=== PATIENT | female | born 1940 | race Caucasian/White ===

== ENCOUNTER → 2017-01-09 | Outpatient (CLI) | payer OTHER ==
[2017-01-09 18:20] LABS: Blood Urea Nitrogen 19 mg/dL (7-17); Non-African American GFR(MDRD) >60 (>60 ml/min/1.73 sqM)
--- NOTE | 2017-01-09 20:45 | CT ---
EXAMINATION TYPE: CT abdomen pelvis w con DATE OF EXAM: 01/09/2017 COMPARISON: NONE HISTORY: Pelvic pain with diarrhea CT DLP: 2700.6 mGycm Automated exposure control for dose reduction was used. TECHNIQUE: Helical acquisition of images was performed from the lung bases through the pelvis. CONTRAST: Performed with Oral Contrast and with IV Contrast, patient injected with 100 mL of Omnipaque 300. FINDINGS: Lung bases are clear. There is no pleural effusion. The liver spleen pancreas appear normal. There are clips from cholecystectomy. Bile ducts are not dil ated. There is no adrenal mass. Kidneys show satisfactory contrast opacification. There is no hydrone phrosis. There is no retroperitoneal adenopathy. Exam is limited by the obesity. There are multiple s igmoid diverticula. There is no sign of diverticulitis. There is no ascites. Appendix appears normal. I see no intestinal wall thickening. There are no dilated loops. There is multilevel moderate spondy losis in the lumbar spine. There is L3-4 bony spinal stenosis. Heart is probably enlarged. IMPRESSION: CARDIOMEGALY. SIGMOID DIVERTICULOSIS WITHOUT SIGN OF DIVERTICULITIS. NORMAL APPENDIX. MODERATE L3-4 BONY SPINAL STENOSIS.
== END ==
LOC: RADCTMAIN 17:50
PROVIDERS: ATTEND Family Medicine
DX: K57.30 Diverticulosis of large intestine without perforation or abscess without bleeding (principal); K57.32 Diverticulitis of large intestine without perforation or abscess without bleeding
CPT/HCPCS: 82565; 84520; 74177; 36415; Q9967

== ENCOUNTER 2019-09-08 07:09 | Day surgery (SDC) | payer MEDICARE, OTHER ==
[2019-09-04 14:16] VITALS: BMI 45.7
[~2019-09-08 07:09] MED LIST: ALPRAZolam 0.25 MG TAB PO PRN; ALPRAZolam 0.5 MG TAB PO PRN; ASPIRIN 325 MG TAB PO ONE; ATORVASTATIN 80 MG TAB PO ONE; NITROGLYCERIN SL TABS 0.4 MG TAB SUBLINGUAL PRN; SODIUM CHLORIDE 0.9% 1,000 ML in EMPTY BAG 1 BAG IV ONE; fentaNYL (PF) 50 MCG/ML 2 ML AMP ONE
[2019-09-08] MEDS ORDERED: LIDOCAINE 1% INJ 10MG/ML (20 ML MDV) ONE (07:13)
[2019-09-08 07:26] VITALS: TEMP 97.8
[2019-09-08 07:32] LABS: Glucose,Whole Blood 190 mg/dL (75-99)
[2019-09-08] MEDS: BENZOCAINE SPRAY 1 CAN TOPICAL ONE ×2 (07:38→07:41)
[2019-09-08] MEDS ORDERED: fentaNYL (PF) 50 MCG/ML 2 ML AMP IVP ONE (07:41)
[2019-09-08] MEDS: MIDAZOLAM 2 MG/2 ML VIAL IVP ONE ×2 (07:41→07:43)
[2019-09-08 07:42] LABS: Basophils % (A) 0 %; Eosinophils # (A) 0.1 k/uL (0-0.7); Eosinophils % (A) 2 %; HCT 36.3 % (34.0-46.0); HGB 12.2 gm/dL (11.4-16.0); Lymphocytes # (A) 1.7 k/uL (1.0-4.8); Lymphocytes % (A) 22 %; MCH 31.2 pg (25.0-35.0); MCHC 33.5 g/dL (31.0-37.0); MCV 93.1 fL (80.0-100.0); Mean Platelet Volume 8.8; Monocytes # (A) 0.3 k/uL (0-1.0); Monocytes % (A) 5 %; Neutrophils # (A) 5.2 k/uL (1.3-7.7); Neutrophils % (A) 70 %; Platelet Count 174 k/uL (150-450); RDW 12.8 % (11.5-15.5); WBC 7.4 k/uL (3.8-10.6)
[2019-09-08 07:52] LABS: Calcium 11.2 mg/dL (8.4-10.2); Potassium 3.6 mmol/L (3.5-5.1)
[2019-09-08] MEDS ORDERED: VERAPAMIL 2.5 MG/ML 2 ML AMP ONE (08:01)
[2019-09-08] MEDS ORDERED: LIDOCAINE 1% INJ 10MG/ML (20 ML MDV) SQ ONE (08:19)
[2019-09-08] MEDS ORDERED: VERAPAMIL SYRINGE (5 MG/10 ML) INTRAARTER ONE (08:20)
[2019-09-08] MEDS ORDERED: HEPARIN SODIUM 1,000 UN/ML (10ML VL) ONE (08:24)
[2019-09-08] MEDS ORDERED: HEPARIN SODIUM 1,000 UN/ML (10ML VL) IV ONE (08:25)
[2019-09-08] MEDS ORDERED: IOPAMIDOL-370 125ML BTL INJ ONE (08:35)
[2019-09-08] MEDS ORDERED: RX INFO: IV CONTRAST WAS GIVEN 1 EACH MISC MISCELLANE PRN (08:42)
[2019-09-08] MEDS ORDERED: TRIAMCINOLONE ACETONIDE EA NOSTRIL PRN (08:43)
[2019-09-08] MEDS ORDERED: SODIUM CHLORIDE 0.9% 1,000 ML IV SCH (08:45)
[2019-09-08] MEDS ORDERED: ALBUTEROL NEBULIZED 2.5 MG/3 ML INHALATION SCH (08:45)
--- NOTE | 2019-09-08 08:55 | ECHOT ---
TRANSESOPHAGEAL ECHOCARDIOGRAM INDICATION: Evaluation of mitral valve. PROCEDURE: After explaining the procedure to the patient, its risks and the complications, blood pressure, heart rate, O2 saturation was monitored. The throat was sprayed with Cetacaine. She received 2 mg intravenous Versed and 25 mcg intravenous fentanyl. The probe was introduced esophagus without difficulty. Images were obtained. Following that, the probe was removed with no immediate complication. FINDINGS: Left atrial size is dilated. Left atrial appendage is normal. Left ventricular size and systolic function normal. The aortic valve revealed mild fibrocalcific change of the aortic cusp with preserved opening. Mitral valve appears to be normal. Tricuspid valve is normal. Descending thoracic aorta appears to be normal. The interatrial septum is aneurysmal and there is evidence of patent foramen ovale with [id number] shunting with contrast bubble study. No pericardial effusion was noted. Descending thoracic aorta appears to be normal. Doppler, pulse wave and color Doppler obtained and revealed a moderate mitral and tricuspid regurgitation with evidence patent foramen ovale with [id number] shunting by color Doppler study. CONCLUSION: 1. Dilated left atrium with normal appearance left atrial appendage. 2. Normal left ventricular size and systolic function. 3. Mild atherosclerotic changes of the aortic valve with preserved opening. 4. Moderate mitral and tricuspid regurgitation. 5. Patent foramen ovale with [id number]-jk-[id number] shunting with aneurysmal interatrial septum. 6. Normal appearance of the descending thoracic aorta. 7. No pericardial effusion. MMODL / IJN: [id number] /
[2019-09-08] MEDS ORDERED: CLOPIDOGREL 75 MG TAB PO SCH (09:00)
[2019-09-08] MEDS ORDERED: NON FORMULARY DRUG (Mometasone/Formoterol [Dulera 200 Mcg/5 Mcg Inhaler] 2 PUFF) INHALATION SCH (09:00)
[2019-09-08] MEDS ORDERED: HYDROCHLOROTHIAZIDE PO SCH (09:00)
[2019-09-08] MEDS ORDERED: ESCITALOPRAM 20 MG TAB PO SCH (09:00)
[2019-09-08] MEDS ORDERED: LEVOTHYROXINE 88 MCG TAB PO SCH (09:00)
[2019-09-08] MEDS ORDERED: ISOSORBIDE MONONITRATE ER 30 MG TAB.ER.24H PO SCH (09:00)
[2019-09-08] MEDS ORDERED: MECLIZINE 25 MG TAB PO SCH (09:00)
[2019-09-08] MEDS ORDERED: LOSARTAN PO SCH (09:00)
[2019-09-08] MEDS ORDERED: MAGNESIUM OXIDE 400 MG TAB PO SCH (09:00)
[2019-09-08] MEDS ORDERED: METOPROLOL TARTRATE 25 MG TAB PO SCH (09:00)
[2019-09-08] MEDS ORDERED: GLIMEPIRIDE 4 MG TAB PO SCH (09:00)
[2019-09-08] MEDS ORDERED: [UNRECOGNIZED DRUG - OTHER] PO SCH (09:00)
[2019-09-08] MEDS ORDERED: DULoxetine HCL 60 MG CAPSULE.DR PO SCH (09:00)
[2019-09-08 09:05] VITALS: RESP 16
--- NOTE | 2019-09-08 09:10 | CC ---
CARDIAC CATHETERIZATION REPORT Mrs. Chaidez is a 79-year-old female with a history of hypertension, hyperlipidemia, diabetes mellitus, who has been complaining of progressive dyspnea on exertion underwent a myocardial perfusion imaging that revealed evidence of inducible ischemia involving the inferior wall. In view of that, recommendation was made regarding cardiac catheterization. The procedure as well as the risks and the complications were discussed with the patient who is in full understanding and agreement. PROCEDURE: Patient was brought to the labor relations teacher in a fasting semi-sedated state after receiving fentanyl and Benadryl and achieving moderate conscious sedated state. Using Xylocaine anesthesia in the Seldinger technique a 6-Luxembourger sheath was introduced in the right radial artery. Selective right and left coronary angiography was performed using 5- Luxembourger 3.5 right and left Noe catheter. Multiple views of the coronary artery, including hemiaxial views obtained. Following that, 5-Luxembourger tight pigtail catheter was introduced in the left ventricle and pressures were calculated. Following that, the catheter and sheaths were removed. Hemostasis was obtained with deployment of a TR band. There was no immediate complication. Patient was returned to her room in stable condition. Of note, the patient received 5000 units of intravenous heparin as well as intra-arterial verapamil. FINDINGS: LEFT MAIN: This is a large-sized vessel bifurcating in left circumflex, left anterior descending artery. The left main coronary artery has no evidence of high-grade stenosis. LEFT ANTERIOR DESCENDING ARTERY: This is a large-sized vessel reaching to the apex with a wraparound apex segment, tortuous throughout its course, giving rise to a very proximal diagonal branch of large caliber. The left anterior descending artery as well as branches have no evidence of obstructive coronary artery disease. LEFT CIRCUMFLEX: This is a nondominant large size vessel giving rise to a large obtuse marginal branch in the distal segment. The obtuse marginal branch at the takeoff has a 30% to 40% plaque. The rest of the vessel has no high-grade stenosis. RIGHT CORONARY ARTERY: This is a dominant vessel, moderate in caliber, giving rise to a PDA distally. The right coronary artery proximally has 20% to 30%. The rest of the vessel has no high-grade stenosis. LEFT VENTRICULOGRAM: Left ventriculogram was not performed. HEMODYNAMICS: There was no gradient across the aortic valve. The ventricular end-diastolic pressure vuong 14 to 16 mmHg. CONCLUSION: 1. Mild disease involving the left circumflex and the right coronary artery. 2. Right dominant circulation. RECOMMENDATION: In view of finding anatomy, I recommend continue medical therapy with the aggressive coronary risk modifications that have been initiated. Those findings and recommendation were discussed with the patient and her family and are in full understanding and agreement. Duration of procedure is 15 minutes. TRI / ELENA: [id number] /
--- NOTE | 2019-09-08 09:16 | LTR ---
September 08, 2019 Re: Rachel Chaidez Dear Dr. Xie: I had the opportunity to perform cardiac catheterization and transesophageal echocardiogram on Mrs. Chaidez at [facility] on the 08 of September and a full copy of the procedure note will be forwarded to you. In brief she was found to have mild disease in the right coronary artery and left circumflex with moderate mitral regurgitation and evidence of patent foramen ovale. At this time, I will continue present medical therapy with aggressive coronary risk modifications that have been initiated with close followup of her mitral valve regurgitation. Thank you again for allowing me the opportunity to participate in her care. Please feel free to call for any questions. Sincerely yours, Cat Soriano MD MMPATRICIAL / ELENA: [id number] /
[2019-09-08 12:14] VITALS: BP 144/68; PULSE 70
[2019-09-08] MEDS ORDERED: traZODone HCL 50 MG TAB PO SCH (21:00)
[2019-09-08] MEDS ORDERED: FAMOTIDINE 40 MG PO SCH (21:00)
[2019-09-13] MEDS ORDERED: NON FORMULARY DRUG (Rosuvastatin Calcium [Crestor] 5 MG) PO SCH (08:43)
== END 2019-09-08 14:05 | disposition home or self-care (01) ==
LOC: CATHCVL 07:09
PROVIDERS: ATTEND Internal Medicine Interventional Cardiology
DX: I25.10 Atherosclerotic heart disease of native coronary artery without angina pectoris (principal); I08.1 Rheumatic disorders of both mitral and tricuspid valves; Q21.1 Atrial septal defect; I70.0 Atherosclerosis of aorta; I10 Essential (primary) hypertension; E11.51 Type 2 diabetes mellitus with diabetic peripheral angiopathy without gangrene; I73.9 Peripheral vascular disease, unspecified; E78.2 Mixed hyperlipidemia; E66.9 Obesity, unspecified; N28.9 Disorder of kidney and ureter, unspecified; Z79.84 Long term (current) use of oral hypoglycemic drugs; Z79.890 Hormone replacement therapy; Z79.51 Long term (current) use of inhaled steroids; Z79.02 Long term (current) use of antithrombotics/antiplatelets; Z79.899 Other long term (current) drug therapy; Z68.42 Body mass index [BMI] 45.0-49.9, adult; Z82.49 Family history of ischemic heart disease and other diseases of the circulatory system
CPT/HCPCS: 93458; 93312; 93320; 93325; 80048; 85025; C1769 ×2; C1894; J2250; J2001; J3010; J1644; Q9967

== ENCOUNTER 2023-08-02 13:42 | Inpatient (IN) | payer OTHER, MEDICARE ==
[2023-08-02] MEDS ORDERED: IPRATROPIUM-ALBUTEROL 3 ML NEB INHALATION STA ×2 (13:59→17:14)
[2023-08-02] MEDS ORDERED: SODIUM CHLORIDE 0.9% 500 ML 500 ML IV STA (13:59)
--- NOTE | 2023-08-02 13:59 | ED ---
SOB HPI - General Stated Complaint: DOUG Time Seen by Provider: 08/02/23 13:58 Source: RN notes reviewed, old records reviewed Mode of arrival: EMS Limitations: no limitations - History of Present Illness Initial Comments: This is a 83-year-old female to the emergency department. Patient presents to the ER today for evaluation regards to service of breath weakness increasing we akness for 5 days. Patient's activity level are significantly diminished she's becoming increasingly fatigued and not feeling well. Patient herself complains of pain in her chest shortness of breath and her chest and some generalized abdominal pain. Otherwise no travel history no other complaints. Patient is currently denying fever MD Complaint: shortness of breath, cough -: days(s) (5) Severity: moderate Severity scale (1-10): 6 Consistency: constant Improves With: nothing Worsens With: nothing - Related Data Home Medications Medication Instructions Recorded Confirmed Phantom Pay-Med Formula Compound 5u 1 applic TOPICAL TID 08/02/23 08/02/23 Allergies Allergy/AdvReac Type Severity Reaction Status Date / Time house dust Allergy Cough Verified 09/04/19 13:11 Review of Systems ROS Statement: Those systems with pertinent positive or pertinent negative responses have been documented in the HPI. ROS Other: All systems not noted in ROS Statement are negative. Past Medical History Past Medical History: Asthma, COPD, CVA/TIA, Diabetes Mellitus, Deep Vein Thrombosis (DVT), GERD/Reflux, Hyperlipidemia, Hypertension, Memory Impairment, Osteoarthritis (OA), Thyroid Disorder Additional Past Medical History / Comment(s): states has incontinence. LEFT LEG DVT History of Any Multi-Drug Resistant Organisms: MRSA Date of last positivie culture/infection: 2011 MDRO Source:: cultures from stomach wound Past Surgical History: Back Surgery, Orthopedic Surgery, Tonsillectomy Additional Past Surgical History / Comment(s): bilateral hammer toe and heel spurs, "tummy tuck", VARICOSE VEIN SURGERY Past Anesthesia/Blood Transfusion Reactions: No Reported Reaction Past Psychological History: Depression Additional Psychological History / Comment(s): past suicide attempt 2006 Past Alcohol Use History: Rare Past Drug Use History: None Reported - Past Family History Mother Family Medical History: Coronary Artery Disease (CAD), Diabetes Mellitus Additional Family Medical History / Comment(s): age 96 Father Family Medical History: Coronary Artery Disease (CAD), Dementia Additional Family Medical History / Comment(s): age 95 General Exam General appearance: alert, in no apparent distress, anxious Head exam: Present: atraumatic, normocephalic, normal inspection Eye exam: Present: normal appearance, PERRL, EOMI. Absent: scleral icterus, conjunctival injection, periorbital swelling ENT exam: Present: normal exam, mucous membranes moist Neck exam: Present: normal inspection. Absent: tenderness, meningismus, lymphadenopathy Respiratory exam: Present: respiratory distress, wheezes, accessory muscle use, decreased breath sounds, prolonged expiratory. Absent: rales, rhonchi, stridor Cardiovascular Exam: Present: normal rhythm, tachycardia, normal heart sounds. Absent: systolic murmur, diastolic murmur, rubs, gallop, clicks GI/Abdominal exam: Present: soft, normal bowel sounds. Absent: distended, t enderness, guarding, rebound, rigid Extremities exam: Present: normal inspection, full ROM, normal capillary refill. Absent: tenderness, pedal edema, joint swelling, calf tenderness Back exam: Present: normal inspection Neurological exam: Present: alert, oriented X3, CN II-XII intact Psychiatric exam: Present: normal affect, normal mood Skin exam: Present: warm, dry, intact, normal color. Absent: rash Course Vital Signs 08/02/23 08/02/23 08/02/23 13:51 13:52 14:00 Temperature 98.5 F Pulse Rate 98 93 90 Respiratory 20 20 11 L Rate Blood Pressure 173/127 173/127 O2 Sat by Pulse 91 L 97 Oximetry Fraction of Inspired Oxygen (FIO2) 08/02/23 08/02/23 08/02/23 14:01 14:10 14:20 Temperature Pulse Rate 87 93 92 Respiratory 20 16 14 Rate Blood Pressure 187/111 187/117 O2 Sat by Pulse 97 97 98 Oximetry Fraction of Inspired Oxygen (FIO2) 08/02/23 08/02/23 08/02/23 14:30 14:33 14:40 Temperature Pulse Rate 94 96 93 Respiratory 21 18 Rate Blood Pressure 139/105 O2 Sat by Pulse 96 100 Oximetry Fraction of Inspired Oxygen (FIO2) 08/02/23 08/02/23 08/02/23 14:49 14:50 15:00 Temperature Pulse Rate 96 93 98 Respiratory 17 22 Rate Blood Pressure O2 Sat by Pulse 100 98 Oximetry Fraction of Inspired Oxygen (FIO2) 08/02/23 08/02/23 08/02/23 15:10 16:00 16:35 Temperature Pulse Rate 96 99 Respiratory 14 13 16 Rate Blood Pressure 107/81 111/88 O2 Sat by Pulse 98 98 Oximetry Fraction of Inspired Oxygen (FIO2) 08/02/23 08/02/23 08/02/23 17:00 18:00 18:47 Temperature Pulse Rate 97 107 H 92 Respiratory 24 15 Rate Blood Pressure 155/113 183/139 O2 Sat by Pulse 98 97 Oximetry Fraction of Inspired Oxygen (FIO2) 08/02/23 08/02/23 08/02/23 18:55 19:00 20:00 Temperature Pulse Rate 92 100 94 Respiratory 26 H 18 Rate Blood Pressure 159/143 172/107 O2 Sat by Pulse 94 L Oximetry Fraction of Inspired Oxygen (FIO2) 08/02/23 08/02/23 08/02/23 21:00 21:38 22:00 Temperature Pulse Rate 94 98 Respiratory 17 21 Rate Blood Pressure 168/102 169/141 O2 Sat by Pulse 98 Oximetry Fraction of 40 Inspired Oxygen (FIO2) - Reevaluation(s) Reevaluation #1: 08/02/23 15:38 Medical record is reviewed Reevaluation #2: 08/02/23 15:38 Patient symptoms are unchanged Reevaluation #3: Patient informed results and questions answered Reevaluation #4: 08/02/23 15:38 Was pt. sent in by a medical professional or institution (Dr. PA, DIRECTOR ENVIRONMENTAL, urgent care, hospital, or retirement...) When possible be specific @ -no Did you speak to anyone other than the patient for history (EMS, parent, family, police, friend...)? What history was obtained from this source @ -no Did you review nursing and triage notes (agree or disagree)? Why? @ -agree Are old charts reviewed (outside hosp., previous admission, EMS record, old EKG, old radiological studies, urgent care reports/EKG's, retirement records)? Report findings @ -yes Differential Diagnosis (chest pain, altered mental status, abdominal pain women, abdominal pain men, vaginal bleeding, weakness, fever, dyspnea, syncope, headache, dizziness, GI bleed, back pain, seizure, CVA, palpatations, mental health, musculoskeletal)? @ -prior EKG interpreted by me (3pts min.). @ -yes X-rays interpreted by me (1pt min.). @ -yes positive for CHF with pleural effusion CT interpreted by me (1pt min.). @ -no U/S interpreted by me (1pt. min.). @ -no What testing was considered but not performed or refused? (CT, X-rays, U/S, labs)? Why? @ -none What meds were considered but not given or refused? Why? @ -none Did you discuss the management of the patient with other professionals (professionals i.e. , PA, DIRECTOR ENVIRONMENTAL, lab, RT, psych nurse, social organization professor, surgical lead, teacher, legal officer, assistant case manager)? Give summary @ -no Was smoking cessation discussed for >3mins.? @ -no Was critical care preformed (if so, how long)? @ -yes31 Were there social determinants of health that impacted care today? How? (Homelessness, low income, unemployed, alcoholism, drug addiction, transportation, low edu. Level, literacy, decrease access to med. care, long-term, rehab)? @ -none Was there de-escalation of care discussed even if they declined (Discuss DNR or withdrawal of care, Hospice)? DNR status @ -no What co-morbidities impacted this encounter? (DM, HTN, Smoking, COPD, CAD, Cancer, CVA, ARF, Chemo, Hep., AIDS, mental health diagnosis, sleep apnea, morbid obesity)? @ -none Was patient admitted / discharged? Hospital course, mention meds given and route, prescriptions, significant lab abnormalities, going to OR and other pertinent info. @ - 83 female to the ER for evaluation today. Patient presents to the emergency department for evaluation regards to severe shortness of breath and chest pain. COPD, CHF. Patient be admitted for non-ST elevated FL cardiology evaluation spoke Admitted Undiagnosed new problem with uncertain prognosis? @ -no Drug Therapy requiring intensive monitoring for toxicity (Heparin, Nitro, Insulin, Cardizem)? @ -no Were any procedures done? @ -no Diagnosis/symptom? @ -CHF, COPD, non-ST elevated FL Acute, or Chronic, or Acute on Chronic? @ -Acute Uncomplicated (without systemic symptoms) or Complicated (systemic symptoms)? @ -Complicated Side effects of treatment? @ -no Exacerbation, Progression, or Severe Exacerbation? @ -exacerbation Poses a threat to life or bodily function? How? (Chest pain, USA, FL, pneumonia, PE, COPD, DKA, ARF, appy, cholecystitis, CVA, Diverticulitis, Homicidal, Suicidal, threat to staff... and all critical care pts) @ -yes is acute ACS and respiratory failure Reevaluation #5: Differential Chest Pain: Stable Angina, Unstable Angina, STEMI, NSTEMI Aortic Dissection, Pneumothorax, Musculoskeletal, Esophageal Spasm GERD, Cholecystitis, Pancreatitis, Zoster, this is not meant to be an all-inclusive list. Differential Dyspnea: Coronary syndrome, arrhythmia, tamponade, asthma, COPD, pulmonary embolism, pneumonia, pneumothorax, pulmonary effusion, anaphylaxis, diabetic ketoacidosis, flailed chest, pulmonary contusion, diaphragmatic rupture, anemia, neuromuscular, this is not meant to be an all-inclusive list. - Consultations Consultation #1: With [facility] to agrees to admit this patient Medical Decision Making - Medical Decision Making 83 female to the ER for evaluation today. Patient presents to the emergency department for evaluation regards to severe shortness of breath and chest pain. COPD, CHF. Patient be admitted for non-ST elevated FL cardiology evaluation with continued supportive care - Lab Data Result diagrams: 08/08/23 09:20 08/11/23 07:28 Lab Results 08/02/23 08/02/23 08/02/23 Range/Units 13:59 13:59 13:59 WBC 8.8 (3.8-10.6) k/uL RBC 3.76 L (3.80-5.40) m/uL Hgb 11.7 (11.4-16.0) gm/dL Hct 35.3 (34.0-46.0) % MCV 93.9 (80.0-100.0) fL MCH 31.1 (25.0-35.0) pg MCHC 33.1 (31.0-37.0) g/dL RDW 12.9 (11.5-15.5) % Plt Count 188 (150-450) k/uL MPV 8.2 Neutrophils % 84 % Lymphocytes % 11 % Monocytes % 3 % Eosinophils % 2 % Basophils % 0 % Neutrophils # 7.4 (1.3-7.7) k/uL Lymphocytes # 1.0 (1.0-4.8) k/uL Monocytes # 0.2 (0-1.0) k/uL Eosinophils # 0.1 (0-0.7) k/uL Basophils # 0.0 (0-0.2) k/uL PT 10.9 (10.0-12.5) sec INR 1.0 (<1.2) APTT 20.0 L (22.0-30.0) sec Sodium 136 L (137-145) mmol/L Potassium 3.9 (3.5-5.1) mmol/L Chloride 106 (98-107) mmol/L Carbon Dioxide 22 (22-30) mmol/L Anion Gap 8 mmol/L BUN 26 H (7-17) mg/dL Creatinine 1.28 H (0.52-1.04) mg/dL Est GFR (CKD-EPI)AfAm 46 (>60 ml/min/1.73 sqM) Est GFR (CKD-EPI)NonAf 40 (>60 ml/min/1.73 sqM) Glucose 181 H (74-99) mg/dL Calcium 10.1 (8.4-10.2) mg/dL Magnesium 1.5 L (1.6-2.3) mg/dL Total Bilirubin 0.4 (0.2-1.3) mg/dL AST 21 (14-36) U/L ALT 15 (4-34) U/L Alkaline Phosphatase 92 (38-126) U/L Troponin I (0.000-0.034) ng/mL NT-Pro-B Natriuret Pep 55993 pg/mL Total Protein 5.8 L (6.3-8.2) g/dL Albumin 3.2 L (3.5-5.0) g/dL Influenza Type A (PCR) (Not Detectd) Influenza Type B (PCR) (Not Detectd) RSV (PCR) (Not Detectd) SARS-CoV-2 (PCR) (Not Detectd) 08/02/23 08/02/23 Range/Units 13:59 14:04 WBC (3.8-10.6) k/uL RBC (3.80-5.40) m/uL Hgb (11.4-16.0) gm/dL Hct (34.0-46.0) % MCV (80.0-100.0) fL MCH (25.0-35.0) pg MCHC (31.0-37.0) g/dL RDW (11.5-15.5) % Plt Count (150-450) k/uL MPV Neutrophils % % Lymphocytes % % Monocytes % % Eosinophils % % Basophils % % Neutrophils # (1.3-7.7) k/uL Lymphocytes # (1.0-4.8) k/uL Monocytes # (0-1.0) k/uL Eosinophils # (0-0.7) k/uL Basophils # (0-0.2) k/uL PT (10.0-12.5) sec INR (<1.2) APTT (22.0-30.0) sec Sodium (137-145) mmol/L Potassium (3.5-5.1) mmol/L Chloride (98-107) mmol/L Carbon Dioxide (22-30) mmol/L Anion Gap mmol/L BUN (7-17) mg/dL Creatinine (0.52-1.04) mg/dL Est GFR (CKD-EPI)AfAm (>60 ml/min/1.73 sqM) Est GFR (CKD-EPI)NonAf (>60 ml/min/1.73 sqM) Glucose (74-99) mg/dL Calcium (8.4-10.2) mg/dL Magnesium (1.6-2.3) mg/dL Total Bilirubin (0.2-1.3) mg/dL AST (14-36) U/L ALT (4-34) U/L Alkaline Phosphatase (38-126) U/L Troponin I 0.106 H* (0.000-0.034) ng/mL NT-Pro-B Natriuret Pep pg/mL Total Protein (6.3-8.2) g/dL Albumin (3.5-5.0) g/dL Influenza Type A (PCR) Not Detected (Not Detectd) Influenza Type B (PCR) Not Detected (Not Detectd) RSV (PCR) Not Detected (Not Detectd) SARS-CoV-2 (PCR) Not Detected (Not Detectd) - EKG Data -: EKG Interpreted by Me (EKG is sinus tachycardia 100 WV 178 QRS 92 QTC 400) - Radiology Data Radiology results: report reviewed (CXR is positive for CHF with effusion), image reviewed Critical Care Time Critical Care Time: Yes Total Critical Care Time: 31 Disposition Clinical Impression: Acute exacerbation of chronic obstructive pulmonary disease, NSTEMI (non-ST elevated myocardial infarction), ACS (acute coronary syndrome), Weakness, Congestive heart failure, PAT (acute kidney injury), Pleural effusion Disposition: ADMITTED IP TO THIS HOSP Condition: Serious Is patient prescribed a controlled substance at d/c from ED?: No Time of Disposition: 17:00
[2023-08-02 14:18] LABS: Basophils % (A) 0 %; Eosinophils # (A) 0.1 k/uL (0-0.7); Eosinophils % (A) 2 %; HCT 35.3 % (34.0-46.0); HGB 11.7 gm/dL (11.4-16.0); Lymphocytes % (A) 11 %; MCH 31.1 pg (25.0-35.0); MCHC 33.1 g/dL (31.0-37.0); MCV 93.9 fL (80.0-100.0); Mean Platelet Volume 8.2; Monocytes # (A) 0.2 k/uL (0-1.0); Monocytes % (A) 3 %; Neutrophils # (A) 7.4 k/uL (1.3-7.7); Neutrophils % (A) 84 %; Platelet Count 188 k/uL (150-450); RBC 3.76 m/uL (3.80-5.40); RDW 12.9 % (11.5-15.5); WBC 8.8 k/uL (3.8-10.6)
--- NOTE | 2023-08-02 14:31 | XR ---
EXAMINATION TYPE: XR chest 1V portable DATE OF EXAM: 08/02/2023 2:16 PM CLINICAL INDICATION:Female, 83 years old with history of sob; [facility] COMPARISON: None TECHNIQUE: XR chest 1V portable Frontal view of the chest. FINDINGS: Lungs/Pleura: No evidence of focal consolidation or pneumothorax. Blunting of the costophrenic angles is present. Pulmonary vascularity: Pulmonary vascular congestion. Heart/mediastinum: Cardiomediastinal silhouette is enlarged and stable. Musculoskeletal: No acute osseous pathology. IMPRESSION: Cardiomegaly, pulmonary vascular congestion and bilateral pleural effusions. Correlate with BNP for c ongestive heart failure.
[2023-08-02 14:36] LABS: ALT 15 U/L (4-34); AST 21 U/L (14-36); African American GFR (CKD) 46 (>60 ml/min/1.73 sqM); Albumin 3.2 g/dL (3.5-5.0); Alkaline Phosphatase 92 U/L (38-126); Anion Gap 8 mmol/L; Blood Urea Nitrogen 26 mg/dL (7-17); Calcium 10.1 mg/dL (8.4-10.2); Carbon Dioxide 22 mmol/L (22-30); Chloride 106 mmol/L (98-107); Glucose 181 mg/dL (74-99); Magnesium 1.5 mg/dL (1.6-2.3); Non-African American GFR(CKD) 40 (>60 ml/min/1.73 sqM); Potassium 3.9 mmol/L (3.5-5.1); Sodium 136 mmol/L (137-145); Total Bilirubin 0.4 mg/dL (0.2-1.3); Total Protein 5.8 g/dL (6.3-8.2)
[2023-08-02 14:41] LABS: Prothrombin Time 10.9 sec (10.0-12.5)
[2023-08-02 14:45] LABS: NT-Pro-B-Type Natriuretic Pept 17200 pg/mL
[2023-08-02] MEDS ORDERED: ASPIRIN 81 MG PO STA (17:10)
[2023-08-02] MEDS ORDERED: HEPARIN SODIUM 1,000 UN/ML (10ML VL) IV ONE (17:10)
[2023-08-02] MEDS ORDERED: NITROGLYCERIN SL TABS 0.4 MG TAB SUBLINGUAL PRN (17:10)
[2023-08-02] MEDS ORDERED: MORPHINE SULFATE 4 MG/ML SYRINGE IV PRN (17:10)
[2023-08-02] MEDS: SODIUM CHLORIDE 0.9% 1,000 ML IV SCH (17:28)
[2023-08-02] MEDS: HEPARIN SOD,PORK IN 0.45% NACL 25,000 UNIT in 0.45% NACL 1 250ML.BAG IV SCH (17:32)
[2023-08-02] MEDS ORDERED: LORazepam 2 MG/ML INJ IV STA (21:38)
[2023-08-02] MEDS: METOPROLOL TARTRATE 25 MG TAB PO SCH (22:00)
[2023-08-03] MEDS: SODIUM CHLORIDE 0.9% 1,000 ML IV SCH (05:17)
[2023-08-03 06:26] LABS: Glucose,Whole Blood 138 mg/dL (70-110)
[2023-08-03] MEDS ORDERED: FAMOTIDINE 20 MG/2 ML VIAL IV SCH (09:00)
[2023-08-03] MEDS ORDERED: ASPIRIN 325 MG TAB PO SCH (09:00)
[2023-08-03 09:07] LABS: Mean Platelet Volume 8.9; Platelet Count 173 k/uL (150-450)
--- NOTE | 2023-08-03 09:12 | P.HPIM ---
History of Present Illness This is a pleasant 83 years old female with multiple medical problems as below. Presents because she has coughing her main concerns are associated with dyspnea over the last few days. She used to use oxygen at night about stopped using her oxygen while ago however over the last for 5 days she went back to her oxygen because of her shortness of breath. No chest pain. She has headache on and off, currently she does not have any headache no dizziness no weakness or numbness. Patient feels generally weak. She is complaining of from diarrhea but stopped about 2 days ago she doesn't have bowel movements She is complaining of from lower abdominal pain on the right side especially with coughing over the last 3 days, described as mild pain. Also she had some back pain earlier but since resolved now. No vomiting. She feels generally weak. Denies any specific urinary complaints no dysuria or urgency. No smoking alcohol or illicit drugs. Patient Vitas looks stable, her oxygen saturation is 99% on 6 L oxygen via nasal cannula and blood pressure 147/82. CBC, INR and liver enzymes were unremarkable. Attending is elevated at 1.28 which is close to baseline it was 1.3 in 2019 and 2020, no other recordings and doctor's assistant. On his elevated 0.10, 0.09 and 0.10. Magnesium 1.5 which is replaced. Influenza A and type B, RSV, SARS (coronavirus) are and detected Chest x-ray showing cardiomegaly with pulmonary vascular congestion suspicious for CHF [place] [address]. EKG showing sinus tachycardia at [address]-T changes. QTC is 400. Review of Systems Review of systems CONSTITUTIONAL: No fever, no malaise, no fatigue. HEENT: No recent visual problems or hearing problems. Denied any sore throat. CARDIOVASCULAR: No orthopnea, PND, no palpitations, no syncope. PULMONARY: No shortness of breath, no cough, no hemoptysis. GASTROINTESTINAL: No diarrhea, no nausea, no vomiting, no abdominal pain. Normoactive bowel sounds. NEUROLOGICAL: No headaches, no weakness, no numbness. HEMATOLOGICAL: Denies any bleeding or petechiae. GENITOURINARY: Denies any burning micturition, frequency, or urgency. MUSCULOSKELETAL/RHEUMATOLOGICAL: Denies any joint pain, swelling, or any muscle pain. ENDOCRINE: Denies any polyuria or polydipsia. Past Medical History Past Medical History: Asthma, COPD, CVA/TIA, Diabetes Mellitus, Deep Vein Thrombosis (DVT), GERD/Reflux, Hyperlipidemia, Hypertension, Memory Impairment, Osteoarthritis (OA), Thyroid Disorder Additional Past Medical History / Comment(s): states has incontinence. LEFT LEG DVT History of Any Multi-Drug Resistant Organisms: MRSA Date of last positivie culture/infection: 2011 MDRO Source:: cultures from stomach wound Past Surgical History: Back Surgery, Orthopedic Surgery, Tonsillectomy Additional Past Surgical History / Comment(s): bilateral hammer toe and heel spurs, "tummy tuck", VARICOSE VEIN SURGERY Past Anesthesia/Blood Transfusion Reactions: No Reported Reaction Smoking Status: Never smoker - Past Family History Mother Family Medical History: Coronary Artery Disease (CAD), Diabetes Mellitus Additional Family Medical History / Comment(s): age 96 Father Family Medical History: Coronary Artery Disease (CAD), Dementia Additional Family Medical History / Comment(s): age 95 Medications and Allergies Home Medications Medication Instructions Recorded Confirmed Type ZwittleMed Formula Compound 5u 1 applic TOPICAL TID 08/02/23 08/02/23 History Allergies Allergy/AdvReac Type Severity Reaction Status Date / Time house dust Allergy Cough Verified 09/04/19 13:11 Physical Exam Vitals: Vital Signs Temp Pulse Pulse Resp BP BP Pulse Ox 08/03/23 02:00 69 20 08/03/23 00:00 69 20 147/82 99 08/02/23 23:05 69 20 174/79 99 08/02/23 22:44 98.7 F 08/02/23 22:00 98 21 169/141 98 08/02/23 21:38 08/02/23 21:00 94 17 168/102 08/02/23 20:00 94 18 172/107 08/02/23 19:00 100 26 H 159/143 94 L 08/02/23 18:55 92 08/02/23 18:47 92 08/02/23 18:00 107 H 15 183/139 97 08/02/23 17:00 97 24 155/113 98 08/02/23 16:35 16 08/02/23 16:00 99 13 111/88 98 08/02/23 15:10 96 14 107/81 98 08/02/23 15:00 98 22 98 08/02/23 14:50 93 17 100 08/02/23 14:49 96 08/02/23 14:40 93 18 139/105 100 08/02/23 14:33 96 08/02/23 14:30 94 21 96 08/02/23 14:20 92 14 98 08/02/23 14:10 93 16 187/117 97 08/02/23 14:01 87 20 187/111 97 08/02/23 14:00 90 11 L 173/127 97 08/02/23 13:52 98.5 F 93 20 173/127 08/02/23 13:51 98 20 91 L FiO2 08/03/23 02:00 08/03/23 00:00 08/02/23 23:05 08/02/23 22:44 08/02/23 22:00 08/02/23 21:38 40 08/02/23 21:00 08/02/23 20:00 08/02/23 19:00 08/02/23 18:55 08/02/23 18:47 08/02/23 18:00 08/02/23 17:00 08/02/23 16:35 08/02/23 16:00 08/02/23 15:10 08/02/23 15:00 08/02/23 14:50 08/02/23 14:49 08/02/23 14:40 08/02/23 14:33 08/02/23 14:30 08/02/23 14:20 08/02/23 14:10 08/02/23 14:01 08/02/23 14:00 08/02/23 13:52 08/02/23 13:51 Intake and Output 08/02/23 08/02/23 08/03/23 14:59 22:59 06:59 Intake Total 77.5 Balance 77.5 Intake: Intake, IV Titration 77.5 Amount Heparin Sod,Pork in 0.45% 77.5 NaCl 25,000 unit In 0.45 % NaCl 1 250ml.bag @ 8. 8184 UNITS/KG/HR 10 mls/ hr IV .Q24H [facility] Rx#: [id number] Other: Voiding Method Diaper External Catheter # Voids 1 Weight 113.398 kg 96.6 kg GENERAL: The patient is alert and oriented x3, not in any acute distress. Well developed, well nourished. HEENT: Pupils are round and equally reacting to light. EOMI. No scleral icterus. No conjunctival pallor. Normocephalic, atraumatic. No pharyngeal erythema. No thyromegaly. CARDIOVASCULAR: S1 and S2 present. No murmurs, rubs, or gallops. -PULMONARY: Chest is clear to auscultation, no wheezing , no crackles. Right- sided basal crepitation ABDOMEN: Soft, nontender, nondistended, normoactive bowel sounds. No palpable organomegaly. MUSCULOSKELETAL: No joint swelling or deformity. -EXTREMITIES: No cyanosis, clubbing, or pedal edema. 1-2+ pitting like edema NEUROLOGICAL: Gross neurological examination did not reveal any focal deficits. SKIN: No rashes. no petechiae. Results CBC & Chem 7: 08/02/23 13:59 08/02/23 13:59 Labs: Abnormal Lab Results - Last 24 Hours (Table) 08/02/23 08/02/23 08/02/23 Range/Units 13:59 13:59 13:59 RBC 3.76 L (3.80-5.40) m/uL APTT 20.0 L (22.0-30.0) sec Sodium 136 L (137-145) mmol/L BUN 26 H (7-17) mg/dL Creatinine 1.28 H (0.52-1.04) mg/dL Glucose 181 H (74-99) mg/dL POC Glucose (mg/dL) (70-110) mg/dL Magnesium 1.5 L (1.6-2.3) mg/dL Troponin I (0.000-0.034) ng/mL Total Protein 5.8 L (6.3-8.2) g/dL Albumin 3.2 L (3.5-5.0) g/dL 08/02/23 08/02/23 08/02/23 Range/Units 13:59 17:39 20:11 RBC (3.80-5.40) m/uL APTT (22.0-30.0) sec Sodium (137-145) mmol/L BUN (7-17) mg/dL Creatinine (0.52-1.04) mg/dL Glucose (74-99) mg/dL POC Glucose (mg/dL) (70-110) mg/dL Magnesium (1.6-2.3) mg/dL Troponin I 0.106 H* 0.092 H* 0.101 H* (0.000-0.034) ng/mL Total Protein (6.3-8.2) g/dL Albumin (3.5-5.0) g/dL 08/02/23 08/03/23 Range/Units 23:38 06:23 RBC (3.80-5.40) m/uL APTT 37.1 H (22.0-30.0) sec Sodium (137-145) mmol/L BUN (7-17) mg/dL Creatinine (0.52-1.04) mg/dL Glucose (74-99) mg/dL POC Glucose (mg/dL) 138 H (70-110) mg/dL Magnesium (1.6-2.3) mg/dL Troponin I (0.000-0.034) ng/mL Total Protein (6.3-8.2) g/dL Albumin (3.5-5.0) g/dL Thrombosis Risk Factor Assmnt - Choose All That Apply Any of the Below Risk Factors Present?: Yes Each Factor Represents 1 point: Abnormal pulmonary function (COPD), Acute NV, Heart failure (<1month), Obesity (BMI >25), Swollen legs (current) Other Risk Factors: Yes Each Risk Factor Represents 2 Points: Patient confined to bed Each Risk Factor Represents 3 Points: Age 75 years or older, History of DVT/PE Thrombosis Risk Factor Assessment Total Risk Factor Score: 13 Thrombosis Risk Factor Assessment Level: High Risk Assessment and Plan Assessment: non-STEMI acute CHF, unknown ejection fraction Acute hypoxic respiratory failure Abdominal pain Obesity with BMI of 39 Chronic kidney disease stage III. Plan: continue with heparin drip and aspirin, recurrentlu 325 mg His IV fluids discontinued Start IV Lasix 20 mg twice a day Continue with fluid restriction 1200 mL per day. Cardiology consult Labs and medication were reviewed.. Continue same treatment. Continue with symptomatic treatment. Resume home medication. Monitor labs and vitals. DVT and GI prophylaxis. Further recommendations as per clinical course of the patient DVT prophylaxis: heparin GI Prophylaxis: Pepcid PT/OT: Pending Prognosis is guarded
[2023-08-03] MEDS: METOPROLOL TARTRATE 25 MG TAB PO SCH ×2 (09:41→22:41)
--- NOTE | 2023-08-03 10:00 | CA ---
Transthoracic Echo Report Name: Rachel Chaidez Age: 83 Gender: F : 1940 Exam Date: 08/02/2023 18:29 Exam Location: [place] [facility] Ht (in): 62 Wt (lb): 250 Ordering Physician: Valentin Marc DO Attending/Referring Phys: [id number], Tari Director Of Workforce Development Lisa Finley RDCS Procedure CPT: Indications: ACS Cardiac Hx: Technical Quality: Fair Contrast 1: Total Dose (mL): Contrast 2: Total Dose (mL): MEASUREMENTS (Male / Female) Normal Values 2D ECHO LV Diastolic Diameter PLAX 4.7 cm 4.2 - 5.9 / 3.9 - 5.3 cm LV Systolic Diameter PLAX 4.1 cm IVS Diastolic Thickness 1.3 cm 0.6 - 1.0 / 0.6 - 0.9 cm LVPW Diastolic Thickness 1.4 cm 0.6 - 1.0 / 0.6 - 0.9 cm LV Relative Wall Thickness 0.6 RV Internal Dim ED PLAX 3.4 cm LA Systolic Diameter LX 4.4 cm 3.0 - 4.0 / 2.7 - 3.8 cm LV Diastolic Volume MOD BP 108.3 cm??? 67 - 155 / 56 - 104 cm??? LV Systolic Volume MOD BP 54.0 cm??? - 58 / 19 - 49 cm??? LV Ejection Fraction MOD BP 50.1 % >= 55 % LV Cardiac Index MOD BP 2504.9 cm???/min???m??? LV Diastolic Volume MOD 4C 98.1 cm??? LV Systolic Volume MOD 4C 54.1 cm??? LV Ejection Fraction MOD 4C 44.9 % LV Cardiac Index MOD 4C 2033.3 cm???/min???m??? LV Diastolic Length 4C 7.5 cm LV Systolic Length 4C 5.6 cm LV Diastolic Volume MOD 2C 118.0 cm??? LV Systolic Volume MOD 2C 50.0 cm??? LV Ejection Fraction MOD 2C 57.6 % LV Cardiac Index MOD 2C 3136.7 cm???/min???m??? LV Diastolic Length 2C 7.7 cm LV Systolic Length 2C 6.2 cm LA Volume 91.1 cm??? - 58 / 22 - 52 cm??? LA Volume Index 39.7 cm???/m??? 16 - 28 cm???/m??? M-MODE Aortic Root Diameter MM 3.6 cm MV E Point Septal Separation 1.1 cm AV Cusp Separation MM 2.3 cm DOPPLER AV Peak Velocity 238.4 cm/s AV Peak Gradient 22.7 mmHg MV Area PHT 4.6 cm??? Mitral E Point Velocity 134.3 cm/s Mitral A Point Velocity 137.8 cm/s Mitral E to A Ratio 1.0 MV Deceleration Time 164.3 ms MV E' Velocity 6.4 cm/s Mitral E to MV E' Ratio 21.1 TR Peak Velocity 319.7 cm/s TR Peak Gradient 40.9 mmHg Right Ventricular Systolic Press 54.0 mmHg FINDINGS Left Ventricle Left ventricular ejection fraction is estimated at 40-45 %. Left ventricular cavity size normal. Moderately increased septal wall thickness. Moderately increased posterior wall thickness. Mildly increased left ventricular diastolic volume. Mildly increased left ventricular systolic volume. Mildly decreased left ventricular ejection fraction. Right Ventricle Mild right ventricular dilatation. Moderate to severe pulmonary hypertension. Right ventricular systolic pressure estimated at 54 mm hg. Right Atrium Normal right atrial size. Left Atrium Moderately increased left atrial diameter. Moderately increased left atrial volume. Mildly increased left atrial area. Mitral Valve Mitral valve thickened. Moderate mitral annular calcification. Aortic Valve Trileaflet aortic valve. Thickened aortic valve without stenosis. Tricuspid Valve Structurally normal tricuspid valve. Mild tricuspid regurgitation. Pulmonic Valve Structurally normal pulmonic valve. No pulmonic regurgitation. Pericardium No pericardial effusion. Aorta Normal size aortic root and proximal ascending aorta. CONCLUSIONS Left ventricular ejection fraction 4045% Moderately increased left ventricular wall thickness Moderately dilated left atrium Moderate mitral calcification Mild tricuspid regurgitation RVSP 54 Previewed by: Dr. Angelo Poole DO (Electronically Signed) Final Date: 03 August 2023 09:59
[2023-08-03] MEDS: FUROSEMIDE 10 MG/ML 2 ML VIAL IV SCH (11:20)
[2023-08-03 11:34] LABS: Glucose,Whole Blood 129 mg/dL (70-110)
[2023-08-03 13:45] LABS: Chol/HDL Ratio 3.43 Ratio; LDL Cholesterol,Calculated 114.3 mg/dL (0.0-131.0); VLDL Calculation 13.96 mg/dL (5.00-40.00)
[2023-08-03 16:28] LABS: Glucose,Whole Blood 129 mg/dL (70-110)
[2023-08-03] MEDS: HEPARIN SOD,PORK IN 0.45% NACL 25,000 UNIT in 0.45% NACL 1 250ML.BAG IV SCH (17:08)
[2023-08-03 20:25] LABS: Glucose,Whole Blood 164 mg/dL (70-110)
--- NOTE | 2023-08-03 21:40 | P.CRDCN ---
History of Present Illness Consult date: 08/03/23 History of present illness: HISTORY OF PRESENTING ILLNESS 83-year-old female visits to the hospital because of worsening cough and dyspnea on exertion for last few days. Patient uses nighttime oxygen on and off but for last 5 days she has not been using home oxygen. Or the same course she has got more short of breath. She denied having any chest pain chest pressure. Because of her coughing repeatedly, she did report some chest pain whenever she would cough along with some right flank pain with coughing. On admission she had evidence of elevated troponin of 0.1, 0.09, 0.1. This troponin has a flat pattern of elevation BNP was around 17,000 Her creatinine was 1.28. Her baseline appears to be 1.3. Hemoglobin 11. Blood pressure 128/78, pulse 57. Of her ECG showed sinus rhythm with PACs and PVCs. Her echo cardiogram showed an EF of 40-45%. Moderate LVH, moderate dilatation She had a cardiac catheterization in 2020 which showed mild nonobstructive disease. ROXANNA in 2020 moderate MR, PFO REVIEW OF SYSTEMS 14 point review of system is negative except what is mentioned above in HPI. PHYSICAL EXAMINATION Vital signs reviewed. Head: Normocephalic. Eyes: Sclerae nonicteric. Neck: Brisk carotid upstroke, no jugular venous distention. Lungs: Clear to auscultation. Heart: Regular rate and rhythm, S1-S2, no S3, no murmur or rub. Abdomen: Soft nontender, positive bowel sounds no organomegaly. Extremities: No edema, intact distal pulses. Neuro: Alert, oritented, no focal deficits ASSESSMENT Acute tracheobronchitis Acute HFrEF exacerbation, EF 40-45% moderate LVH Frequent PACs and PVCs Mild elevation of troponin with a flat pattern, likely type II in setting of demand supply mismatch. Myocardial injury without infarction Mild CAD as per 2020 PFO Moderate MR RVSP 54, moderate pulmonary hypertension PLAN Most likely elevation of troponin with a flat pattern due to congestive heart failure and hypoxia. Continue IV heparin drip for 48 hours Aspirin 81 mg, atorvastatin 20 mg daily Metoprolol 25 mg twice a day Losartan 12.5 mg IV Lasix 40 mg twice a day Nuclear stress test to evaluate for any of CAD outpatient. Patient also has wheezing and appears to have mild bronchitis. She would benefit from a short course of steroids. Primary team to evaluate. I had a discussion about CODE STATUS with the family. They will discuss and decide Past Medical History Past Medical History: Asthma, COPD, CVA/TIA, Diabetes Mellitus, Deep Vein Thrombosis (DVT), GERD/Reflux, Hyperlipidemia, Hypertension, Memory Impairment, Osteoarthritis (OA), Thyroid Disorder Additional Past Medical History / Comment(s): states has incontinence. LEFT LEG DVT History of Any Multi-Drug Resistant Organisms: MRSA Date of last positivie culture/infection: 2011 MDRO Source:: cultures from stomach wound Past Surgical History: Back Surgery, Orthopedic Surgery, Tonsillectomy Additional Past Surgical History / Comment(s): bilateral hammer toe and heel spurs, "tummy tuck", VARICOSE VEIN SURGERY Past Anesthesia/Blood Transfusion Reactions: No Reported Reaction Smoking Status: Never smoker - Past Family History Mother Family Medical History: Coronary Artery Disease (CAD), Diabetes Mellitus Additional Family Medical History / Comment(s): age 96 Father Family Medical History: Coronary Artery Disease (CAD), Dementia Additional Family Medical History / Comment(s): age 95 Medications and Allergies Home Medications Medication Instructions Recorded Confirmed Type Camalize SL Formula Compound 5u 1 applic TOPICAL TID 08/02/23 08/02/23 History Allergies Allergy/AdvReac Type Severity Reaction Status Date / Time house dust Allergy Cough Verified 09/04/19 13:11 Physical Exam Vitals: Vital Signs Temp Pulse Pulse Resp BP BP Pulse Ox 08/03/23 16:10 97.8 F 46 L 18 120/66 92 L 08/03/23 12:20 97.9 F 57 L 18 128/78 100 08/03/23 08:30 98.1 F 59 L 18 111/81 100 08/03/23 04:00 55 L 16 128/79 97 08/03/23 02:00 69 20 08/03/23 00:00 69 20 147/82 99 08/02/23 23:05 69 20 174/79 99 08/02/23 22:44 98.7 F 08/02/23 22:00 98 21 169/141 98 Intake and Output 08/03/23 08/03/23 08/03/23 06:59 14:59 22:59 Intake Total 77.5 292.5 Balance 77.5 292.5 Intake: Intake, IV Titration 77.5 172.5 Amount Heparin Sod,Pork in 0.45% 77.5 172.5 NaCl 25,000 unit In 0.45 % NaCl 1 250ml.bag @ 8. 8184 UNITS/KG/HR 10 mls/ hr IV .Q24H [facility] Rx#: [id number] Oral 120 Other: Voiding Method Diaper Diaper External Catheter External Catheter # Voids 1 1 # Bowel Movements 0 1 Weight 96.6 kg Results 08/03/23 07:20 08/02/23 13:59 Coagulation 08/02/23 08/03/23 Range/Units 23:38 07:20 APTT 37.1 H 54.1 H (22.0-30.0) sec Lipids 08/03/23 Range/Units 07:20 Triglycerides 69.80 (0.00-149.00) mg/dL Cholesterol 181.00 (0.00-200.00) mg/dL HDL Cholesterol 52.70 (40.00-60.00) mg/dL Cholesterol/HDL Ratio 3.43 Ratio CBC 08/03/23 Range/Units 07:20 Plt Count 173 (150-450) k/uL Current Medications Generic Name Dose Route Start Last Admin Trade Name Freq PRN Reason Stop Dose Admin Albuterol Sulfate 2.5 mg 08/02/23 17:14 Albuterol Nebulized 2.5 Mg/3 Ml INHALATION RT-QID PRN Shortness Of Breath Or Wheezing Aspirin 81 mg 08/04/23 09:00 Aspirin 81 Mg PO DAILY [facility] Atorvastatin Calcium 20 mg 08/03/23 21:45 Atorvastatin 20 Mg Tab PO DAILY [facility] Famotidine 20 mg 08/04/23 09:00 Famotidine 20 Mg/2 Ml Vial IV Q24HR [facility] Furosemide 40 mg 08/03/23 21:45 Furosemide 10 Mg/Ml 4 Ml Vial IV Q12HR [facility] Heparin Sodium/Sodium Chloride 250 mls @ 10 mls/hr 08/02/23 17:15 08/03/23 17:08 25,000 unit/ Sodium Chloride IV 10.58 units/kg/hr .Q24H [facility] 12 mls/hr Administration Protocol 8.8184 UNITS/KG/HR Metoprolol Tartrate 25 mg 08/02/23 21:00 08/03/23 09:41 Metoprolol Tartrate 25 Mg Tab PO 25 mg BID EVE Administration Morphine Sulfate 4 mg 08/02/23 17:10 Morphine Sulfate 4 Mg/Ml Syringe IV Q4HR PRN Chest Pain Nitroglycerin 0.4 mg 08/02/23 17:10 Nitroglycerin Sl Tabs 0.4 Mg Tab SUBLINGUAL Q5M PRN Chest Pain Intake and Output 08/03/23 08/03/23 08/03/23 06:59 14:59 22:59 Intake Total 77.5 292.5 Balance 77.5 292.5 Intake: Intake, IV Titration 77.5 172.5 Amount Heparin Sod,Pork in 0.45% 77.5 172.5 NaCl 25,000 unit In 0.45 % NaCl 1 250ml.bag @ 8. 8184 UNITS/KG/HR 10 mls/ hr IV .Q24H [facility] Rx#: [id number] Oral 120 Other: Voiding Method Diaper Diaper External Catheter External Catheter # Voids 1 1 # Bowel Movements 0 1 Weight 96.6 kg 08/03/23 07:20 08/02/23 13:59
[2023-08-03] MEDS: FUROSEMIDE 10 MG/ML 4 ML VIAL IV SCH (22:41)
[2023-08-03] MEDS: ATORVASTATIN 20 MG TAB PO SCH (22:41)
[2023-08-04] MEDS: FUROSEMIDE 10 MG/ML 2 ML VIAL IV SCH (00:04)
[2023-08-04 05:59] LABS: Glucose,Whole Blood 144 mg/dL (70-110)
[2023-08-04 07:28] LABS: Basophils % (A) 0 %; Eosinophils # (A) 0.3 k/uL (0-0.7); Eosinophils % (A) 4 %; HCT 33.3 % (34.0-46.0); HGB 10.7 gm/dL (11.4-16.0); Hypochromasia Slight; Lymphocytes # (A) 1.9 k/uL (1.0-4.8); Lymphocytes % (A) 28 %; MCH 31.3 pg (25.0-35.0); MCHC 32.3 g/dL (31.0-37.0); MCV 96.9 fL (80.0-100.0); Mean Platelet Volume 8.9; Monocytes # (A) 0.3 k/uL (0-1.0); Monocytes % (A) 4 %; Neutrophils # (A) 4.4 k/uL (1.3-7.7); Neutrophils % (A) 62 %; Platelet Count 186 k/uL (150-450); RBC 3.43 m/uL (3.80-5.40); RDW 13.1 % (11.5-15.5)
[2023-08-04 07:56] LABS: African American GFR (CKD) 23 (>60 ml/min/1.73 sqM); Anion Gap 8 mmol/L; Blood Urea Nitrogen 43 mg/dL (7-17); Calcium 9.5 mg/dL (8.4-10.2); Carbon Dioxide 21 mmol/L (22-30); Chloride 107 mmol/L (98-107); Glucose 139 mg/dL (74-99); Magnesium 1.6 mg/dL (1.6-2.3); Non-African American GFR(CKD) 20 (>60 ml/min/1.73 sqM); Potassium 4.7 mmol/L (3.5-5.1); Sodium 136 mmol/L (137-145)
[2023-08-04] MEDS ORDERED: LOSARTAN 25 MG TAB PO SCH (09:00)
[2023-08-04] MEDS ORDERED: FAMOTIDINE 20 MG/2 ML VIAL IV SCH (09:00)
[2023-08-04] MEDS: METOPROLOL TARTRATE 25 MG TAB PO SCH ×2 (09:10→20:03)
[2023-08-04] MEDS: ASPIRIN 81 MG PO SCH (09:10)
[2023-08-04] MEDS: FUROSEMIDE 10 MG/ML 4 ML VIAL IV SCH (09:10)
[2023-08-04] MEDS: ATORVASTATIN 20 MG TAB PO SCH (09:10)
[2023-08-04] MEDS: HEPARIN SOD,PORK IN 0.45% NACL 25,000 UNIT in 0.45% NACL 1 250ML.BAG IV SCH (12:48)
[2023-08-04 16:29] LABS: Glucose,Whole Blood 147 mg/dL (70-110)
--- NOTE | 2023-08-04 19:11 | P.PN ---
Subjective Progress Note Date: 08/04/23 Progress note Patient reports that she is still short of breath. Not much improved since the time of admission. Her labs her creatinine has worsened as well as BUN. HISTORY OF PRESENTING ILLNESS 83-year-old female visits to the hospital because of worsening cough and dyspnea on exertion for last few days. Patient uses nighttime oxygen on and off but for last 5 days she has not been using home oxygen. Or the same course she has got more short of breath. She denied having any chest pain chest pressure. Because of her coughing repeatedly, she did report some chest pain whenever she would cough along with some right flank pain with coughing. On admission she had evidence of elevated troponin of 0.1, 0.09, 0.1. This troponin has a flat pattern of elevation BNP was around 17,000 Her creatinine was 1.28. Her baseline appears to be 1.3. Hemoglobin 11. Blood pressure 128/78, pulse 57. Of her ECG showed sinus rhythm with PACs and PVCs. Her echo cardiogram showed an EF of 40-45%. Moderate LVH, moderate dilatation She had a cardiac catheterization in 2019 which showed mild nonobstructive disease. ROXANNA in 2020 moderate MR, PFO REVIEW OF SYSTEMS 14 point review of system is negative except what is mentioned above in HPI. PHYSICAL EXAMINATION Vital signs reviewed. Head: Normocephalic. Eyes: Sclerae nonicteric. Neck: Brisk carotid upstroke, no jugular venous distention. Lungs: Clear to auscultation. Heart: Regular rate and rhythm, S1-S2, no S3, no murmur or rub. Abdomen: Soft nontender, positive bowel sounds no organomegaly. Extremities: No edema, intact distal pulses. Neuro: Alert, oritented, no focal deficits ASSESSMENT Acute tracheobronchitis Acute HFrEF exacerbation, EF 40-45% moderate LVH Frequent PACs and PVCs Mild elevation of troponin with a flat pattern, likely type II in setting of demand supply mismatch. Myocardial injury without infarction PAT Mild CAD as per 2020 PFO Moderate MR RVSP 54, moderate pulmonary hypertension PLAN Most likely elevation of troponin with a flat pattern due to congestive heart failure and hypoxia. Other differential includes PE. At this time due to low suspicion. Obtain a chest CT without contrast at this time. If patient fails to improve and kidney function is better, may consider CT angio for PE Completed 48 hours of IV heparin. Discontinue now Aspirin 81 mg, atorvastatin 20 mg daily Metoprolol 25 mg twice a day Due to PAT stop losartan. Stop Lasix. Give 300 mL fluid at 75 mL per hour Start internasal steroids and prednisone 20 mg for 5 days, Protonix Nuclear stress test to evaluate for any of CAD outpatient. Patient also has wheezing and appears to have mild bronchitis. She would benefit from a short course of steroids. Primary team to evaluate. I had a discussion about CODE STATUS with the family. They will discuss and decide Objective - Vital Signs Vital signs: Vital Signs Temp 98.0 F 08/04/23 16:00 Pulse 52 L 08/04/23 16:00 Resp 18 08/04/23 16:00 BP 123/58 08/04/23 16:00 Pulse Ox 100 08/04/23 16:00 FiO2 40 08/02/23 21:38 Intake & Output 08/04/23 08/04/23 08/05/23 06:59 18:59 06:59 Intake Total 836 Output Total 400 750 Balance -400 86 Intake: Intake, IV Titration 236 Amount Heparin Sod,Pork in 0.45% 236 NaCl 25,000 unit In 0.45 % NaCl 1 250ml.bag @ 8. 8184 UNITS/KG/HR 10 mls/ hr IV .Q24H [facility] Rx#: [id number] Oral 600 Output: Urine 400 750 Other: Voiding Method Diaper Diaper External Catheter External Catheter - Labs CBC & Chem 7: 08/04/23 06:04 08/04/23 06:04 Labs: Abnormal Lab Results - Last 24 Hours (Table) 08/03/23 08/04/23 08/04/23 Range/Units 20:21 05:56 06:04 RBC (3.80-5.40) m/uL Hgb (11.4-16.0) gm/dL Hct (34.0-46.0) % APTT 56.2 H (22.0-30.0) sec Sodium (137-145) mmol/L Carbon Dioxide (22-30) mmol/L BUN (7-17) mg/dL Creatinine (0.52-1.04) mg/dL Glucose (74-99) mg/dL POC Glucose (mg/dL) 164 H 144 H (70-110) mg/dL Hemoglobin A1c (<=6.0) % 08/04/23 08/04/23 08/04/23 Range/Units 06:04 06:04 06:04 RBC 3.43 L (3.80-5.40) m/uL Hgb 10.7 L (11.4-16.0) gm/dL Hct 33.3 L (34.0-46.0) % APTT (22.0-30.0) sec Sodium 136 L (137-145) mmol/L Carbon Dioxide 21 L (22-30) mmol/L BUN 43 H (7-17) mg/dL Creatinine 2.24 H (0.52-1.04) mg/dL Glucose 139 H (74-99) mg/dL POC Glucose (mg/dL) (70-110) mg/dL Hemoglobin A1c 7.2 H (<=6.0) % 08/04/23 Range/Units 16:28 RBC (3.80-5.40) m/uL Hgb (11.4-16.0) gm/dL Hct (34.0-46.0) % APTT (22.0-30.0) sec Sodium (137-145) mmol/L Carbon Dioxide (22-30) mmol/L BUN (7-17) mg/dL Creatinine (0.52-1.04) mg/dL Glucose (74-99) mg/dL POC Glucose (mg/dL) 147 H (70-110) mg/dL Hemoglobin A1c (<=6.0) %
[2023-08-04] MEDS ORDERED: SODIUM CHLORIDE 0.9% 1,000 ML IV SCH (19:15)
[2023-08-04] MEDS: predniSONE 20 MG TAB PO SCH (20:03)
[2023-08-04] MEDS: BUDESONIDE 0.5 MG/2 ML NEBU INHALATION SCH (20:28)
--- NOTE | 2023-08-04 20:49 | P.PN ---
Subjective This is a pleasant 83 years old female with multiple medical problems as below. Presents because she has coughing her main concerns are associated with dyspnea over the last few days. She used to use oxygen at night about stopped using her oxygen while ago however over the last for 5 days she went back to her oxygen because of her shortness of breath. No chest pain. She has headache on and off, currently she does not have any headache no dizzi ness no weakness or numbness. Patient feels generally weak. She is complaining of from diarrhea but stopped about 2 days ago she doesn't have bowel movements She is complaining of from lower abdominal pain on the right side especially with coughing over the last 3 days, described as mild pain. Also she had some back pain earlier but since resolved now. No vomiting. She feels generally weak. Denies any specific urinary complaints no dysuria or urgency. No smoking alcohol or illicit drugs. Patient Vitas looks stable, her oxygen saturation is 99% on 6 L oxygen via nasal cannula and blood pressure 147/82. CBC, INR and liver enzymes were unremarkable. 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 On his elevated 0.10, 0.09 and 0.10. Magnesium 1.5 which is replaced. Influenza A and type B, RSV, SARS (coronavirus) are and detected Chest x-ray showing cardiomegaly with pulmonary vascular congestion suspicious for CHF [place] [id number]. EKG showing sinus tachycardia at [address]-T changes. QTC is 400. 08/03/2023 Patient awake and alert, she still complaining from some exertion or with dyspnea. No chest pain and have some cough and. Lungs still shows crepitation. But no leg edema Currently she is on 4 L oxygen saturating 100%, according to staff to try to lower rate Her creatinine went up to point to therefore her losartan atelectasis. She received small doses of normal saline. Also there was suspicion of bronchitis and the prednisone and Symbicort was added. Heparin drip was stopped and currently she is on aspirin, and stressed test out patient Discussed with cardiology team She had some abdominal pain but is improving and she is able to be today. Review of systems CONSTITUTIONAL: No fever, no malaise, no fatigue. HEENT: No recent visual problems or hearing problems. Denied any sore throat. CARDIOVASCULAR: No orthopnea, PND, no palpitations, no syncope. NEUROLOGICAL: No headaches, no weakness, no numbness. HEMATOLOGICAL: Denies any bleeding or petechiae. GENITOURINARY: Denies any burning micturition, frequency, or urgency. Active Medications Generic Name Dose Route Start Last Admin Trade Name Freq PRN Reason Stop Dose Admin Albuterol Sulfate 2.5 mg 08/02/23 17:14 Albuterol Nebulized 2.5 Mg/3 Ml INHALATION RT-QID PRN Shortness Of Breath Or Wheezing Aspirin 81 mg 08/04/23 09:00 08/04/23 09:10 Aspirin 81 Mg PO 81 mg DAILY EVE Administration Atorvastatin Calcium 20 mg 08/03/23 21:45 08/04/23 09:10 Atorvastatin 20 Mg Tab PO 20 mg DAILY EVE Administration Budesonide 0.5 mg 08/04/23 20:00 08/04/23 20:28 Budesonide 0.5 Mg/2 Ml Nebu INHALATION Not Given RT-BID EVE Sodium Chloride 1,000 mls @ 75 mls/hr 08/04/23 19:15 08/04/23 20:03 Saline 0.9% IV 08/04/23 23:16 75 mls/hr .[id number] EVE Administration Metoprolol Tartrate 25 mg 08/02/23 21:00 08/04/23 20:03 Metoprolol Tartrate 25 Mg Tab PO 25 mg BID EVE Administration Morphine Sulfate 4 mg 08/02/23 17:10 Morphine Sulfate 4 Mg/Ml Syringe IV Q4HR PRN Chest Pain Nitroglycerin 0.4 mg 08/02/23 17:10 Nitroglycerin Sl Tabs 0.4 Mg Tab SUBLINGUAL Q5M PRN Chest Pain Pantoprazole Sodium 40 mg 08/05/23 07:30 Pantoprazole 40 Mg Tablet PO [id number]-[id number] EVE Prednisone 20 mg 08/04/23 19:15 08/04/23 20:03 Prednisone 20 Mg Tab PO 08/09/23 19:16 20 mg DAILY EVE Administration Objective - Vital Signs Vital signs: Vital Signs Temp 98.0 F 08/04/23 16:00 Pulse 52 L 08/04/23 16:00 Resp 18 08/04/23 16:00 BP 123/58 08/04/23 16:00 Pulse Ox 100 08/04/23 16:00 FiO2 40 08/02/23 21:38 Intake & Output 08/03/23 08/04/23 08/04/23 18:59 06:59 18:59 Intake Total 292.5 836 Output Total 400 750 Balance 292.5 -400 86 Intake: Intake, IV Titration 172.5 236 Amount Heparin Sod,Pork in 0.45% 172.5 236 NaCl 25,000 unit In 0.45 % NaCl 1 250ml.bag @ 8. 8184 UNITS/KG/HR 10 mls/ hr IV [facility] Rx#: [id number] Oral 120 600 Output: Urine 400 750 Other: Voiding Method Diaper Diaper Diaper External Catheter External Catheter External Catheter # Voids 1 # Bowel Movements 1 - Exam GENERAL: The patient is alert and oriented x3, not in any acute distress. Well developed, well nourished. HEENT: Pupils are round and equally reacting to light. EOMI. No scleral icterus. No conjunctival pallor. Normocephalic, atraumatic. No pharyngeal erythema. No thyromegaly. CARDIOVASCULAR: S1 and S2 present. No murmurs, rubs, or gallops. -PULMONARY: Chest is clear to auscultation, no wheezing , bilateral basal crackles. ABDOMEN: Soft, nontender, nondistended, normoactive bowel sounds. No palpable organomegaly. MUSCULOSKELETAL: No joint swelling or deformity. EXTREMITIES: No cyanosis, clubbing, or pedal edema. NEUROLOGICAL: Gross neurological examination did not reveal any focal deficits. SKIN: No rashes. no petechiae. - Labs CBC & Chem 7: 08/04/23 06:04 08/04/23 06:04 Labs: Abnormal Lab Results - Last 24 Hours (Table) 08/03/23 08/04/23 08/04/23 Range/Units 20:21 05:56 06:04 RBC (3.80-5.40) m/uL Hgb (11.4-16.0) gm/dL Hct (34.0-46.0) % APTT 56.2 H (22.0-30.0) sec Sodium (137-145) mmol/L Carbon Dioxide (22-30) mmol/L BUN (7-17) mg/dL Creatinine (0.52-1.04) mg/dL Glucose (74-99) mg/dL POC Glucose (mg/dL) 164 H 144 H (70-110) mg/dL Hemoglobin A1c (<=6.0) % 08/04/23 08/04/23 08/04/23 Range/Units 06:04 06:04 06:04 RBC 3.43 L (3.80-5.40) m/uL Hgb 10.7 L (11.4-16.0) gm/dL Hct 33.3 L (34.0-46.0) % APTT (22.0-30.0) sec Sodium 136 L (137-145) mmol/L Carbon Dioxide 21 L (22-30) mmol/L BUN 43 H (7-17) mg/dL Creatinine 2.24 H (0.52-1.04) mg/dL Glucose 139 H (74-99) mg/dL POC Glucose (mg/dL) (70-110) mg/dL Hemoglobin A1c 7.2 H (<=6.0) % 08/04/23 Range/Units 16:28 RBC (3.80-5.40) m/uL Hgb (11.4-16.0) gm/dL Hct (34.0-46.0) % APTT (22.0-30.0) sec Sodium (137-145) mmol/L Carbon Dioxide (22-30) mmol/L BUN (7-17) mg/dL Creatinine (0.52-1.04) mg/dL Glucose (74-99) mg/dL POC Glucose (mg/dL) 147 H (70-110) mg/dL Hemoglobin A1c (<=6.0) % Assessment and Plan Assessment: non-STEMI acute CHF, unknown ejection fraction Acute hypoxic respiratory failure Acute kidney injury on chronic kidney disease stage III most likely secondary to overdiuresis Abdominal pain Obesity with BMI of 39 Chronic kidney disease stage III. Plan: continue with heparin drip and aspirin, 81 mg, stress test outpatient His IV fluids discontinued Was discontinued Continue with fluid restriction 1200 mL per day. Cardiology consult Continue prednisone and Symbicort and do not Follow-up CT scan of the chest Labs and medication were reviewed.. Continue same treatment. Continue with symptomatic treatment. Resume home medication. Monitor labs and vitals. DVT and GI prophylaxis. Further recommendations as per clinical course of the patient DVT prophylaxis: heparin GI Prophylaxis: Ppi PT/OT: Pending Prognosis is guarded
[2023-08-04 20:58] LABS: Glucose,Whole Blood 150 mg/dL (70-110)
[2023-08-05] MEDS: ALBUTEROL NEBULIZED 2.5 MG/3 ML INHALATION PRN ×2 (04:04→21:49)
[2023-08-05] MEDS: PANTOPRAZOLE 40 MG TABLET PO SCH (06:07)
[2023-08-05 06:10] LABS: Glucose,Whole Blood 191 mg/dL (70-110)
[2023-08-05] MEDS: BUDESONIDE 0.5 MG/2 ML NEBU INHALATION SCH ×2 (07:43→21:49)
[2023-08-05] MEDS ORDERED: FUROSEMIDE 10 MG/ML 2 ML VIAL IV ONE (09:00)
[2023-08-05] MEDS: METOPROLOL TARTRATE 25 MG TAB PO SCH (09:18)
[2023-08-05] MEDS: ASPIRIN 81 MG PO SCH (09:18)
[2023-08-05] MEDS: ATORVASTATIN 20 MG TAB PO SCH (09:18)
[2023-08-05] MEDS: predniSONE 20 MG TAB PO SCH (09:18)
[2023-08-05 09:19] LABS: Basophils % (A) 0 %; Eosinophils % (A) 0 %; HCT 35.6 % (34.0-46.0); Hypochromasia Slight; Lymphocytes # (A) 0.3 k/uL (1.0-4.8); Lymphocytes % (A) 7 %; MCH 30.4 pg (25.0-35.0); MCV 97.9 fL (80.0-100.0); Mean Platelet Volume 9.2; Monocytes # (A) 0.1 k/uL (0-1.0); Monocytes % (A) 2 %; Neutrophils # (A) 4.1 k/uL (1.3-7.7); Neutrophils % (A) 90 %; Platelet Count 182 k/uL (150-450); RBC 3.63 m/uL (3.80-5.40); RDW 13.1 % (11.5-15.5); WBC 4.5 k/uL (3.8-10.6)
[2023-08-05 09:32] LABS: African American GFR (CKD) 23 (>60 ml/min/1.73 sqM); Anion Gap 11 mmol/L; Blood Urea Nitrogen 49 mg/dL (7-17); Calcium 9.5 mg/dL (8.4-10.2); Carbon Dioxide 21 mmol/L (22-30); Chloride 104 mmol/L (98-107); Glucose 232 mg/dL (74-99); Magnesium 1.5 mg/dL (1.6-2.3); Non-African American GFR(CKD) 20 (>60 ml/min/1.73 sqM); Sodium 136 mmol/L (137-145)
--- NOTE | 2023-08-05 10:46 | P.NPCON ---
History of Present Illness - Reason for Consult acute renal failure, chronic renal failure - History of Present Illness Reason for consultation: Acute kidney injury on chronic kidney disease History of present illness: Patient is a 83-year-old female seen in renal consultation for acute kidney injury on chronic kidney disease. Patient has chronic kidney disease stage IIIb with baseline creatinine near 1.3 From September 2019 and March 2022. Patient does not follow with nephrology outpatient. Creatinine on admission was near 1.3 dated 08/02/2023 and up to 2.27 today. Patient was receiving IV Lasix 40 mg twice daily which was stopped yesterday morning. She then received IV fluids for some time. This morning she received 20 mg of IV Lasix. Patient came to the hospital on 08/02/2023 due to shortness of breath and weakness. Patient states she resides at home with her . Patient states she's been having some back pain and also a productive cough of yellow phlegm. She denies any fev er or chills. She's been feeling progressively more fatigued. No evidence of hypotension. In fact her blood pressures were high initially. She is currently on 4 L nasal cannula. Chest x-ray showed pulmonary vascular congestion. Echocardiogram shows ejection fraction of 40-45% with moderate pulmonary hypertension. She denies use of nonsteroidals. She does have history of diabetes. Denies history of heart disease. Denies family history of renal disease. Denies hematuria or dysuria. Vital signs are stable. General: No acute distress. HEENT: Head exam is unremarkable. On nasal cannula. LUNGS: No audible rhonchi or wheezes. HEART: Rate and Rhythm are regular. ABDOMEN: Nontender. EXTREMITITES: Trace edema. Past Medical History Past Medical History: Asthma, COPD, CVA/TIA, Diabetes Mellitus, Deep Vein Thrombosis (DVT), GERD/Reflux, Hyperlipidemia, Hypertension, Memory Impairment, Osteoarthritis (OA), Thyroid Disorder Additional Past Medical History / Comment(s): states has incontinence. LEFT LEG DVT History of Any Multi-Drug Resistant Organisms: MRSA Date of last positivie culture/infection: 2011 MDRO Source:: cultures from stomach wound Past Surgical History: Back Surgery, Orthopedic Surgery, Tonsillectomy Additional Past Surgical History / Comment(s): bilateral hammer toe and heel spurs, "tummy tuck", VARICOSE VEIN SURGERY Past Anesthesia/Blood Transfusion Reactions: No Reported Reaction Smoking Status: Never smoker - Past Family History Mother Family Medical History: Coronary Artery Disease (CAD), Diabetes Mellitus Additional Family Medical History / Comment(s): age 96 Father Family Medical History: Coronary Artery Disease (CAD), Dementia Additional Family Medical History / Comment(s): age 95 Medications and Allergies Home Medications Medication Instructions Recorded Confirmed Type Bio-Med Formula Compound 5u 1 applic TOPICAL TID 08/02/23 08/02/23 History Allergies Allergy/AdvReac Type Severity Reaction Status Date / Time house dust Allergy Cough Verified 09/04/19 13:11 Physical Exam Vitals: Vital Signs Temp Pulse Pulse Resp BP Pulse Ox 08/05/23 09:15 98.0 F 65 20 120/70 100 08/05/23 04:18 68 08/05/23 04:06 64 08/05/23 04:00 98.1 F 64 20 143/69 97 08/05/23 02:00 62 19 08/05/23 00:00 97.9 F 62 19 142/61 95 08/04/23 20:00 98.1 F 64 20 140/63 100 08/04/23 16:00 98.0 F 52 L 18 123/58 100 08/04/23 14:00 56 L 18 08/04/23 12:00 56 L 18 115/72 100 Intake and Output 08/04/23 08/05/23 08/05/23 22:59 06:59 14:59 Intake Total 240 Output Total 200 Balance -200 240 Intake: Oral 240 Output: Urine 200 Other: Voiding Method Diaper Diaper Diaper External Catheter External Catheter External Catheter Weight 98.5 kg Results - Lab Results Most recent lab results Calcium 9.5 mg/dL (8.4-10.2) 08/05/23 08:13 Magnesium 1.5 mg/dL (1.6-2.3) L 08/05/23 08:13 08/05/23 08:13 08/05/23 08:13 Assessment and Plan Plan: Assessment: 1. Acute kidney injury secondary to ATN secondary to cardiorenal syndrome. Creatinine 2.27 today. 2. Chronic kidney disease stage IIIB with baseline creatinine 1.3. Suspect nephrosclerosis. 3. Acute on chronic systolic CHF with ejection fraction of 40-45% with moderate pulmonary hypertension. 4. Diabetes mellitus. 5. Hypomagnesemia from diuresis. Plan: Status post IV Lasix this morning. Check UA. Check renal ultrasound. Check bladder scan to rule out urinary retention. Replace magnesium. Avoid nephrotoxins. Continue to monitor renal function and urine output. F/u CT chest. Thank you for the consultation. I will continue to follow the patient with you during her hospital stay.
[2023-08-05] MEDS: MAGNESIUM SULFATE-D5W PMX 1 GM in DEXTROSE/WATER 1 100ML.BAG IVPB SCH ×2 (10:58→12:04)
[2023-08-05] MEDS: NYSTATIN 100,000 UNIT/GM POWD 15 GM TOPICAL SCH ×2 (10:58→20:57)
[2023-08-05 11:48] LABS: Glucose,Whole Blood 222 mg/dL (70-110)
[2023-08-05] MEDS: INSULIN ASPART (NovoLOG) 100 UNIT/ML VIAL SQ SCH ×3 (12:07→20:57)
--- NOTE | 2023-08-05 12:08 | US ---
EXAMINATION TYPE: US renals and bladder DATE OF EXAM: 08/05/2023 COMPARISON: 01/09/2017. CLINICAL INDICATION: Female, 83 years old with history of pat; PAT only, no symptoms, or renal signif icant history EXAM MEASUREMENTS: Right Kidney: 7.6 x 3.8 x 4.5 cm Left Kidney: 10.0 x 3.4 x 4.2 cm Right Kidney: limited views due to habitus and bowel gas, small in size, no hydronephrosis or masses seen Left Kidney: No hydronephrosis or masses seen Bladder: not distended There is no evidence for hydronephrosis at this point in time. No nephrolithiasis is seen. No jose s are identified. The urinary bladder is anechoic. Bilateral ureteral jets are seen. IMPRESSION: Cortical medullary differentiation is maintained. No evidence for obstructive uropathy.
--- NOTE | 2023-08-05 13:16 | CT ---
EXAMINATION TYPE: CT chest wo con DATE OF EXAM: 08/04/2023 COMPARISON: Chest x-ray 08/02/2023 HISTORY: PNA CT DLP: 458.1 mGycm, Automated exposure control for dose reduction was used. CONTRAST: Performed injected with 0 mL of Isovue 300. TECHNIQUE: Axial images were obtained at 5 mm thick sections. Reconstructed images are reviewed on [employer] computer in the coronal plane. FINDINGS: Portion of the thyroid visualized is normal. Small bilateral pleural effusions are present. No enlarged mediastinal or hilar adenopathy is evident. The ascending aorta diameter at the level o f the main pulmonary artery is 3.6 cm. The main pulmonary artery diameter at the bifurcation is 3.9 cm. Correlate for pulmonary hypertension. Very minimal coronary artery calcifications present. Heart size is mildly prominent. Limited CT sections are obtained through the upper abdomen. Abdomen is essentially unremarkable. IMPRESSION: 1. No acute pulmonary process. 2. Small bilateral pleural effusions. 3. Correlate for pulmonary hypertension
[2023-08-05 14:05] LABS: Appearance,Urine Clear (Clear); Bacteria,Urine Few /hpf; Bilirubin,Urine Negative (Negative); Blood,Urine Negative (Negative); Color,Urine Colorless; Glucose,Urine (UA) Trace (Negative); Ketones,Urine Negative (Negative); Leukocyte Esterase,Urine Trace (Negative); Mucus,Urine Rare /hpf; Nitrite,Urine Positive (Negative); PH, Urine 5.5 (5.0-8.0); Protein,Urine 2+ (Negative); RBC,Urine 1 /hpf (0-5); Squamous Epithelial Cell,Urine <1 /hpf (0-4); Urobilinogen,Urine <2.0 mg/dL (<2.0); WBC,Urine 3 /hpf (0-5)
[2023-08-05 14:41] LABS: Chol/HDL Ratio 2.98 Ratio
[2023-08-05 15:50] LABS: LDL Cholesterol,Calculated 93.7 mg/dL (0.0-131.0)
--- NOTE | 2023-08-05 15:53 | P.PN ---
Subjective Progress Note Date: 08/05/23 08/05/2023 Patient is seen and examined at bedside the same. She still reports that she is feeling short of breath. She reported that she is slightly better as compared to yesterday since she has been started on breathing treatment with Pulmicort and oral steroids. BP 121/70, heart rate 61 bpm, sinus rhythm on telemetry Oxygen saturation is slightly better. Saturating 100%. Yesterday it was in 90s. CT chest without contrast showed small bilateral pleural effusion. It did not show any obvious consolidation. elevated troponins done at 0.11 On admission creatinine was 1.2. Baseline CKD stage III. With IV Lasix twice a day it jumped to 2.24. With hydration there was no significant improvement creatinine 2.27. He did receive 1 dose of IV Lasix as per primary medicine team B HISTORY OF PRESENTING ILLNESS 83-year-old female visits to the hospital because of worsening cough and dyspnea on exertion for last few days. Patient uses nighttime oxygen on and off but for last 5 days she has not been using home oxygen. Or the same course she has got more short of breath. She denied having any chest pain chest pressure. Because of her coughing repeatedly, she did report some chest pain whenever she would cough along with some right flank pain with coughing. On admission she had evidence of elevated troponin of 0.1, 0.09, 0.1. This troponin has a flat pattern of elevation BNP was around 17,000 Her creatinine was 1.28. Her baseline appears to be 1.3. Hemoglobin 11. Blood pressure 128/78, pulse 57. Of her ECG showed sinus rhythm with PACs and PVCs. Her echo cardiogram showed an EF of 40-45%. Moderate LVH, moderate dilatation She had a cardiac catheterization in 2019 which showed mild nonobstructive disease. ROXANNA in 2020 moderate MR, PFO PHYSICAL EXAMINATION Moderately obese No significant JVD Lungs: Reduced air entry in bilateral lung man, mild crackles audible Heart: Regular rate and rhythm, S1-S2, no S3, no murmur or rub. Abdomen: Soft nontender, positive bowel sounds no organomegaly. Extremities: No significant swelling in bilateral lower extremity Neuro: Alert, oriented to time place and person, detailed neuro exam was not performed. However no focal deficits ASSESSMENT Small bilateral pleural effusions Acute tracheobronchitis Acute HFrEF exacerbation, EF 40-45% moderate LVH Frequent PACs and PVCs Mild elevation of troponin with a flat pattern, likely type II in setting of d emand supply mismatch. Myocardial injury without infarction PAT with ATN, Mild CAD as per 2020 PFO Moderate MR RVSP 54, moderate pulmonary hypertension PLAN Most likely elevation of troponin with a flat pattern due to congestive heart failure and hypoxia. Other differential includes PE. At this time due to low suspicion. Obtain a chest CT without contrast at this time. If patient fails to improve and kidney function is better, may consider CT angio for PE Completed 48 hours of IV heparin Aspirin 81 mg, atorvastatin 20 mg daily Metoprolol 25 mg twice a day Due to PAT stop losartan. Stop Lasix. Start internasal steroids and prednisone 20 mg for 5 days, Protonix Pro-calcitonin is elevated at 0.11. Primary rounding team should evaluate if patient would benefit from antibiotics or not. Nuclear stress test to evaluate for any of CAD outpatient. I had a discussion about CODE STATUS with the family. They will discuss and decide Objective - Vital Signs Vital signs: Vital Signs Temp 98.0 F 08/05/23 09:15 Pulse 61 08/05/23 13:34 Resp 20 08/05/23 12:00 BP 121/70 08/05/23 12:00 Pulse Ox 100 08/05/23 12:00 FiO2 40 08/02/23 21:38 Intake & Output 08/04/23 08/05/23 08/05/23 18:59 06:59 18:59 Intake Total 836 240 Output Total 750 200 450 Balance 86 -200 -210 Weight 98.5 kg Intake: Intake, IV Titration 236 Amount Heparin Sod,Pork in 0.45% 236 NaCl 25,000 unit In 0.45 % NaCl 1 250ml.bag @ 8. 8184 UNITS/KG/HR 10 mls/ hr IV .Q24H [facility] Rx#: [id number] Oral 600 240 Output: Urine 750 200 450 Other: Voiding Method Diaper Diaper Diaper External Catheter External Catheter External Catheter - Labs CBC & Chem 7: 08/05/23 08:13 08/05/23 08:13 Labs: Abnormal Lab Results - Last 24 Hours (Table) 08/04/23 08/04/23 08/05/23 Range/Units 16:28 20:56 06:08 RBC (3.80-5.40) m/uL Hgb (11.4-16.0) gm/dL Lymphocytes # (1.0-4.8) k/uL Sodium (137-145) mmol/L Carbon Dioxide (22-30) mmol/L BUN (7-17) mg/dL Creatinine (0.52-1.04) mg/dL Glucose (74-99) mg/dL POC Glucose (mg/dL) 147 H 150 H 191 H (70-110) mg/dL Magnesium (1.6-2.3) mg/dL Procalcitonin (0.02-0.09) ng/mL Urine Protein (Negative) Urine Glucose (UA) (Negative) Urine Nitrite (Negative) Ur Leukocyte Esterase (Negative) Urine Bacteria (None) /hpf Urine Mucus (None) /hpf 08/05/23 08/05/23 08/05/23 Range/Units 08:13 08:13 08:13 RBC 3.63 L (3.80-5.40) m/uL Hgb 11.0 L (11.4-16.0) gm/dL Lymphocytes # 0.3 L (1.0-4.8) k/uL Sodium 136 L (137-145) mmol/L Carbon Dioxide 21 L (22-30) mmol/L BUN 49 H (7-17) mg/dL Creatinine 2.27 H (0.52-1.04) mg/dL Glucose 232 H (74-99) mg/dL POC Glucose (mg/dL) (70-110) mg/dL Magnesium 1.5 L (1.6-2.3) mg/dL Procalcitonin 0.11 H (0.02-0.09) ng/mL Urine Protein (Negative) Urine Glucose (UA) (Negative) Urine Nitrite (Negative) Ur Leukocyte Esterase (Negative) Urine Bacteria (None) /hpf Urine Mucus (None) /hpf 08/05/23 08/05/23 Range/Units 11:47 13:47 RBC (3.80-5.40) m/uL Hgb (11.4-16.0) gm/dL Lymphocytes # (1.0-4.8) k/uL Sodium (137-145) mmol/L Carbon Dioxide (22-30) mmol/L BUN (7-17) mg/dL Creatinine (0.52-1.04) mg/dL Glucose (74-99) mg/dL POC Glucose (mg/dL) 222 H (70-110) mg/dL Magnesium (1.6-2.3) mg/dL Procalcitonin (0.02-0.09) ng/mL Urine Protein 2+ H (Negative) Urine Glucose (UA) Trace H (Negative) Urine Nitrite Positive H (Negative) Ur Leukocyte Esterase Trace H (Negative) Urine Bacteria Few H (None) /hpf Urine Mucus Rare H (None) /hpf
[2023-08-05 16:41] LABS: Glucose,Whole Blood 260 mg/dL (70-110)
--- NOTE | 2023-08-05 18:47 | P.PN ---
Subjective This is a pleasant 83 years old female with multiple medical problems as below. Presents because she has coughing her main concerns are associated with dyspnea over the last few days. She used to use oxygen at night about stopped using her oxygen while ago however over the last for 5 days she went back to her oxygen because of her shortness of breath. No chest pain. She has headache on and off, currently she does not have any headache no dizzi ness no weakness or numbness. Patient feels generally weak. She is complaining of from diarrhea but stopped about 2 days ago she doesn't have bowel movements She is complaining of from lower abdominal pain on the right side especially with coughing over the last 3 days, described as mild pain. Also she had some back pain earlier but since resolved now. No vomiting. She feels generally weak. Denies any specific urinary complaints no dysuria or urgency. No smoking alcohol or illicit drugs. Patient Vitas looks stable, her oxygen saturation is 99% on 6 L oxygen via nasal cannula and blood pressure 147/82. CBC, INR and liver enzymes were unremarkable. Attending is elevated at 1.28 which is close to baseline it was 1.3 in 2019 and 2020, no other recordings and first assistant. On his elevated 0.10, 0.09 and 0.10. Magnesium 1.5 which is replaced. Influenza A and type B, RSV, SARS (coronavirus) are and detected Chest x-ray showing cardiomegaly with pulmonary vascular congestion suspicious for CHF [place] 25071. EKG showing sinus tachycardia at [address]-T changes. QTC is 400. 08/03/2023 Patient awake and alert, she still complaining from some exertion or with dyspnea. No chest pain and have some cough and. Lungs still shows crepitation. But no leg edema Currently she is on 4 L oxygen saturating 100%, according to staff to try to lower rate Her creatinine went up to point to therefore her losartan atelectasis. She received small doses of normal saline. Also there was suspicion of bronchitis and the prednisone and Symbicort was added. Heparin drip was stopped and currently she is on aspirin, and stressed test out patient Discussed with cardiology team She had some abdominal pain but is improving and she is able to be today. 08/05/2023 Patient still short of breath, still with bilateral basal interpretation and bilateral pitting leg edema. Patient will need stress testing as an outpatient Creatinine is elevated at 2.27, 1 time dose of IV Lasix provided and nephrology team were consulted who recommended urinalysis, bladder scan and renal ultrasound. Low Zartan remains on hold Patients with no fever or leukocytosis Currently on metoprolol 12.5 mg and aspirin 81 mg Heparin drip is discontinued and currently she is on subcutaneous heparin Hemoglobin stable at 11. Monitor hemoglobin and creatinine tomorrow Review of systems CONSTITUTIONAL: No fever, no malaise, no fatigue. HEENT: No recent visual problems or hearing problems. Denied any sore throat. CARDIOVASCULAR: No orthopnea, PND, no palpitations, no syncope. GASTROINTESTINAL: No diarrhea, no nausea, no vomiting, no abdominal pain. Normoactive bowel sounds. NEUROLOGICAL: No headaches, no weakness, no numbness. \ Active Medications Generic Name Dose Route Start Last Admin Trade Name Freq PRN Reason Stop Dose Admin Albuterol Sulfate 2.5 mg 08/02/23 17:14 08/05/23 04:04 Albuterol Nebulized 2.5 Mg/3 Ml INHALATION 2.5 mg RT-QID PRN Administration Shortness Of Breath Or Wheezing Aspirin 81 mg 08/04/23 09:00 08/05/23 09:18 Aspirin 81 Mg PO 81 mg DAILY EVE Administration Atorvastatin Calcium 20 mg 08/03/23 21:45 08/05/23 09:18 Atorvastatin 20 Mg Tab PO 20 mg DAILY EVE Administration Budesonide 0.5 mg 08/04/23 20:00 08/05/23 07:43 Budesonide 0.5 Mg/2 Ml Nebu INHALATION Not Given RT-BID [facility] Heparin Sodium (Porcine) 5,000 unit 08/05/23 21:00 Heparin Sodium,Porcine 5,000 Unit/Ml 1 Ml Vial SQ Q12HR EVE Insulin Aspart 0 unit 08/05/23 12:30 08/05/23 16:44 Insulin Aspart (Novolog) 100 Unit/Ml Vial SQ 6 unit ACHS EVE Administration Protocol Metoprolol Tartrate 12.5 mg 08/05/23 21:00 Metoprolol Tartrate 12.5 Mg Tab PO BID EVE Morphine Sulfate 4 mg 08/02/23 17:10 Morphine Sulfate 4 Mg/Ml Syringe IV Q4HR PRN Chest Pain Nitroglycerin 0.4 mg 08/02/23 17:10 Nitroglycerin Sl Tabs 0.4 Mg Tab SUBLINGUAL Q5M PRN Chest Pain Nystatin 1 applic 08/05/23 09:00 08/05/23 10:58 Nystatin 100,000 Unit/Gm Powd 15 Gm TOPICAL 1 applic BID EVE Administration Protocol Pantoprazole Sodium 40 mg 08/05/23 07:30 08/05/23 06:07 Pantoprazole 40 Mg Tablet PO 40 mg [id number] EVE Administration Prednisone 20 mg 08/04/23 19:15 08/05/23 09:18 Prednisone 20 Mg Tab PO 08/09/23 19:16 20 mg DAILY EVE Administration Objective - Vital Signs Vital signs: Vital Signs Temp 98.0 F 08/05/23 09:15 Pulse 65 08/05/23 09:15 Resp 20 08/05/23 09:15 BP 120/70 08/05/23 09:15 Pulse Ox 100 08/05/23 09:15 FiO2 40 08/02/23 21:38 Intake & Output 08/04/23 08/05/23 08/05/23 18:59 06:59 18:59 Intake Total 836 240 Output Total 750 200 Balance 86 -200 240 Weight 98.5 kg Intake: Intake, IV Titration 236 Amount Heparin Sod,Pork in 0.45% 236 NaCl 25,000 unit In 0.45 % NaCl 1 250ml.bag @ 8. 8184 UNITS/KG/HR 10 mls/ hr IV .Q24H [facility] Rx#: [id number] Oral 600 240 Output: Urine 750 200 Other: Voiding Method Diaper Diaper Diaper External Catheter External Catheter External Catheter - Exam GENERAL: The patient is alert and oriented x3, not in any acute distress. Well developed, well nourished. HEENT: Pupils are round and equally reacting to light. EOMI. No scleral icterus. No conjunctival pallor. Normocephalic, atraumatic. No pharyngeal erythema. No thyromegaly. CARDIOVASCULAR: S1 and S2 present. No murmurs, rubs, or gallops. -PULMONARY: Chest is clear to auscultation, no wheezing , bilateral basal crackles. ABDOMEN: Soft, nontender, nondistended, normoactive bowel sounds. No palpable organomegaly. MUSCULOSKELETAL: No joint swelling or deformity. EXTREMITIES: No cyanosis, clubbing, 1+ bilateral pitting leg edema. NEUROLOGICAL: Gross neurological examination did not reveal any focal deficits. SKIN: No rashes. no petechiae. - Labs CBC & Chem 7: 08/05/23 08:13 08/05/23 08:13 Labs: Abnormal Lab Results - Last 24 Hours (Table) 08/04/23 08/04/23 08/04/23 Range/Units 06:04 16:28 20:56 RBC (3.80-5.40) m/uL Hgb (11.4-16.0) gm/dL Lymphocytes # (1.0-4.8) k/uL Sodium (137-145) mmol/L Carbon Dioxide (22-30) mmol/L BUN (7-17) mg/dL Creatinine (0.52-1.04) mg/dL Glucose (74-99) mg/dL POC Glucose (mg/dL) 147 H 150 H (70-110) mg/dL Hemoglobin A1c 7.2 H (<=6.0) % Magnesium (1.6-2.3) mg/dL 08/05/23 08/05/23 08/05/23 Range/Units 06:08 08:13 08:13 RBC 3.63 L (3.80-5.40) m/uL Hgb 11.0 L (11.4-16.0) gm/dL Lymphocytes # 0.3 L (1.0-4.8) k/uL Sodium 136 L (137-145) mmol/L Carbon Dioxide 21 L (22-30) mmol/L BUN 49 H (7-17) mg/dL Creatinine 2.27 H (0.52-1.04) mg/dL Glucose 232 H (74-99) mg/dL POC Glucose (mg/dL) 191 H (70-110) mg/dL Hemoglobin A1c (<=6.0) % Magnesium 1.5 L (1.6-2.3) mg/dL Assessment and Plan Assessment: non-STEMI , currently with no chest pain and recommended outpatient stress test acute CHF, unknown ejection fraction Acute hypoxic respiratory failure Acute kidney injury on chronic kidney disease stage III most likely secondary to cardiorenal syndrome Abdominal pain Obesity with BMI of 39 Chronic kidney disease stage III. Plan: continue with antiplatelet therapy per model engine mechanic and currently patient is on aspirin, 81 mg, stress test outpatient Continue with monitoring creatinine Status post IV Lasix 20 mg 1 Continue with fluid restriction 1200 mL per day. Cardiology consult CT of the chest results were reviewed, basically unremarkable for significant abnormality Labs and medication were reviewed.. Continue same treatment. Continue with symptomatic treatment. Resume home medication. Monitor labs and vitals. DVT and GI prophylaxis. Further recommendations as per clinical course of the pat ient DVT prophylaxis: heparin GI Prophylaxis: Ppi PT/OT: Pending Prognosis is guarded
[2023-08-05 20:34] LABS: Glucose,Whole Blood 238 mg/dL (70-110)
[2023-08-05] MEDS: HEPARIN SODIUM,PORCINE 5,000 UNIT/ML 1 ML VIAL SQ SCH (20:57)
[2023-08-05] MEDS: METOPROLOL TARTRATE 12.5 MG TAB PO SCH (20:57)
[2023-08-06 06:04] LABS: Glucose,Whole Blood 205 mg/dL (70-110)
[2023-08-06] MEDS: INSULIN ASPART (NovoLOG) 100 UNIT/ML VIAL SQ SCH ×4 (06:09→20:47)
[2023-08-06] MEDS: PANTOPRAZOLE 40 MG TABLET PO SCH (06:09)
[2023-08-06 07:07] LABS: African American GFR (CKD) 25 (>60 ml/min/1.73 sqM); Anion Gap 11 mmol/L; Blood Urea Nitrogen 55 mg/dL (7-17); Calcium 9.5 mg/dL (8.4-10.2); Carbon Dioxide 20 mmol/L (22-30); Chloride 106 mmol/L (98-107); Glucose 179 mg/dL (74-99); Non-African American GFR(CKD) 22 (>60 ml/min/1.73 sqM); Potassium 4.8 mmol/L (3.5-5.1); Sodium 137 mmol/L (137-145)
[2023-08-06] MEDS: BUDESONIDE 0.5 MG/2 ML NEBU INHALATION SCH ×2 (07:50→21:42)
[2023-08-06] MEDS: HEPARIN SODIUM,PORCINE 5,000 UNIT/ML 1 ML VIAL SQ SCH ×2 (10:08→20:35)
[2023-08-06] MEDS: predniSONE 20 MG TAB PO SCH (10:08)
[2023-08-06] MEDS: ASPIRIN 81 MG PO SCH (10:08)
[2023-08-06] MEDS: ATORVASTATIN 20 MG TAB PO SCH (10:08)
[2023-08-06] MEDS: METOPROLOL TARTRATE 12.5 MG TAB PO SCH ×2 (10:08→20:35)
[2023-08-06] MEDS: NYSTATIN 100,000 UNIT/GM POWD 15 GM TOPICAL SCH ×2 (10:09→21:00)
[2023-08-06] MEDS ORDERED: FUROSEMIDE 10 MG/ML 4 ML VIAL IV STA (10:33)
--- NOTE | 2023-08-06 10:34 | P.PN ---
Subjective Patient is seen in follow-up for acute kidney injury on chronic kidney disease. Renal function slightly better. On nasal cannula. No vomiting or diarrhea. Denies chest pain. Oral intake fair. Vital signs are stable. General: No acute distress. HEENT: Head exam is unremarkable. On nasal cannula. LUNGS: Scattered rhonchi. HEART: Rate and Rhythm are regular. ABDOMEN: Nontender. EXTREMITITES: No edema. Objective - Vital Signs Vital signs: Vital Signs Temp 98.0 F 08/06/23 04:00 Pulse 62 08/06/23 08:02 Resp 18 08/06/23 08:02 BP 139/79 08/06/23 04:00 Pulse Ox 100 08/06/23 07:51 FiO2 40 08/02/23 21:38 Intake & Output 08/05/23 08/06/23 08/06/23 18:59 06:59 18:59 Intake Total 240 118 Output Total 750 300 Balance -510 -182 Weight 98.2 kg Intake: Oral 240 118 Output: Urine 750 300 Other: Voiding Method Diaper Diaper External Catheter External Catheter - Labs CBC & Chem 7: 08/05/23 08:13 08/06/23 05:34 Labs: Abnormal Lab Results - Last 24 Hours (Table) 08/05/23 08/05/23 08/05/23 Range/Units 08:13 11:47 13:47 Carbon Dioxide (22-30) mmol/L BUN (7-17) mg/dL Creatinine (0.52-1.04) mg/dL Glucose (74-99) mg/dL POC Glucose (mg/dL) 222 H (70-110) mg/dL Procalcitonin 0.11 H (0.02-0.09) ng/mL Urine Protein 2+ H (Negative) Urine Glucose (UA) Trace H (Negative) Urine Nitrite Positive H (Negative) Ur Leukocyte Esterase Trace H (Negative) Urine Bacteria Few H (None) /hpf Urine Mucus Rare H (None) /hpf 08/05/23 08/05/23 08/06/23 Range/Units 16:40 20:32 05:34 Carbon Dioxide 20 L (22-30) mmol/L BUN 55 H (7-17) mg/dL Creatinine 2.08 H (0.52-1.04) mg/dL Glucose 179 H (74-99) mg/dL POC Glucose (mg/dL) 260 H 238 H (70-110) mg/dL Procalcitonin (0.02-0.09) ng/mL Urine Protein (Negative) Urine Glucose (UA) (Negative) Urine Nitrite (Negative) Ur Leukocyte Esterase (Negative) Urine Bacteria (None) /hpf Urine Mucus (None) /hpf 08/06/23 Range/Units 06:01 Carbon Dioxide (22-30) mmol/L BUN (7-17) mg/dL Creatinine (0.52-1.04) mg/dL Glucose (74-99) mg/dL POC Glucose (mg/dL) 205 H (70-110) mg/dL Procalcitonin (0.02-0.09) ng/mL Urine Protein (Negative) Urine Glucose (UA) (Negative) Urine Nitrite (Negative) Ur Leukocyte Esterase (Negative) Urine Bacteria (None) /hpf Urine Mucus (None) /hpf Assessment and Plan Plan: Assessment: 1. Acute kidney injury secondary to ATN secondary to cardiorenal syndrome. Cre atinine peaked at 2.27 this admission and is 2.0 today. No hydronephrosis noted on kidney ultrasound. Right kidney atrophic. 2. Chronic kidney disease stage IIIB with baseline creatinine 1.3. Suspect nephrosclerosis and diabetic kidney disease. 3. Acute on chronic systolic CHF with ejection fraction of 40-45% with moderate pulmonary hypertension. 4. Diabetes mellitus. 5. Hypomagnesemia from diuresis. Replaced. Improved. Plan: Repeat IV Lasix 40 mg once today. Avoid nephrotoxins. Continue to monitor renal function and urine output. Repeat chest x-ray tomorrow morning.
[2023-08-06 11:34] LABS: Glucose,Whole Blood 139 mg/dL (70-110)
--- NOTE | 2023-08-06 14:40 | P.PN ---
Subjective Progress Note Date: 08/06/23 HISTORY OF PRESENTING ILLNESS 83-year-old female visits to the hospital because of worsening cough and dyspnea on exertion for last few days. Patient uses nighttime oxygen on and off but for last 5 days she has not been using home oxygen. Or the same course she has got more short of breath. She denied having any chest pain chest pressure. Because of her coughing repeatedly, she did report some chest pain whenever she would cough along with some right flank pain with coughing. On admission she had evidence of elevated troponin of 0.1, 0.09, 0.1. This troponin has a flat pattern of elevation BNP was around 17,000 Her creatinine was 1.28. Her baseline appears to be 1.3. Hemoglobin 11. Blood pressure 128/78, pulse 57. Of her ECG showed sinus rhythm with PACs and PVCs. Her echo cardiogram showed an EF of 40-45%. Moderate LVH, moderate dilatation She had a cardiac catheterization in 2019 which showed mild nonobstructive disease. ROXANNA in 2019 moderate MR, PFO 08/05/2023 Patient is seen and examined at bedside the same. She still reports that she is feeling short of breath. She reported that she is slightly better as compared to yesterday since she has been started on breathing treatment with Pulmicort and oral steroids. BP 121/70, heart rate 61 bpm, sinus rhythm on telemetry Oxygen saturation is slightly better. Saturating 100%. Yesterday it was in 90s . CT chest without contrast showed small bilateral pleural effusion. It did not show any obvious consolidation. elevated troponins done at 0.11 On admission creatinine was 1.2. Baseline CKD stage III. With IV Lasix twice a day it jumped to 2.24. With hydration there was no significant improvement creatinine 2.27. He did receive 1 dose of IV Lasix as per primary medicine team B 1/2 Heart rate is in the 60s, blood pressure 122/75. Repeat blood work reveals potassium 4.8, BUN 55 and creatinine 2.08. Nephrology is ordered 1 dose of IV Lasix. The vitreous is sinus rhythm. PHYSICAL EXAMINATION Moderately obese No significant JVD Lungs: Reduced air entry in bilateral lung man, mild crackles audible Heart: Regular rate and rhythm, S1-S2, no S3, no murmur or rub. Abdomen: Soft nontender, positive bowel sounds no organomegaly. Extremities: No significant swelling in bilateral lower extremity ASSESSMENT Small bilateral pleural effusions Acute tracheobronchitis Acute HFrEF exacerbation, EF 40-45% moderate LVH Frequent PACs and PVCs Mild elevation of troponin with a flat pattern, likely type II in setting of demand supply mismatch. Myocardial injury without infarction PAT with ATN, Mild CAD as per 2020 PFO Moderate MR RVSP 54, moderate pulmonary hypertension PLAN Most likely elevation of troponin with a flat pattern due to congestive heart failure and hypoxia. Completed 48 hours of IV heparin Continue Aspirin 81 mg, atorvastatin 20 mg daily Decrease Metoprolol to 12.5 mg twice a day Due to PAT stop losartan. Lasix per nephrology. Start internasal steroids and prednisone 20 mg for 5 days, Protonix Nuclear stress test to evaluate for any of CAD outpatient. Cardiology will sign off this case and follow on an as-needed basis. Please reconsult for any new concerns. Patient may follow-up in the office in one to 2 weeks. Nurse practitioner note has been reviewed, I agree with the documented findings and plan of care. Patient was seen and examined. Objective - Vital Signs Vital signs: Vital Signs Temp 98.4 F 08/06/23 08:00 Pulse 62 08/06/23 08:02 Resp 18 08/06/23 08:02 BP 122/75 08/06/23 08:00 Pulse Ox 100 08/06/23 08:00 FiO2 40 08/02/23 21:38 Intake & Output 08/05/23 08/06/23 08/06/23 18:59 06:59 18:59 Intake Total 240 118 Output Total 750 300 Balance -510 -182 Weight 98.2 kg Intake: Oral 240 118 Output: Urine 750 300 Other: Voiding Method Diaper Diaper External Catheter External Catheter - Labs CBC & Chem 7: 08/05/23 08:13 08/06/23 05:34 Labs: Abnormal Lab Results - Last 24 Hours (Table) 08/05/23 08/05/23 08/05/23 Range/Units 08:13 11:47 13:47 Carbon Dioxide (22-30) mmol/L BUN (7-17) mg/dL Creatinine (0.52-1.04) mg/dL Glucose (74-99) mg/dL POC Glucose (mg/dL) 222 H (70-110) mg/dL Procalcitonin 0.11 H (0.02-0.09) ng/mL Urine Protein 2+ H (Negative) Urine Glucose (UA) Trace H (Negative) Urine Nitrite Positive H (Negative) Ur Leukocyte Esterase Trace H (Negative) Urine Bacteria Few H (None) /hpf Urine Mucus Rare H (None) /hpf 08/05/23 08/05/23 08/06/23 Range/Units 16:40 20:32 05:34 Carbon Dioxide 20 L (22-30) mmol/L BUN 55 H (7-17) mg/dL Creatinine 2.08 H (0.52-1.04) mg/dL Glucose 179 H (74-99) mg/dL POC Glucose (mg/dL) 260 H 238 H (70-110) mg/dL Procalcitonin (0.02-0.09) ng/mL Urine Protein (Negative) Urine Glucose (UA) (Negative) Urine Nitrite (Negative) Ur Leukocyte Esterase (Negative) Urine Bacteria (None) /hpf Urine Mucus (None) /hpf 08/06/23 Range/Units 06:01 Carbon Dioxide (22-30) mmol/L BUN (7-17) mg/dL Creatinine (0.52-1.04) mg/dL Glucose (74-99) mg/dL POC Glucose (mg/dL) 205 H (70-110) mg/dL Procalcitonin (0.02-0.09) ng/mL Urine Protein (Negative) Urine Glucose (UA) (Negative) Urine Nitrite (Negative) Ur Leukocyte Esterase (Negative) Urine Bacteria (None) /hpf Urine Mucus (None) /hpf
[2023-08-06 16:38] LABS: Glucose,Whole Blood 238 mg/dL (70-110)
[2023-08-06] MEDS: ACETAMINOPHEN TAB 325 MG TAB PO PRN (17:07)
[2023-08-06] MEDS: guaiFENesin 600 MG TABLET.ER PO SCH ×2 (17:08→20:46)
[2023-08-06 20:41] LABS: Glucose,Whole Blood 239 mg/dL (70-110)
[2023-08-06] MEDS: ALBUTEROL NEBULIZED 2.5 MG/3 ML INHALATION PRN (21:42)
[2023-08-07] MEDS: ACETAMINOPHEN TAB 325 MG TAB PO PRN ×4 (05:31→23:39)
[2023-08-07] MEDS: PANTOPRAZOLE 40 MG TABLET PO SCH (05:37)
[2023-08-07 06:29] LABS: Glucose,Whole Blood 169 mg/dL (70-110)
[2023-08-07] MEDS: INSULIN ASPART (NovoLOG) 100 UNIT/ML VIAL SQ SCH ×4 (06:31→21:34)
[2023-08-07 07:44] LABS: Basophils % (A) 0 %; Eosinophils % (A) 1 %; HCT 32.3 % (34.0-46.0); HGB 10.4 gm/dL (11.4-16.0); Lymphocytes # (A) 1.2 k/uL (1.0-4.8); Lymphocytes % (A) 18 %; MCH 31.1 pg (25.0-35.0); MCHC 32.1 g/dL (31.0-37.0); MCV 96.7 fL (80.0-100.0); Mean Platelet Volume 9.8; Monocytes # (A) 0.3 k/uL (0-1.0); Monocytes % (A) 5 %; Neutrophils # (A) 5.1 k/uL (1.3-7.7); Neutrophils % (A) 75 %; Platelet Count 152 k/uL (150-450); RBC 3.34 m/uL (3.80-5.40); RDW 13.3 % (11.5-15.5); WBC 6.8 k/uL (3.8-10.6)
[2023-08-07 08:03] LABS: African American GFR (CKD) 24 (>60 ml/min/1.73 sqM); Anion Gap 8 mmol/L; Blood Urea Nitrogen 63 mg/dL (7-17); Calcium 10.1 mg/dL (8.4-10.2); Carbon Dioxide 21 mmol/L (22-30); Chloride 106 mmol/L (98-107); Glucose 160 mg/dL (74-99); Non-African American GFR(CKD) 21 (>60 ml/min/1.73 sqM); Sodium 135 mmol/L (137-145)
[2023-08-07] MEDS: BUDESONIDE 0.5 MG/2 ML NEBU INHALATION SCH ×2 (08:19→20:38)
[2023-08-07] MEDS: ALBUTEROL NEBULIZED 2.5 MG/3 ML INHALATION PRN ×2 (08:19→20:38)
--- NOTE | 2023-08-07 09:37 | XR ---
EXAMINATION TYPE: XR chest 1V DATE OF EXAM: 08/07/2023 7:03 AM CLINICAL INDICATION:Female, 83 years old with history of sob; COMPARISON: Chest radiographs from 08/02/2023. TECHNIQUE: XR chest 1V Frontal view of the chest. FINDINGS: Lungs/Pleura: No evidence of focal consolidation or pneumothorax. Blunting of the costophrenic angles is present. Pulmonary vascularity: Pulmonary vascular congestion. Heart/mediastinum: Cardiomediastinal silhouette is enlarged and stable. Musculoskeletal: No acute osseous pathology. IMPRESSION: Cardiomegaly, pulmonary vascular congestion and bilateral pleural effusions. Correlate with BNP for c ongestive heart failure.
[2023-08-07] MEDS: HEPARIN SODIUM,PORCINE 5,000 UNIT/ML 1 ML VIAL SQ SCH ×2 (09:43→21:35)
[2023-08-07] MEDS: predniSONE 20 MG TAB PO SCH (09:43)
[2023-08-07] MEDS: ASPIRIN 81 MG PO SCH (09:43)
[2023-08-07] MEDS: ATORVASTATIN 20 MG TAB PO SCH (09:43)
[2023-08-07] MEDS: NYSTATIN 100,000 UNIT/GM POWD 15 GM TOPICAL SCH ×2 (09:43→22:12)
[2023-08-07] MEDS: guaiFENesin 600 MG TABLET.ER PO SCH ×2 (09:43→21:35)
--- NOTE | 2023-08-07 10:08 | P.PN ---
Subjective Patient is seen in follow-up for acute kidney injury on chronic kidney disease. Renal function stable. On nasal cannula. No vomiting or diarrhea. Denies chest pain. Oral intake fair. Vital signs are stable. General: No acute distress. HEENT: Head exam is unremarkable. On nasal cannula. LUNGS: Scattered rhonchi. HEART: Rate and Rhythm are regular. ABDOMEN: Nontender. EXTREMITITES: No edema. Objective - Vital Signs Vital signs: Vital Signs Temp 98.4 F 08/07/23 08:00 Pulse 62 08/07/23 08:28 Resp 19 08/07/23 08:00 BP 150/96 08/07/23 08:00 Pulse Ox 100 08/07/23 08:22 FiO2 40 08/02/23 21:38 Intake & Output 08/06/23 08/07/23 08/07/23 18:59 06:59 18:59 Intake Total 1440 0 Output Total 900 400 Balance 540 -400 0 Weight 98.5 kg Intake: Oral 1440 0 Output: Urine 900 400 Other: Voiding Method Diaper Diaper External Catheter External Catheter - Labs CBC & Chem 7: 08/07/23 07:10 08/07/23 07:10 Labs: Abnormal Lab Results - Last 24 Hours (Table) 08/06/23 08/06/23 08/06/23 Range/Units 11:33 16:37 20:30 RBC (3.80-5.40) m/uL Hgb (11.4-16.0) gm/dL Hct (34.0-46.0) % Sodium (137-145) mmol/L Carbon Dioxide (22-30) mmol/L BUN (7-17) mg/dL Creatinine (0.52-1.04) mg/dL Glucose (74-99) mg/dL POC Glucose (mg/dL) 139 H 238 H 239 H (70-110) mg/dL 08/07/23 08/07/23 08/07/23 Range/Units 06:16 07:10 07:10 RBC 3.34 L (3.80-5.40) m/uL Hgb 10.4 L (11.4-16.0) gm/dL Hct 32.3 L (34.0-46.0) % Sodium 135 L (137-145) mmol/L Carbon Dioxide 21 L (22-30) mmol/L BUN 63 H (7-17) mg/dL Creatinine 2.17 H (0.52-1.04) mg/dL Glucose 160 H (74-99) mg/dL POC Glucose (mg/dL) 169 H (70-110) mg/dL Assessment and Plan Plan: Assessment: 1. Acute kidney injury secondary to ATN secondary to cardiorenal syndrome. Creatinine peaked at 2.27 this admission and is fairly stable at 2.17 today. No hydronephrosis noted on kidney ultrasound. Right kidney atrophic. 2. Chronic kidney disease stage IIIB with baseline creatinine 1.3. Suspect nephrosclerosis and diabetic kidney disease. 3. Acute on chronic systolic CHF with ejection fraction of 40-45% with moderate pulmonary hypertension. 4. Diabetes mellitus. 5. Hypomagnesemia from diuresis. Replaced. Improved. 6. Volume overload. Plan: Added IV Lasix 40 mg once daily. Chest x-ray suggestive of fluid overload. Avoid nephrotoxins. Continue to monitor renal function and urine output.
[2023-08-07] MEDS: FUROSEMIDE 10 MG/ML 4 ML VIAL IV SCH (11:21)
[2023-08-07 11:26] LABS: Glucose,Whole Blood 186 mg/dL (70-110)
[2023-08-07] MEDS: LIDOCAINE 4% PATCH TOPICAL SCH (13:14)
[2023-08-07 13:18] VITALS: BMI 39.6
[2023-08-07 16:11] LABS: Glucose,Whole Blood 239 mg/dL (70-110)
[2023-08-07 19:55] LABS: Glucose,Whole Blood 267 mg/dL (70-110)
--- NOTE | 2023-08-08 01:09 | P.PN ---
Subjective This is a pleasant 83 years old female with multiple medical problems as below. Presents because she has coughing her main concerns are associated with dyspnea over the last few days. She used to use oxygen at night about stopped using her oxygen while ago however over the last for 5 days she went back to her oxygen because of her shortness of breath. No chest pain. She has headache on and off, currently she does not have any headache no dizzi ness no weakness or numbness. Patient feels generally weak. She is complaining of from diarrhea but stopped about 2 days ago she doesn't have bowel movements She is complaining of from lower abdominal pain on the right side especially with coughing over the last 3 days, described as mild pain. Also she had some back pain earlier but since resolved now. No vomiting. She feels generally weak. Denies any specific urinary complaints no dysuria or urgency. No smoking alcohol or illicit drugs. Patient Vitas looks stable, her oxygen saturation is 99% on 6 L oxygen via nasal cannula and blood pressure 147/82. CBC, INR and liver enzymes were unremarkable. 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 On his elevated 0.10, 0.09 and 0.10. Magnesium 1.5 which is replaced. Influenza A and type B, RSV, SARS (coronavirus) are and detected Chest x-ray showing cardiomegaly with pulmonary vascular congestion suspicious for CHF ProBNP is elevated 59664. EKG showing sinus tachycardia at [address]-T changes. QTC is 400. 08/03/2023 Patient awake and alert, she still complaining from some exertion or with dyspnea. No chest pain and have some cough and. Lungs still shows crepitation. But no leg edema Currently she is on 4 L oxygen saturating 100%, according to staff to try to lower rate Her creatinine went up to point to therefore her losartan atelectasis. She received small doses of normal saline. Also there was suspicion of bronchitis and the prednisone and Symbicort was added. Heparin drip was stopped and currently she is on aspirin, and stressed test out patient Discussed with cardiology team She had some abdominal pain but is improving and she is able to be today. 08/05/2023 Patient still short of breath, still with bilateral basal interpretation and bilateral pitting leg edema. Patient will need stress testing as an outpatient Creatinine is elevated at 2.27, 1 time dose of IV Lasix provided and nephrology team were consulted who recommended urinalysis, bladder scan and renal ultrasound. Low Zartan remains on hold Patients with no fever or leukocytosis Currently on metoprolol 12.5 mg and aspirin 81 mg Heparin drip is discontinued and currently she is on subcutaneous heparin Hemoglobin stable at 11. Monitor hemoglobin and creatinine tomorrow 08/06/2023 Patient still have dyspnea and leg edema Continue with IV Lasix Patient remains on aspirin, elevated troponin thought secondary to CHF rather than an ostomy Currently on aspirin 81 mg, Lipitor Cartilage team signed off Also cardiology put this patient on prednisone 5 days and it helped steroids Objective - Vital Signs Vital signs: Vital Signs Temp 98.4 F 08/06/23 08:00 Pulse 62 08/06/23 08:02 Resp 18 08/06/23 08:02 BP 122/75 08/06/23 08:00 Pulse Ox 100 08/06/23 08:00 FiO2 40 08/02/23 21:38 Intake & Output 08/05/23 08/06/23 08/06/23 18:59 06:59 18:59 Intake Total 240 118 480 Output Total 750 300 Balance -510 -182 480 Weight 98.2 kg Intake: Oral 240 118 480 Output: Urine 750 300 Other: Voiding Method Diaper Diaper External Catheter External Catheter - Exam GENERAL: The patient is alert and oriented x3, not in any acute distress. Well developed, well nourished. HEENT: Pupils are round and equally reacting to light. EOMI. No scleral icterus. No conjunctival pallor. Normocephalic, atraumatic. No pharyngeal erythema. No thyromegaly. CARDIOVASCULAR: S1 and S2 present. No murmurs, rubs, or gallops. -PULMONARY: Chest is clear to auscultation, no wheezing , bilateral basal crackles. ABDOMEN: Soft, nontender, nondistended, normoactive bowel sounds. No palpable organomegaly. MUSCULOSKELETAL: No joint swelling or deformity. EXTREMITIES: No cyanosis, clubbing, 1+ bilateral pitting leg edema. NEUROLOGICAL: Gross neurological examination did not reveal any focal deficits. SKIN: No rashes. no petechiae. - Labs CBC & Chem 7: 08/07/23 07:10 08/07/23 07:10 Labs: Abnormal Lab Results - Last 24 Hours (Table) 08/05/23 08/05/23 08/06/23 Range/Units 16:40 20:32 05:34 Carbon Dioxide 20 L (22-30) mmol/L BUN 55 H (7-17) mg/dL Creatinine 2.08 H (0.52-1.04) mg/dL Glucose 179 H (74-99) mg/dL POC Glucose (mg/dL) 260 H 238 H (70-110) mg/dL 08/06/23 08/06/23 Range/Units 06:01 11:33 Carbon Dioxide (22-30) mmol/L BUN (7-17) mg/dL Creatinine (0.52-1.04) mg/dL Glucose (74-99) mg/dL POC Glucose (mg/dL) 205 H 139 H (70-110) mg/dL Assessment and Plan Assessment: non-STEMI , currently with no chest pain and recommended outpatient stress test acute CHF, unknown ejection fraction Acute hypoxic respiratory failure Acute kidney injury on chronic kidney disease stage III most likely secondary to cardiorenal syndrome Abdominal pain Obesity with BMI of 39 Chronic kidney disease stage III. Plan: continue with antiplatelet therapy per recruiter specialist and currently patient is on aspirin, 81 mg, stress test outpatient Continue with monitoring creatinine Status post IV Lasix 20 mg 1 Continue with fluid restriction 1200 mL per day. Cardiology consult CT of the chest results were reviewed, basically unremarkable for significant abnormality Labs and medication were reviewed.. Continue same treatment. Continue with symptomatic treatment. Resume home medication. Monitor labs and vitals. DVT and GI prophylaxis. Further recommendations as per clinical course of the patient DVT prophylaxis: heparin GI Prophylaxis: Ppi PT/OT: Pending Prognosis is guarded
--- NOTE | 2023-08-08 01:10 | P.PN ---
Subjective This is a pleasant 83 years old female with multiple medical problems as below. Presents because she has coughing her main concerns are associated with dyspnea over the last few days. She used to use oxygen at night about stopped using her oxygen while ago however over the last for 5 days she went back to her oxygen because of her shortness of breath. No chest pain. She has headache on and off, currently she does not have any headache no dizzi ness no weakness or numbness. Patient feels generally weak. She is complaining of from diarrhea but stopped about 2 days ago she doesn't have bowel movements She is complaining of from lower abdominal pain on the right side especially with coughing over the last 3 days, described as mild pain. Also she had some back pain earlier but since resolved now. No vomiting. She feels generally weak. Denies any specific urinary complaints no dysuria or urgency. No smoking alcohol or illicit drugs. Patient Vitas looks stable, her oxygen saturation is 99% on 6 L oxygen via nasal cannula and blood pressure 147/82. CBC, INR and liver enzymes were unremarkable. 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 On his elevated 0.10, 0.09 and 0.10. Magnesium 1.5 which is replaced. Influenza A and type B, RSV, SARS (coronavirus) are and detected Chest x-ray showing cardiomegaly with pulmonary vascular congestion suspicious for CHF ProBNP is elevated 93861. EKG showing sinus tachycardia at [address]-T changes. QTC is 400. 08/03/2023 Patient awake and alert, she still complaining from some exertion or with dyspnea. No chest pain and have some cough and. Lungs still shows crepitation. But no leg edema Currently she is on 4 L oxygen saturating 100%, according to staff to try to lower rate Her creatinine went up to point to therefore her losartan atelectasis. She received small doses of normal saline. Also there was suspicion of bronchitis and the prednisone and Symbicort was added. Heparin drip was stopped and currently she is on aspirin, and stressed test out patient Discussed with cardiology team She had some abdominal pain but is improving and she is able to be today. 08/05/2023 Patient still short of breath, still with bilateral basal interpretation and bilateral pitting leg edema. Patient will need stress testing as an outpatient Creatinine is elevated at 2.27, 1 time dose of IV Lasix provided and nephrology team were consulted who recommended urinalysis, bladder scan and renal ultrasound. Low Zartan remains on hold Patients with no fever or leukocytosis Currently on metoprolol 12.5 mg and aspirin 81 mg Heparin drip is discontinued and currently she is on subcutaneous heparin Hemoglobin stable at 11. Monitor hemoglobin and creatinine tomorrow 08/06/2023 Patient still have dyspnea and leg edema Continue with IV Lasix Patient remains on aspirin, elevated troponin thought secondary to CHF rather than an ostomy Currently on aspirin 81 mg, Lipitor Cartilage team signed off Also cardiology put this patient on prednisone 5 days and it helped steroids 08/07/2023 Patient been a problem remains fluid overload She still have dyspnea, leg edema and swelling in extremities She is on IV Lasix 40 mg daily Creatinine is still elevated 2.17 but improving slightly She's requiring 4 L oxygen with 100% saturation Hemoglobin A1c mildly elevated at 7.1 placed on low carbohydrate diet. Objective - Vital Signs Vital signs: Vital Signs Temp 98.4 F 08/07/23 08:00 Pulse 62 08/07/23 08:28 Resp 19 08/07/23 08:00 BP 150/96 08/07/23 08:00 Pulse Ox 100 08/07/23 08:22 FiO2 40 08/02/23 21:38 Intake & Output 08/06/23 08/07/23 08/07/23 18:59 06:59 18:59 Intake Total 1440 0 Output Total 900 400 Balance 540 -400 0 Weight 98.5 kg 98.5 kg Intake: Oral 1440 0 Output: Urine 900 400 Other: Voiding Method Diaper Diaper External Catheter External Catheter # Bowel Movements 1 - Exam GENERAL: The patient is alert and oriented x3, not in any acute distress. Well developed, well nourished. HEENT: Pupils are round and equally reacting to light. EOMI. No scleral icterus. No conjunctival pallor. Normocephalic, atraumatic. No pharyngeal erythema. No thyromegaly. CARDIOVASCULAR: S1 and S2 present. No murmurs, rubs, or gallops. -PULMONARY: Chest is clear to auscultation, no wheezing , bilateral basal crackles. ABDOMEN: Soft, nontender, nondistended, normoactive bowel sounds. No palpable organomegaly. MUSCULOSKELETAL: No joint swelling or deformity. EXTREMITIES: No cyanosis, clubbing, 1+ bilateral pitting leg edema. NEUROLOGICAL: Gross neurological examination did not reveal any focal deficits. SKIN: No rashes. no petechiae. - Labs CBC & Chem 7: 08/07/23 07:10 08/07/23 07:10 Labs: Abnormal Lab Results - Last 24 Hours (Table) 08/06/23 08/06/23 08/07/23 Range/Units 16:37 20:30 06:16 RBC (3.80-5.40) m/uL Hgb (11.4-16.0) gm/dL Hct (34.0-46.0) % Sodium (137-145) mmol/L Carbon Dioxide (22-30) mmol/L BUN (7-17) mg/dL Creatinine (0.52-1.04) mg/dL Glucose (74-99) mg/dL POC Glucose (mg/dL) 238 H 239 H 169 H (70-110) mg/dL 08/07/23 08/07/23 08/07/23 Range/Units 07:10 07:10 11:25 RBC 3.34 L (3.80-5.40) m/uL Hgb 10.4 L (11.4-16.0) gm/dL Hct 32.3 L (34.0-46.0) % Sodium 135 L (137-145) mmol/L Carbon Dioxide 21 L (22-30) mmol/L BUN 63 H (7-17) mg/dL Creatinine 2.17 H (0.52-1.04) mg/dL Glucose 160 H (74-99) mg/dL POC Glucose (mg/dL) 186 H (70-110) mg/dL Assessment and Plan Assessment: non-STEMI , currently with no chest pain and recommended outpatient stress test acute CHF, unknown ejection fraction Acute hypoxic respiratory failure Acute kidney injury on chronic kidney disease stage III most likely secondary to cardiorenal syndrome Abdominal pain Obesity with BMI of 39 Chronic kidney disease stage III. Plan: continue with antiplatelet therapy per clinical specialist vascular and currently patient is on aspirin, 81 mg, stress test outpatient Continue with monitoring creatinine Status post IV Lasix 20 mg 1 Continue with fluid restriction 1200 mL per day. Cardiology consult CT of the chest results were reviewed, basically unremarkable for significant ab normality Labs and medication were reviewed.. Continue same treatment. Continue with symptomatic treatment. Resume home medication. Monitor labs and vitals. DVT and GI prophylaxis. Further recommendations as per clinical course of the patient DVT prophylaxis: heparin GI Prophylaxis: Ppi PT/OT: Pending Prognosis is guarded
[2023-08-08] MEDS: ACETAMINOPHEN TAB 325 MG TAB PO PRN (05:33)
[2023-08-08] MEDS: PANTOPRAZOLE 40 MG TABLET PO SCH (05:35)
[2023-08-08 06:11] LABS: Glucose,Whole Blood 178 mg/dL (70-110)
[2023-08-08] MEDS: INSULIN ASPART (NovoLOG) 100 UNIT/ML VIAL SQ SCH ×4 (06:31→20:38)
[2023-08-08] MEDS: BUDESONIDE 0.5 MG/2 ML NEBU INHALATION SCH ×2 (08:45→20:13)
[2023-08-08] MEDS: ALBUTEROL NEBULIZED 2.5 MG/3 ML INHALATION PRN ×2 (08:45→20:13)
[2023-08-08] MEDS: ATORVASTATIN 20 MG TAB PO SCH (08:56)
[2023-08-08] MEDS: predniSONE 20 MG TAB PO SCH (08:56)
[2023-08-08] MEDS: HEPARIN SODIUM,PORCINE 5,000 UNIT/ML 1 ML VIAL SQ SCH ×2 (08:56→20:37)
[2023-08-08] MEDS: FUROSEMIDE 10 MG/ML 4 ML VIAL IV SCH (08:56)
[2023-08-08] MEDS: guaiFENesin 600 MG TABLET.ER PO SCH ×2 (08:56→20:37)
[2023-08-08] MEDS: ASPIRIN 81 MG PO SCH (08:56)
[2023-08-08] MEDS: LIDOCAINE 4% PATCH TOPICAL SCH (08:57)
[2023-08-08] MEDS: NYSTATIN 100,000 UNIT/GM POWD 15 GM TOPICAL SCH ×2 (08:57→20:38)
[2023-08-08 09:48] LABS: Basophils % (A) 0 %; Eosinophils # (A) 0.1 k/uL (0-0.7); Eosinophils % (A) 1 %; HCT 36.1 % (34.0-46.0); HGB 11.5 gm/dL (11.4-16.0); Hypochromasia Slight; Lymphocytes # (A) 1.6 k/uL (1.0-4.8); Lymphocytes % (A) 23 %; MCH 31.1 pg (25.0-35.0); MCHC 31.7 g/dL (31.0-37.0); MCV 98.2 fL (80.0-100.0); Mean Platelet Volume 9.3; Monocytes # (A) 0.3 k/uL (0-1.0); Monocytes % (A) 5 %; Neutrophils # (A) 4.9 k/uL (1.3-7.7); Neutrophils % (A) 69 %; Platelet Count 165 k/uL (150-450); RBC 3.68 m/uL (3.80-5.40); RDW 12.9 % (11.5-15.5)
[2023-08-08 10:53] LABS: African American GFR (CKD) 27 (>60 ml/min/1.73 sqM); Anion Gap 8 mmol/L; Blood Urea Nitrogen 71 mg/dL (7-17); Calcium 10.4 mg/dL (8.4-10.2); Carbon Dioxide 25 mmol/L (22-30); Chloride 105 mmol/L (98-107); Glucose 153 mg/dL (74-99); Non-African American GFR(CKD) 23 (>60 ml/min/1.73 sqM); Potassium 5.4 mmol/L (3.5-5.1); Sodium 138 mmol/L (137-145)
[2023-08-08 11:22] LABS: Glucose,Whole Blood 182 mg/dL (70-110)
[2023-08-08] MEDS ORDERED: SODIUM ZIRCONIUM CYCLOSILICATE 10 GM PACKET PO ONE (11:22)
--- NOTE | 2023-08-08 11:24 | P.PN ---
Subjective Patient is seen in follow-up for acute kidney injury on chronic kidney disease. Renal function stable. On IV Lasix. On nasal cannula. No vomiting or diarrhea. Denies chest pain. Vital signs are stable. General: No acute distress. HEENT: Head exam is unremarkable. On nasal cannula. LUNGS: Scattered rhonchi. HEART: Rate and Rhythm are regular. ABDOMEN: Nontender. EXTREMITITES: No edema. Objective - Vital Signs Vital signs: Vital Signs Temp 96.9 F L 08/08/23 08:00 Pulse 68 08/08/23 08:57 Resp 20 08/08/23 08:00 BP 130/76 08/08/23 08:00 Pulse Ox 97 08/08/23 08:21 FiO2 40 08/02/23 21:38 Intake & Output 08/07/23 08/08/23 08/08/23 18:59 06:59 18:59 Intake Total 480 240 Output Total 500 Balance -20 240 Weight 98.5 kg 96 kg Intake: Oral 480 240 Output: Urine 500 Other: Voiding Method Diaper Diaper Diaper External Catheter External Catheter External Catheter # Voids 1 1 # Bowel Movements 1 - Labs CBC & Chem 7: 08/08/23 09:20 08/08/23 09:07 Labs: Abnormal Lab Results - Last 24 Hours (Table) 08/07/23 08/07/23 08/07/23 Range/Units 11:25 16:09 19:53 RBC (3.80-5.40) m/uL Potassium (3.5-5.1) mmol/L BUN (7-17) mg/dL Creatinine (0.52-1.04) mg/dL Glucose (74-99) mg/dL POC Glucose (mg/dL) 186 H 239 H 267 H (70-110) mg/dL Calcium (8.4-10.2) mg/dL 08/08/23 08/08/23 08/08/23 Range/Units 06:10 09:07 09:20 RBC 3.68 L (3.80-5.40) m/uL Potassium 5.4 H (3.5-5.1) mmol/L BUN 71 H (7-17) mg/dL Creatinine 1.98 H (0.52-1.04) mg/dL Glucose 153 H (74-99) mg/dL POC Glucose (mg/dL) 178 H (70-110) mg/dL Calcium 10.4 H (8.4-10.2) mg/dL Assessment and Plan Plan: Assessment: 1. Acute kidney injury secondary to ATN secondary to cardiorenal syndrome. Creatinine peaked at 2.27 this admission and is improved to 1.98. No hydronephrosis noted on kidney ultrasound. Right kidney atrophic. 2. Chronic kidney disease stage IIIB with baseline creatinine 1.3. Suspect nephrosclerosis and diabetic kidney disease. 3. Acute on chronic systolic CHF with ejection fraction of 40-45% with moderate pulmonary hypertension. 4. Diabetes mellitus. 5. Hypomagnesemia from diuresis. Replaced. Improved. 6. Volume overload. Improving with diuresis. 7. Hypercalcemia. Not on any calcium or vitamin D supplements. 8. Mild hyperkalemia secondary to acute kidney injury. Plan: Maintain IV Lasix for now. Additional 20 mg dose this afternoon. Lokelma 10 g once today. Avoid nephrotoxins. Continue to monitor renal function and urine output. Check further workup for hypercalcemia. Repeat chest x-ray in the morning.
[2023-08-08 12:14] LABS: ALT 48 U/L (4-34); AST 25 U/L (14-36); African American GFR (CKD) 26 (>60 ml/min/1.73 sqM); Albumin 3.1 g/dL (3.5-5.0); Alkaline Phosphatase 79 U/L (38-126); Anion Gap 7 mmol/L; Blood Urea Nitrogen 69 mg/dL (7-17); Calcium 10.4 mg/dL (8.4-10.2); Carbon Dioxide 26 mmol/L (22-30); Chloride 104 mmol/L (98-107); Glucose 174 mg/dL (74-99); Magnesium 1.9 mg/dL (1.6-2.3); Non-African American GFR(CKD) 22 (>60 ml/min/1.73 sqM); Potassium 5.2 mmol/L (3.5-5.1); Sodium 137 mmol/L (137-145); Total Bilirubin 0.3 mg/dL (0.2-1.3); Total Protein 5.6 g/dL (6.3-8.2)
[2023-08-08] MEDS ORDERED: FUROSEMIDE 10 MG/ML 2 ML VIAL IV ONE (15:00)
--- NOTE | 2023-08-08 15:20 | CDI ---
Documentation Clarification Form Date: 08/08/2023 02:42:04 PM From: Erika Rhodes RN, CCDS Phone: [phone] Admit Date: 08/02/2023 05:10:00 PM Patient Name: Rachel Chaidez Visit Number: [id number] Discharge Date: ATTENTION: The Clinical Documentation Specialists (CDI) and [facility] Coding Staff appreciate your assistance in clarifying documentation. Please respond to the clarification below the line at the bottom and electronically sign. The CDI & [facility] Coding staff will review the response and follow-up if needed. Please note: Queries are made part of the Legal Health Record. If you have any questions, please contact the author of this message via ITS. Dr. Evangelista E Sheet Conflicting documentation has been found in the medical record. As attending physician, please provide clarification. /3 H/P and subsequent progress note: non-STEMI 08/03 Cardiology Consult and subsequent progress notes: Mild elevation of troponin with a flat pattern, likely type II in setting of demand supply mismatch. Myocardial injury without infarction Most likely elevation of troponin with a flat pattern due to congestive heart failure and hypoxia. History/Risk Factors: Asthma, COPD, CVA/TIA, Diabetes Mellitus, Deep Vein Thrombosis, GERD/Reflux, Hyperlipidemia, Hypertension, Thyroid Disorder Clinical Indicators: 83-year-old female presents to the ER for shortness of shortness of breath pain in her chest. 173/127 93 20 98.5 97% 2/L Labs: WBC 8.8 Na 136, BUN 26, CR 1.28, BNP 37836, Troponin I 0.106, 0.92, 0.101 Treatment: Cardiac/Telemetry monitoring IV Heparin drip for 48 hours Aspirin 81 MG BID Losartan 12.5 MG PO BID Lipitor 20mg PO Daily 08/03-08/08 Nuclear stress test to evaluate for any of CAD outpatient. Please clarify which diagnosis is most appropriate: [ ] non-STEMI [ ] Mild elevation of troponin with a flat pattern, likely type II in setting of demand supply mismatch. Myocardial injury without infarction. [ ] Other (please specify) [ ] Unable to determine (Template Last Revised: October 2020) Non-STEMI and troponin elevation likely from type 2 [place] cardiology recommended outpatient stress test Dictated By: Kalli Milner Signed By: <Electronically signed by Kalli BURGOS> 08/08/23 2204 <Electronically signed by Bandar Adkins MD> 08/09/23 1134 <Electronically signed by Bandar Adkins MD> [facility]
[2023-08-08 15:55] LABS: Albumin 3.4 g/dL (3.8-4.9); Protein, Total 5.4 g/dL (6.2-8.2)
[2023-08-08 16:49] LABS: Glucose,Whole Blood 259 mg/dL (70-110)
[2023-08-08 20:10] LABS: Glucose,Whole Blood 321 mg/dL (70-110)
[2023-08-08] MEDS ORDERED: ERGOCALCIFEROL 1,250 MCG (50,000 IU) CAPSULE PO SCH (22:00)
--- NOTE | 2023-08-08 22:04 | P.PN ---
Subjective Progress Note Date: 08/08/23 Patient evaluated today resting in bed. Continues on oxygen 4L nasal cannula with saturations of 100% and this can be weaned likely to room air. Patient only wears oxygen as needed at home. Does continue on IV lasix daily. Reports some shortness of breath lungs are essentially clear, diminished. Unable to take a deep breath. Creatinine 2.05 today. Calcium remains elevated at 10.4. PTH elevated at 260. Vitamin D 25 level low at 11.8. Review of Systems Constitutional: Denied any fatigue denied any fever. Cardio vascular: denied any chest pain, palpitations Gastrointestinal: denied any nausea, vomiting, diarrhea Pulmonary: Denied any shortness of breath cough Neurologic denied any new focal deficits All inpatient medications were reviewed and appropriate changes in these medications as dictated in the interval history and assessment and plan PHYSICAL EXAMINATION: GENERAL: The patient is alert and oriented x3, not in any acute distress. Well developed, well nourished. HEENT: Pupils are round and equally reacting to light. EOMI. No scleral icterus. No conjunctival pallor. Normocephalic, atraumatic. No pharyngeal erythema. No thyromegaly. CARDIOVASCULAR: S1 and S2 present. No murmurs, rubs, or gallops. PULMONARY: Chest is clear to auscultation, no wheezing or crackles. ABDOMEN: Soft, nontender, nondistended, normoactive bowel sounds. No palpable organomegaly. MUSCULOSKELETAL: No joint swelling or deformity. EXTREMITIES: No cyanosis, clubbing, or pedal edema. NEUROLOGICAL: Gross neurological examination did not reveal any focal deficits. SKIN: No rashes. Assessment Non-STEMI and troponin elevation likely from type 2 [place] cardiology recommended outpatient stress test Acute CHF exacerbation diastolic dysfunction with EF 40-45% and moderate pulmonary hypertension Acute hypoxic respiratory failure secondary to acute CHF exacerbation, on 4L can be weaned as tolerated Acute kidney injury on chronic kidney disease stage III most likely secondary to cardiorenal syndrome improving with IV lasix patient given an extra dose of IV lasix today. Abdominal pain improved. Diabetes Mellitus type 2 Obesity with BMI of 39 Chronic kidney disease stage III. Vitamin D deficiency will add oral supplementation with 50,000 units weekly as well as 2000 iu daily. GI prophylaxis DVT prophylaxis Plan Continue on IV lasix, continue on 1200 cc fluid restriction Cardiology has signed off recommending outpatient stress test when medically stable Continue to wean oxygen as tolerated. Patient given a dose of lokelma today for the elevated potassium Repeat labs in AM PT.OT following and recommending rehab on discharge The impression and plan of care has been dictated by Kalli Milner, Nurse Practitioner as directed. Dr. Lucille MD I have performed a history and physical examination and medical decision making of this patient, discussed the same with the dictator, and agree with the dictators assessment and plan as written, documented as a scribe. Based on total visit time, I have performed more than 50% of this visit. Objective - Vital Signs Vital signs: Vital Signs Temp 97.4 F L 08/08/23 15:41 Pulse 60 08/08/23 15:41 Resp 20 08/08/23 15:41 BP 162/104 08/08/23 15:41 Pulse Ox 100 08/08/23 15:41 FiO2 40 08/02/23 21:38 Intake & Output 08/07/23 08/08/23 08/08/23 18:59 06:59 18:59 Intake Total 480 480 Output Total 500 1300 Balance -20 -820 Weight 98.5 kg 96 kg Intake: Oral 480 480 Output: Urine 500 1300 Other: Voiding Method Diaper Diaper Diaper External Catheter External Catheter External Catheter # Voids 1 1 # Bowel Movements 1 - Labs CBC & Chem 7: 08/08/23 09:20 08/08/23 11:27 Labs: Abnormal Lab Results - Last 24 Hours (Table) 08/07/23 08/07/23 08/08/23 Range/Units 16:09 19:53 06:10 RBC (3.80-5.40) m/uL Potassium (3.5-5.1) mmol/L BUN (7-17) mg/dL Creatinine (0.52-1.04) mg/dL Glucose (74-99) mg/dL POC Glucose (mg/dL) 239 H 267 H 178 H (70-110) mg/dL Calcium (8.4-10.2) mg/dL ALT (4-34) U/L Total Protein (6.3-8.2) g/dL Albumin (3.5-5.0) g/dL 08/08/23 08/08/23 08/08/23 Range/Units 09:07 09:20 11:20 RBC 3.68 L (3.80-5.40) m/uL Potassium 5.4 H (3.5-5.1) mmol/L BUN 71 H (7-17) mg/dL Creatinine 1.98 H (0.52-1.04) mg/dL Glucose 153 H (74-99) mg/dL POC Glucose (mg/dL) 182 H (70-110) mg/dL Calcium 10.4 H (8.4-10.2) mg/dL ALT (4-34) U/L Total Protein (6.3-8.2) g/dL Albumin (3.5-5.0) g/dL 08/08/23 Range/Units 11:27 RBC (3.80-5.40) m/uL Potassium 5.2 H (3.5-5.1) mmol/L BUN 69 H (7-17) mg/dL Creatinine 2.05 H (0.52-1.04) mg/dL Glucose 174 H (74-99) mg/dL POC Glucose (mg/dL) (70-110) mg/dL Calcium 10.4 H (8.4-10.2) mg/dL ALT 48 H (4-34) U/L Total Protein 5.6 L (6.3-8.2) g/dL Albumin 3.1 L (3.5-5.0) g/dL Assessment and Plan Time with Patient: Less than 30
[2023-08-09] MEDS: INSULIN ASPART (NovoLOG) 100 UNIT/ML VIAL SQ SCH ×4 (06:24→20:47)
[2023-08-09 06:25] LABS: Glucose,Whole Blood 116 mg/dL (70-110)
[2023-08-09] MEDS: PANTOPRAZOLE 40 MG TABLET PO SCH (06:26)
[2023-08-09 08:07] LABS: African American GFR (CKD) 28 (>60 ml/min/1.73 sqM); Anion Gap 6 mmol/L; Blood Urea Nitrogen 75 mg/dL (7-17); Calcium 10.5 mg/dL (8.4-10.2); Carbon Dioxide 29 mmol/L (22-30); Chloride 103 mmol/L (98-107); Glucose 119 mg/dL (74-99); Non-African American GFR(CKD) 24 (>60 ml/min/1.73 sqM); Potassium 5.3 mmol/L (3.5-5.1); Sodium 138 mmol/L (137-145)
--- NOTE | 2023-08-09 08:29 | XR ---
EXAMINATION TYPE: XR chest 1V DATE OF EXAM: 08/09/2023 6:33 AM CLINICAL INDICATION:Female, 83 years old with history of sob; COMPARISON: Chest radiographs from 08/07/2023. TECHNIQUE: XR chest 1V Frontal view of the chest. FINDINGS: Lungs/Pleura: There is no evidence of pleural effusion, focal consolidation, or pneumothorax. Pulmonary vascularity: Unremarkable. Heart/mediastinum: Cardiomediastinal silhouette is enlarged and stable. Musculoskeletal: No acute osseous pathology. IMPRESSION: No acute cardiopulmonary disease/process.
[2023-08-09] MEDS: predniSONE 20 MG TAB PO SCH (08:30)
[2023-08-09] MEDS: ATORVASTATIN 20 MG TAB PO SCH (08:30)
[2023-08-09] MEDS: ASPIRIN 81 MG PO SCH (08:30)
[2023-08-09] MEDS: guaiFENesin 600 MG TABLET.ER PO SCH ×2 (08:30→20:46)
[2023-08-09] MEDS: NYSTATIN 100,000 UNIT/GM POWD 15 GM TOPICAL SCH ×2 (08:31→20:47)
[2023-08-09] MEDS: FUROSEMIDE 10 MG/ML 4 ML VIAL IV SCH (08:31)
[2023-08-09] MEDS: LIDOCAINE 4% PATCH TOPICAL SCH (08:31)
[2023-08-09] MEDS: HEPARIN SODIUM,PORCINE 5,000 UNIT/ML 1 ML VIAL SQ SCH ×2 (08:31→20:47)
[2023-08-09] MEDS ORDERED: CHOLECALCIFEROL 25 MCG (1000 IU) TABLET PO SCH (09:00)
[2023-08-09] MEDS: BUDESONIDE 0.5 MG/2 ML NEBU INHALATION SCH ×2 (09:21→21:53)
[2023-08-09] MEDS: ALBUTEROL NEBULIZED 2.5 MG/3 ML INHALATION PRN ×2 (09:21→21:53)
--- NOTE | 2023-08-09 11:19 | P.PN ---
Subjective Patient is seen in follow-up for acute kidney injury on chronic kidney disease. Renal function stable. On IV Lasix. On nasal cannula. Denies chest pain. On 3 L nasal cannula. Nonoliguric. Vital signs are stable. General: No acute distress. HEENT: Head exam is unremarkable. On nasal cannula. LUNGS: Scattered rhonchi. HEART: Rate and Rhythm are regular. ABDOMEN: Nontender. EXTREMITITES: No edema. Objective - Vital Signs Vital signs: Vital Signs Temp 97.6 F 08/09/23 08:00 Pulse 76 08/09/23 09:35 Resp 20 08/09/23 08:00 BP 152/81 08/09/23 08:00 Pulse Ox 100 08/09/23 08:00 FiO2 40 08/02/23 21:38 Intake & Output 08/08/23 08/09/23 08/09/23 18:59 06:59 18:59 Intake Total 702 120 340 Output Total 1300 1000 Balance -598 120 -660 Weight 97.5 kg Intake: Oral 702 120 340 Output: Urine 1300 1000 Other: Voiding Method Diaper Diaper Diaper External Catheter External Catheter External Catheter # Bowel Movements 1 - Labs CBC & Chem 7: 08/08/23 09:20 08/09/23 07:02 Labs: Abnormal Lab Results - Last 24 Hours (Table) 08/08/23 08/08/23 08/08/23 Range/Units 11:20 11:27 11:27 Potassium 5.2 H (3.5-5.1) mmol/L BUN 69 H (7-17) mg/dL Creatinine 2.05 H (0.52-1.04) mg/dL Glucose 174 H (74-99) mg/dL POC Glucose (mg/dL) 182 H (70-110) mg/dL Calcium 10.4 H (8.4-10.2) mg/dL ALT 48 H (4-34) U/L Total Protein 5.6 L (6.3-8.2) g/dL Total Protein (PEP) 5.4 L (6.2-8.2) g/dL Albumin 3.1 L (3.5-5.0) g/dL Albumin (PEP) 3.4 L (3.8-4.9) g/dL Vitamin D 25-Hydroxy 11.8 L (30.0-100.0) ng/mL PTH Intact (14.0-72.0) pg/mL 08/08/23 08/08/23 08/08/23 Range/Units 11:27 16:42 20:08 Potassium (3.5-5.1) mmol/L BUN (7-17) mg/dL Creatinine (0.52-1.04) mg/dL Glucose (74-99) mg/dL POC Glucose (mg/dL) 259 H 321 H (70-110) mg/dL Calcium (8.4-10.2) mg/dL ALT (4-34) U/L Total Protein (6.3-8.2) g/dL Total Protein (PEP) (6.2-8.2) g/dL Albumin (3.5-5.0) g/dL Albumin (PEP) (3.8-4.9) g/dL Vitamin D 25-Hydroxy (30.0-100.0) ng/mL PTH Intact 260.0 H (14.0-72.0) pg/mL 08/09/23 08/09/23 Range/Units 06:23 07:02 Potassium 5.3 H (3.5-5.1) mmol/L BUN 75 H (7-17) mg/dL Creatinine 1.93 H (0.52-1.04) mg/dL Glucose 119 H (74-99) mg/dL POC Glucose (mg/dL) 116 H (70-110) mg/dL Calcium 10.5 H (8.4-10.2) mg/dL ALT (4-34) U/L Total Protein (6.3-8.2) g/dL Total Protein (PEP) (6.2-8.2) g/dL Albumin (3.5-5.0) g/dL Albumin (PEP) (3.8-4.9) g/dL Vitamin D 25-Hydroxy (30.0-100.0) ng/mL PTH Intact (14.0-72.0) pg/mL Assessment and Plan Plan: Assessment: 1. Acute kidney injury secondary to ATN secondary to cardiorenal syndrome. C reatinine peaked at 2.27 this admission and is improved to 1.93. No hydronephrosis noted on kidney ultrasound. Right kidney atrophic. 2. Chronic kidney disease stage IIIB with baseline creatinine 1.3. Suspect nephrosclerosis and diabetic kidney disease. 3. Acute on chronic systolic CHF with ejection fraction of 40-45% with moderate pulmonary hypertension. 4. Diabetes mellitus. 5. Hypomagnesemia from diuresis. Replaced. Improved. 6. Volume overload. Improving with diuresis. 7. Hypercalcemia. Not on any calcium or vitamin D supplements. PTH elevated at 260, concerning for primary hyperparathyroidism. Vitamin D level 11.8. 8. Mild hyperkalemia secondary to acute kidney injury. Plan: Maintain IV Lasix for now. Lokelma 10 g once daily. Renal diet. Avoid nephrotoxins. Continue to monitor renal function and urine output. Follow-up pending workup for hypercalcemia. Check parathyroid nuclear scan. Avoid calcium/vit d supplements. Add sensipar 30 mg daily.
[2023-08-09 12:32] LABS: Glucose,Whole Blood 220 mg/dL (70-110)
[2023-08-09] MEDS: SODIUM ZIRCONIUM CYCLOSILICATE 10 GM PACKET PO SCH (12:37)
[2023-08-09 13:11] LABS: Free Kappa Lt Chain Qnt, Serum 4.23 mg/dL (0.33-1.94); Free Lambda Lt Chain Qnt, Seru 3.11 mg/dL (0.57-2.63)
--- NOTE | 2023-08-09 16:08 | NM ---
EXAMINATION TYPE: NM parathyroid w/spect DATE OF EXAM: 08/09/2023 COMPARISON: NONE CLINICAL INDICATION: Female, 83 years old with history of hypercalcemia; TECHNIQUE: Following administration of 24.1 mCi Tc99m Sestamibi. Anterior projection images of the neck and ches t were obtained 10 minutes and 3 hours post injection. SPECT images of the neck and chest were obtai qasim and reconstructed in three axes. FINDINGS: Thyroid tracer washout: Delayed images demonstrate near-complete tracer washout from the thyroid. Parathyroid uptake: None. The two-hour delayed images do not demonstrate any focal abnormal persisten t uptake in the region of the parathyroid glands to suggest parathyroid adenoma. Normal uptake: There is physiological tracer uptake in the myocardium, liver, salivary glands, and th yroid gland. IMPRESSION: Normal parathyroid imaging study. No evidence for mediastinal uptake to suggest mediastinal parathyro id adenoma
[2023-08-09 17:08] LABS: Glucose,Whole Blood 275 mg/dL (70-110)
[2023-08-09] MEDS: CINACALCET 30 MG TAB PO SCH (17:32)
--- NOTE | 2023-08-09 17:46 | P.PN ---
Subjective Progress Note Date: 08/09/23 Patient evaluated today resting in bed. Continues on oxygen 4L nasal cannula with saturations of 100% and this can be weaned likely to room air. Patient only wears oxygen as needed at home. Does continue on IV lasix daily. Reports some shortness of breath lungs are essentially clear, diminished. Unable to take a deep breath. Creatinine 2.05 today. Calcium remains elevated at 10.4. PTH elevated at 260. Vitamin D 25 level low at 11.8. 08/09/2022 Patient is evaluated today sitting up in the chair family at the bedside. Patient states her shortness of breath has improved. Continues on oxygen was only wearing as needed at home recommending to wean oxygen to room air if possible. Oxygen saturations around 96-100%. Patient continues on IV lasix daily received an extra 20 mg IV yesterday. PTH scan showing normal parathyroid imaging study, no evidence of mediastinal uptake to suggest mediastinal parat hyroid adenoma. Labs today showing sodium 138, potassium 5.3, BUN 75, creatinine 1.93, calcium today 10.5. Review of Systems Constitutional: Denied any fatigue denied any fever. Cardio vascular: denied any chest pain, palpitations Gastrointestinal: denied any nausea, vomiting, diarrhea Pulmonary: Denied any shortness of breath cough Neurologic denied any new focal deficits All inpatient medications were reviewed and appropriate changes in these medications as dictated in the interval history and assessment and plan PHYSICAL EXAMINATION: GENERAL: The patient is alert and oriented x3, not in any acute distress. Well developed, well nourished. HEENT: Pupils are round and equally reacting to light. EOMI. No scleral icterus. No conjunctival pallor. Normocephalic, atraumatic. No pharyngeal erythema. No thyromegaly. CARDIOVASCULAR: S1 and S2 present. No murmurs, rubs, or gallops. PULMONARY: Chest is clear to auscultation, no wheezing or crackles. ABDOMEN: Soft, nontender, nondistended, normoactive bowel sounds. No palpable organomegaly. MUSCULOSKELETAL: No joint swelling or deformity. EXTREMITIES: No cyanosis, clubbing, or pedal edema. NEUROLOGICAL: Gross neurological examination did not reveal any focal deficits. SKIN: No rashes. Assessment Non-STEMI and troponin elevation likely from type 2 [place] cardiology recommended outpatient stress test Acute CHF exacerbation diastolic dysfunction with EF 40-45% and moderate pulmonary hypertension Acute hypoxic respiratory failure secondary to acute CHF exacerbation, on 4L can be weaned as tolerated Acute kidney injury on chronic kidney disease stage III most likely secondary to cardiorenal syndrome improving with IV lasix patient given an extra dose of IV lasix today. Abdominal pain improved. Diabetes Mellitus type 2 Obesity with BMI of 39 Chronic kidney disease stage III. Vitamin D deficiency will add oral supplementation with 50,000 units weekly as well as 2000 iu daily. GI prophylaxis DVT prophylaxis Plan Continue on IV lasix, continue on 1200 cc fluid restriction Cardiology has signed off recommending outpatient stress test when medically stable Continue to wean oxygen as tolerated. Patient given a dose of lokelma today for the elevated potassium Repeat labs in AM PT.OT following and recommending rehab on discharge The impression and plan of care has been dictated by Kalli Milner, Nurse Practitioner as directed. Dr. Lucille MD I have performed a history and physical examination and medical decision making of this patient, discussed the same with the dictator, and agree with the dictators assessment and plan as written, documented as a scribe. Based on total visit time, I have performed more than 50% of this visit. Objective - Vital Signs Vital signs: Vital Signs Temp 98.2 F 08/09/23 16:36 Pulse 60 08/09/23 16:36 Resp 20 08/09/23 16:36 BP 117/73 08/09/23 16:36 Pulse Ox 98 08/09/23 16:36 FiO2 40 08/02/23 21:38 Intake & Output 08/08/23 08/09/23 08/09/23 18:59 06:59 18:59 Intake Total 702 120 576 Output Total 1300 1000 Balance -598 120 -424 Weight 97.5 kg Intake: Oral 702 120 576 Output: Urine 1300 1000 Other: Voiding Method Diaper Diaper Diaper External Catheter External Catheter # Bowel Movements 1 - Labs CBC & Chem 7: 08/08/23 09:20 08/09/23 07:02 Labs: Abnormal Lab Results - Last 24 Hours (Table) 08/08/23 08/08/23 08/09/23 Range/Units 11:27 20:08 06:23 Potassium (3.5-5.1) mmol/L BUN (7-17) mg/dL Creatinine (0.52-1.04) mg/dL Glucose (74-99) mg/dL POC Glucose (mg/dL) 321 H 116 H (70-110) mg/dL Calcium (8.4-10.2) mg/dL Free [place] LC, Quant 4.23 H (0.33-1.94) mg/dL Free [place]ambda LC, Quant 3.11 H (0.57-2.63) mg/dL 08/09/23 08/09/23 08/09/23 Range/Units 07:02 12:30 17:07 Potassium 5.3 H (3.5-5.1) mmol/L BUN 75 H (7-17) mg/dL Creatinine 1.93 H (0.52-1.04) mg/dL Glucose 119 H (74-99) mg/dL POC Glucose (mg/dL) 220 H 275 H (70-110) mg/dL Calcium 10.5 H (8.4-10.2) mg/dL Free [place] LC, Quant (0.33-1.94) mg/dL Free Lambda LC, Quant (0.57-2.63) mg/dL Assessment and Plan Time with Patient: Less than 30
[2023-08-09 18:15] LABS: Gamma Globulin 0.64 g/dL (0.70-1.50)
[2023-08-09 20:03] LABS: Glucose,Whole Blood 301 mg/dL (70-110)
[2023-08-10 06:02] LABS: Glucose,Whole Blood 130 mg/dL (70-110)
[2023-08-10] MEDS: PANTOPRAZOLE 40 MG TABLET PO SCH (06:20)
[2023-08-10] MEDS: INSULIN ASPART (NovoLOG) 100 UNIT/ML VIAL SQ SCH ×4 (06:21→20:33)
[2023-08-10] MEDS: ALBUTEROL NEBULIZED 2.5 MG/3 ML INHALATION PRN ×2 (08:54→11:09)
[2023-08-10] MEDS: BUDESONIDE 0.5 MG/2 ML NEBU INHALATION SCH ×2 (08:54→19:27)
[2023-08-10] MEDS: LIDOCAINE 4% PATCH TOPICAL SCH (08:56)
[2023-08-10] MEDS: guaiFENesin 600 MG TABLET.ER PO SCH ×2 (08:56→20:33)
[2023-08-10] MEDS: HEPARIN SODIUM,PORCINE 5,000 UNIT/ML 1 ML VIAL SQ SCH ×2 (08:56→20:33)
[2023-08-10] MEDS: NYSTATIN 100,000 UNIT/GM POWD 15 GM TOPICAL SCH ×2 (08:57→20:34)
[2023-08-10] MEDS: FUROSEMIDE 10 MG/ML 4 ML VIAL IV SCH (08:57)
[2023-08-10] MEDS: ASPIRIN 81 MG PO SCH (08:57)
[2023-08-10] MEDS: ATORVASTATIN 20 MG TAB PO SCH (08:57)
[2023-08-10] MEDS: SODIUM ZIRCONIUM CYCLOSILICATE 10 GM PACKET PO SCH (08:57)
[2023-08-10] MEDS: CINACALCET 30 MG TAB PO SCH (08:57)
[2023-08-10 09:23] LABS: ALT 32 U/L (4-34); AST 18 U/L (14-36); African American GFR (CKD) 31 (>60 ml/min/1.73 sqM); Albumin 2.8 g/dL (3.5-5.0); Alkaline Phosphatase 71 U/L (38-126); Anion Gap 9 mmol/L; Blood Urea Nitrogen 71 mg/dL (7-17); Calcium 10.3 mg/dL (8.4-10.2); Carbon Dioxide 27 mmol/L (22-30); Chloride 102 mmol/L (98-107); Glucose 165 mg/dL (74-99); Magnesium 1.6 mg/dL (1.6-2.3); Non-African American GFR(CKD) 27 (>60 ml/min/1.73 sqM); Potassium 4.4 mmol/L (3.5-5.1); Sodium 138 mmol/L (137-145); Total Bilirubin 0.3 mg/dL (0.2-1.3); Total Protein 5.1 g/dL (6.3-8.2)
[2023-08-10 11:33] LABS: Glucose,Whole Blood 184 mg/dL (70-110)
--- NOTE | 2023-08-10 11:46 | P.PN ---
Subjective Patient is seen in follow-up for acute kidney injury on chronic kidney disease. Renal function better. On IV Lasix. On nasal cannula. Denies chest pain. On 4 L nasal cannula. Nonoliguric. Vital signs are stable. General: No acute distress. HEENT: Head exam is unremarkable. On nasal cannula. LUNGS: Scattered rhonchi. HEART: Rate and Rhythm are regular. ABDOMEN: Nontender. EXTREMITITES: No edema. Objective - Vital Signs Vital signs: Vital Signs Temp 97.9 F 08/10/23 08:00 Pulse 73 08/10/23 11:18 Resp 16 08/10/23 08:00 BP 157/84 08/10/23 08:00 Pulse Ox 99 08/10/23 08:00 FiO2 40 08/02/23 21:38 Intake & Output 08/09/23 08/10/23 08/10/23 18:59 06:59 18:59 Intake Total 798 Output Total 1000 425 Balance -202 -425 Weight 93.5 kg Intake: Oral 798 Output: Urine 1000 425 Other: Voiding Method Diaper Diaper Diaper External Catheter External Catheter # Voids 2 2 # Bowel Movements 1 1 - Labs CBC & Chem 7: 08/08/23 09:20 08/10/23 08:26 Labs: Abnormal Lab Results - Last 24 Hours (Table) 08/08/23 08/09/23 08/09/23 Range/Units 11:27 12:30 17:07 BUN (7-17) mg/dL Creatinine (0.52-1.04) mg/dL Glucose (74-99) mg/dL POC Glucose (mg/dL) 220 H 275 H (70-110) mg/dL Calcium (8.4-10.2) mg/dL Total Protein (6.3-8.2) g/dL Albumin (3.5-5.0) g/dL Gamma Globulins 0.64 L (0.70-1.50) g/dL Free [place] LC, Quant 4.23 H (0.33-1.94) mg/dL Free Lambda LC, Quant 3.11 H (0.57-2.63) mg/dL 08/09/23 08/10/23 08/10/23 Range/Units 20:02 06:00 08:26 BUN 71 H (7-17) mg/dL Creatinine 1.75 H (0.52-1.04) mg/dL Glucose 165 H (74-99) mg/dL POC Glucose (mg/dL) 301 H 130 H (70-110) mg/dL Calcium 10.3 H (8.4-10.2) mg/dL Total Protein 5.1 L (6.3-8.2) g/dL Albumin 2.8 L (3.5-5.0) g/dL Gamma Globulins (0.70-1.50) g/dL Free [place] LC, Quant (0.33-1.94) mg/dL Free [place]ambda LC, Quant (0.57-2.63) mg/dL 08/10/23 Range/Units 11:32 BUN (7-17) mg/dL Creatinine (0.52-1.04) mg/dL Glucose (74-99) mg/dL POC Glucose (mg/dL) 184 H (70-110) mg/dL Calcium (8.4-10.2) mg/dL Total Protein (6.3-8.2) g/dL Albumin (3.5-5.0) g/dL Gamma Globulins (0.70-1.50) g/dL Free [place] LC, Quant (0.33-1.94) mg/dL Free Lambda LC, Quant (0.57-2.63) mg/dL Assessment and Plan Plan: Assessment: 1. Acute kidney injury secondary to ATN secondary to cardiorenal syndrome. Creatinine peaked at 2.27 this admission and is improved to 1.75. No hydronephrosis noted on kidney ultrasound. Right kidney atrophic. 2. Chronic kidney disease stage IIIB with baseline creatinine 1.3. Suspect nephrosclerosis and diabetic kidney disease. 3. Acute on chronic systolic CHF with ejection fraction of 40-45% with moderate pulmonary hypertension. 4. Diabetes mellitus. 5. Hypomagnesemia from diuresis. 6. Volume overload. Improving with diuresis. 7. Hypercalcemia. Not on any calcium or vitamin D supplements. PTH elevated at 260, concerning for primary hyperparathyroidism. No evidence of parathyroid adenoma noted on parathyroid ultrasound. Vitamin D level 11.8. 1,25 D3 level 25. No monoclonality noted on serum immunofixation. 8. Mild hyperkalemia secondary to acute kidney injury. Improved. Plan: Maintain IV Lasix for now. Lokelma 10 g once daily. Renal diet. Avoid nephrotoxins. Continue to monitor renal function and urine output. Avoid calcium/vit d supplements - discussed with primary team. Maintain Sensipar.
--- NOTE | 2023-08-10 15:48 | P.PN ---
Subjective Progress Note Date: 08/10/23 Patient evaluated today resting in bed. Continues on oxygen 4L nasal cannula with saturations of 100% and this can be weaned likely to room air. Patient only wears oxygen as needed at home. Does continue on IV lasix daily. Reports some shortness of breath lungs are essentially clear, diminished. Unable to take a deep breath. Creatinine 2.05 today. Calcium remains elevated at 10.4. PTH elevated at 260. Vitamin D 25 level low at 11.8. 08/09/2022 Patient is evaluated today sitting up in the chair family at the bedside. Patient states her shortness of breath has improved. Continues on oxygen was only wearing as needed at home recommending to wean oxygen to room air if possible. Oxygen saturations around 96-100%. Patient continues on IV lasix daily received an extra 20 mg IV yesterday. PTH scan showing normal parathyroid imaging study, no evidence of mediastinal uptake to suggest mediastinal parat hyroid adenoma. Labs today showing sodium 138, potassium 5.3, BUN 75, creatinine 1.93, calcium today 10.5. 08/10/2023 Patient is evaluated today sitting up in bed with family at the bedside. Patient continues on oxygen at 3L of nasal cannula was wearing oxygen only as needed at home and likely can be weaned to room air. Remains on IV lasix daily. Creatinine improved to 1.75. Potassium 4.4. Review of Systems Constitutional: Denied any fatigue denied any fever. Cardio vascular: denied any chest pain, palpitations Gastrointestinal: denied any nausea, vomiting, diarrhea Pulmonary: Denied any shortness of breath cough Neurologic denied any new focal deficits All inpatient medications were reviewed and appropriate changes in these medications as dictated in the interval history and assessment and plan PHYSICAL EXAMINATION: GENERAL: The patient is alert and oriented x3, not in any acute distress. Well developed, well nourished. HEENT: Pupils are round and equally reacting to light. EOMI. No scleral icterus. No conjunctival pallor. Normocephalic, atraumatic. No pharyngeal erythema. No thyromegaly. CARDIOVASCULAR: S1 and S2 present. No murmurs, rubs, or gallops. PULMONARY: Chest is clear to auscultation, no wheezing or crackles. ABDOMEN: Soft, nontender, nondistended, normoactive bowel sounds. No palpable organomegaly. MUSCULOSKELETAL: No joint swelling or deformity. EXTREMITIES: No cyanosis, clubbing, or pedal edema. NEUROLOGICAL: Gross neurological examination did not reveal any focal deficits. SKIN: No rashes. Assessment Non-STEMI and troponin elevation likely from type 2 [place] cardiology recommended outpatient stress test Acute CHF exacerbation diastolic dysfunction with EF 40-45% and moderate pulmonary hypertension Acute hypoxic respiratory failure secondary to acute CHF exacerbation, on 4L can be weaned as tolerated Acute kidney injury on chronic kidney disease stage III most likely secondary to cardiorenal syndrome improving with IV lasix Abdominal pain improved. Diabetes Mellitus type 2 Obesity with BMI of 39 Chronic kidney disease stage III. Vitamin D deficiency with hypercalcemia. GI prophylaxis DVT prophylaxis Plan Continue on IV lasix, continue on 1200 cc fluid restriction Cardiology has signed off recommending outpatient stress test when medically stable Continue to wean oxygen as tolerated. Patient given a dose of lokelma today for the elevated potassium Repeat labs in AM PT.OT following and recommending rehab on discharge The impression and plan of care has been dictated by Kalli Milner, Nurse Practitioner as directed. Dr. Lucille MD I have performed a history and physical examination and medical decision making of this patient, discussed the same with the dictator, and agree with the dictators assessment and plan as written, documented as a scribe. Based on total visit time, I have performed more than 50% of this visit. Objective - Vital Signs Vital signs: Vital Signs Temp 97.9 F 08/10/23 08:00 Pulse 72 08/10/23 09:07 Resp 16 08/10/23 08:00 BP 157/84 08/10/23 08:00 Pulse Ox 99 08/10/23 08:00 FiO2 40 08/02/23 21:38 Intake & Output 08/09/23 08/10/23 08/10/23 18:59 06:59 18:59 Intake Total 798 Output Total 1000 Balance -202 Weight 93.5 kg Intake: Oral 798 Output: Urine 1000 Other: Voiding Method Diaper Diaper Diaper External Catheter External Catheter # Voids 2 2 # Bowel Movements 1 1 - Labs CBC & Chem 7: 08/08/23 09:20 08/10/23 08:26 Labs: Abnormal Lab Results - Last 24 Hours (Table) 08/08/23 08/09/23 08/09/23 Range/Units 11:27 12:30 17:07 BUN (7-17) mg/dL Creatinine (0.52-1.04) mg/dL Glucose (74-99) mg/dL POC Glucose (mg/dL) 220 H 275 H (70-110) mg/dL Calcium (8.4-10.2) mg/dL Total Protein (6.3-8.2) g/dL Albumin (3.5-5.0) g/dL Gamma Globulins 0.64 L (0.70-1.50) g/dL Free [place] LC, Quant 4.23 H (0.33-1.94) mg/dL Free [place] LC, Quant 3.11 H (0.57-2.63) mg/dL 08/09/23 08/10/23 08/10/23 Range/Units 20:02 06:00 08:26 BUN 71 H (7-17) mg/dL Creatinine 1.75 H (0.52-1.04) mg/dL Glucose 165 H (74-99) mg/dL POC Glucose (mg/dL) 301 H 130 H (70-110) mg/dL Calcium 10.3 H (8.4-10.2) mg/dL Total Protein 5.1 L (6.3-8.2) g/dL Albumin 2.8 L (3.5-5.0) g/dL Gamma Globulins (0.70-1.50) g/dL Free [place] LC, Quant (0.33-1.94) mg/dL Free Lambda LC, Quant (0.57-2.63) mg/dL Assessment and Plan Time with Patient: Less than 30
[2023-08-10 16:28] LABS: Glucose,Whole Blood 287 mg/dL (70-110)
[2023-08-10 20:12] LABS: Glucose,Whole Blood 192 mg/dL (70-110)
[2023-08-11 06:09] LABS: Glucose,Whole Blood 129 mg/dL (70-110)
[2023-08-11] MEDS: INSULIN ASPART (NovoLOG) 100 UNIT/ML VIAL SQ SCH ×4 (06:12→21:21)
[2023-08-11] MEDS: PANTOPRAZOLE 40 MG TABLET PO SCH (06:47)
[2023-08-11 08:15] LABS: African American GFR (CKD) 32 (>60 ml/min/1.73 sqM); Anion Gap 7 mmol/L; Blood Urea Nitrogen 63 mg/dL (7-17); Carbon Dioxide 29 mmol/L (22-30); Chloride 102 mmol/L (98-107); Glucose 130 mg/dL (74-99); Magnesium 1.4 mg/dL (1.6-2.3); Non-African American GFR(CKD) 28 (>60 ml/min/1.73 sqM); Potassium 4.1 mmol/L (3.5-5.1); Sodium 138 mmol/L (137-145)
[2023-08-11] MEDS ORDERED: Magnesium Replacement Protocol 1 EACH MISC MISCELLANE PRN (08:54)
[2023-08-11] MEDS: HEPARIN SODIUM,PORCINE 5,000 UNIT/ML 1 ML VIAL SQ SCH ×2 (09:27→20:55)
[2023-08-11] MEDS: LIDOCAINE 4% PATCH TOPICAL SCH (09:27)
[2023-08-11] MEDS: guaiFENesin 600 MG TABLET.ER PO SCH ×2 (09:27→20:55)
[2023-08-11] MEDS: ATORVASTATIN 20 MG TAB PO SCH (09:27)
[2023-08-11] MEDS: ASPIRIN 81 MG PO SCH (09:27)
[2023-08-11] MEDS: FUROSEMIDE 10 MG/ML 4 ML VIAL IV SCH (09:27)
[2023-08-11] MEDS: ALBUTEROL NEBULIZED 2.5 MG/3 ML INHALATION PRN ×3 (09:29→20:47)
[2023-08-11] MEDS: BUDESONIDE 0.5 MG/2 ML NEBU INHALATION SCH ×2 (09:29→20:48)
[2023-08-11] MEDS: MAGNESIUM SULFATE-D5W PMX 1 GM in DEXTROSE/WATER 1 100ML.BAG IVPB SCH ×2 (11:13→13:12)
[2023-08-11] MEDS: SODIUM ZIRCONIUM CYCLOSILICATE 10 GM PACKET PO SCH (11:13)
[2023-08-11] MEDS: CINACALCET 30 MG TAB PO SCH (11:14)
[2023-08-11] MEDS: NYSTATIN 100,000 UNIT/GM POWD 15 GM TOPICAL SCH ×2 (11:14→20:55)
--- NOTE | 2023-08-11 11:26 | P.PN ---
Subjective Patient is seen in follow-up for acute kidney injury on chronic kidney disease. Renal function stable. On IV Lasix. Nonoliguric. Nonoliguric. Denies chest pain. Vital signs are stable. General: No acute distress. HEENT: Head exam is unremarkable. LUNGS: Scattered rhonchi. HEART: Rate and Rhythm are regular. ABDOMEN: Nontender. EXTREMITITES: No edema. Objective - Vital Signs Vital signs: Vital Signs Temp 98.3 F 08/11/23 08:00 Pulse 87 08/11/23 09:46 Resp 16 08/11/23 08:00 BP 161/74 08/11/23 08:00 Pulse Ox 95 08/11/23 08:00 FiO2 40 08/02/23 21:38 Intake & Output 08/10/23 08/11/23 08/11/23 18:59 06:59 18:59 Intake Total 118 480 Output Total 1875 550 200 Balance -1757 -70 -200 Weight 93.5 kg Intake: Oral 118 480 Output: Urine 1875 550 200 Other: Voiding Method Diaper Diaper Diaper External Catheter External Catheter External Catheter # Voids 1 - Labs CBC & Chem 7: 08/08/23 09:20 08/11/23 07:28 Labs: Abnormal Lab Results - Last 24 Hours (Table) 08/10/23 08/10/23 08/10/23 Range/Units 11:32 16:27 20:11 BUN (7-17) mg/dL Creatinine (0.52-1.04) mg/dL Glucose (74-99) mg/dL POC Glucose (mg/dL) 184 H 287 H 192 H (70-110) mg/dL Magnesium (1.6-2.3) mg/dL 08/11/23 08/11/23 Range/Units 06:08 07:28 BUN 63 H (7-17) mg/dL Creatinine 1.70 H (0.52-1.04) mg/dL Glucose 130 H (74-99) mg/dL POC Glucose (mg/dL) 129 H (70-110) mg/dL Magnesium 1.4 L (1.6-2.3) mg/dL Assessment and Plan Plan: Assessment: 1. Acute kidney injury secondary to ATN secondary to cardiorenal syndrome. Creatinine peaked at 2.27 this admission and is improved to 1.7. No hydronephrosis noted on kidney ultrasound. Right kidney atrophic. 2. Chronic kidney disease stage IIIB with baseline creatinine 1.3. Suspect nephrosclerosis and diabetic kidney disease. 3. Acute on chronic systolic CHF with ejection fraction of 40-45% with moderate pulmonary hypertension. 4. Diabetes mellitus. 5. Hypomagnesemia from diuresis. Replaced. 6. Volume overload. Improving with diuresis. 7. Hypercalcemia. Not on any calcium or vitamin D supplements. PTH elevated at 260, concerning for primary hyperparathyroidism. No evidence of parathyroid adenoma noted on parathyroid ultrasound. Vitamin D level 11.8. 1,25 D3 level 25. No monoclonality noted on serum immunofixation. On Sensipar. 8. Mild hyperkalemia secondary to acute kidney injury. Improved. Plan: Change Lasix to 40 mg orally once daily. Stop lokelma. Renal diet. Avoid nephrotoxins. Continue to monitor renal function and urine output. Avoid calcium/vit d supplements - discussed with primary team. Maintain Sensipar.
[2023-08-11 12:04] LABS: Glucose,Whole Blood 245 mg/dL (70-110)
--- NOTE | 2023-08-11 14:09 | P.PN ---
Subjective Progress Note Date: 08/11/23 Patient evaluated today resting in bed. Continues on oxygen 4L nasal cannula with saturations of 100% and this can be weaned likely to room air. Patient only wears oxygen as needed at home. Does continue on IV lasix daily. Reports some shortness of breath lungs are essentially clear, diminished. Unable to take a deep breath. Creatinine 2.05 today. Calcium remains elevated at 10.4. PTH elevated at 260. Vitamin D 25 level low at 11.8. 08/09/2022 Patient is evaluated today sitting up in the chair family at the bedside. Patient states her shortness of breath has improved. Continues on oxygen was only wearing as needed at home recommending to wean oxygen to room air if possible. Oxygen saturations around 96-100%. Patient continues on IV lasix daily received an extra 20 mg IV yesterday. PTH scan showing normal parathyroid imaging study, no evidence of mediastinal uptake to suggest mediastinal parat hyroid adenoma. Labs today showing sodium 138, potassium 5.3, BUN 75, creatinine 1.93, calcium today 10.5. 08/10/2023 Patient is evaluated today sitting up in bed with family at the bedside. Patient continues on oxygen at 3L of nasal cannula was wearing oxygen only as needed at home and likely can be weaned to room air. Remains on IV lasix daily. Creatinine improved to 1.75. Potassium 4.4. 08/11/2023 Patient evaluated today she has been downgraded to the medical floor pending subacute rehab authorization which hopefully on Saturday or Saturday of this week. Creatinine continues to improve currently 1.7. Nephrology following. Has been weaned to room air with saturations of 99%. Review of Systems Constitutional: Denied any fatigue denied any fever. Cardio vascular: denied any chest pain, palpitations Gastrointestinal: denied any nausea, vomiting, diarrhea Pulmonary: Denied any shortness of breath cough Neurologic denied any new focal deficits All inpatient medications were reviewed and appropriate changes in these medications as dictated in the interval history and assessment and plan PHYSICAL EXAMINATION: GENERAL: The patient is alert and oriented x3, not in any acute distress. Well developed, well nourished. HEENT: Pupils are round and equally reacting to light. EOMI. No scleral icterus. No conjunctival pallor. Normocephalic, atraumatic. No pharyngeal erythema. No thyromegaly. CARDIOVASCULAR: S1 and S2 present. No murmurs, rubs, or gallops. PULMONARY: Chest is clear to auscultation, no wheezing or crackles. ABDOMEN: Soft, nontender, nondistended, normoactive bowel sounds. No palpable organomegaly. MUSCULOSKELETAL: No joint swelling or deformity. EXTREMITIES: No cyanosis, clubbing, or pedal edema. NEUROLOGICAL: Gross neurological examination did not reveal any focal deficits. SKIN: No rashes. Assessment Non-STEMI and troponin elevation likely from type 2 PA cardiology recommended outpatient stress test Acute CHF exacerbation diastolic dysfunction with EF 40-45% and moderate pulmonary hypertension Acute hypoxic respiratory failure secondary to acute CHF exacerbation, on 4L can be weaned as tolerated Acute kidney injury on chronic kidney disease stage III most likely secondary to cardiorenal syndrome improving with IV lasix Abdominal pain improved. Hypomagnesemia Diabetes Mellitus type 2 Obesity with BMI of 39 Chronic kidney disease stage III. Vitamin D deficiency with hypercalcemia. GI prophylaxis DVT prophylaxis Plan Continue on IV lasix, continue on 1200 cc fluid restriction Nephrology following Cardiology has signed off recommending outpatient stress test when medically stable Repeat labs in AM, replace electrolytes PT.OT following and recommending rehab on discharge patient is pending insurance authorization Weaned off oxygen The impression and plan of care has been dictated by Kalli Milner, Nurse Practitioner as directed. Dr. Lucille MD I have performed a history and physical examination and medical decision making of this patient, discussed the same with the dictator, and agree with the dictators assessment and plan as written, documented as a scribe. Based on total visit time, I have performed more than 50% of this visit. Objective - Vital Signs Vital signs: Vital Signs Temp 97.6 F 08/11/23 02:00 Pulse 80 08/11/23 02:00 Resp 18 08/11/23 02:00 BP 135/76 08/11/23 02:00 Pulse Ox 99 08/11/23 02:00 FiO2 40 08/02/23 21:38 Intake & Output 08/10/23 08/11/23 08/11/23 18:59 06:59 18:59 Intake Total 118 480 Output Total 1875 550 200 Balance -1757 -70 -200 Weight 93.5 kg Intake: Oral 118 480 Output: Urine 1875 550 200 Other: Voiding Method Diaper Diaper External Catheter External Catheter # Voids 1 - Labs CBC & Chem 7: 08/08/23 09:20 08/11/23 07:28 Labs: Abnormal Lab Results - Last 24 Hours (Table) 08/10/23 08/10/23 08/10/23 Range/Units 08:26 11:32 16:27 BUN 71 H (7-17) mg/dL Creatinine 1.75 H (0.52-1.04) mg/dL Glucose 165 H (74-99) mg/dL POC Glucose (mg/dL) 184 H 287 H (70-110) mg/dL Calcium 10.3 H (8.4-10.2) mg/dL Magnesium (1.6-2.3) mg/dL Total Protein 5.1 L (6.3-8.2) g/dL Albumin 2.8 L (3.5-5.0) g/dL 08/10/23 08/11/23 08/11/23 Range/Units 20:11 06:08 07:28 BUN 63 H (7-17) mg/dL Creatinine 1.70 H (0.52-1.04) mg/dL Glucose 130 H (74-99) mg/dL POC Glucose (mg/dL) 192 H 129 H (70-110) mg/dL Calcium (8.4-10.2) mg/dL Magnesium 1.4 L (1.6-2.3) mg/dL Total Protein (6.3-8.2) g/dL Albumin (3.5-5.0) g/dL Assessment and Plan Time with Patient: Less than 30
[2023-08-11 17:45] LABS: Glucose,Whole Blood 152 mg/dL (70-110)
[2023-08-11 20:45] LABS: Glucose,Whole Blood 228 mg/dL (70-110)
[2023-08-11] MEDS ORDERED: INSULIN DETEMIR (LEVEMIR) 100 UNIT/ML SYR SQ SCH (21:00)
[2023-08-12] MEDS: ACETAMINOPHEN TAB 325 MG TAB PO PRN ×2 (01:22→19:46)
[2023-08-12 01:26] LABS: Glucose,Whole Blood 159 mg/dL (70-110)
[2023-08-12] MEDS: PANTOPRAZOLE 40 MG TABLET PO SCH (06:02)
[2023-08-12 06:14] LABS: Glucose,Whole Blood 137 mg/dL (70-110)
[2023-08-12] MEDS: INSULIN ASPART (NovoLOG) 100 UNIT/ML VIAL SQ SCH ×4 (06:15→21:32)
[2023-08-12 08:48] LABS: BUN/Creat Ratio 32.44 Ratio (12.00-20.00); Blood Urea Nitrogen 51.9 mg/dL (9.0-27.0); Calcium 9.2 mg/dL (8.7-10.3); Carbon Dioxide 29.2 mmol/L (21.6-31.8); Chloride 102 mmol/L (96-109); Glucose 150 mg/dL (70-110); Magnesium 1.8 mg/dL (1.5-2.4); Potassium 3.9 mmol/L (3.5-5.5); Sodium 139 mmol/L (135-145)
[2023-08-12] MEDS: HEPARIN SODIUM,PORCINE 5,000 UNIT/ML 1 ML VIAL SQ SCH ×2 (09:05→19:45)
[2023-08-12] MEDS: LIDOCAINE 4% PATCH TOPICAL SCH (09:05)
[2023-08-12] MEDS: CINACALCET 30 MG TAB PO SCH (09:05)
[2023-08-12] MEDS: ASPIRIN 81 MG PO SCH (09:05)
[2023-08-12] MEDS: guaiFENesin 600 MG TABLET.ER PO SCH ×3 (09:06→19:49)
[2023-08-12] MEDS: FUROSEMIDE 40 MG TAB PO SCH (09:06)
[2023-08-12] MEDS: ATORVASTATIN 20 MG TAB PO SCH (09:06)
[2023-08-12] MEDS: NYSTATIN 100,000 UNIT/GM POWD 15 GM TOPICAL SCH ×2 (09:06→19:45)
[2023-08-12] MEDS: ALBUTEROL NEBULIZED 2.5 MG/3 ML INHALATION PRN ×4 (09:10→20:14)
[2023-08-12] MEDS: BUDESONIDE 0.5 MG/2 ML NEBU INHALATION SCH ×2 (09:10→20:14)
[2023-08-12 12:27] LABS: Glucose,Whole Blood 266 mg/dL (70-110)
--- NOTE | 2023-08-12 14:02 | P.PN ---
Subjective Patient is seen for follow-up for acute kidney injury and hypercalcemia. Renal function has improved with creatinine down to 1.6 mg/dL. Calcium is down to 9.2. Next No significant complaints today. Objective - Vital Signs Vital signs: Vital Signs Temp 98.2 F 08/12/23 08:00 Pulse 77 08/12/23 12:43 Resp 16 08/12/23 08:00 BP 172/77 08/12/23 08:00 Pulse Ox 98 08/12/23 09:12 FiO2 40 08/02/23 21:38 Intake & Output 08/11/23 08/12/23 08/12/23 18:59 06:59 18:59 Intake Total 240 358 Output Total 1200 300 Balance -960 -300 358 Weight 94 kg Intake: Oral 240 358 Output: Urine 1200 300 Other: Voiding Method Diaper Diaper Diaper External Catheter External Catheter External Catheter # Voids 1 - Exam patient is awake, comfortable, no acute distress Examination of the heart S1 and S2 Examination of the lungs bilateral breath sounds are heard Abdomen is soft nontender Examination of lower extremity shows no edema. - Labs CBC & Chem 7: 08/08/23 09:20 08/12/23 05:45 Labs: Abnormal Lab Results - Last 24 Hours (Table) 08/11/23 08/11/23 08/12/23 Range/Units 17:43 20:39 01:24 BUN (9.0-27.0) mg/dL Creatinine (0.6-1.5) mg/dL Est GFR (CKD-EPI) (>=60) BUN/Creatinine Ratio (12.00-20.00) Ratio Glucose (70-110) mg/dL POC Glucose (mg/dL) 152 H 228 H 159 H (70-110) mg/dL 08/12/23 08/12/23 08/12/23 Range/Units 05:45 06:13 12:26 BUN 51.9 H (9.0-27.0) mg/dL Creatinine 1.6 H (0.6-1.5) mg/dL Est GFR (CKD-EPI) 32 L (>=60) BUN/Creatinine Ratio 32.44 H (12.00-20.00) Ratio Glucose 150 H (70-110) mg/dL POC Glucose (mg/dL) 137 H 266 H (70-110) mg/dL Assessment and Plan Assessment: 1. Acute kidney injury secondary to ATN secondary to cardiorenal syndrome. Creatinine peaked at 2.27 this admission and is improved to 1.7. No hydronephrosis noted on kidney ultrasound. Right kidney atrophic. 2. Chronic kidney disease stage IIIB with baseline creatinine 1.3. Suspect nephrosclerosis and diabetic kidney disease. 3. Acute on chronic systolic CHF with ejection fraction of 40-45% with moderate pulmonary hypertension. 4. Diabetes mellitus. 5. Hypomagnesemia from diuresis. Replaced. 6. Volume overload. Improving with diuresis. 7. Hypercalcemia. Not on any calcium or vitamin D supplements. PTH elevated at 260, concerning for primary hyperparathyroidism. No evidence of parathyroid adenoma noted on parathyroid ultrasound. Vitamin D level 11.8. 1,25 D3 level 25. No monoclonality noted on serum immunofixation. On Sensipar. 8. Mild hyperkalemia secondary to acute kidney injury. Improved. Plan: Continue Sensipar Continue with current dose of Lasix Follow-up as outpatient.
[2023-08-12 17:09] LABS: Glucose,Whole Blood 214 mg/dL (70-110)
[2023-08-12 20:49] LABS: Glucose,Whole Blood 226 mg/dL (70-110)
[2023-08-12] MEDS: INSULIN DETEMIR (LEVEMIR) 100 UNIT/ML SYR SQ SCH (21:34)
--- NOTE | 2023-08-12 22:52 | P.PN ---
Subjective This is a pleasant 83 years old female with multiple medical problems as below. Presents because she has coughing her main concerns are associated with dyspnea over the last few days. She used to use oxygen at night about stopped using her oxygen while ago however over the last for 5 days she went back to her oxygen because of her shortness of breath. No chest pain. She has headache on and off, currently she does not have any headache no dizzi ness no weakness or numbness. Patient feels generally weak. She is complaining of from diarrhea but stopped about 2 days ago she doesn't have bowel movements She is complaining of from lower abdominal pain on the right side especially with coughing over the last 3 days, described as mild pain. Also she had some back pain earlier but since resolved now. No vomiting. She feels generally weak. Denies any specific urinary complaints no dysuria or urgency. No smoking alcohol or illicit drugs. Patient Vitas looks stable, her oxygen saturation is 99% on 6 L oxygen via nasal cannula and blood pressure 147/82. CBC, INR and liver enzymes were unremarkable. Attending is elevated at 1.28 which is close to baseline it was 1.3 in 2019 and 2020, no other recordings and field assistant. On his elevated 0.10, 0.09 and 0.10. Magnesium 1.5 which is replaced. Influenza A and type B, RSV, SARS (coronavirus) are and detected Chest x-ray showing cardiomegaly with pulmonary vascular congestion suspicious for [place] [address]. EKG showing sinus tachycardia at [address]-T changes. QTC is 400. 08/03/2023 Patient awake and alert, she still complaining from some exertion or with dyspnea. No chest pain and have some cough and. Lungs still shows crepitation. But no leg edema Currently she is on 4 L oxygen saturating 100%, according to staff to try to lower rate Her creatinine went up to point to therefore her losartan atelectasis. She received small doses of normal saline. Also there was suspicion of bronchitis and the prednisone and Symbicort was added. Heparin drip was stopped and currently she is on aspirin, and stressed test out patient Discussed with cardiology team She had some abdominal pain but is improving and she is able to be today. 08/05/2023 Patient still short of breath, still with bilateral basal interpretation and bilateral pitting leg edema. Patient will need stress testing as an outpatient Creatinine is elevated at 2.27, 1 time dose of IV Lasix provided and nephrology team were consulted who recommended urinalysis, bladder scan and renal ultrasound. Low Zartan remains on hold Patients with no fever or leukocytosis Currently on metoprolol 12.5 mg and aspirin 81 mg Heparin drip is discontinued and currently she is on subcutaneous heparin Hemoglobin stable at 11. Monitor hemoglobin and creatinine tomorrow 08/06/2023 Patient still have dyspnea and leg edema Continue with IV Lasix Patient remains on aspirin, elevated troponin thought secondary to CHF rather than an ostomy Currently on aspirin 81 mg, Lipitor Cartilage team signed off Also cardiology put this patient on prednisone 5 days and it helped steroids 08/07/2023 Patient been a problem remains fluid overload She still have dyspnea, leg edema and swelling in extremities She is on IV Lasix 40 mg daily Creatinine is still elevated 2.17 but improving slightly She's requiring 4 L oxygen with 100% saturation Hemoglobin A1c mildly elevated at 7.1 placed on low carbohydrate diet. Resume of the care of the patient 08/12/2023 Patient is improving slowly gradually No chest pain on heparin drip was stopped Currently on aspirin 81 mg and metoprolol Creatinine improving 1.6 Possible discharge in 24-48 hours Objective - Vital Signs Vital signs: Vital Signs Temp 98.2 F 08/12/23 08:00 Pulse 77 08/12/23 12:43 Resp 16 08/12/23 08:00 BP 172/77 08/12/23 08:00 Pulse Ox 98 08/12/23 09:12 FiO2 40 08/02/23 21:38 Intake & Output 08/11/23 08/12/23 08/12/23 18:59 06:59 18:59 Intake Total 240 358 Output Total 1200 300 Balance -960 -300 358 Weight 94 kg Intake: Oral 240 358 Output: Urine 1200 300 Other: Voiding Method Diaper Diaper Diaper External Catheter External Catheter External Catheter # Voids 1 - Exam GENERAL: The patient is alert and oriented x3, not in any acute distress. Well developed, well nourished. HEENT: Pupils are round and equally reacting to light. EOMI. No scleral icterus. No conjunctival pallor. Normocephalic, atraumatic. No pharyngeal erythema. No thyromegaly. CARDIOVASCULAR: S1 and S2 present. No murmurs, rubs, or gallops. -PULMONARY: Chest is clear to auscultation, no wheezing , bilateral basal crackles. ABDOMEN: Soft, nontender, nondistended, normoactive bowel sounds. No palpable organomegaly. MUSCULOSKELETAL: No joint swelling or deformity. EXTREMITIES: No cyanosis, clubbing, 1+ bilateral pitting leg edema. NEUROLOGICAL: Gross neurological examination did not reveal any focal deficits. SKIN: No rashes. no petechiae. - Labs CBC & Chem 7: 08/08/23 09:20 08/12/23 05:45 Labs: Abnormal Lab Results - Last 24 Hours (Table) 08/11/23 08/11/23 08/12/23 Range/Units 17:43 20:39 01:24 BUN (9.0-27.0) mg/dL Creatinine (0.6-1.5) mg/dL Est GFR (CKD-EPI) (>=60) BUN/Creatinine Ratio (12.00-20.00) Ratio Glucose (70-110) mg/dL POC Glucose (mg/dL) 152 H 228 H 159 H (70-110) mg/dL 08/12/23 08/12/23 08/12/23 Range/Units 05:45 06:13 12:26 BUN 51.9 H (9.0-27.0) mg/dL Creatinine 1.6 H (0.6-1.5) mg/dL Est GFR (CKD-EPI) 32 L (>=60) BUN/Creatinine Ratio 32.44 H (12.00-20.00) Ratio Glucose 150 H (70-110) mg/dL POC Glucose (mg/dL) 137 H 266 H (70-110) mg/dL Assessment and Plan Assessment: non-STEMI , currently with no chest pain and recommended outpatient stress test acute systolic CHF, ejection fraction 40-45% Acute hypoxic respiratory failure Acute kidney injury on chronic kidney disease stage III most likely secondary to cardiorenal syndrome Abdominal pain chronic right lower quadrant abdominal pain and tenderness Obesity with BMI of 39 Chronic kidney disease stage III. Plan: continue with antiplatelet therapy per help desk operator and currently patient is on aspirin, 81 mg, stress test outpatient Continue with monitoring creatinine Status post IV Lasix 20 mg 1 Continue with fluid restriction 1200 mL per day. Cardiology consult CT of the chest results were reviewed, basically unremarkable for significant abnormality Labs and medication were reviewed.. Continue same treatment. Continue with symptomatic treatment. Resume home medication. Monitor labs and vitals. DVT and GI prophylaxis. Further recommendations as per clinical course of the patient DVT prophylaxis: heparin GI Prophylaxis: Ppi PT/OT: Pending Prognosis is guarded
[2023-08-13 06:27] LABS: Glucose,Whole Blood 168 mg/dL (70-110)
[2023-08-13] MEDS: INSULIN ASPART (NovoLOG) 100 UNIT/ML VIAL SQ SCH ×4 (06:28→21:23)
[2023-08-13] MEDS: PANTOPRAZOLE 40 MG TABLET PO SCH (06:28)
[2023-08-13] MEDS ORDERED: IOPAMIDOL CONTRAST (ORAL USE) VIAL PO PRN (08:35)
[2023-08-13] MEDS: ALBUTEROL NEBULIZED 2.5 MG/3 ML INHALATION PRN ×2 (08:54→18:33)
[2023-08-13] MEDS: BUDESONIDE 0.5 MG/2 ML NEBU INHALATION SCH ×2 (08:54→18:33)
[2023-08-13] MEDS: CINACALCET 30 MG TAB PO SCH (09:04)
[2023-08-13] MEDS: ATORVASTATIN 20 MG TAB PO SCH (09:04)
[2023-08-13] MEDS: LIDOCAINE 4% PATCH TOPICAL SCH (09:04)
[2023-08-13] MEDS: guaiFENesin 600 MG TABLET.ER PO SCH ×2 (09:04→20:15)
[2023-08-13] MEDS: ASPIRIN 81 MG PO SCH (09:04)
[2023-08-13] MEDS: FUROSEMIDE 40 MG TAB PO SCH (09:04)
[2023-08-13] MEDS: NYSTATIN 100,000 UNIT/GM POWD 15 GM TOPICAL SCH ×2 (09:05→20:15)
[2023-08-13] MEDS: HEPARIN SODIUM,PORCINE 5,000 UNIT/ML 1 ML VIAL SQ SCH ×2 (09:05→20:15)
[2023-08-13 11:47] LABS: Glucose,Whole Blood 156 mg/dL (70-110)
[2023-08-13] MEDS: ONDANSETRON 4 MG TAB PO PRN ×2 (11:59→22:45)
--- NOTE | 2023-08-13 12:13 | P.PN ---
Subjective Patient is seen for follow-up for acute kidney injury and hypercalcemia. Renal function has improved with creatinine down to 1.6 mg/dL. Calcium is down to 9.2. Complaint of nausea this morning. Objective - Vital Signs Vital signs: Vital Signs Temp 98.2 F 08/13/23 08:00 Pulse 80 08/13/23 09:13 Resp 18 08/13/23 08:00 BP 119/67 08/13/23 08:00 Pulse Ox 99 08/13/23 08:00 FiO2 40 08/02/23 21:38 Intake & Output 08/12/23 08/13/23 08/13/23 18:59 06:59 18:59 Intake Total 578 Output Total 1800 Balance -1222 Weight 93.5 kg Intake: Oral 578 Output: Urine 1800 Other: Voiding Method Diaper Diaper Diaper External Catheter External Catheter # Voids 2 # Bowel Movements 1 - Exam patient is awake, comfortable, no acute distress Examination of the heart S1 and S2 Examination of the lungs bilateral breath sounds are heard Abdomen is soft nontender Examination of lower extremity shows no edema. - Labs CBC & Chem 7: 08/08/23 09:20 08/12/23 05:45 Labs: Abnormal Lab Results - Last 24 Hours (Table) 08/12/23 08/12/23 08/12/23 Range/Units 12:26 17:07 20:48 POC Glucose (mg/dL) 266 H 214 H 226 H (70-110) mg/dL 08/13/23 08/13/23 Range/Units 06:26 11:46 POC Glucose (mg/dL) 168 H 156 H (70-110) mg/dL Assessment and Plan Assessment: 1. Acute kidney injury secondary to ATN secondary to cardiorenal syndrome. Cre atinine peaked at 2.27 this admission and is improved to 1.6. No hydronephrosis noted on kidney ultrasound. Right kidney atrophic. 2. Chronic kidney disease stage IIIB with baseline creatinine 1.3. Suspect nephrosclerosis and diabetic kidney disease. 3. Acute on chronic systolic CHF with ejection fraction of 40-45% with moderate pulmonary hypertension. 4. Diabetes mellitus. 5. Hypomagnesemia from diuresis. Replaced. 6. Volume overload. Improving with diuresis. 7. Hypercalcemia. Not on any calcium or vitamin D supplements. PTH elevated at 260, concerning for primary hyperparathyroidism. No evidence of parathyroid adenoma noted on parathyroid ultrasound. Vitamin D level 11.8. 1,25 D3 level 25. No monoclonality noted on serum immunofixation. On Sensipar. 8. Mild hyperkalemia secondary to acute kidney injury. Improved. Plan: Follow-up on labs from today. Decrease Sensipar to 3 times a week. Follow-up as outpatient
[2023-08-13 13:01] LABS: African American GFR (CKD) 37 (>60 ml/min/1.73 sqM); Anion Gap 9 mmol/L; Blood Urea Nitrogen 48 mg/dL (7-17); Calcium 9.5 mg/dL (8.4-10.2); Carbon Dioxide 30 mmol/L (22-30); Chloride 96 mmol/L (98-107); Glucose 148 mg/dL (74-99); Non-African American GFR(CKD) 32 (>60 ml/min/1.73 sqM); Potassium 3.6 mmol/L (3.5-5.1); Sodium 135 mmol/L (137-145)
[2023-08-13 17:36] LABS: Glucose,Whole Blood 184 mg/dL (70-110)
[2023-08-13 21:20] LABS: Glucose,Whole Blood 146 mg/dL (70-110)
[2023-08-13] MEDS: INSULIN DETEMIR (LEVEMIR) 100 UNIT/ML SYR SQ SCH (21:31)
--- NOTE | 2023-08-14 00:10 | P.PN ---
Subjective This is a pleasant 83 years old female with multiple medical problems as below. Presents because she has coughing her main concerns are associated with dyspnea over the last few days. She used to use oxygen at night about stopped using her oxygen while ago however over the last for 5 days she went back to her oxygen because of her shortness of breath. No chest pain. She has headache on and off, currently she does not have any headache no dizzi ness no weakness or numbness. Patient feels generally weak. She is complaining of from diarrhea but stopped about 2 days ago she doesn't have bowel movements She is complaining of from lower abdominal pain on the right side especially with coughing over the last 3 days, described as mild pain. Also she had some back pain earlier but since resolved now. No vomiting. She feels generally weak. Denies any specific urinary complaints no dysuria or urgency. No smoking alcohol or illicit drugs. Patient Vitas looks stable, her oxygen saturation is 99% on 6 L oxygen via nasal cannula and blood pressure 147/82. CBC, INR and liver enzymes were unremarkable. Attending is elevated at 1.28 which is close to baseline it was 1.3 in 2019 and 2020, no other recordings and quality assistant. On his elevated 0.10, 0.09 and 0.10. Magnesium 1.5 which is replaced. Influenza A and type B, RSV, SARS (coronavirus) are and detected Chest x-ray showing cardiomegaly with pulmonary vascular congestion suspicious for CH[place] [address]. EKG showing sinus tachycardia at [address]-T changes. QTC is 400. 08/03/2023 Patient awake and alert, she still complaining from some exertion or with dyspnea. No chest pain and have some cough and. Lungs still shows crepitation. But no leg edema Currently she is on 4 L oxygen saturating 100%, according to staff to try to lower rate Her creatinine went up to point to therefore her losartan atelectasis. She received small doses of normal saline. Also there was suspicion of bronchitis and the prednisone and Symbicort was added. Heparin drip was stopped and currently she is on aspirin, and stressed test out patient Discussed with cardiology team She had some abdominal pain but is improving and she is able to be today. 08/05/2023 Patient still short of breath, still with bilateral basal interpretation and bilateral pitting leg edema. Patient will need stress testing as an outpatient Creatinine is elevated at 2.27, 1 time dose of IV Lasix provided and nephrology team were consulted who recommended urinalysis, bladder scan and renal ultrasound. Low Zartan remains on hold Patients with no fever or leukocytosis Currently on metoprolol 12.5 mg and aspirin 81 mg Heparin drip is discontinued and currently she is on subcutaneous heparin Hemoglobin stable at 11. Monitor hemoglobin and creatinine tomorrow 08/06/2023 Patient still have dyspnea and leg edema Continue with IV Lasix Patient remains on aspirin, elevated troponin thought secondary to CHF rather than an ostomy Currently on aspirin 81 mg, Lipitor Cartilage team signed off Also cardiology put this patient on prednisone 5 days and it helped steroids 08/07/2023 Patient been a problem remains fluid overload She still have dyspnea, leg edema and swelling in extremities She is on IV Lasix 40 mg daily Creatinine is still elevated 2.17 but improving slightly She's requiring 4 L oxygen with 100% saturation Hemoglobin A1c mildly elevated at 7.1 placed on low carbohydrate diet. 08/12/2023 Patient is improving slowly gradually No chest pain on heparin drip was stopped Currently on aspirin 81 mg and metoprolol Creatinine improving 1.6 Possible discharge in 24-48 hours 08/13/2023 Patient looks stronger today She still complaining from nausea and difficulty to eat. She's have some lower abdominal discomfort, therefore CAT scan with oral contrast is ordered, which is still pending Creatinine down to 1.5. Objective - Vital Signs Vital signs: Vital Signs Temp 98.2 F 08/13/23 08:00 Pulse 80 08/13/23 09:13 Resp 18 08/13/23 08:00 BP 119/67 08/13/23 08:00 Pulse Ox 99 08/13/23 08:00 FiO2 40 08/02/23 21:38 Intake & Output 08/12/23 08/13/23 08/13/23 18:59 06:59 18:59 Intake Total 578 Output Total 1800 Balance -1222 Weight 93.5 kg Intake: Oral 578 Output: Urine 1800 Other: Voiding Method Diaper Diaper Diaper External Catheter External Catheter # Voids 2 # Bowel Movements 1 - Exam GENERAL: The patient is alert and oriented x3, not in any acute distress. Well developed, well nourished. HEENT: Pupils are round and equally reacting to light. EOMI. No scleral icterus. No conjunctival pallor. Normocephalic, atraumatic. No pharyngeal erythema. No thyromegaly. CARDIOVASCULAR: S1 and S2 present. No murmurs, rubs, or gallops. -PULMONARY: Chest is clear to auscultation, no wheezing , bilateral basal crackles. ABDOMEN: Soft, nontender, nondistended, normoactive bowel sounds. No palpable organomegaly. MUSCULOSKELETAL: No joint swelling or deformity. EXTREMITIES: No cyanosis, clubbing, 1+ bilateral pitting leg edema. NEUROLOGICAL: Gross neurological examination did not reveal any focal deficits. SKIN: No rashes. no petechiae. - Labs CBC & Chem 7: 08/08/23 09:20 08/13/23 12:24 Labs: Abnormal Lab Results - Last 24 Hours (Table) 08/12/23 08/12/23 08/12/23 Range/Units 12:26 17:07 20:48 POC Glucose (mg/dL) 266 H 214 H 226 H (70-110) mg/dL 08/13/23 Range/Units 06:26 POC Glucose (mg/dL) 168 H (70-110) mg/dL Assessment and Plan Assessment: non-STEMI , currently with no chest pain and recommended outpatient stress test acute systolic CHF, ejection fraction 40-45% Acute hypoxic respiratory failure Acute kidney injury on chronic kidney disease stage III most likely secondary to cardiorenal syndrome Abdominal pain chronic right lower quadrant abdominal pain and tenderness Obesity with BMI of 39 Chronic kidney disease stage III. Plan: continue with antiplatelet therapy per trailer park manager and currently patient is on aspirin, 81 mg, stress test outpatient Continue with monitoring creatinine Status post IV Lasix 20 mg 1 Continue with fluid restriction 1200 mL per day. Cardiology consult CT of the chest results were reviewed, basically unremarkable for significant abnormality Labs and medication were reviewed.. Continue same treatment. Continue with symptomatic treatment. Resume home medication. Monitor labs and vitals. DVT and GI prophylaxis. Further recommendations as per clinical course of the patient DVT prophylaxis: heparin GI Prophylaxis: Ppi PT/OT: Pending Prognosis is guarded
[2023-08-14] MEDS: PANTOPRAZOLE 40 MG TABLET PO SCH (05:31)
[2023-08-14 06:35] LABS: Glucose,Whole Blood 157 mg/dL (70-110)
[2023-08-14] MEDS: INSULIN ASPART (NovoLOG) 100 UNIT/ML VIAL SQ SCH ×4 (06:39→21:36)
[2023-08-14] MEDS: BUDESONIDE 0.5 MG/2 ML NEBU INHALATION SCH ×2 (08:17→19:36)
[2023-08-14] MEDS: ALBUTEROL NEBULIZED 2.5 MG/3 ML INHALATION PRN ×2 (08:17→19:36)
[2023-08-14] MEDS: ONDANSETRON 4 MG TAB PO PRN (10:40)
[2023-08-14] MEDS: HEPARIN SODIUM,PORCINE 5,000 UNIT/ML 1 ML VIAL SQ SCH ×2 (10:43→21:36)
--- NOTE | 2023-08-14 11:02 | CT ---
EXAMINATION TYPE: CT abdomen pelvis wo con CT DLP: 1007.1 mGycm, Automated exposure control for dose reduction was used. DATE OF EXAM: 08/13/2023 2:15 PM COMPARISON: CT abdomen pelvis 01/09/2017. CT chest without contrast 08/04/2023 CLINICAL INDICATION:Female, 83 years old with history of vomiting and abd discomfort; abdominal pain, vomiting TECHNIQUE: Axial CT of the abdomen and pelvis. Sagittal and coronal reformats were created on a [email or web address] workstation. Contrast used: mL of , (none if empty) Oral contrast used: with Oral Contrast FINDINGS: Exam is limited without IV contrast. LOWER CHEST: Heart is moderately enlarged with heavy mitral valve calcification and partially seen mi ld aortic valve calcification. Poor visualization of the interventricular septum can be seen with ane candice. Trace pericardial fluid without significant effusion. Mildly prominent pericardial fat. Partial eventration along the right hemidiaphragm with some elevation of the hepatic dome into the chest. Ate lectatic changes and/or scarring in the lung bases. Slightly nodular lobular appearing density in the right lower lobe axial image 8, appears similar to the prior scan and not well assessed without cont rast but is believed to be a vascular structure rather than true pulmonary nodule. There is no pleura l effusion. ABDOMEN LIVER: Unremarkable GALLBLADDER AND BILE DUCTS: The gallbladder is surgically absent. Biliary tree does not appear pathol ogically dilated. PANCREAS: Unremarkable. SPLEEN: Unremarkable. ADRENAL GLANDS: Mildly thickened and nodular, especially on the left, suggesting most likely adenomat oid changes and/or hyperplasia.. KIDNEYS AND URETERS: On the right there are 3 mm and 2-3 mm calculi in the mid kidney, punctate calcu clyde in the upper pole, 4 mm calculus in the lower pole. Mildly prominent extrarenal pelvis without di lated ureters seen. Left kidney shows suggestion of punctate calculi in the upper and lower poles. Mi ldly prominent extrarenal pelvis without dilated ureters seen. Several pelvic phleboliths interfere w ith interpretation but no clear evidence of distal ureteral calculi. PELVIS BLADDER: Decompressed and not well evaluated. No calculi are seen. REPRODUCTIVE: Uterus and adnexal regions appear grossly unremarkable, though not well assessed by CT. Ovaries are not clearly identified. ABDOMEN & PELVIS STOMACH AND BOWEL: Small hiatal hernia. Contrast traverses the stomach and small bowel loops with lit tle remaining in the stomach and duodenum. No significant bowel distention to suggest obstruction. T he appendix appears within normal limits, axial image 47. Moderate stool throughout the colon with i ntermixed radiodensity likely contrast material. There are numerous colonic diverticula without focal inflammation to suggest diverticulitis. PERITONEUM/RETROPERITONEUM: No evidence of pneumoperitoneum or free fluid. VASCULATURE: Mild to moderate atherosclerotic calcifications are present throughout the abdominal aor ta and its branches. No evidence of aortic aneurysm. LYMPH NODES: No gross evidence for lymphadenopathy. SOFT TISSUE/ABDOMINAL WALL: Supraumbilical ventral midline hernia with neck 1.8 cm diameter and fat f illed hernia sac 4.7 cm craniocaudal and up to 4.6 cm transverse and 3.1 cm AP. Small subcutaneous wi spy and nodular densities in the anterior abdominal wall likely from medication injections. Mild diff use body wall edema suggesting anasarca. MUSCULOSKELETAL: Generalized osteopenia. Moderate to severe multilevel degenerative changes of the vi sualized spine with slight anterolisthesis L4 over L5 and L3 over L4. Slight retrolisthesis of L1 ove r L2. Moderate S-shaped scoliotic curvature of the thoracolumbar spine. Slight shifting of L4 to the right over L5. At least moderate canal stenoses are suggested at its multiple lumbar levels, likely g reatest L3-L4 and L4-L5. Mild to moderate bilateral hip arthropathy. Mild to moderate degenerative change of the SI joints. No clearly acute bony abnormality. IMPRESSION: 1. No clearly acute abnormality, in the limits of noncontrast exam. 2. Small nonobstructing renal calculi. 3. No evidence of bowel obstruction or free air. Normal appendix. 4. Moderate stool throughout the colon with multiple diverticula, no clear evidence of diverticuliti s. 5. Small fat-containing supraumbilical hernia. 6. Other chronic and likely incidental findings, as described above.
[2023-08-14 12:41] LABS: Glucose,Whole Blood 193 mg/dL (70-110)
[2023-08-14] MEDS: ASPIRIN 81 MG PO SCH (12:47)
[2023-08-14] MEDS: FUROSEMIDE 40 MG TAB PO SCH (12:47)
[2023-08-14] MEDS: ATORVASTATIN 20 MG TAB PO SCH (12:47)
[2023-08-14] MEDS: guaiFENesin 600 MG TABLET.ER PO SCH ×2 (12:47→21:36)
[2023-08-14] MEDS: CINACALCET 30 MG TAB PO SCH (12:48)
--- NOTE | 2023-08-14 12:57 | P.PN ---
Subjective Patient is seen for follow-up for acute kidney injury and hypercalcemia. Renal function has improved with creatinine down to 1.5 mg/dL. Calcium is down to 9.5. Complaint of nausea. Sensipar was decreased to 3 times a week., occasionally it can cause nausea Objective - Vital Signs Vital signs: Vital Signs Temp 98.1 F 08/14/23 08:00 Pulse 84 08/14/23 08:29 Resp 16 08/14/23 08:00 BP 155/75 08/14/23 08:00 Pulse Ox 96 08/14/23 12:29 FiO2 40 08/02/23 21:38 Intake & Output 08/13/23 08/14/23 08/14/23 18:59 06:59 18:59 Intake Total 118 Output Total 300 300 Balance -300 -300 118 Intake: Oral 118 Output: Urine 300 300 Other: Voiding Method Diaper Diaper External Catheter - Exam patient is awake, comfortable, no acute distress Examination of the heart S1 and S2 Examination of the lungs bilateral breath sounds are heard Abdomen is soft nontender Examination of lower extremity shows no edema. - Labs CBC & Chem 7: 08/08/23 09:20 08/13/23 12:24 Labs: Abnormal Lab Results - Last 24 Hours (Table) 08/13/23 08/13/23 08/13/23 Range/Units 12:24 17:35 21:18 Sodium 135 L (137-145) mmol/L Chloride 96 L (98-107) mmol/L BUN 48 H (7-17) mg/dL Creatinine 1.51 H (0.52-1.04) mg/dL Glucose 148 H (74-99) mg/dL POC Glucose (mg/dL) 184 H 146 H (70-110) mg/dL 08/14/23 08/14/23 Range/Units 06:33 12:39 Sodium (137-145) mmol/L Chloride (98-107) mmol/L BUN (7-17) mg/dL Creatinine (0.52-1.04) mg/dL Glucose (74-99) mg/dL POC Glucose (mg/dL) 157 H 193 H (70-110) mg/dL Assessment and Plan Assessment: 1. Acute kidney injury secondary to ATN secondary to cardiorenal syndrome. Creatinine peaked at 2.27 this admission and is improved to 1.5. No hydronephrosis noted on kidney ultrasound. Right kidney atrophic. 2. Chronic kidney disease stage IIIB with baseline creatinine 1.3. Suspect nephrosclerosis and diabetic kidney disease. 3. Acute on chronic systolic CHF with ejection fraction of 40-45% with moderate pulmonary hypertension. 4. Diabetes mellitus. 5. Hypomagnesemia from diuresis. Replaced. 6. Volume overload. Improving with diuresis. 7. Hypercalcemia. Not on any calcium or vitamin D supplements. PTH elevated at 260, concerning for primary hyperparathyroidism. No evidence of parathyroid adenoma noted on parathyroid ultrasound. Vitamin D level 11.8. 1,25 D3 level 25. No monoclonality noted on serum immunofixation. On Sensipar. 8. Mild hyperkalemia secondary to acute kidney injury. Improved. Plan: Follow-up on labs from today. Continue with Decreased dose off Sensipar at 30 mg 3 times a week. Follow-up as outpatient
--- NOTE | 2023-08-14 15:01 | P.PN ---
Subjective Progress Note Date: 08/14/23 This is a pleasant 83 years old female with multiple medical problems as below. Presents because she has coughing her main concerns are associated with dyspnea over the last few days. She used to use oxygen at night about stopped using her oxygen while ago however over the last for 5 days she went back to her oxygen because of her shortness of breath. No chest pain. She has headache on and off, currently she does not have any headache no dizziness no weakness or numbness. Patient feels generally weak. She is complaining of from diarrhea but stopped about 2 days ago she doesn't have bowel movements She is complaining of from lower abdominal pain on the right side especially with coughing over the last 3 days, described as mild pain. Also she had some back pain earlier but since resolved now. No vomiting. She feels generally weak. Denies any specific urinary complaints no dysuria or urgency. No smoking alcohol or illicit drugs. Patient Vitas looks stable, her oxygen saturation is 99% on 6 L oxygen via nasal cannula and blood pressure 147/82. CBC, INR and liver enzymes were unremarkable. Attending is elevated at 1.28 which is close to baseline it was 1.3 in 2019 and 2020, no other recordings and it administrative assistant. On his elevated 0.10, 0.09 and 0.10. Magnesium 1.5 which is replaced. Influenza A and type B, RSV, SARS (coronavirus) are and detected Chest x-ray showing cardiomegaly with pulmonary vascular congestion suspicious for CHF [place] [address]. EKG showing sinus tachycardia at [address]-T changes. QTC is 400. 08/03/2023 Patient awake and alert, she still complaining from some exertion or with dyspnea. No chest pain and have some cough and. Lungs still shows crepitation. But no leg edema Currently she is on 4 L oxygen saturating 100%, according to staff to try to lower rate Her creatinine went up to point to therefore her losartan atelectasis. She received small doses of normal saline. Also there was suspicion of bronchitis and the prednisone and Symbicort was added. Heparin drip was stopped and currently she is on aspirin, and stressed test out patient Discussed with cardiology team She had some abdominal pain but is improving and she is able to be today. 08/05/2023 Patient still short of breath, still with bilateral basal interpretation and bilateral pitting leg edema. Patient will need stress testing as an outpatient Creatinine is elevated at 2.27, 1 time dose of IV Lasix provided and nephrology team were consulted who recommended urinalysis, bladder scan and renal ultrasound. Low Zartan remains on hold Patients with no fever or leukocytosis Currently on metoprolol 12.5 mg and aspirin 81 mg Heparin drip is discontinued and currently she is on subcutaneous heparin Hemoglobin stable at 11. Monitor hemoglobin and creatinine tomorrow 08/06/2023 Patient still have dyspnea and leg edema Continue with IV Lasix Patient remains on aspirin, elevated troponin thought secondary to CHF rather than an ostomy Currently on aspirin 81 mg, Lipitor Cartilage team signed off Also cardiology put this patient on prednisone 5 days and it helped steroids 08/07/2023 Patient been a problem remains fluid overload She still have dyspnea, leg edema and swelling in extremities She is on IV Lasix 40 mg daily Creatinine is still elevated 2.17 but improving slightly She's requiring 4 L oxygen with 100% saturation Hemoglobin A1c mildly elevated at 7.1 placed on low carbohydrate diet. 08/12/2023 Patient is improving slowly gradually No chest pain on heparin drip was stopped Currently on aspirin 81 mg and metoprolol Creatinine improving 1.6 Possible discharge in 24-48 hours 08/13/2023 Patient looks stronger today She still complaining from nausea and difficulty to eat. She's have some lower abdominal discomfort, therefore CAT scan with oral contrast is ordered, which is still pending Creatinine down to 1.5. 08/14. Patient seen and examined. Vital signs stable. REVIEW OF SYSTEMS: CONSTITUTIONAL: No fever, no malaise,. CARDIOVASCULAR: No chest pain, no palpitations, no syncope. PULMONARY: No shortness of breath, no cough, GASTROINTESTINAL: No diarrhea, no nausea, no vomiting, no abdominal pain. NEUROLOGICAL: No headaches, no weakness, PHYSICAL EXAMINATION: GENERAL: The patient is alert and oriented x3, not in any acute distress. Well developed, well nourished. HEENT: Pupils are round and equally reacting to light. EOMI. No scleral icterus. No conjunctival pallor. Normocephalic, atraumatic. No pharyngeal erythema. No thyromegaly. CARDIOVASCULAR: S1 and S2 present. No murmurs, rubs, or gallops. PULMONARY: Chest is clear to auscultation, no wheezing or crackles. ABDOMEN: Soft, nontender, nondistended, normoactive bowel sounds. No palpable organomegaly. MUSCULOSKELETAL: No joint swelling or deformity. EXTREMITIES: No cyanosis, clubbing, or pedal edema. NEUROLOGICAL: Gross neurological examination did not reveal any focal deficits. SKIN: No rashes. Assessment and plan non-STEMI , currently with no chest pain and recommended outpatient stress test acute systolic CHF, ejection fraction 40-45% Acute hypoxic respiratory failure Acute kidney injury on chronic kidney disease stage III most likely secondary to cardiorenal syndrome Abdominal pain chronic right lower quadrant abdominal pain and tenderness Obesity with BMI of 39 Chronic kidney disease stage III. Plan: Monitor vital signs Monitor CBC Monitor CMP Continue aspirin, Lipitor Continue Lasix 40 mg daily Continue Sensipar 30 mg daily Nephrology following Possible discharge in next 24 hours Continue same treatment. Continue with symptomatic treatment. Resume home medication. Monitor labs and vitals. DVT and GI prophylaxis. Further recommendations as per clinical course of the patient Dictation was produced using [employer] dictation software. please excuse any grammatical, word or spelling errors. Objective - Vital Signs Vital signs: Vital Signs Temp 98.1 F 08/14/23 08:00 Pulse 84 08/14/23 08:29 Resp 16 08/14/23 08:00 BP 155/75 08/14/23 08:00 Pulse Ox 96 08/14/23 12:29 FiO2 40 08/02/23 21:38 Intake & Output 08/13/23 08/14/23 08/14/23 18:59 06:59 18:59 Intake Total 118 Output Total 300 300 Balance -300 -300 118 Intake: Oral 118 Output: Urine 300 300 Other: Voiding Method Diaper Diaper External Catheter - Labs CBC & Chem 7: 08/08/23 09:20 08/13/23 12:24 Labs: Abnormal Lab Results - Last 24 Hours (Table) 08/13/23 08/13/23 08/14/23 Range/Units 17:35 21:18 06:33 POC Glucose (mg/dL) 184 H 146 H 157 H (70-110) mg/dL 08/14/23 Range/Units 12:39 POC Glucose (mg/dL) 193 H (70-110) mg/dL
[2023-08-14] MEDS: LIDOCAINE 4% PATCH TOPICAL SCH (16:07)
[2023-08-14] MEDS: NYSTATIN 100,000 UNIT/GM POWD 15 GM TOPICAL SCH ×2 (16:09→21:36)
[2023-08-14 17:44] LABS: Glucose,Whole Blood 158 mg/dL (70-110)
[2023-08-14 21:07] LABS: Glucose,Whole Blood 259 mg/dL (70-110)
[2023-08-14] MEDS: INSULIN DETEMIR (LEVEMIR) 100 UNIT/ML SYR SQ SCH (21:36)
[2023-08-15 06:22] LABS: Glucose,Whole Blood 105 mg/dL (70-110)
[2023-08-15] MEDS: PANTOPRAZOLE 40 MG TABLET PO SCH (06:30)
[2023-08-15] MEDS: INSULIN ASPART (NovoLOG) 100 UNIT/ML VIAL SQ SCH ×2 (06:30→12:47)
[2023-08-15] MEDS: BUDESONIDE 0.5 MG/2 ML NEBU INHALATION SCH (08:27)
[2023-08-15 09:10] LABS: BUN/Creat Ratio 23.95 Ratio (12.00-20.00); Blood Urea Nitrogen 45.5 mg/dL (9.0-27.0); Glucose 111 mg/dL (70-110)
[2023-08-15 09:11] LABS: ALT 50 U/L (8-44); AST 37 U/L (13-35); Albumin/Globulin Ratio 1.76 Ratio (1.60-3.17); Alkaline Phosphatase 71 U/L (41-126); Calcium 8.9 mg/dL (8.7-10.3); Carbon Dioxide 27.9 mmol/L (21.6-31.8); Chloride 102 mmol/L (96-109); Globulin 1.7 g/dL (1.6-3.3); Potassium 4.1 mmol/L (3.5-5.5); Sodium 140 mmol/L (135-145); Total Bilirubin 0.2 mg/dL (0.3-1.2); Total Protein 4.7 g/dL (6.2-8.2)
[2023-08-15 09:24] LABS: HCT 30.4 % (37.2-46.3); HGB 9.5 g/dL (12.0-15.0); MCH 30.3 pg (27.0-32.0); MCHC 31.3 g/dL (32.0-37.0); MCV 96.8 FL (80.0-97.0); Mean Platelet Volume 12.4 FL (9.5-12.2); NRBC Per 100 WBC 0 X 10*3/uL (0.00-0.01); Platelet Count 136 X 10*3/uL (140-440); RBC 3.14 X 10*6/uL (4.10-5.20); RDW 13.1 % (11.5-14.5); WBC 7.34 X 10*3/uL (4.50-10.00)
[2023-08-15] MEDS: ASPIRIN 81 MG PO SCH (10:00)
[2023-08-15] MEDS: LIDOCAINE 4% PATCH TOPICAL SCH (10:00)
[2023-08-15] MEDS: CINACALCET 30 MG TAB PO SCH (10:00)
[2023-08-15] MEDS: HEPARIN SODIUM,PORCINE 5,000 UNIT/ML 1 ML VIAL SQ SCH (10:00)
[2023-08-15] MEDS: FUROSEMIDE 40 MG TAB PO SCH (10:00)
[2023-08-15] MEDS: guaiFENesin 600 MG TABLET.ER PO SCH (10:00)
[2023-08-15] MEDS: ATORVASTATIN 20 MG TAB PO SCH (10:00)
[2023-08-15] MEDS: NYSTATIN 100,000 UNIT/GM POWD 15 GM TOPICAL SCH (10:03)
[2023-08-15 12:44] LABS: Glucose,Whole Blood 126 mg/dL (70-110)
--- NOTE | 2023-08-15 13:07 | P.PN ---
Subjective Patient is seen for follow-up for acute kidney injury and hypercalcemia. Renal function had improved but creatinine increased to 1.9 today. Patient is maintained on Lasix. Calcium is down to 8.9 No significant complaints today. Objective - Vital Signs Vital signs: Vital Signs Temp 98.2 F 08/15/23 07:25 Pulse 74 08/15/23 07:25 Resp 15 08/15/23 07:25 BP 150/81 08/15/23 07:25 Pulse Ox 100 08/15/23 07:25 FiO2 40 08/02/23 21:38 Intake & Output 08/14/23 08/15/23 08/15/23 18:59 06:59 18:59 Intake Total 736 118 Output Total 1000 1000 Balance -264 -1000 118 Intake: Oral 736 118 Output: Urine 1000 1000 Other: Voiding Method Diaper External Catheter External Catheter External Catheter - Exam patient is awake, comfortable, no acute distress Examination of the heart S1 and S2 Examination of the lungs bilateral breath sounds are heard Abdomen is soft nontender Examination of lower extremity shows no edema. - Labs CBC & Chem 7: 08/15/23 04:42 08/15/23 04:42 Labs: Abnormal Lab Results - Last 24 Hours (Table) 08/14/23 08/14/23 08/15/23 Range/Units 17:43 21:05 04:42 RBC 3.14 L (4.10-5.20) X 10*6/uL Hgb 9.5 L (12.0-15.0) g/dL Hct 30.4 L (37.2-46.3) % MCHC 31.3 L (32.0-37.0) g/dL Plt Count 136 L (140-440) X 10*3/uL MPV 12.4 H (9.5-12.2) FL BUN (9.0-27.0) mg/dL Creatinine (0.6-1.5) mg/dL Est GFR (CKD-EPI) (>=60) BUN/Creatinine Ratio (12.00-20.00) Ratio Glucose (70-110) mg/dL POC Glucose (mg/dL) 158 H 259 H (70-110) mg/dL Total Bilirubin (0.3-1.2) mg/dL AST (13-35) U/L ALT (8-44) U/L Total Protein (6.2-8.2) g/dL Albumin (3.8-4.9) g/dL 08/15/23 08/15/23 Range/Units 04:42 12:42 RBC (4.10-5.20) X 10*6/uL Hgb (12.0-15.0) g/dL Hct (37.2-46.3) % MCHC (32.0-37.0) g/dL Plt Count (140-440) X 10*3/uL MPV (9.5-12.2) FL BUN 45.5 H (9.0-27.0) mg/dL Creatinine 1.9 H (0.6-1.5) mg/dL Est GFR (CKD-EPI) 26 L (>=60) BUN/Creatinine Ratio 23.95 H (12.00-20.00) Ratio Glucose 111 H (70-110) mg/dL POC Glucose (mg/dL) 126 H (70-110) mg/dL Total Bilirubin 0.2 L (0.3-1.2) mg/dL AST 37 H (13-35) U/L ALT 50 H (8-44) U/L Total Protein 4.7 L (6.2-8.2) g/dL Albumin 3.0 L (3.8-4.9) g/dL Assessment and Plan Assessment: 1. Acute kidney injury secondary to ATN secondary to cardiorenal syndrome. Creatinine peaked at 2.27 this admission and is improved to 1.5. Increased back to 1.9 today most likely secondary to diuresis. No hydronephrosis noted on kidney ultrasound. Right kidney atrophic. 2. Chronic kidney disease stage IIIB with baseline creatinine 1.3. Suspect nephrosclerosis and diabetic kidney disease. 3. Acute on chronic systolic CHF with ejection fraction of 40-45% with moderate pulmonary hypertension. 4. Diabetes mellitus. 5. Hypomagnesemia from diuresis. Replaced. 6. Volume overload. Improving with diuresis. 7. Hypercalcemia. Not on any calcium or vitamin D supplements. PTH elevated at 260, concerning for primary hyperparathyroidism. No evidence of parathyroid adenoma noted on parathyroid ultrasound. Vitamin D level 11.8. 1,25 D3 level 25. No monoclonality noted on serum immunofixation. On Sensipar. 8. Mild hyperkalemia secondary to acute kidney injury. Improved. Plan: DC Lasix Patient can be discharged from nephrology standpoint. I will decrease Sensipar further to 2 times a week upon discharge. Monitor labs as outpatient and follow-up as outpatient for CK D
--- NOTE | 2023-08-15 14:37 | P.DS ---
Providers Date of admission: 08/02/23 17:10 Attending physician: Donny Reis Consults: 08/02/23 17:10 Consult Physician Urgent Consulting Provider: Cat Soriano Consult Reason/Comments: [email or web address],acs Do you want consulting provider notified?: Yes 08/05/23 08:40 Consult Physician Urgent Consulting Provider: Jurgen Sidhu Consult Reason/Comments: nii Do you want consulting provider notified?: Yes Primary care physician: Roslyn Xie Hospital Course: Final Diagnosis non-STEMI , recommended outpatient stress test acute systolic CHF, ejection fraction 40-45% Acute hypoxic respiratory failure now on room air Acute kidney injury on chronic kidney disease stage III most likely secondary to cardiorenal syndrome Abdominal pain chronic right lower quadrant abdominal pain and tenderness Obesity with BMI of 39 Chronic kidney disease stage III. Hx of Asthma, COPD Hx of Diabetes Mellitus type 2 with hyperglycemia Hx of DVT not on any anticoagulation Discharge Disposition Patient is stable for discharge to subacute rehab. Hemoglobin a1C 7.2 patient has been discharged on insulin. Recommending to repeat labs in 2 to 3 days. Follow up closely with nephrology and cardiology as well as PCP Dr. Xie. Patient will be going to [facility]. Hospital Course This is a pleasant 83 years old female history of asthma, COPD, Diabetes Mellitus, DVT, GERD, hypertension, hyperlipidemia, hypothyroidism, depression. Presents because she has coughing her main concerns are associated with dyspnea over the last few days. She used to use oxygen at night about stopped using her oxygen while ago however over the last for 5 days she went back to her oxygen because of her shortness of breath. No chest pain. She also reports weakness and diarrhea. She is complaining of from lower abdominal pain on the right side especially with coughing over the last 3 days, described as mild pain. No vomiting. Denies any specific urinary complaints no dysuria or urgency. Chest x-ray shows cardiomegaly pulmonary vascular congestion and bilateral pleural effusions. proBNP on admission showing 14,600. Had troponin elevation. Patient was admitted to the hospital on the medicine with a consult placed to cardiology for the heart failure was placed on IV Lasix. Patient was also in renal failure and nephrology evaluated the patient. Was having hypercalcemia underwent a parathyroid scan which was normal. Patient was monitored and downgraded to the medical floor. Transitioned to oral lasix. Echocardiogram was down showing EF 40-45% with mild TR. did continue to complain of some nausea and had an abd ominal pelvis CT done showing no clearly acute abnormality in the limits of nonconstrast exam. Small nonobstructing renal calculi. No evidence of bowel obstruction or free air. Normal appendix. Moderate stool throughout the colon with multiple diverticula no clear evidence of diverticulitis. Small fat- containing supraumbilical hernia. Patient is not complaining of chest shortness of breath no diarrhea no vomiting does complain a small amount of nausea yesterday after taking her pills. His recent labs showing a sodium of 140 potassium of 4.1, albumin of 45, creatinine of 1.9. Nephrology has cleared for discharge currently recommending decreasing the Sensipar to daily and holding the Lasix until repeat labs. Her lungs are clear she is alert oriented and patient and family agreeable for discharge. Please see medication reconciliation for a list of current medications. Thank you for allowing us to participate in the care of this patient. The impression and plan of care has been dictated by Kalli Milner, Nurse Practitioner as directed. Dr. Lucille MD I have performed a history and physical examination and medical decision making of this patient, discussed the same with the dictator, and agree with the dictators assessment and plan as written, documented as a scribe. Based on total visit time, I have performed more than 50% of this visit. Patient Condition at Discharge: Fair Plan - Discharge Summary Discharge Rx Participant: No New Discharge Prescriptions: New Aspirin 81 mg PO DAILY tab Heparin Sodium,Porcine (1 ml) [Heparin Sodium] 5,000 unit SQ Q12HR each Insulin Glargine,Hum.rec.anlog [Lantus Solostar Pen] 14 units SQ HS #1 each Atorvastatin [Lipitor] 20 mg PO DAILY tab Pantoprazole [Protonix] 40 mg PO AC-BRKFST tab Budesonide [Pulmicort] 0.5 mg INHALATION RT-BID ml Albuterol Nebulized [Ventolin Nebulized] 2.5 mg INHALATION RT-QID PRN ml PRN Reason: Shortness Of Breath Or Wheezing Lidocaine 4% Patch 1 patch TOPICAL DAILY patch Nystatin 100,000 Unit/gm Powd [Mycostatin Powder] 1 applic TOPICAL BID each Nitroglycerin Sl Tabs [Nitrostat] 0.4 mg SUBLINGUAL Q5M PRN tab PRN Reason: Chest Pain INSULIN ASPART (NovoLOG) [NovoLOG (formulary)] 0 unit SQ ACHS each Acetaminophen Tab [Tylenol] 650 mg PO Q6HR PRN tab PRN Reason: Fever And/ Or Pain Ondansetron [Zofran] 4 mg PO Q8HR PRN tab PRN Reason: Nausea And Vomiting Cinacalcet [Sensipar] 30 mg PO DAILY #30 tablet Discontinued Bio-Med Formula Compound 5u 1 applic TOPICAL TID Discharge Medication List Acetaminophen Tab [Tylenol] 650 mg PO Q6HR PRN tab 08/15/23 [Rx] Albuterol Nebulized [Ventolin Nebulized] 2.5 mg INHALATION RT-QID PRN ml 08/15/23 [Rx] Aspirin 81 mg PO DAILY tab 08/15/23 [Rx] Atorvastatin [Lipitor] 20 mg PO DAILY tab 08/15/23 [Rx] Budesonide [Pulmicort] 0.5 mg INHALATION RT-BID ml 08/15/23 [Rx] Cinacalcet [Sensipar] 30 mg PO DAILY #30 tablet 08/15/23 [Rx] Heparin Sodium,Porcine (1 ml) [Heparin Sodium] 5,000 unit SQ Q12HR each [Rx] INSULIN ASPART (NovoLOG) [NovoLOG (formulary)] 0 unit SQ ACHS each 08/15/23 [Rx] Insulin Glargine,Hum.rec.anlog [Lantus Solostar Pen] 14 units SQ HS #1 each 08/15/23 [Rx] Lidocaine 4% Patch 1 patch TOPICAL DAILY patch 08/15/23 [Rx] Nitroglycerin Sl Tabs [Nitrostat] 0.4 mg SUBLINGUAL Q5M PRN tab 08/15/23 [Rx] Nystatin 100,000 Unit/gm Powd [Mycostatin Powder] 1 applic TOPICAL BID each 08/15/23 [Rx] Ondansetron [Zofran] 4 mg PO Q8HR PRN tab 08/15/23 [Rx] Pantoprazole [Protonix] 40 mg PO AC-BRKFST tab 08/15/23 [Rx] Follow up Appointment(s)/Referral(s): Masood Jolly MD [STAFF PHYSICIAN] - 1 Week (we recommend nuclear stres test as outpatient ) Roslyn Xie MD [Primary Care Provider] - 1-2 days Jurgen Sidhu DO [STAFF PHYSICIAN] - 10 Days Ambulatory/Diagnostic Orders: Basic Metabolic Panel [LAB.AMB] Time Frame: 3 Days, Location: None Selected Complete Blood Count w/diff [LAB.AMB] Location: None Selected Activity/Diet/Wound Care/Special Instructions: heart healthy diet , low carbohydrate 1600 kcal per day activity is restricted till you see your doctor we recommend to check your glucose 4 times a day before each meal and at bed time , keep the results in a log book and bring it to your doctor upon your appointment date if your glucose is less than 70 or more than 400 then call 911 and come to emergency room Discharge Disposition: TRANSFER TO SNF/ECF
[2023-08-15 14:50] VITALS: BP 123/75; PULSE 61; RESP 14; TEMP 98.1
[2023-08-15 17:30] LABS: Glucose,Whole Blood 171 mg/dL (70-110)
== END 2023-08-15 17:59 | DRG 280 ==
LOC: EC 13:42 → 3SCARD 17:10 → 6NMEDSUR 08-11 07:26
PROVIDERS: ADMIT Hospitalist; ATTEND Hospitalist
PROC: 5A09357 Assistance with Respiratory Ventilation, Less than 24 Consecutive Hours, Continuous Positive Airway Pressure (ICD-10-PCS; principal; 2023-08-02)
DX: I13.0 Hypertensive heart and chronic kidney disease with heart failure and stage 1 through stage 4 chronic kidney disease, or unspecified chronic kidney disease (principal); I21.A1 Myocardial infarction type 2; I50.43 Acute on chronic combined systolic (congestive) and diastolic (congestive) heart failure; N17.0 Acute kidney failure with tubular necrosis; J96.01 Acute respiratory failure with hypoxia; J44.1 Chronic obstructive pulmonary disease with (acute) exacerbation; Q21.12 Patent foramen ovale; J44.0 Chronic obstructive pulmonary disease with (acute) lower respiratory infection; E03.9 Hypothyroidism, unspecified; E11.22 Type 2 diabetes mellitus with diabetic chronic kidney disease; E66.9 Obesity, unspecified; N18.32 Chronic kidney disease, stage 3b; Z68.39 Body mass index [BMI] 39.0-39.9, adult; E78.5 Hyperlipidemia, unspecified; E83.42 Hypomagnesemia; E83.52 Hypercalcemia; I27.20 Pulmonary hypertension, unspecified; E87.5 Hyperkalemia; G89.29 Other chronic pain; I25.10 Atherosclerotic heart disease of native coronary artery without angina pectoris; I34.0 Nonrheumatic mitral (valve) insufficiency; J20.9 Acute bronchitis, unspecified; I49.3 Ventricular premature depolarization; N20.0 Calculus of kidney; T50.2X5A Adverse effect of carbonic-anhydrase inhibitors, benzothiadiazides and other diuretics, initial encounter; Z79.82 Long term (current) use of aspirin; Z79.899 Other long term (current) drug therapy; Z86.718 Personal history of other venous thrombosis and embolism; Z86.14 Personal history of Methicillin resistant Staphylococcus aureus infection; Z91.51 Personal history of suicidal behavior; Z82.49 Family history of ischemic heart disease and other diseases of the circulatory system
CPT/HCPCS: 36415; 71045; 71250; 74176; 76770; 78071; 80048; 80053; 80061; 81001; 82306; 82652; 83036; 83735; 83880; 83883; 83970; 84145; 84165; 84484; 85025; 85027; 85049; 85610; 85730; 86334; 86335; 87636; 93005; 93306; 94640; 94660; 94760; 96365; 96366; 96375; 99291

== ENCOUNTER 2023-10-30 13:25 | Inpatient (IN) | payer OTHER, MEDICARE ==
--- NOTE | 2023-10-30 14:18 | ED ---
General Adult HPI - General Chief complaint: Shortness of Breath Stated complaint: Dyspnea Time Seen by Provider: 10/30/23 13:49 Source: patient, family, EMS, RN notes reviewed Mode of arrival: EMS Limitations: altered mental status - History of Present Illness Initial comments: Patient is a pleasant 83-year-old female presenting to the emergency department difficulty breathing. Patient does have history of CHF as well as chronic renal insufficiency. Patient recently did see her powerhouse attendant. Patient did recently go to [facility] and was held for treatment for CHF. They were considering transfer to rehab however family was not comfortable with that and did have patient brought here. Patient complains of continued dyspnea. Occasional co ugh. Patient does have leg swelling. No fever. Patient is a very poor historian and majority of history takes from daughter. - Related Data Previous Rx's Medication Instructions Recorded Acetaminophen Tab [Tylenol] 650 mg PO Q6HR PRN tab 08/15/23 Albuterol Nebulized [Ventolin 2.5 mg INHALATION RT-QID PRN ml 08/15/23 Nebulized] Aspirin 81 mg PO DAILY tab 08/15/23 Atorvastatin [Lipitor] 20 mg PO DAILY tab 08/15/23 Budesonide [Pulmicort] 0.5 mg INHALATION RT-BID ml 08/15/23 Cinacalcet [Sensipar] 30 mg PO DAILY #30 tablet 08/15/23 Heparin Sodium,Porcine (1 ml) 5,000 unit SQ Q12HR each 08/15/23 [Heparin Sodium] INSULIN ASPART (NovoLOG) [NovoLOG 0 unit SQ ACHS each 08/15/23 (formulary)] Insulin Glargine,Hum.rec.anlog 14 units SQ HS #1 each 08/15/23 [Lantus Solostar Pen] Lidocaine 4% Patch 1 patch TOPICAL DAILY patch 08/15/23 Nitroglycerin Sl Tabs [Nitrostat] 0.4 mg SUBLINGUAL Q5M PRN tab 08/15/23 Nystatin 100,000 Unit/gm Powd 1 applic TOPICAL BID each 08/15/23 [Mycostatin Powder] Ondansetron [Zofran] 4 mg PO Q8HR PRN tab 08/15/23 Pantoprazole [Protonix] 40 mg PO AC-BRKFST tab 08/15/23 Allergies Allergy/AdvReac Type Severity Reaction Status Date / Time house dust Allergy Cough Verified 10/30/23 13:39 Review of Systems ROS Statement: Those systems with pertinent positive or pertinent negative responses have been documented in the HPI. ROS Other: All systems not noted in ROS Statement are negative. Constitutional: Denies: fever Eyes: Denies: eye pain ENT: Denies: ear pain Respiratory: Reports: as per HPI, cough, dyspnea Cardiovascular: Denies: chest pain Endocrine: Reports: fatigue Gastrointestinal: Denies: abdominal pain Past Medical History Past Medical History: Asthma, COPD, CVA/TIA, Diabetes Mellitus, Deep Vein Thrombosis (DVT), GERD/Reflux, Hyperlipidemia, Hypertension, Memory Impairment, Osteoarthritis (OA), Thyroid Disorder Additional Past Medical History / Comment(s): states has incontinence. LEFT LEG DVT History of Any Multi-Drug Resistant Organisms: MRSA Date of last positivie culture/infection: 2011 MDRO Source:: cultures from stomach wound Past Surgical History: Back Surgery, Orthopedic Surgery, Tonsillectomy Additional Past Surgical History / Comment(s): bilateral hammer toe and heel spurs, "tummy tuck", VARICOSE VEIN SURGERY Past Anesthesia/Blood Transfusion Reactions: No Reported Reaction Past Psychological History: Anxiety, Depression Smoking Status: Never smoker Past Alcohol Use History: Rare Past Drug Use History: None Reported - Past Family History Mother Family Medical History: Coronary Artery Disease (CAD), Diabetes Mellitus Additional Family Medical History / Comment(s): age 96 Father Family Medical History: Coronary Artery Disease (CAD), Dementia Additional Family Medical History / Comment(s): age 95 General Exam General appearance: alert, in no apparent distress Head exam: Present: normocephalic Eye exam: Present: normal appearance ENT exam: Present: mucous membranes dry Neck exam: Present: normal inspection Respiratory exam: Present: normal lung sounds bilaterally Cardiovascular Exam: Present: irregular rhythm GI/Abdominal exam: Present: soft. Absent: tenderness Extremities exam: Present: pedal edema. Absent: calf tenderness Neurological exam: Present: alert Psychiatric exam: Present: normal affect, normal mood Skin exam: Present: normal color Course Vital Signs 10/30/23 13:29 Temperature 98.3 F Pulse Rate 84 Respiratory 24 Rate Blood Pressure 121/70 O2 Sat by Pulse 95 Oximetry EKG Findings - EKG Results: EKG: interpreted by ERMD (Left axis. Nonspecific T waves.), normal QRS EKG shows: atrial fibrillation Medical Decision Making - Medical Decision Making Was pt. sent in by a medical professional or institution ([facility], [facility], urgent care, hospital, or fpc...) When possible be specific @ -Patient was previously at [facility] and transferred per family request Did you speak to anyone other than the patient for history (EMS, parent, family, police, friend...)? What history was obtained from this source @ -Family provides majority of history as patient is a poor historian Did you review nursing and triage notes (agree or disagree)? Why? @ -I reviewed and agree with nursing and triage notes Were old charts reviewed (outside hosp., previous admission, EMS record, old EKG, old radiological studies, urgent care reports/EKG's, fpc records)? Report findings @ -Previous chest x-ray reviewed Differential Diagnosis (chest pain, altered mental status, abdominal pain women, abdominal pain men, vaginal bleeding, weakness, fever, dyspnea, syncope, headache, dizziness, GI bleed, back pain, seizure, CVA, palpatations, mental health, musculoskeletal)? @ -Differential Dyspnea: Coronary syndrome, arrhythmia, tamponade, asthma, COPD, pulmonary embolism, pneumonia, pneumothorax, pulmonary effusion, anaphylaxis, diabetic ketoacidosis, flailed chest, pulmonary contusion, diaphragmatic rupture, anemia, ne uromuscular, this is not meant to be an all-inclusive list. EKG interpreted by me (3pts min.). @ -As above X-rays interpreted by me (1pt min.). @ -Chest x-ray shows CHF CT interpreted by me (1pt min.). @ -None done U/S interpreted by me (1pt. min.). @ -None done What testing was considered but not performed or refused? (CT, X-rays, U/S, labs)? Why? @ -D-dimer added What meds were considered but not given or refused? Why? @ -None Did you discuss the management of the patient with other professionals (professionals i.e. [facility] Morgan, [facility] [facility], lab, RT, psych nurse, forensic social worker, manager event, teacher, transportation security officer, employment evaluator/case manager)? Give summary @ -Case discussed with Dr. Alonso who will admit covering Dr. Xie. He does request Lasix 40 every 12 as well as D-dimer and echo Was smoking cessation discussed for >3mins.? @ -No Was critical care preformed (if so, how long)? @ -No Were there social determinants of health that impacted care today? How? (Homelessness, low income, unemployed, alcoholism, drug addiction, transportation, low edu. Level, literacy, decrease access to med. care, care home, re hab)? @ -No Was there de-escalation of care discussed even if they declined (Discuss DNR or withdrawal of care, Hospice)? DNR status @ -No What co-morbidities impacted this encounter? (DM, HTN, Smoking, COPD, CAD, Cancer, CVA, ARF, Chemo, Hep., AIDS, mental health diagnosis, sleep apnea, morbid obesity)? @ -None Was patient admitted / discharged? Hospital course, mention meds given and route, prescriptions, significant lab abnormalities, going to OR and other pertinent info. @ -Patient reevaluated. Patient and family updated. Patient will be admitted with consults with cardiology and nephrology. Admission orders written. Undiagnosed new problem with uncertain prognosis? @ -No Drug Therapy requiring intensive monitoring for toxicity (Heparin, Nitro, Insulin, Cardizem)? @ -No Were any procedures done? @ -No Diagnosis/symptom? @ -CHF Acute, or Chronic, or Acute on Chronic? @ -Acute Uncomplicated (without systemic symptoms) or Complicated (systemic symptoms)? @ -Default Side effects of treatment? @ -No Exacerbation, Progression, or Severe Exacerbation? @ -Exacerbation Poses a threat to life or bodily function? How? (Chest pain, [place], [place], pneumonia, PE, COPD, DKA, ARF, appy, cholecystitis, CVA, Diverticulitis, Homicidal, Suicidal, threat to staff... and all critical care pts) @ -No - Lab Data Result diagrams: 10/30/23 15:31 10/30/23 15:31 Lab Results 10/30/23 10/30/23 10/30/23 Range/Units 15:31 15:31 15:31 WBC 5.5 (3.8-10.6) k/uL RBC 3.25 L (3.80-5.40) m/uL Hgb 9.8 L (11.4-16.0) gm/dL Hct 31.8 L (34.0-46.0) % MCV 97.9 (80.0-100.0) fL MCH 30.2 (25.0-35.0) pg MCHC 30.8 L (31.0-37.0) g/dL RDW 14.6 (11.5-15.5) % Plt Count 146 L (150-450) k/uL MPV 9.5 Neutrophils % 76 % Lymphocytes % 15 % Monocytes % 6 % Eosinophils % 2 % Basophils % 0 % Neutrophils # 4.2 (1.3-7.7) k/uL Lymphocytes # 0.8 L (1.0-4.8) k/uL Monocytes # 0.3 (0-1.0) k/uL Eosinophils # 0.1 (0-0.7) k/uL Basophils # 0.0 (0-0.2) k/uL Hypochromasia Slight PT 10.6 (10.0-12.5) sec INR 1.0 (<1.2) APTT 24.6 (22.0-30.0) sec Sodium 136 L (137-145) mmol/L Potassium 3.8 (3.5-5.1) mmol/L Chloride 93 L (98-107) mmol/L Carbon Dioxide 35 H (22-30) mmol/L Anion Gap 8 mmol/L BUN 55 H (7-17) mg/dL Creatinine 1.72 H (0.52-1.04) mg/dL Est GFR (CKD-EPI)AfAm 32 (>60 ml/min/1.73 sqM) Est GFR (CKD-EPI)NonAf 28 (>60 ml/min/1.73 sqM) Glucose 169 H (74-99) mg/dL Plasma Lactic Acid Yonny (0.7-2.0) mmol/L Calcium 9.6 (8.4-10.2) mg/dL Magnesium 1.9 (1.6-2.3) mg/dL Total Bilirubin 0.4 (0.2-1.3) mg/dL AST 43 H (14-36) U/L ALT 48 H (4-34) U/L Alkaline Phosphatase 120 (38-126) U/L Troponin I (0.000-0.034) ng/mL NT-Pro-B Natriuret Pep 49978 pg/mL Total Protein 5.3 L (6.3-8.2) g/dL Albumin 2.8 L (3.5-5.0) g/dL 10/30/23 10/30/23 Range/Units 15:31 15:31 WBC (3.8-10.6) k/uL RBC (3.80-5.40) m/uL Hgb (11.4-16.0) gm/dL Hct (34.0-46.0) % MCV (80.0-100.0) fL MCH (25.0-35.0) pg MCHC (31.0-37.0) g/dL RDW (11.5-15.5) % Plt Count (150-450) k/uL MPV Neutrophils % % Lymphocytes % % Monocytes % % Eosinophils % % Basophils % % Neutrophils # (1.3-7.7) k/uL Lymphocytes # (1.0-4.8) k/uL Monocytes # (0-1.0) k/uL Eosinophils # (0-0.7) k/uL Basophils # (0-0.2) k/uL Hypochromasia PT (10.0-12.5) sec INR (<1.2) APTT (22.0-30.0) sec Sodium (137-145) mmol/L Potassium (3.5-5.1) mmol/L Chloride (98-107) mmol/L Carbon Dioxide (22-30) mmol/L Anion Gap mmol/L BUN (7-17) mg/dL Creatinine (0.52-1.04) mg/dL Est GFR (CKD-EPI)AfAm (>60 ml/min/1.73 sqM) Est GFR (CKD-EPI)NonAf (>60 ml/min/1.73 sqM) Glucose (74-99) mg/dL Plasma Lactic Acid Yonny 0.9 (0.7-2.0) mmol/L Calcium (8.4-10.2) mg/dL Magnesium (1.6-2.3) mg/dL Total Bilirubin (0.2-1.3) mg/dL AST (14-36) U/L ALT (4-34) U/L Alkaline Phosphatase (38-126) U/L Troponin I 0.014 (0.000-0.034) ng/mL NT-Pro-B Natriuret Pep pg/mL Total Protein (6.3-8.2) g/dL Albumin (3.5-5.0) g/dL Disposition Clinical Impression: CHF (congestive heart failure) Disposition: ADMITTED IP TO THIS HOSP Is patient prescribed a controlled substance at d/c from ED?: No Referrals: Roslyn Xie MD [Primary Care Provider] - 1-2 days Time of Disposition: 17:10
--- NOTE | 2023-10-30 16:00 | XR ---
EXAMINATION TYPE: XR chest 2V DATE OF EXAM: 10/30/2023 COMPARISON: 08/09/2023 TECHNIQUE: PA and lateral views submitted. HISTORY: Difficulty breathing FINDINGS: Cardiomegaly and ectasia of the aorta. Arthropathy of the shoulders, degenerative change of the spine and diffuse osteopenia. Elevated right hemidiaphragm stable with basilar atelectasis favored over pn eumonia correlate clinically. Underlying COPD. Interstitium is increased compared to prior exam. IMPRESSION: 1. Cardiomegaly with thoracic aortic ectasia stable. Correlate for mild venous congestion or intersti tial pneumonitis. 2. Stable right hemidiaphragm elevation could be associated with phrenic nerve palsy. Right basilar a telectasis favored over pneumonia.
[2023-10-30 16:12] LABS: Basophils % (A) 0 %; Eosinophils # (A) 0.1 k/uL (0-0.7); Eosinophils % (A) 2 %; HCT 31.8 % (34.0-46.0); HGB 9.8 gm/dL (11.4-16.0); Hypochromasia Slight; Lymphocytes # (A) 0.8 k/uL (1.0-4.8); Lymphocytes % (A) 15 %; MCH 30.2 pg (25.0-35.0); MCHC 30.8 g/dL (31.0-37.0); MCV 97.9 fL (80.0-100.0); Mean Platelet Volume 9.5; Monocytes # (A) 0.3 k/uL (0-1.0); Monocytes % (A) 6 %; Neutrophils # (A) 4.2 k/uL (1.3-7.7); Neutrophils % (A) 76 %; Platelet Count 146 k/uL (150-450); RBC 3.25 m/uL (3.80-5.40); RDW 14.6 % (11.5-15.5); WBC 5.5 k/uL (3.8-10.6)
[2023-10-30 16:26] LABS: ALT 48 U/L (4-34); AST 43 U/L (14-36); African American GFR (CKD) 32 (>60 ml/min/1.73 sqM); Albumin 2.8 g/dL (3.5-5.0); Alkaline Phosphatase 120 U/L (38-126); Blood Urea Nitrogen 55 mg/dL (7-17); Calcium 9.6 mg/dL (8.4-10.2); Chloride 93 mmol/L (98-107); Glucose 169 mg/dL (74-99); Magnesium 1.9 mg/dL (1.6-2.3); Non-African American GFR(CKD) 28 (>60 ml/min/1.73 sqM); Potassium 3.8 mmol/L (3.5-5.1); Sodium 136 mmol/L (137-145); Total Bilirubin 0.4 mg/dL (0.2-1.3); Total Protein 5.3 g/dL (6.3-8.2)
[2023-10-30 16:31] LABS: Anion Gap 8 mmol/L
[2023-10-30 16:34] LABS: NT-Pro-B-Type Natriuretic Pept 20600 pg/mL
[2023-10-30 16:38] LABS: Partial Thromboplastin Time 24.6 sec (22.0-30.0); Prothrombin Time 10.6 sec (10.0-12.5)
[2023-10-30 16:40] LABS: Carbon Dioxide 35 mmol/L (22-30)
[2023-10-30] MEDS: ASPIRIN 325 MG TAB PO STA (17:30)
[2023-10-30] MEDS: FUROSEMIDE 10 MG/ML 4 ML VIAL IV SCH (17:31)
[2023-10-30] MEDS: NITROGLYCERIN OINT 1 INCH/GM PACKET TOPICAL SCH (17:35)
[2023-10-30] MEDS ORDERED: NITROGLYCERIN SL TABS 0.4 MG TAB SUBLINGUAL PRN (18:18)
[2023-10-30] MEDS ORDERED: ALPRAZolam 0.25 MG TAB PO PRN (18:18)
[2023-10-30] MEDS ORDERED: DEXTROSE 50% SYRINGE 50 ML IVP PRN ×2 (18:44)
[2023-10-30] MEDS ORDERED: NON FORMULARY DRUG (Insulin Lispro [Humalog Kwikpen] 100 UNIT/ML Insuln.Pen) SQ SCH (21:00)
[2023-10-30] MEDS: INSULIN ASPART (NovoLOG) 100 UNIT/ML VIAL SQ SCH (22:58)
[2023-10-30] MEDS: METOPROLOL TARTRATE 12.5 MG TAB PO SCH (23:05)
[2023-10-30] MEDS: MONTELUKAST 10 MG TAB PO SCH (23:05)
[2023-10-30] MEDS: FLUTICASONE 110 MCG INHALER INHALATION SCH (23:10)
--- NOTE | 2023-10-30 23:18 | P.HPIM ---
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 She had quite with dyspnea and significant hypoxia with shortness of breath the time she was having headache with lightheadedness on and off complaining of worsening bowel movement with abdominal pain and worsening IBS at the time. With the finding on that admission of non-ST PA, acute CHF with ejection fr action about 45 percentile, acute hypoxic respiratory failure with worsening abdominal pain. She was treated seen cardiology her echocardiogram came back with left ventricular hypertrophy moderate dilatation ROXANNA from 2019 moderate mitral regurgitation and PFO. Also she was having PACs and PVCs at the time with elevated troponin with cardiology decided to do a nuclear stress test normal heart cath: Her last catheter was in 2019 with finding consistent with minimal coronary artery disease at the time. 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 She ended up in the emergency department at [facility] and was hospitalized for the last 7 days with worsening dyspnea and shortness of breath with worsening congestive heart failure exacerbation patient and complain that hospital was trying to discharge her home ISAAC her symptoms and complaining was not addressed and never cleared. Patient apparently and the bleeding [facility] today and the and [facility] with complaint again of dyspnea and shortness of breath severe generalized weakness fatigue debility not been able to ambulate and walk. Surprisingly few other finding with examination including mild anemia with hemoglobin of 9.8, negative troponin elevated D-dimer worsening kidney function with creatinine of 1.72 BNP was 20,600 slightly abnormal liver function test and COVID RSV with influenza were negative from her other hospitalization. EKG sadly shows atrial fibrillation with pulse rate running around 93 beats per minutes. Chest x-ray consistent with cardiomegaly with thoracic aortic ectasia stable correlate for mild venous congestion or interstitial pneumonitis stable right Prasad diaphragm elevation could be associated with phrenic nerve paralysis with right basilar atelectasis favored over pneumonia. 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 Was started on oxygen, IV diuretics, patient will be hospitalized to see cardiology, nephrology and probably pulmonary aggressive diuretics management will be done for now pulse rate will be treated with probably smaller dose of beta-david patient might require to be on anticoagulation. For the elevated D-dimer I would love doing CTA but with kidney failure is not a good choice wait start patient on Eliquis 5 mg twice a day for now and as soon as you are able to do either CTA or VQ scan to exclude the possibility of pulmonary embolism will be done. Despite the ejection fraction in July was 40-45 percentile patient will benefit from doing another echocardiogram this shelly up REVIEW OF SYSTEMS: CONSTITUTIONAL: Mildly overweight mild respiratory distress. EYES: No icterus sclerae, no conjunctivitis. EARS, NOSE, MOUTH, THROAT, and FACE: No sore throat, lymphadenopathy, carotid bruits or deformity. RESPIRATORY: Slight shortness of breath with cough and wheezes. CARDIOVASCULAR: Positive PND orthopnea palpitation. GASTROINTESTINAL: Slight abdominal discomfort with nausea no vomiting. GENITOURINARY: Positive for decreased urine output no hematuria no infection. INTEGUMENT/BREAST: Generalized arthralgia and myalgia. HEMATOLOGIC/LYMPHATIC: Negative for bleed or purpura. MUSCULOSKELTAL: Generalized myalgia with slight increased swelling in lower extremity. NEURLOGICAL: No LOC, Sz or syncope, blurred vision dizziness or abnormality.. BEHAVIORAL/PSYCH: Negative. ENDOCRINE: Negative. PHYSICAL EXAMINATION: General Appearance: Alert, cooperative, mild respiratory distress. Neck HEENT: Supple, no lymphadenopathy, no thyroid enlargement, no carotid bruits. Lungs: Decreased breath sound bilaterally with fine rhonchi positive crackles in the bases positive mild expiratory wheezes. Chest Wall: Decreased expansion with deep inspiration no tenderness and no deformity was found on exam, no costochondral pain or discomfort. Heart: Irregular rate and rhythm, S1, S2 positive tachycardia, positive irregu larity with systolic murmur. Back: Has mild scoliosis with slight lower back discomfort. Abdomen: Midepigastric and mid abdominal region discomfort with no rebound or rigidity. Extremities: Chronic change from the knee down bilaterally with chronic vascular cellulitis 1-2+ edema. Pulses: Decreased pulse bilaterally. Skin: Skin color, texture, tugor normal, no rashes or lesions. Neurologic: Alert oriented x3 cranial nerves II through XII intact, positive generalized weakness but normal balance and gait. Patient is not able to ambulate on her own. ASSESSMENT AND PLAN: _Severe dyspnea and shortness of breath: Combination of congestive heart failure, anemia, atrial fibrillation, possible pulmonary embolism, and fluid overload. _Acute on chronic systolic congestive heart failure with mild exacerbation: Will be on IV diuretics with furosemide 40 mg IV twice a day will consult cardiology order echocardiogram for tomorrow. _A-fib with RVR: Pulse rates under control currently She is to continue metoprolol titrate 12.5 mg twice a day and titrate dose higher try to keep a pulse rate in the 70s and 80s. 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 _Anemia: Mild mostly chronic disease, iron supplement multivitamin will be done. _Acute kidney injury with chronic kidney disease stage IIIb: Continue to watch kidney function carefully specially being on diuretics. _Recent history of known ST PA with no anatomy known at this point last heart cath was done in 2019 continue get medical management. _Elevated D-dimer with possible pulmonary embolism: She will be on anticoagulation for now and when possible CTA angiogram of the lung will be done to exclude PE or VQ scan at least. _Type 2 diabetes: Continue NovoLog with sliding scale coverage for now. She will benefit from SGLT2 product. _Hypertension: Has been doing well on metoprolol, losartan, and if needed will add amlodipine. _Hyperlipidemia: Continue atorvastatin 20 mg a day. _GI prophylaxis: Pantoprazole 40 mg daily will be done. DVT prophylaxis: Patient will be on anticoagulation for now. CODE STATUS: DO NOT RESUSCITATE. Admit patient to the inpatient service for more than 2 night stay. Past Medical History Past Medical History: Asthma, COPD, CVA/TIA, Diabetes Mellitus, Deep Vein Thrombosis (DVT), GERD/Reflux, Hyperlipidemia, Hypertension, Memory Impairment, Osteoarthritis (OA), Thyroid Disorder Additional Past Medical History / Comment(s): states has incontinence. LEFT LEG DVT History of Any Multi-Drug Resistant Organisms: MRSA Date of last positivie culture/infection: 2011 MDRO Source:: cultures from stomach wound Past Surgical History: Back Surgery, Orthopedic Surgery, Tonsillectomy Additional Past Surgical History / Comment(s): bilateral hammer toe and heel spurs, "tummy tuck", VARICOSE VEIN SURGERY Past Anesthesia/Blood Transfusion Reactions: No Reported Reaction Past Psychological History: Anxiety, Depression Smoking Status: Never smoker Past Alcohol Use History: Rare Past Drug Use History: None Reported - Past Family History Mother Family Medical History: Coronary Artery Disease (CAD), Diabetes Mellitus Additional Family Medical History / Comment(s): age 96 Father Family Medical History: Coronary Artery Disease (CAD), Dementia Additional Family Medical History / Comment(s): age 95 Medications and Allergies Home Medications Medication Instructions Recorded Confirmed Type Acetaminophen Tab [Tylenol] 650 mg PO Q6HR PRN tab 08/15/23 10/30/23 Rx Albuterol Nebulized [Ventolin 2.5 mg INHALATION RT-QID PRN ml 08/15/23 10/30/23 Rx Nebulized] Atorvastatin [Lipitor] 20 mg PO DAILY tab 08/15/23 10/30/23 Rx Cinacalcet [Sensipar] 30 mg PO DAILY #30 tablet 08/15/23 10/30/23 Rx Nitroglycerin Sl Tabs [Nitrostat] 0.4 mg SUBLINGUAL Q5M PRN tab 08/15/23 10/30/23 Rx ALPRAZolam [Xanax] 0.25 mg PO BID PRN 10/30/23 10/30/23 History Aspirin EC [Ecotrin Low Dose] 81 mg PO DAILY 10/30/23 10/30/23 History Budesonide [Pulmicort Flexhaler] 2 puff INHALATION RT-BID 10/30/23 10/30/23 History Escitalopram Oxalate [Lexapro] 20 mg PO DAILY 10/30/23 10/30/23 History Fluconazole 150 mg PO MO 10/30/23 10/30/23 History Furosemide [Lasix] 40 mg PO DAILY 10/30/23 10/30/23 History Insulin Lispro [humaLOG Kwikpen] See Protocol SQ ACHS 10/30/23 10/30/23 History Lidocaine 4% Patch 1 patch TOPICAL DAILY 10/30/23 10/30/23 History Losartan Potassium [Cozaar] 100 mg PO DAILY 10/30/23 10/30/23 History Magnesium Oxide [Magox 400] 400 mg PO DIRECTED 10/30/23 10/30/23 History Metoprolol Tartrate [Lopressor] 12.5 mg PO BID 10/30/23 10/30/23 History Montelukast [Singulair] 10 mg PO HS 10/30/23 10/30/23 History Nystatin 100,000 Unit/gm Powd 1 applic TOPICAL BID 10/30/23 10/30/23 History [Mycostatin Powder] Omeprazole [PriLOSEC] 20 mg PO DAILY 10/30/23 10/30/23 History Potassium Chloride [Klor-Con M20] 20 meq PO DIRECTED 10/30/23 10/30/23 History Tamsulosin HCl [Flomax] 0.4 mg PO DIRECTED 10/30/23 10/30/23 History Allergies Allergy/AdvReac Type Severity Reaction Status Date / Time house dust AdvReac Cough Verified 10/30/23 17:52 Physical Exam Vitals: Vital Signs Temp Pulse Resp BP Pulse Ox 10/30/23 17:28 98.2 F 91 18 166/94 100 10/30/23 13:29 98.3 F 84 24 121/70 95 Intake and Output 10/30/23 10/30/23 10/30/23 06:59 14:59 22:59 Other: Weight 91.626 kg Results CBC & Chem 7: 10/31/23 07:12 10/31/23 07:12 Labs: Abnormal Lab Results - Last 24 Hours (Table) 10/30/23 10/30/23 Range/Units 15:31 15:31 RBC 3.25 L (3.80-5.40) m/uL Hgb 9.8 L (11.4-16.0) gm/dL Hct 31.8 L (34.0-46.0) % MCHC 30.8 L (31.0-37.0) g/dL Plt Count 146 L (150-450) k/uL Lymphocytes # 0.8 L (1.0-4.8) k/uL Sodium 136 L (137-145) mmol/L Chloride 93 L (98-107) mmol/L Carbon Dioxide 35 H (22-30) mmol/L BUN 55 H (7-17) mg/dL Creatinine 1.72 H (0.52-1.04) mg/dL Glucose 169 H (74-99) mg/dL AST 43 H (14-36) U/L ALT 48 H (4-34) U/L Total Protein 5.3 L (6.3-8.2) g/dL Albumin 2.8 L (3.5-5.0) g/dL
[2023-10-31 05:58] LABS: Glucose,Whole Blood 154 mg/dL (70-110)
--- NOTE | 2023-10-31 07:41 | P.PN ---
Subjective Progress Note Date: 10/31/23 HISTORY OF PRESENT ILLNESS: 83-year-old female one of our office patient for many years who was hospitalized last time at [facility] on 08/02/2023 till at least 08/15/2023 with acute coronary syndrome along with non-ST WY and generalized weakness and fatigue. She had quite with dyspnea and significant hypoxia with shortness of breath the time she was having headache with lightheadedness on and off complaining of worsening bowel movement with abdominal pain and worsening IBS at the time. With the finding on that admission of non-ST WY, acute CHF with ejection fraction about 45 percentile, acute hypoxic respiratory failure with worsening abdominal pain. She was treated seen cardiology her echocardiogram came back with left ventricular hypertrophy moderate dilatation ROXANNA from 2019 moderate mitral regurgitation and PFO. Also she was having PACs and PVCs at the time with elevated troponin with cardiology decided to do a nuclear stress test normal heart cath: Her last catheter was in 2019 with finding consistent with minimal coronary artery disease at the time. Patient was treated with medical management after long hospitalization patient was sent to [facility] where she spent in physical therapy and rehab about 2 weeks and ended up going home patient developed to have slightly but worsening symptoms last 10 days with worsening dyspnea and shortness of breath generalized weakness and fatigue not been able to ambulate and walk require more than 1 person resident assistant cna. She ended up in the emergency department at [facility] and was hospitalized for the last 7 days with worsening dyspnea and shortness of breath with worsening congestive heart failure exacerbation patient and complain that hospital was trying to discharge her home ISAAC her symptoms and complaining was not addressed and never cleared. Patient apparently and the bleeding [facility] today and the and [facility] with complaint again of dyspnea and shortness of breath severe generalized weakness fatigue debility not been able to ambulate and walk. Surprisingly few other finding with examination including mild anemia with hemoglobin of 9.8, negative troponin elevated D-dimer worsening kidney function with creatinine of 1.72 BNP was 20,600 slightly abnormal liver function test and COVID RSV with influenza were negative from her other hospitalization. EKG sadly shows atrial fibrillation with pulse rate running around 93 beats per minutes. Chest x-ray consistent with cardiomegaly with thoracic aortic ectasia stable correlate for mild venous congestion or interstitial pneumonitis stable right Prasad diaphragm elevation could be associated with phrenic nerve paralysis with right basilar atelectasis favored over pneumonia. 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 Was started on oxygen, IV diuretics, patient will be hospitalized to see cardiology, nephrology and probably pulmonary aggressive diuretics management will be done for now pulse rate will be treated with probably smaller dose of beta-david patient might require to be on anticoagulation. For the elevated D-dimer I would love doing CTA but with kidney failure is not a good choice wait start patient on Eliquis 5 mg twice a day for now and as soon as you are able to do either CTA or VQ scan to exclude the possibility of pulmonary embolism will be done. Despite the ejection fraction in July was 40-45 percentile patient will benefit from doing another echocardiogram this time. 10/31/2023: Patient slept the night in bed flat has been feeling slightly better with oxygen on, with IV diuretics has done well, reviewed chest x-ray from last night she had a quite good pleural effusion on the right side with quite a bit of consolidation as well but there is no sign of infection. Also her D-dimer was elevated was safely should do VQ scan since not able to do CTA but patient is already on anticoagulation at this point. Also patient still in A-fib at this point with pulse rate is running in the 90s with beta-david and Eliquis should be able to control the pulse rate patient be seen cardiology today as well. REVIEW OF SYSTEMS: CONSTITUTIONAL: Mildly overweight mild respiratory distress. EYES: No icterus sclerae, no conjunctivitis. EARS, NOSE, MOUTH, THROAT, and FACE: No sore throat, lymphadenopathy, carotid bruits or deformity. RESPIRATORY: Slight shortness of breath with cough and wheezes. CARDIOVASCULAR: Positive PND orthopnea palpitation. GASTROINTESTINAL: Slight abdominal discomfort with nausea no vomiting. GENITOURINARY: Positive for decreased urine output no hematuria no infection. INTEGUMENT/BREAST: Generalized arthralgia and myalgia. HEMATOLOGIC/LYMPHATIC: Negative for bleed or purpura. MUSCULOSKELTAL: Generalized myalgia with slight increased swelling in lower extremity. NEURLOGICAL: No LOC, Sz or syncope, blurred vision dizziness or abnormality.. BEHAVIORAL/PSYCH: Negative. ENDOCRINE: Negative. PHYSICAL EXAMINATION: General Appearance: Alert, cooperative, mild respiratory distress. Neck HEENT: Supple, no lymphadenopathy, no thyroid enlargement, no carotid bruits. Lungs: Decreased breath sound bilaterally with fine rhonchi positive crackles in the bases positive mild expiratory wheezes. Chest Wall: Decreased expansion with deep inspiration no tenderness and no deformity was found on exam, no costochondral pain or discomfort. Heart: Irregular rate and rhythm, S1, S2 positive tachycardia, positive irregularity with systolic murmur. Back: Has mild scoliosis with slight lower back discomfort. Abdomen: Midepigastric and mid abdominal region discomfort with no rebound or rigidity. Extremities: Chronic change from the knee down bilaterally with chronic vascular cellulitis 1-2+ edema. Pulses: Decreased pulse bilaterally. Skin: Skin color, texture, tugor normal, no rashes or lesions. Neurologic: Alert oriented x3 cranial nerves II through XII intact, positive generalized weakness but normal balance and gait. Patient is not able to ambulate on her own. ASSESSMENT AND PLAN: _Severe dyspnea and shortness of breath: Combination of congestive heart failure, anemia, atrial fibrillation, possible pulmonary embolism, and fluid overload. Along with pleural effusion. _Acute on chronic systolic congestive heart failure with mild exacerbation: Will be on IV diuretics with furosemide 40 mg IV twice a day will consult cardiology order echocardiogram for tomorrow. She has quite with pleural effusion on the right side which is typical sign and symptom of acute systolic congestive heart failure mostly systolic function waiting to see her ejection fraction and echocardiogram today. _A-fib with RVR: Pulse rates under control currently She is to continue metoprolol titrate 12.5 mg twice a day and titrate dose higher try to keep a pu lse rate in the 70s and 80s. Metoprolol probably should go up to 25 mg twice a day after she sees cardiology today her pulse rate still running in the 90s. 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 _Anemia: Mild mostly chronic disease, iron supplement multivitamin will be done. _Acute kidney injury with chronic kidney disease stage IIIb: Continue to watch kidney function carefully specially being on diuretics. Awaiting for CMP from this morning for measurement of the kidney function. _Recent history of known ST WY with no anatomy known at this point last heart cath was done in 2019 continue get medical management. _Elevated D-dimer with possible pulmonary embolism: She will be on anticoagulation for now and when possible CTA angiogram of the lung will be done to exclude PE or VQ scan at least. She is already on anticoagulation waiting for pulmonary to decide whether VQ scan will be at least a reasonable measurement to see if patient had pulmonary embolism. _Type 2 diabetes: Continue NovoLog with sliding scale coverage for now. She will benefit from SGLT2 product. _Hypertension: Has been doing well on metoprolol, losartan, and if needed will add amlodipine. _Hyperlipidemia: Continue atorvastatin 20 mg a day. Prognosis: Fair. Discussion patient be seen pulmonary, cardiology, and possible nephrology. Will continue doing IV diuretics she might need pleural effusion drained with thoracentesis also she will be having an echocardiogram today and possible VQ scan. I started already anticoagulation last night with Eliquis 5 mg twice a day patient so far running around 90s which should be able to control with little larger beta-david. Objective - Vital Signs Vital signs: Vital Signs Temp 97.8 F 10/31/23 01:27 Pulse 76 10/31/23 01:27 Resp 16 10/31/23 01:27 BP 146/62 10/31/23 01:27 Pulse Ox 100 10/31/23 01:27 FiO2 Intake & Output 10/30/23 10/30/23 10/31/23 06:59 18:59 06:59 Weight 91.626 kg 96 kg Other: Voiding Method External Catheter # Voids 1 - Labs CBC & Chem 7: 10/31/23 07:12 10/31/23 07:12 Labs: Abnormal Lab Results - Last 24 Hours (Table) 10/30/23 10/30/23 10/30/23 Range/Units 15:31 15:31 20:51 RBC 3.25 L (3.80-5.40) m/uL Hgb 9.8 L (11.4-16.0) gm/dL Hct 31.8 L (34.0-46.0) % MCHC 30.8 L (31.0-37.0) g/dL Plt Count 146 L (150-450) k/uL Lymphocytes # 0.8 L (1.0-4.8) k/uL D-Dimer 1.65 H (<0.60) mg/L FEU Sodium 136 L (137-145) mmol/L Chloride 93 L (98-107) mmol/L Carbon Dioxide 35 H (22-30) mmol/L BUN 55 H (7-17) mg/dL Creatinine 1.72 H (0.52-1.04) mg/dL Glucose 169 H (74-99) mg/dL AST 43 H (14-36) U/L ALT 48 H (4-34) U/L Total Protein 5.3 L (6.3-8.2) g/dL Albumin 2.8 L (3.5-5.0) g/dL
--- NOTE | 2023-10-31 08:00 | CA ---
Transthoracic Echo Report Name: Rachel Chaidez Age: 83 Gender: F : [id number] Exam Date: 10/30/2023 18:00 Exam Location: [place] [facility] Ht (in): 62 Wt (lb): 202 Ordering Physician: Phong Lorenzana DO Attending/Referring Phys: Winding Lathe Operator Lisa Finley RDCS Procedure CPT: Indications: chf Cardiac Hx: Technical Quality: Fair Contrast 1: Total Dose (mL): Contrast 2: Total Dose (mL): MEASUREMENTS (Male / Female) Normal Values 2D ECHO LV Diastolic Diameter PLAX 4.9 cm 4.2 - 5.9 / 3.9 - 5.3 cm LV Systolic Diameter PLAX 3.9 cm IVS Diastolic Thickness 1.4 cm 0.6 - 1.0 / 0.6 - 0.9 cm LVPW Diastolic Thickness 1.1 cm 0.6 - 1.0 / 0.6 - 0.9 cm LV Relative Wall Thickness 0.5 RV Internal Dim ED PLAX 3.8 cm LVOT Diameter 2.3 cm LA Systolic Diameter LX 4.9 cm 3.0 - 4.0 / 2.7 - 3.8 cm LV Diastolic Volume MOD BP 65.4 cm??? 67 - 155 / 56 - 104 cm??? LV Systolic Volume MOD BP 39.3 cm??? - 58 / 19 - 49 cm??? LV Ejection Fraction MOD BP 40.0 % >= 55 % LV Cardiac Index MOD BP 1136.8 cm???/min???m??? LV Diastolic Volume MOD 4C 73.4 cm??? LV Systolic Volume MOD 4C 31.2 cm??? LV Ejection Fraction MOD 4C 57.5 % LV Cardiac Index MOD 4C 1833.6 cm???/min???m??? LV Diastolic Length 4C 6.3 cm LV Systolic Length 4C 5.2 cm LV Diastolic Volume MOD 2C 57.9 cm??? LV Systolic Volume MOD 2C 40.7 cm??? LV Ejection Fraction MOD 2C 29.7 % LV Cardiac Index MOD 2C 749.1 cm???/min???m??? LV Diastolic Length 2C 6.1 cm LV Systolic Length 2C 6.5 cm LA Volume 73.3 cm??? 18 - 58 / 22 - 52 cm??? LA Volume Index 35.8 cm???/m??? 16 - 28 cm???/m??? M-MODE Aortic Root Diameter MM 3.4 cm DOPPLER AV Peak Velocity 212.4 cm/s AV Peak Gradient 18.1 mmHg AV Mean Velocity 142.9 cm/s AV Mean Gradient 9.7 mmHg AV Velocity Time Integral 38.2 cm LVOT Peak Velocity 128.8 cm/s LVOT Peak Gradient 6.6 mmHg AV Area Cont Eq pk 2.5 cm??? MV Area PHT 4.7 cm??? MV Deceleration Time 225.0 ms TR Peak Velocity 314.0 cm/s TR Peak Gradient 39.4 mmHg Right Ventricular Systolic Press 53.0 mmHg FINDINGS Left Ventricle Left ventricular ejection fraction is estimated at 40-45 %. Left ventricular cavity size normal. Moderately increased septal wall thickness. Mildly increased posterior wall thickness. Moderately decreased left ventricular ejection fraction. Right Ventricle Mild right ventricular dilatation. Moderate pulmonary hypertension. Right ventricular systolic pressure estimated at 45 mm hg. Right Atrium Mild Ra dilatation Left Atrium Moderate LA dilatation Mitral Valve Mitral valve thickened. Trace to mild mitral regurgitation. Mitral annular calcification. Aortic Valve Trileaflet aortic valve. No aortic valve stenosis or regurgitation. Small gradient accross AOV Tricuspid Valve Structurally normal tricuspid valve. Mild tricuspid regurgitation. Pulmonic Valve Pulmonic valve not well visualized. No pulmonic regurgitation. Pericardium No pericardial effusion. Aorta Normal size aortic root and proximal ascending aorta. CONCLUSIONS Left ventricular ejection fraction is estimated at 40-45 %. LVEF appears reduced due to irregular cardiac rhythm Mild concentric LVH No obvious regional wall motion abnormality Moderate LA dilatation. Mild Aortic stenosis, mean gradient 10 mmHg RVSP estimated at 45 mmHg Previewed by: Dr Heladio Villatoro (Electronically Signed) Final Date: 31 October 2023 07:59
[2023-10-31] MEDS: ALBUTEROL NEBULIZED 2.5 MG/3 ML INHALATION PRN (08:57)
[2023-10-31] MEDS ORDERED: NON FORMULARY DRUG (Aspirin Ec 81 MG Tablet) PO SCH (09:00)
[2023-10-31] MEDS: CINACALCET 30 MG TAB PO SCH (09:42)
[2023-10-31] MEDS: PANTOPRAZOLE 40 MG TABLET PO SCH (09:42)
[2023-10-31] MEDS: LOSARTAN 50 MG TAB PO SCH (09:42)
[2023-10-31] MEDS: ESCITALOPRAM 20 MG TAB PO SCH (09:43)
[2023-10-31] MEDS: APIXABAN 5 MG TAB PO SCH (09:43)
[2023-10-31] MEDS: ATORVASTATIN 20 MG TAB PO SCH (09:43)
[2023-10-31] MEDS: POTASSIUM CHLORIDE ER 20 MEQ TAB.ER PO SCH (09:43)
[2023-10-31] MEDS: MAGNESIUM OXIDE 400 MG TAB PO SCH (09:43)
[2023-10-31] MEDS: TAMSULOSIN 0.4 MG CAP.ER.24H PO SCH (09:43)
[2023-10-31] MEDS: ASPIRIN 325 MG TAB PO SCH (10:00)
--- NOTE | 2023-10-31 11:06 | P.CRDCN ---
History of Present Illness History of present illness: HISTORY OF PRESENT ILLNESS: This is a 83-year-old female with a past medical history significant for atrial fibrillation, congestive heart failure, chronic kidney disease, hyperlipidemia, and minimal CAD. Patient used to follow in the office with Dr. Soriano but has not been seen since March 2020. We have been asked to see the patient in consultation for congestive heart failure. Patient examined at the bedside. Patient states she initially presented to the hospital with a chief complaint of shortness of breath. She states she has been feeling short of breath for approximately the past week. She states she has been compliant with her medications at home. She also reports having some mild right-sided chest pain at home but denies any chest pain or pressure at the time of examination. Patient has been started on IV diuretics. Vital signs are stable. Patient was found to be in atrial fibrillation with controlled ventricular rate. She does have a history of atrial fibrillation and is anticoagulated on an outpatient basis. Previous EKG from July 2023 revealed sinus mechanism. DIAGNOSTICS: - EKG reveals atrial fibrillation with controlled ventricular rate. - Chest xray cardiomegaly with thoracic aorta ectasia stable. Correlate for mild venous congestion or interstitial pneumonitis. Stable right hemidiaphragm elevation could be associated with phrenic nerve palsy. Right basilar atelectasis favored over pneumonia. - Laboratory data: WBC 5.5. Hemoglobin 9.8. Platelet count 146. D-dimer 1.65. Sodium 136. Potassium 3.8. BUN 55. Creatinine 1.72. Troponin negative x 1. proBNP 20,600. - Current home cardiac medications include losartan 100 mg daily, aspirin 81 mg daily, Lasix 40 mg daily, Lipitor 20 mg daily, and metoprolol tartrate 12.5 mg daily. -Echocardiogram obtained this admission reveals ejection fraction 40 to 45%, mild , RVSP 45 mmHg - Cardiac catheterization history: 2019 revealing minimal CAD REVIEW OF SYSTEMS: At the time of my exam: CONSTITUTIONAL: Denies fever or chills. HEENT: Denies blurred vision, vision changes, or eye pain. Denies hemoptysis CARDIOVASCULAR: Denies chest pain. Denies orthopnea. Denies PND. Denies p alpitations RESPIRATORY: Denies shortness of breath. GASTROINTESTINAL: Denies abdominal pain. Denies nausea or vomiting. HEMATOLOGIC: Denies bleeding disorders. GENITOURINARY: Denies any blood in urine. SKIN: Denies pruitis. Denies rash. PHYSICAL EXAM: VITAL SIGNS: Reviewed. GENERAL: Well-developed in no acute distress. HEENT: Head is normocephalic. Pupils are equal, round. Sclerae anicteric. Mucous membranes of the mouth are moist. Neck supple. No JVD or thyromegaly LUNGS: Respirations even and unlabored. Lungs with expiratory wheezing noted HEART: Irregular rate and rhythm. S1 and S2 heard. Systolic murmur noted ABDOMEN: Soft. Nondistended. Nontender. EXTREMITIES: Normal range of motion. No clubbing or cyanosis. Peripheral pulses intact. 2+ pitting bilateral lower extremity edema NEUROLOGIC: Awake and alert. Oriented x 3. ASSESSMENT: Shortness of breath Acute on chronic heart failure with reduced EF, 40 to 45% Elevated D-dimer, rule out PE Nonischemic cardiomyopathy Minimal CAD per cardiac catheterization in 2019 Paroxysmal atrial fibrillation Chronic kidney disease Hypertension Hyperlipidemia Diabetes Morbid obesity: BMI 38.7 PLAN: 2D echo obtained and reviewed Continue diuretics 40 mg every 12 hours Daily weights, accurate intake and output, and monitoring of kidney function Increase metoprolol to 25 mg twice a day Continue additional cardiac medications Continue anticoagulation with Eliquis Per Dr. Villatoro, obtain CT chest without contrast Further recommendations pending patient course Nurse practitioner note has been reviewed by physician. Signing provider agrees with the documented findings, assessment, and plan of care documented by MEDICAL OFFICE TECHNOLOGIST as a scribe. Past Medical History Past Medical History: Asthma, Heart Failure, COPD, CVA/TIA, Diabetes Mellitus, Deep Vein Thrombosis (DVT), GERD/Reflux, Hyperlipidemia, Hypertension, Memory Impairment, Osteoarthritis (OA), Thyroid Disorder Additional Past Medical History / Comment(s): states has incontinence. LEFT LEG DVT History of Any Multi-Drug Resistant Organisms: MRSA Date of last positivie culture/infection: 2011 MDRO Source:: cultures from stomach wound Past Surgical History: Back Surgery, Orthopedic Surgery, Tonsillectomy Additional Past Surgical History / Comment(s): bilateral hammer toe and heel spurs, "tummy tuck", VARICOSE VEIN SURGERY Past Anesthesia/Blood Transfusion Reactions: No Reported Reaction Past Psychological History: Anxiety, Depression Additional Psychological History / Comment(s): past suicide attempt 2006 Smoking Status: Never smoker Past Alcohol Use History: Rare Past Drug Use History: None Reported - Past Family History Mother Family Medical History: Coronary Artery Disease (CAD), Diabetes Mellitus Additional Family Medical History / Comment(s): age 96 Father Family Medical History: Coronary Artery Disease (CAD), Dementia Additional Family Medical History / Comment(s): age 95 Medications and Allergies Home Medications Medication Instructions Recorded Confirmed Type Acetaminophen Tab [Tylenol] 650 mg PO Q6HR PRN tab 08/15/23 10/30/23 Rx Albuterol Nebulized [Ventolin 2.5 mg INHALATION RT-QID PRN ml 08/15/23 10/30/23 Rx Nebulized] Atorvastatin [Lipitor] 20 mg PO DAILY tab 08/15/23 10/30/23 Rx Cinacalcet [Sensipar] 30 mg PO DAILY #30 tablet 08/15/23 10/30/23 Rx Nitroglycerin Sl Tabs [Nitrostat] 0.4 mg SUBLINGUAL Q5M PRN tab 08/15/23 10/30/23 Rx ALPRAZolam [Xanax] 0.25 mg PO BID PRN 10/30/23 10/30/23 History Aspirin EC [Ecotrin Low Dose] 81 mg PO DAILY 10/30/23 10/30/23 History Budesonide [Pulmicort Flexhaler] 2 puff INHALATION RT-BID 10/30/23 10/30/23 History Escitalopram Oxalate [Lexapro] 20 mg PO DAILY 10/30/23 10/30/23 History Fluconazole 150 mg PO MO 10/30/23 10/30/23 History Furosemide [Lasix] 40 mg PO DAILY 10/30/23 10/30/23 History Insulin Lispro [humaLOG Kwikpen] See Protocol SQ ACHS 10/30/23 10/30/23 History Lidocaine 4% Patch 1 patch TOPICAL DAILY 10/30/23 10/30/23 History Losartan Potassium [Cozaar] 100 mg PO DAILY 10/30/23 10/30/23 History Magnesium Oxide [Magox 400] 400 mg PO DIRECTED 10/30/23 10/30/23 History Metoprolol Tartrate [Lopressor] 12.5 mg PO BID 10/30/23 10/30/23 History Montelukast [Singulair] 10 mg PO HS 10/30/23 10/30/23 History Nystatin 100,000 Unit/gm Powd 1 applic TOPICAL BID 10/30/23 10/30/23 History [Mycostatin Powder] Omeprazole [PriLOSEC] 20 mg PO DAILY 10/30/23 10/30/23 History Potassium Chloride [Klor-Con M20] 20 meq PO DIRECTED 10/30/23 10/30/23 History Tamsulosin HCl [Flomax] 0.4 mg PO DIRECTED 10/30/23 10/30/23 History Allergies Allergy/AdvReac Type Severity Reaction Status Date / Time house dust AdvReac Cough Verified 10/30/23 17:52 Physical Exam Vitals: Vital Signs Temp Pulse Pulse Resp BP BP Pulse Ox 10/31/23 01:27 97.8 F 76 16 146/62 100 10/31/23 00:15 87 18 115/60 98 10/30/23 23:07 98.0 F 62 20 125/68 98 10/30/23 21:33 97.8 F 54 L 18 124/78 98 10/30/23 19:03 97.8 F 56 L 18 151/75 96 10/30/23 17:28 98.2 F 91 18 166/94 100 10/30/23 13:29 98.3 F 84 24 121/70 95 Intake and Output 10/30/23 10/31/23 10/31/23 22:59 06:59 14:59 Output Total 300 Balance -300 Output: Urine 300 Other: Voiding Method External Catheter # Voids 1 Weight 96 kg Results 10/30/23 15:31 10/30/23 15:31 Cardiac Enzymes 10/30/23 10/30/23 Range/Units 15:31 15:31 AST 43 H (14-36) U/L Troponin I 0.014 (0.000-0.034) ng/mL Coagulation 10/30/23 Range/Units 15:31 PT 10.6 (10.0-12.5) sec APTT 24.6 (22.0-30.0) sec CBC 10/30/23 Range/Units 15:31 WBC 5.5 (3.8-10.6) k/uL RBC 3.25 L (3.80-5.40) m/uL Hgb 9.8 L (11.4-16.0) gm/dL Hct 31.8 L (34.0-46.0) % Plt Count 146 L (150-450) k/uL Comprehensive Metabolic Panel 10/30/23 Range/Units 15:31 Sodium 136 L (137-145) mmol/L Potassium 3.8 (3.5-5.1) mmol/L Chloride 93 L (98-107) mmol/L Carbon Dioxide 35 H (22-30) mmol/L BUN 55 H (7-17) mg/dL Creatinine 1.72 H (0.52-1.04) mg/dL Glucose 169 H (74-99) mg/dL Calcium 9.6 (8.4-10.2) mg/dL AST 43 H (14-36) U/L ALT 48 H (4-34) U/L Alkaline Phosphatase 120 (38-126) U/L Total Protein 5.3 L (6.3-8.2) g/dL Albumin 2.8 L (3.5-5.0) g/dL Current Medications Generic Name Dose Route Start Last Admin Trade Name Freq PRN Reason Stop Dose Admin Acetaminophen 650 mg 10/30/23 18:18 Acetaminophen Tab 325 Mg Tab PO Q6HR PRN Fever and/ or Pain Albuterol Sulfate 2.5 mg 10/30/23 18:18 Albuterol Nebulized 2.5 Mg/3 Ml INHALATION RT-QID PRN Shortness Of Breath Or Wheezing Alprazolam 0.25 mg 10/30/23 18:18 Alprazolam 0.25 Mg Tab PO BID PRN Anxiety Apixaban 5 mg 10/31/23 09:00 Apixaban 5 Mg Tab PO BID [facility] Protocol Aspirin 325 mg 10/31/23 09:00 Aspirin 325 Mg Tab PO DAILY [facility] Atorvastatin Calcium 20 mg 10/31/23 09:00 Atorvastatin 20 Mg Tab PO DAILY [facility] Cinacalcet 30 mg 10/31/23 09:00 Cinacalcet 30 Mg Tab PO DAILY [facility] Dextrose/Water 25 ml 10/30/23 18:44 Dextrose 50% Syringe 50 Ml IVP PER PROTOCOL PRN Hypoglycemia Protocol Dextrose/Water 50 ml 10/30/23 18:44 Dextrose 50% Syringe 50 Ml IVP PER PROTOCOL PRN Hypoglycemia Protocol Escitalopram Oxalate 20 mg 10/31/23 09:00 Escitalopram 20 Mg Tab PO DAILY [facility] Fluticasone Propionate 1 puff 10/30/23 20:00 10/30/23 23:10 Fluticasone 110 Mcg Inhaler INHALATION 1 puff RT-BID [facility] Administration Furosemide 40 mg 03/27/24 18:00 10/31/23 06:04 Furosemide 10 Mg/Ml 4 Ml Vial IV 40 mg Q12H [facility] Administration Insulin Aspart 0 unit 10/30/23 21:00 10/31/23 06:03 Insulin Aspart (Novolog) 100 Unit/Ml Vial SQ 2 unit ACHS [facility] Administration Protocol Losartan Potassium 100 mg 10/31/23 09:00 Losartan 50 Mg Tab PO DAILY [facility] Magnesium Oxide 400 mg 10/31/23 09:00 Magnesium Oxide 400 Mg Tab PO DAILY [facility] Metoprolol Tartrate 12.5 mg 10/30/23 21:00 10/30/23 23:05 Metoprolol Tartrate 12.5 Mg Tab PO 12.5 mg BID [facility] Administration Montelukast Sodium 10 mg 10/30/23 21:00 10/30/23 23:05 Montelukast 10 Mg Tab PO 10 mg HS [facility] Administration Nitroglycerin 1 inch 10/30/23 18:00 10/31/23 06:04 Nitroglycerin Oint 1 Inch/Gm Packet TOPICAL 10/31/23 18:01 1 inch Q6HR [facility] Administration Nitroglycerin 0.4 mg 10/30/23 18:18 Nitroglycerin Sl Tabs 0.4 Mg Tab SUBLINGUAL Q5M PRN Chest Pain Pantoprazole Sodium 40 mg 10/31/23 09:00 Pantoprazole 40 Mg Tablet PO DAILY [facility] Potassium Chloride 20 meq 10/31/23 09:00 Potassium Chloride Er 20 Meq Tab.Er PO DAILY [facility] Tamsulosin HCl 0.4 mg 10/31/23 09:00 Tamsulosin 0.4 Mg Cap.Er.24h PO DAILY [facility] Intake and Output 10/30/23 10/31/23 10/31/23 22:59 06:59 14:59 Output Total 300 Balance -300 Output: Urine 300 Other: Voiding Method External Catheter # Voids 1 Weight 96 kg 10/30/23 15:31 10/30/23 15:31
[2023-10-31 11:33] LABS: ALT 42 U/L (8-44); AST 40 U/L (13-35); Albumin 2.8 g/dL (3.8-4.9); Albumin/Globulin Ratio 1.65 Ratio (1.60-3.17); Alkaline Phosphatase 89 U/L (41-126); BUN/Creat Ratio 26.82 Ratio (12.00-20.00); Blood Urea Nitrogen 45.6 mg/dL (9.0-27.0); Calcium 9.8 mg/dL (8.7-10.3); Carbon Dioxide 39.8 mmol/L (21.6-31.8); Chloride 95 mmol/L (96-109); Globulin 1.7 g/dL (1.6-3.3); Glucose 127 mg/dL (70-110); Potassium 3.9 mmol/L (3.5-5.5); Sodium 141 mmol/L (135-145); Total Bilirubin <0.2 mg/dL (0.3-1.2); Total Protein 4.5 g/dL (6.2-8.2)
--- NOTE | 2023-10-31 11:40 | P.NPCON ---
History of Present Illness - Reason for Consult acute renal failure, chronic renal failure - History of Present Illness Reason for consultation: Acute kidney injury on chronic kidney disease History of present illness: Patient is 83-year-old female seen in renal consultation for acute kidney injury on chronic kidney disease. Patient has chronic kidney disease stage IIIb with baseline creatinine near 1.5. Etiology is nephrosclerosis and diabetic kidney disease. Patient was recently admitted at [facility] for CHF exacerbation. Patient received IV diuretics. She was seen by cardiology. Echocardiogram showed preserved ejection fraction of 50 to 55%. Kidney ultrasound showed atrophic kidneys without any hydronephrosis. Patient was discharged from [facility] yesterday but was brought to [facility] per daughter's request. Daughter was concerned the patient was still short of breath and needed more care. Patient is currently on 2 L nasal cannula. Blood pressure stable. Nonoliguric. She has an external catheter. Patient has longstanding history of diabetes. Denies gross hematuria or dysuria. Oral intake fair. Denies use of nonsteroidals. Vital signs are stable. General: No acute distress. HEENT: Head exam is unremarkable. On nasal cannula. LUNGS: No audible rhonchi or wheezes. HEART: Rate and Rhythm are regular. ABDOMEN: Nontender. EXTREMITITES: 2+ edema. Past Medical History Past Medical History: Asthma, Heart Failure, COPD, CVA/TIA, Diabetes Mellitus, Deep Vein Thrombosis (DVT), GERD/Reflux, Hyperlipidemia, Hypertension, Memory Impairment, Osteoarthritis (OA), Thyroid Disorder Additional Past Medical History / Comment(s): states has incontinence. LEFT LEG DVT History of Any Multi-Drug Resistant Organisms: MRSA Date of last positivie culture/infection: 2011 MDRO Source:: cultures from stomach wound Past Surgical History: Back Surgery, Orthopedic Surgery, Tonsillectomy Additional Past Surgical History / Comment(s): bilateral hammer toe and heel spurs, "tummy tuck", VARICOSE VEIN SURGERY Past Anesthesia/Blood Transfusion Reactions: No Reported Reaction Past Psychological History: Anxiety, Depression Additional Psychological History / Comment(s): past suicide attempt 2006 Smoking Status: Never smoker Past Alcohol Use History: Rare Past Drug Use History: None Reported - Past Family History Mother Family Medical History: Coronary Artery Disease (CAD), Diabetes Mellitus Additional Family Medical History / Comment(s): age 96 Father Family Medical History: Coronary Artery Disease (CAD), Dementia Additional Family Medical History / Comment(s): age 95 Medications and Allergies Home Medications Medication Instructions Recorded Confirmed Type Acetaminophen Tab [Tylenol] 650 mg PO Q6HR PRN tab 08/15/23 10/30/23 Rx Albuterol Nebulized [Ventolin 2.5 mg INHALATION RT-QID PRN ml 08/15/23 10/30/23 Rx Nebulized] Atorvastatin [Lipitor] 20 mg PO DAILY tab 08/15/23 10/30/23 Rx Cinacalcet [Sensipar] 30 mg PO DAILY #30 tablet 08/15/23 10/30/23 Rx Nitroglycerin Sl Tabs [Nitrostat] 0.4 mg SUBLINGUAL Q5M PRN tab 08/15/23 10/30/23 Rx ALPRAZolam [Xanax] 0.25 mg PO BID PRN 10/30/23 10/30/23 History Aspirin EC [Ecotrin Low Dose] 81 mg PO DAILY 10/30/23 10/30/23 History Budesonide [Pulmicort Flexhaler] 2 puff INHALATION RT-BID 10/30/23 10/30/23 History Escitalopram Oxalate [Lexapro] 20 mg PO DAILY 10/30/23 10/30/23 History Fluconazole 150 mg PO MO 10/30/23 10/30/23 History Furosemide [Lasix] 40 mg PO DAILY 10/30/23 10/30/23 History Insulin Lispro [humaLOG Kwikpen] See Protocol SQ ACHS 10/30/23 10/30/23 History Lidocaine 4% Patch 1 patch TOPICAL DAILY 10/30/23 10/30/23 History Losartan Potassium [Cozaar] 100 mg PO DAILY 10/30/23 10/30/23 History Magnesium Oxide [Magox 400] 400 mg PO DIRECTED 10/30/23 10/30/23 History Metoprolol Tartrate [Lopressor] 12.5 mg PO BID 10/30/23 10/30/23 History Montelukast [Singulair] 10 mg PO HS 10/30/23 10/30/23 History Nystatin 100,000 Unit/gm Powd 1 applic TOPICAL BID 10/30/23 10/30/23 History [Mycostatin Powder] Omeprazole [PriLOSEC] 20 mg PO DAILY 10/30/23 10/30/23 History Potassium Chloride [Klor-Con M20] 20 meq PO DIRECTED 10/30/23 10/30/23 History Tamsulosin HCl [Flomax] 0.4 mg PO DIRECTED 10/30/23 10/30/23 History Allergies Allergy/AdvReac Type Severity Reaction Status Date / Time house dust AdvReac Cough Verified 10/30/23 17:52 Physical Exam Vitals: Vital Signs Temp Pulse Pulse Resp BP BP Pulse Ox 10/31/23 09:17 96 10/31/23 09:16 89 10/31/23 09:04 83 10/31/23 07:52 98.2 F 74 17 129/57 99 10/31/23 01:27 97.8 F 76 16 146/62 100 10/31/23 00:15 87 18 115/60 98 10/30/23 23:07 98.0 F 62 20 125/68 98 10/30/23 21:33 97.8 F 54 L 18 124/78 98 10/30/23 19:03 97.8 F 56 L 18 151/75 96 10/30/23 17:28 98.2 F 91 18 166/94 100 10/30/23 13:29 98.3 F 84 24 121/70 95 Intake and Output 10/30/23 10/31/23 10/31/23 22:59 06:59 14:59 Output Total 300 Balance -300 Output: Urine 300 Other: Voiding Method External Catheter External Catheter # Voids 1 Weight 96 kg Results - Lab Results Most recent lab results Calcium 9.8 mg/dL (8.7-10.3) 10/31/23 07:12 Magnesium 1.9 mg/dL (1.6-2.3) 10/30/23 15:31 10/30/23 15:31 10/31/23 07:12 Assessment and Plan Plan: Assessment: 1. Acute kidney injury secondary to ATN secondary to cardiorenal syndrome. Renal function stable with creatinine of 1.7. Renal ultrasound from earlier this month showed atrophic kidneys without any hydronephrosis. 2. Acute on chronic diastolic CHF. 3. Volume overload. 4. Anemia of chronic kidney disease. Rule out iron deficiency. 5. Hypertension with chronic kidney disease. Controlled. 6. Diabetes mellitus. 7. Primary hyperparathyroidism maintained on Sensipar. Plan: Maintain IV Lasix. Check iron studies. Low-salt diet and 1500 cc fluid restriction. Avoid nephrotoxins. Continue to monitor renal function and urine output. Thank you for the consultation. I will continue to follow the patient with you during her hospital stay.
[2023-10-31 11:45] LABS: Glucose,Whole Blood 147 mg/dL (70-110)
[2023-10-31] MEDS: METOPROLOL TARTRATE 25 MG TAB PO SCH (11:56)
[2023-10-31 12:51] LABS: HCT 26.4 % (37.2-46.3); HGB 8.1 g/dL (12.0-15.0); MCH 30.3 pg (27.0-32.0); MCHC 30.7 g/dL (32.0-37.0); MCV 98.9 FL (80.0-97.0); Mean Platelet Volume 11.8 FL (9.5-12.2); NRBC Per 100 WBC 0 X 10*3/uL (0.00-0.01); Platelet Count 148 X 10*3/uL (140-440); RBC 2.67 X 10*6/uL (4.10-5.20); RDW 14.6 % (11.5-14.5); WBC 4.87 X 10*3/uL (4.50-10.00)
--- NOTE | 2023-10-31 15:26 | P.CNPUL ---
History of Present Illness Consult date: 10/31/23 Requesting physician: Jono Andujar Reason for consult: dyspnea Chief complaint: Shortness of breath History of present illness: This is an 83-year-old female patient with a known history of diabetes mellitus, DVT, hypertension, hyperlipidemia, anxiety/depression, asthma, lifelong non- smoker. She had recently been admitted to [facility] for 2 weeks and was planning for discharge to subacute rehabilitation however her family felt she needed a higher level of care and had her transferred here instead. Chest x-ray revealed cardiomegaly with mild venous congestion. Right hemidiap hragm elevation which is stable compared to August 2023. White count 4.8. Hemoglobin 8.1. Platelets 148. Sodium 141. Potassium 3.9. Bicarb 40. BUN 46. Creatinine 1.7. Glucose 127. Echocardiogram reveals impaired left ventricular systolic function with ejection fraction of 40 to 45%. She has been initiated on Lasix 40 mg IV every 12 hours. Anticoagulated with Eliquis. She is seen today in consultation on the regular medical floor. She is currently resting in bed. Awake and alert in no acute distress. Teen O2 saturations up to 100% on 2 L nasal cannula. Afebrile. Hemodynamically stable. Review of Systems REVIEW OF SYSTEMS: CONSTITUTIONAL: Denies any recent significant weight loss or weight gain. EYES: Denies change in vision. EARS, NOSE, MOUTH, THROAT: Denies headaches, denies sore throat. CARDIOVASCULAR: Denies chest pain, palpitations or syncopal episodes. RESPIRATORY: Positive for shortness of breath, no cough, congestion or hemoptysis. GASTROINTESTINAL: Denies change in appetite, denies abdominal pain GENITOURINARY: Denies hematuria, denies infections. MUSKULOSKELETAL: Denies pain, denies swelling. INTEGUMENTARY: Denies rash, denies eczema. NEUROLOGICAL: Denies recent memory loss, no recent seizure activity. PSYCHIATRIC: Denies anxiety, denies depression. HEMATOLOGIC/LYMPHATIC: Denies anemia, denies enlarged lymph nodes. Past Medical History Past Medical History: Asthma, Heart Failure, COPD, CVA/TIA, Diabetes Mellitus, Deep Vein Thrombosis (DVT), GERD/Reflux, Hyperlipidemia, Hypertension, Memory Impairment, Osteoarthritis (OA), Thyroid Disorder Additional Past Medical History / Comment(s): states has incontinence. LEFT LEG DVT History of Any Multi-Drug Resistant Organisms: MRSA Date of last positivie culture/infection: 2011 MDRO Source:: cultures from stomach wound Past Surgical History: Back Surgery, Orthopedic Surgery, Tonsillectomy Additional Past Surgical History / Comment(s): bilateral hammer toe and heel spurs, "tummy tuck", VARICOSE VEIN SURGERY Past Anesthesia/Blood Transfusion Reactions: No Reported Reaction Past Psychological History: Anxiety, Depression Additional Psychological History / Comment(s): past suicide attempt 2006 Smoking Status: Never smoker Past Alcohol Use History: Rare Past Drug Use History: None Reported - Past Family History Mother Family Medical History: Coronary Artery Disease (CAD), Diabetes Mellitus Additional Family Medical History / Comment(s): age 96 Father Family Medical History: Coronary Artery Disease (CAD), Dementia Additional Family Medical History / Comment(s): age 95 Medications and Allergies Home Medications Medication Instructions Recorded Confirmed Type Acetaminophen Tab [Tylenol] 650 mg PO Q6HR PRN tab 08/15/23 10/30/23 Rx Albuterol Nebulized [Ventolin 2.5 mg INHALATION RT-QID PRN ml 08/15/23 10/30/23 Rx Nebulized] Atorvastatin [Lipitor] 20 mg PO DAILY tab 08/15/23 10/30/23 Rx Cinacalcet [Sensipar] 30 mg PO DAILY #30 tablet 08/15/23 10/30/23 Rx Nitroglycerin Sl Tabs [Nitrostat] 0.4 mg SUBLINGUAL Q5M PRN tab 08/15/23 10/30/23 Rx ALPRAZolam [Xanax] 0.25 mg PO BID PRN 10/30/23 10/30/23 History Aspirin EC [Ecotrin Low Dose] 81 mg PO DAILY 10/30/23 10/30/23 History Budesonide [Pulmicort Flexhaler] 2 puff INHALATION RT-BID 10/30/23 10/30/23 History Escitalopram Oxalate [Lexapro] 20 mg PO DAILY 10/30/23 10/30/23 History Fluconazole 150 mg PO MO 10/30/23 10/30/23 History Furosemide [Lasix] 40 mg PO DAILY 10/30/23 10/30/23 History Insulin Lispro [humaLOG Kwikpen] See Protocol SQ ACHS 10/30/23 10/30/23 History Lidocaine 4% Patch 1 patch TOPICAL DAILY 10/30/23 10/30/23 History Losartan Potassium [Cozaar] 100 mg PO DAILY 10/30/23 10/30/23 History Magnesium Oxide [Magox 400] 400 mg PO DIRECTED 10/30/23 10/30/23 History Metoprolol Tartrate [Lopressor] 12.5 mg PO BID 10/30/23 10/30/23 History Montelukast [Singulair] 10 mg PO HS 10/30/23 10/30/23 History Nystatin 100,000 Unit/gm Powd 1 applic TOPICAL BID 10/30/23 10/30/23 History [Mycostatin Powder] Omeprazole [PriLOSEC] 20 mg PO DAILY 10/30/23 10/30/23 History Potassium Chloride [Klor-Con M20] 20 meq PO DIRECTED 10/30/23 10/30/23 History Tamsulosin HCl [Flomax] 0.4 mg PO DIRECTED 10/30/23 10/30/23 History Allergies Allergy/AdvReac Type Severity Reaction Status Date / Time house dust AdvReac Cough Verified 10/30/23 17:52 Physical Exam Vitals: Vital Signs Temp Pulse Pulse Resp BP BP Pulse Ox 10/31/23 12:45 98 F 63 17 127/55 100 10/31/23 09:17 96 10/31/23 09:16 89 10/31/23 09:04 83 10/31/23 07:52 98.2 F 74 17 129/57 99 10/31/23 01:27 97.8 F 76 16 146/62 100 10/31/23 00:15 87 18 115/60 98 10/30/23 23:07 98.0 F 62 20 125/68 98 10/30/23 21:33 97.8 F 54 L 18 124/78 98 10/30/23 19:03 97.8 F 56 L 18 151/75 96 10/30/23 17:28 98.2 F 91 18 166/94 100 Intake and Output 10/31/23 10/31/23 10/31/23 06:59 14:59 22:59 Intake Total 200 Output Total 300 1050 Balance -300 -850 Intake: Oral 200 Output: Urine 300 1050 Other: Voiding Method External Catheter External Catheter # Voids 1 Weight 96 kg 96 kg GENERAL EXAM: Alert, pleasant 83-year-old female, on 2 L nasal cannula, comfortable in no apparent distress. HEAD: Normocephalic. EYES: Normal reaction of pupils, equal size. NOSE: Clear with pink turbinates. THROAT: No erythema or exudates. NECK: No masses, no JVD. CHEST: No chest wall deformity. LUNGS: Equal air entry with faint crackles in the posterior bases. CVS: S1 and S2 normal with no audible murmur, regular rhythm. ABDOMEN: No hepatosplenomegaly, normal bowel sounds, no guarding or rigidity. SPINE: No scoliosis or deformity SKIN: No rashes CENTRAL NERVOUS SYSTEM: No focal deficits, tone is normal in all 4 extremities. EXTREMITIES: There is no peripheral edema. No clubbing, no cyanosis. Per ipheral pulses are intact. Results - Laboratory Findings CBC and BMP: 10/31/23 07:12 10/31/23 07:12 PT/INR, D-dimer PT 10.6 sec (10.0-12.5) 10/30/23 15:31 INR 1.0 (<1.2) 10/30/23 15:31 D-Dimer 1.65 mg/L FEU (<0.60) H 10/30/23 20:51 Abnormal lab findings: Abnormal Labs 10/30/23 10/30/23 10/30/23 15:31 15:31 20:51 RBC 3.25 L Hgb 9.8 L Hct 31.8 L MCV MCHC 30.8 L RDW Plt Count 146 L Lymphocytes # 0.8 L D-Dimer 1.65 H Sodium 136 L Chloride 93 L Carbon Dioxide 35 H BUN 55 H Creatinine 1.72 H Est GFR (CKD-EPI) BUN/Creatinine Ratio Glucose 169 H POC Glucose (mg/dL) Total Bilirubin AST 43 H ALT 48 H Total Protein 5.3 L Albumin 2.8 L 10/31/23 10/31/23 10/31/23 05:57 07:12 07:12 RBC 2.67 L Hgb 8.1 L Hct 26.4 L MCV 98.9 H MCHC 30.7 L RDW 14.6 H Plt Count Lymphocytes # D-Dimer Sodium Chloride 95 L Carbon Dioxide 39.8 H BUN 45.6 H Creatinine 1.7 H Est GFR (CKD-EPI) 30 L BUN/Creatinine Ratio 26.82 H Glucose 127 H POC Glucose (mg/dL) 154 H Total Bilirubin <0.2 L AST 40 H ALT Total Protein 4.5 L Albumin 2.8 L 10/31/23 11:43 RBC Hgb Hct MCV MCHC RDW Plt Count Lymphocytes # D-Dimer Sodium Chloride Carbon Dioxide BUN Creatinine Est GFR (CKD-EPI) BUN/Creatinine Ratio Glucose POC Glucose (mg/dL) 147 H Total Bilirubin AST ALT Total Protein Albumin - Diagnostic Findings Chest x-ray: image reviewed Assessment and Plan Assessment: Acute hypoxemic respiratory failure secondary to an acute exacerbation of systolic congestive heart failure Atrial fibrillation anticoagulated with Eliquis Acute on chronic anemia Acute on chronic kidney disease Diabetes mellitus Hypertension Hyperlipidemia History of dementia Plan: The patient was seen and evaluated Echocardiogram, CT chest, labs and medications reviewed No significant pleural effusion No plans for thoracentesis at this time Continue diuretics Titrate the FiO2 as tolerated We will continue to follow and make further recommendations based on her clinical status I have personally seen and examined the patient, performed the documentation and the assessment and plan as written. Number of minutes spent on the visit: 20.
--- NOTE | 2023-10-31 15:55 | CT ---
EXAMINATION TYPE: CT chest wo con CT DLP: 497.8 mGycm, Automated exposure control for dose reduction was used. DATE OF EXAM: 10/31/2023 12:09 PM COMPARISON: 08/04/2023 CLINICAL INDICATION:Female, 83 years old with history of Widened mediastinum, pleural effusions; PHH, Widened mediastinum, pleural effusions TECHNIQUE: Multiple axial images were obtained through the chest. Sagittal and coronal reformats were created for review. Contrast used: mL of (None if empty) Oral contrast used: (None if empty) FINDINGS: LUNGS/ PLEURA: Trace bilateral pleural effusion with associated atelectasis. There is pulmonary vascu lar congestion. There is an elevated right diaphragm. Scattered nodules are seen right upper lung ser ies 205 image 10 measuring 15 x 8 mm and another measuring 6 mm on image 15 AIRWAY: Patent and unremarkable. HEART: Heart is enlarged for size. MEDIASTINUM: No gross evidence of adenopathy. VASCULATURE: No aortic aneurysm. There is scattered atherosclerosis of the arterial vasculature. The pulmonary trunk is dilated measuring up to 41 mm. MUSCULOSKELETAL: No acute osseous abnormalities. SOFT TISSUES/LYMPH NODES: Unremarkable. LOWER NECK: No significant findings. UPPER ABDOMEN: Gallbladder surgically absent. IMPRESSION: 1. Pulmonary vascular congestion, pulmonary hypertension, cardiomegaly and trace bilateral pleural e ffusion correlate with serum markers for congestive heart failure. 2. Elevated right diaphragm correlate with right nerve injury. 3. Nodular-like densities in the upper lungs short-term follow-up in 1 to 2 months to be performed t o ensure resolution. New from 08/04/2023.
[2023-10-31 16:30] LABS: Glucose,Whole Blood 284 mg/dL (70-110)
[2023-10-31 16:49] LABS: % Iron Saturation 32.06 (12.00-45.00)
[2023-10-31] MEDS: ACETAMINOPHEN TAB 325 MG TAB PO PRN (18:02)
[2023-10-31 19:53] LABS: Glucose,Whole Blood 193 mg/dL (70-110)
[2023-10-31] MEDS: APIXABAN 2.5 MG TABLET PO SCH (22:21)
[2023-11-01 05:43] LABS: Glucose,Whole Blood 146 mg/dL (70-110)
--- NOTE | 2023-11-01 10:09 | P.PN ---
Subjective HISTORY OF PRESENT ILLNESS: This is a 83-year-old female with a past medical history significant for atrial fibrillation, congestive heart failure, chronic kidney disease, hyperlipidemia, and minimal CAD. Patient used to follow in the office with Dr. Soriano but has not been seen since March 2020. We have been asked to see the patient in consu ltation for congestive heart failure. Patient examined at the bedside. Patient states she initially presented to the hospital with a chief complaint of shortness of breath. She states she has been feeling short of breath for approximately the past week. She states she has been compliant with her medications at home. She also reports having some mild right-sided chest pain at home but denies any chest pain or pressure at the time of examination. Patient has been started on IV diuretics. Vital signs are stable. Patient was found to be in atrial fibrillation with controlled ventricular rate. She does have a history of atrial fibrillation and is anticoagulated on an outpatient basis. Previous EKG from July 2023 revealed sinus mechanism. DIAGNOSTICS: - EKG reveals atrial fibrillation with controlled ventricular rate. - Chest xray cardiomegaly with thoracic aorta ectasia stable. Correlate for mild venous congestion or interstitial pneumonitis. Stable right hemidiaphragm elevation could be associated with phrenic nerve palsy. Right basilar atelectasis favored over pneumonia. - Laboratory data: WBC 5.5. Hemoglobin 9.8. Platelet count 146. D-dimer 1.65. Sodium 136. Potassium 3.8. BUN 55. Creatinine 1.72. Troponin negative x 1. proBNP 20,600. - Current home cardiac medications include losartan 100 mg daily, aspirin 81 mg daily, Lasix 40 mg daily, Lipitor 20 mg daily, and metoprolol tartrate 12.5 mg daily. -Echocardiogram obtained this admission reveals ejection fraction 40 to 45%, mild , RVSP 45 mmHg - Cardiac catheterization history: 2019 revealing minimal CAD 11/01/2023 Patient examined this morning. She is sitting up in the chair. Patient currently denies chest pain or pressure. She continues to report shortness of breath. She remains on IV Lasix 40 mg every 12 hours. Kidney function from this morning is pending. CT chest completed revealing pulmonary vascular congestion, pulmonary hypertension, cardiomegaly, and trace bilateral pleural ef fusions. PHYSICAL EXAM: VITAL SIGNS: Reviewed. GENERAL: Well-developed in no acute distress. HEENT: Head is normocephalic. Pupils are equal, round. Sclerae anicteric. Mucous membranes of the mouth are moist. Neck supple. Positive JVD LUNGS: Respirations even and unlabored. Lungs diminished HEART: Irregular rate and rhythm. S1 and S2 heard. Systolic murmur noted ABDOMEN: Soft. Nondistended. Nontender. EXTREMITIES: Normal range of motion. No clubbing or cyanosis. Peripheral pulses intact. 2+ pitting bilateral lower extremity edema NEUROLOGIC: Awake and alert. Oriented x 3. ASSESSMENT: Shortness of breath Acute on chronic heart failure with reduced EF, 40 to 45% Elevated D-dimer, rule out PE Nonischemic cardiomyopathy Minimal CAD per cardiac catheterization in 2019 Paroxysmal atrial fibrillation Chronic kidney disease Hypertension Hyperlipidemia Diabetes Morbid obesity: BMI 38.7 PLAN: Continue diuretics 40 mg every 12 hours. Awaiting kidney function from this morning Daily weights, accurate intake and output, and monitoring of kidney function Continue additional cardiac medications Further recommendations pending patient course Nurse practitioner note has been reviewed by physician. Signing provider agrees with the documented findings, assessment, and plan of care documented by READING TUTOR as a scribe. Objective - Vital Signs Vital signs: Vital Signs Temp 98.2 F 11/01/23 07:06 Pulse 69 11/01/23 07:06 Resp 18 11/01/23 07:06 BP 149/64 11/01/23 07:06 Pulse Ox 99 11/01/23 09:02 FiO2 Intake & Output 10/31/23 11/01/23 11/01/23 18:59 06:59 18:59 Intake Total 200 540 Output Total 1550 500 Balance -1350 40 Weight 96 kg 93.5 kg Intake: Oral 200 540 Output: Urine 1550 500 Female - External 500 Other: Voiding Method External Catheter External Catheter - Labs CBC & Chem 7: 10/31/23 07:12 10/31/23 07:12 Labs: Abnormal Lab Results - Last 24 Hours (Table) 10/31/23 10/31/23 10/31/23 Range/Units 07:12 07:12 07:12 RBC 2.67 L (4.10-5.20) X 10*6/uL Hgb 8.1 L (12.0-15.0) g/dL Hct 26.4 L (37.2-46.3) % MCV 98.9 H (80.0-97.0) FL MCHC 30.7 L (32.0-37.0) g/dL RDW 14.6 H (11.5-14.5) % Chloride 95 L (96-109) mmol/L Carbon Dioxide 39.8 H (21.6-31.8) mmol/L BUN 45.6 H (9.0-27.0) mg/dL Creatinine 1.7 H (0.6-1.5) mg/dL Est GFR (CKD-EPI) 30 L (>=60) BUN/Creatinine Ratio 26.82 H (12.00-20.00) Ratio Glucose 127 H (70-110) mg/dL POC Glucose (mg/dL) (70-110) mg/dL TIBC 209 L (228-460) UG/DL Transferrin 149.0 L (204.0-354.0) mg/dL Ferritin 484.0 H (10.0-291.0) ng/mL Total Bilirubin <0.2 L (0.3-1.2) mg/dL AST 40 H (13-35) U/L Total Protein 4.5 L (6.2-8.2) g/dL Albumin 2.8 L (3.8-4.9) g/dL 10/31/23 10/31/23 10/31/23 Range/Units 11:43 16:29 19:52 RBC (4.10-5.20) X 10*6/uL Hgb (12.0-15.0) g/dL Hct (37.2-46.3) % MCV (80.0-97.0) FL MCHC (32.0-37.0) g/dL RDW (11.5-14.5) % Chloride (96-109) mmol/L Carbon Dioxide (21.6-31.8) mmol/L BUN (9.0-27.0) mg/dL Creatinine (0.6-1.5) mg/dL Est GFR (CKD-EPI) (>=60) BUN/Creatinine Ratio (12.00-20.00) Ratio Glucose (70-110) mg/dL POC Glucose (mg/dL) 147 H 284 H 193 H (70-110) mg/dL TIBC (228-460) UG/DL Transferrin (204.0-354.0) mg/dL Ferritin (10.0-291.0) ng/mL Total Bilirubin (0.3-1.2) mg/dL AST (13-35) U/L Total Protein (6.2-8.2) g/dL Albumin (3.8-4.9) g/dL 11/01/23 Range/Units 05:43 RBC (4.10-5.20) X 10*6/uL Hgb (12.0-15.0) g/dL Hct (37.2-46.3) % MCV (80.0-97.0) FL MCHC (32.0-37.0) g/dL RDW (11.5-14.5) % Chloride (96-109) mmol/L Carbon Dioxide (21.6-31.8) mmol/L BUN (9.0-27.0) mg/dL Creatinine (0.6-1.5) mg/dL Est GFR (CKD-EPI) (>=60) BUN/Creatinine Ratio (12.00-20.00) Ratio Glucose (70-110) mg/dL POC Glucose (mg/dL) 146 H (70-110) mg/dL TIBC (228-460) UG/DL Transferrin (204.0-354.0) mg/dL Ferritin (10.0-291.0) ng/mL Total Bilirubin (0.3-1.2) mg/dL AST (13-35) U/L Total Protein (6.2-8.2) g/dL Albumin (3.8-4.9) g/dL
[2023-11-01 11:18] LABS: Glucose,Whole Blood 205 mg/dL (70-110)
[2023-11-01 11:43] LABS: Magnesium 2.1 mg/dL (1.5-2.4)
[2023-11-01 11:52] LABS: BUN/Creat Ratio 23.26 Ratio (12.00-20.00); Blood Urea Nitrogen 44.2 mg/dL (9.0-27.0); Calcium 9.9 mg/dL (8.7-10.3); Carbon Dioxide 40.8 mmol/L (21.6-31.8); Chloride 94 mmol/L (96-109); Glucose 143 mg/dL (70-110); Potassium 4.5 mmol/L (3.5-5.5); Sodium 141 mmol/L (135-145)
--- NOTE | 2023-11-01 12:29 | P.PN ---
Subjective Patient is seen in follow-up for acute kidney injury on chronic kidney disease. Renal function slightly worse from diuresis. Edema improved. Bicarb up to 40.8. Nonoliguric. Vital signs are stable. General: No acute distress. HEENT: Head exam is unremarkable. On nasal cannula. LUNGS: No audible rhonchi or wheezes. HEART: Rate and Rhythm are regular. ABDOMEN: Nontender. EXTREMITITES: 1+ edema. Objective - Vital Signs Vital signs: Vital Signs Temp 98.2 F 11/01/23 07:06 Pulse 69 11/01/23 07:06 Resp 18 11/01/23 07:06 BP 149/64 11/01/23 07:06 Pulse Ox 99 11/01/23 09:02 FiO2 Intake & Output 10/31/23 11/01/23 11/01/23 18:59 06:59 18:59 Intake Total 200 540 Output Total 1550 500 Balance -1350 40 Weight 96 kg 93.5 kg Intake: Oral 200 540 Output: Urine 1550 500 Female - External 500 Other: Voiding Method External Catheter External Catheter External Catheter - Labs CBC & Chem 7: 10/31/23 07:12 11/01/23 07:20 Labs: Abnormal Lab Results - Last 24 Hours (Table) 10/31/23 10/31/23 10/31/23 Range/Units 07:12 07:12 16:29 RBC 2.67 L (4.10-5.20) X 10*6/uL Hgb 8.1 L (12.0-15.0) g/dL Hct 26.4 L (37.2-46.3) % MCV 98.9 H (80.0-97.0) FL MCHC 30.7 L (32.0-37.0) g/dL RDW 14.6 H (11.5-14.5) % Chloride (96-109) mmol/L Carbon Dioxide (21.6-31.8) mmol/L BUN (9.0-27.0) mg/dL Creatinine (0.6-1.5) mg/dL Est GFR (CKD-EPI) (>=60) BUN/Creatinine Ratio (12.00-20.00) Ratio Glucose (70-110) mg/dL POC Glucose (mg/dL) 284 H (70-110) mg/dL TIBC 209 L (228-460) UG/DL Transferrin 149.0 L (204.0-354.0) mg/dL Ferritin 484.0 H (10.0-291.0) ng/mL 10/31/23 11/01/23 11/01/23 Range/Units 19:52 05:43 07:20 RBC (4.10-5.20) X 10*6/uL Hgb (12.0-15.0) g/dL Hct (37.2-46.3) % MCV (80.0-97.0) FL MCHC (32.0-37.0) g/dL RDW (11.5-14.5) % Chloride 94 L (96-109) mmol/L Carbon Dioxide 40.8 A* (21.6-31.8) mmol/L BUN 44.2 H (9.0-27.0) mg/dL Creatinine 1.9 H (0.6-1.5) mg/dL Est GFR (CKD-EPI) 26 L (>=60) BUN/Creatinine Ratio 23.26 H (12.00-20.00) Ratio Glucose 143 H (70-110) mg/dL POC Glucose (mg/dL) 193 H 146 H (70-110) mg/dL TIBC (228-460) UG/DL Transferrin (204.0-354.0) mg/dL Ferritin (10.0-291.0) ng/mL 11/01/23 Range/Units 11:16 RBC (4.10-5.20) X 10*6/uL Hgb (12.0-15.0) g/dL Hct (37.2-46.3) % MCV (80.0-97.0) FL MCHC (32.0-37.0) g/dL RDW (11.5-14.5) % Chloride (96-109) mmol/L Carbon Dioxide (21.6-31.8) mmol/L BUN (9.0-27.0) mg/dL Creatinine (0.6-1.5) mg/dL Est GFR (CKD-EPI) (>=60) BUN/Creatinine Ratio (12.00-20.00) Ratio Glucose (70-110) mg/dL POC Glucose (mg/dL) 205 H (70-110) mg/dL TIBC (228-460) UG/DL Transferrin (204.0-354.0) mg/dL Ferritin (10.0-291.0) ng/mL Assessment and Plan Plan: Assessment: 1. Acute kidney injury secondary to ATN secondary to cardiorenal syndrome. Renal function little worse from diuresis. Creatinine 1.9. Nonoliguric. Renal ultrasound from earlier this month showed atrophic kidneys without any hydronephrosis. 2. Acute on chronic diastolic CHF. 3. Volume overload. Improved with diuresis. 4. Anemia of chronic kidney disease. Iron replete. 5. Hypertension with chronic kidney disease. Controlled. 6. Diabetes mellitus. 7. Primary hyperparathyroidism maintained on Sensipar. Plan: Change Lasix to 40 mg orally twice daily. Add Aranesp. Diamox 250 mg IV once today. Low-salt diet and 1500 cc fluid restriction. Avoid nephrotoxins. Continue to monitor renal function and urine output.
[2023-11-01] MEDS: DARBEPOETIN ALFA 40 MCG/0.4 ML SYRINGE SQ SCH (13:07)
--- NOTE | 2023-11-01 14:58 | P.PN ---
Subjective Progress Note Date: 11/01/23 This is an 83-year-old female patient with a known history of diabetes mellitus, DVT, hypertension, hyperlipidemia, anxiety/depression, asthma, lifelong non- smoker. She had recently been admitted to [facility] for 2 weeks and was planning for discharge to subacute rehabilitation however her family felt she needed a higher level of care and had her transferred here instead. Chest x-ray revealed cardiomegaly with mild venous congestion. Right hemidiaphragm elevation which is stable compared to August 2023. White count 4.8. Hemoglobin 8.1. Platelets 148. Sodium 141. Potassium 3.9. Bicarb 40. BUN 46. Creatinine 1.7. Glucose 127. Echocardiogram reveals impaired left ventricular systolic function with ejection fraction of 40 to 45%. She has been initiated on Lasix 40 mg IV every 12 hours. Anticoagulated with Eliquis. She is seen today in consultation on the regular medical floor. She is currently resting in bed. Awake and alert in no acute distress. Teen O2 saturations up to 100% on 2 L nasal cannula. Afebrile. Hemodynamically stable. Patient is seen today November 01, 2023 in follow-up on the regular medical floor. She is currently sitting up in a chair. Awake and alert in no acute distress. Denies any worsening shortness of breath, cough or congestion maintaining O2 saturations in the high 90s on 2 L/min per nasal cannula. She is afebrile. Hemodynamically stable. ET scan of the chest reveals pulmonary vascular congestion. Elevated right hemidiaphragm. Nodular-like densities in the upper lobes. Sodium 141. Potassium 4.5. Bicarb 41. BUN 44. Creatinine 1.9. Glucose 143. She remains on oral diuretics. Anticoagulated with Eliquis. Objective - Vital Signs Vital signs: Vital Signs Temp 98.3 F 11/01/23 13:38 Pulse 65 11/01/23 13:38 Resp 17 11/01/23 13:38 BP 125/59 11/01/23 13:38 Pulse Ox 98 11/01/23 13:38 FiO2 Intake & Output 10/31/23 11/01/23 11/01/23 18:59 06:59 18:59 Intake Total 200 540 Output Total 1550 500 Balance -1350 40 Weight 96 kg 93.5 kg Intake: Oral 200 540 Output: Urine 1550 500 Female - External 500 Other: Voiding Method External Catheter External Catheter External Catheter - Exam GENERAL EXAM: Alert, 83-year-old female, up in a chair, on 2 L nasal cannula, in no apparent distress. HEAD: Normocephalic. EYES: Normal reaction of pupils, equal size. NOSE: Clear with pink turbinates. THROAT: No erythema or exudates. NECK: No masses, no JVD. CHEST: No chest wall deformity. LUNGS: Equal air entry with faint crackles in the posterior bases. CVS: S1 and S2 normal with no audible murmur, regular rhythm. ABDOMEN: No hepatosplenomegaly, normal bowel sounds, no guarding or rigidity. SPINE: No scoliosis or deformity SKIN: No rashes CENTRAL NERVOUS SYSTEM: No focal deficits, tone is normal in all 4 extremities. EXTREMITIES: There is no peripheral edema. No clubbing, no cyanosis. Peripheral pulses are intact. - Labs CBC & Chem 7: 10/31/23 07:12 11/01/23 07:20 Labs: Abnormal Lab Results - Last 24 Hours (Table) 10/31/23 10/31/23 10/31/23 Range/Units 07:12 16:29 19:52 Chloride (96-109) mmol/L Carbon Dioxide (21.6-31.8) mmol/L BUN (9.0-27.0) mg/dL Creatinine (0.6-1.5) mg/dL Est GFR (CKD-EPI) (>=60) BUN/Creatinine Ratio (12.00-20.00) Ratio Glucose (70-110) mg/dL POC Glucose (mg/dL) 284 H 193 H (70-110) mg/dL TIBC 209 L (228-460) UG/DL Transferrin 149.0 L (204.0-354.0) mg/dL Ferritin 484.0 H (10.0-291.0) ng/mL 11/01/23 11/01/23 11/01/23 Range/Units 05:43 07:20 11:16 Chloride 94 L (96-109) mmol/L Carbon Dioxide 40.8 A* (21.6-31.8) mmol/L BUN 44.2 H (9.0-27.0) mg/dL Creatinine 1.9 H (0.6-1.5) mg/dL Est GFR (CKD-EPI) 26 L (>=60) BUN/Creatinine Ratio 23.26 H (12.00-20.00) Ratio Glucose 143 H (70-110) mg/dL POC Glucose (mg/dL) 146 H 205 H (70-110) mg/dL TIBC (228-460) UG/DL Transferrin (204.0-354.0) mg/dL Ferritin (10.0-291.0) ng/mL Assessment and Plan Assessment: Acute hypoxemic respiratory failure secondary to an acute exacerbation of systolic congestive heart failure. Left ventricular ejection fraction of 40 to 45% Atrial fibrillation anticoagulated with Eliquis Acute on chronic anemia Acute on chronic kidney disease Diabetes mellitus Hypertension Hyperlipidemia History of dementia Plan: The patient was seen and evaluated Labs and medications reviewed Transitioned to oral diuretics Titrate the FiO2 as tolerated Plan is for [facility] at discharge I have personally seen and examined the patient, performed the documentation and the assessment and plan as written. Number of minutes spent on the visit: 10.
[2023-11-01] MEDS: FUROSEMIDE 40 MG TAB PO SCH (15:48)
[2023-11-01 17:23] LABS: Glucose,Whole Blood 166 mg/dL (70-110)
[2023-11-01 19:21] LABS: Glucose,Whole Blood 200 mg/dL (70-110)
[2023-11-02 06:31] LABS: Glucose,Whole Blood 154 mg/dL (70-110)
--- NOTE | 2023-11-02 07:03 | P.PN ---
Subjective Progress Note Date: 11/01/23 HISTORY OF PRESENT ILLNESS: 83-year-old female one of our office patient for many years who was hospitalized last time at [facility] on 08/02/2023 till at least 08/15/2023 with acute coronary syndrome along with non-ST UT and generalized weakness and fatigue. She had quite with dyspnea and significant hypoxia with shortness of breath the time she was having headache with lightheadedness on and off complaining of worsening bowel movement with abdominal pain and worsening IBS at the time. With the finding on that admission of non-ST UT, acute CHF with ejection fraction about 45 percentile, acute hypoxic respiratory failure with worsening abdominal pain. She was treated seen cardiology her echocardiogram came back with left ventricular hypertrophy moderate dilatation ROXANNA from 2019 moderate mitral regurgitation and PFO. Also she was having PACs and PVCs at the time with elevated troponin with cardiology decided to do a nuclear stress test normal heart cath: Her last catheter was in 2019 with finding consistent with minimal coronary artery disease at the time. 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 She ended up in the emergency department at [facility] and was hospitalized for the last 7 days with worsening dyspnea and shortness of breath with worsening congestive heart failure exacerbation patient and complain that hospital was trying to discharge her home ISAAC her symptoms and complaining was not addressed and never cleared. Patient apparently and the bleeding [facility] today and the and [facility] with complaint again of dyspnea and shortness of breath severe generalized weakness fatigue debility not been able to ambulate and walk. Surprisingly few other finding with examination including mild anemia with hemoglobin of 9.8, negative troponin elevated D-dimer worsening kidney function with creatinine of 1.72 BNP was 20,600 slightly abnormal liver function test and COVID RSV with influenza were negative from her other hospitalization. EKG sadly shows atrial fibrillation with pulse rate running around 93 beats per minutes. Chest x-ray consistent with cardiomegaly with thoracic aortic ectasia stable correlate for mild venous congestion or interstitial pneumonitis stable right Prasad diaphragm elevation could be associated with phrenic nerve paralysis with right basilar atelectasis favored over pneumonia. 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 Was started on oxygen, IV diuretics, patient will be hospitalized to see cardiology, nephrology and probably pulmonary aggressive diuretics management will be done for now pulse rate will be treated with probably smaller dose of beta-david patient might require to be on anticoagulation. For the elevated D-dimer I would love doing CTA but with kidney failure is not a good choice wait start patient on Eliquis 5 mg twice a day for now and as soon as you are able to do either CTA or VQ scan to exclude the possibility of pulmonary embolism will be done. Despite the ejection fraction in July was 40-45 percentile patient will benefit from doing another echocardiogram this time. 10/31/2023: Patient slept the night in bed flat has been feeling slightly better with oxygen on, with IV diuretics has done well, reviewed chest x-ray from last night she had a quite good pleural effusion on the right side with quite a bit of consolidation as well but there is no sign of infection. Also her D-dimer was elevated was safely should do VQ scan since not able to do CTA but patient is already on anticoagulation at this point. Also patient still in A-fib at this point with pulse rate is running in the 90s with beta-david and Eliquis should be able to control the pulse rate patient be seen cardiology today as well. 11/01/2023: Patient continued to improve slight bed, she had acute kidney injury from cardiorenal syndrome seen nephrology agreed to lower any nephrotoxic agent while watching for her fluid overload at this point. The patient is known to have chronic kidney disease continue to support her hemoglobin and iron nephrology had added Diamox to 50 mg IV once daily also added iron aspirate this point. With cardiology review her ejection fraction at 40-45 percentile similar to what she had last time she has some atherosclerotic blockage back in 2019 could not do angioplasty at the time still on medical management currently. Again agreed to continue furosemide at 40 mg every 12 hours patient eventually probably can benefit from adding Entresto and spironolactone. As for her hypoxic respiratory failure including her right-sided diaphragmatic paralysis not much can be done for it and asking pulmonary to see patient for possible PE her kidney function still bad patient was started on anticoagulation which whether she does CT or not would not be important anymore will continue anticoagulation and continue to treat her A-fib. Apparently patient and plan to go to [facility] at discharge. REVIEW OF SYSTEMS: CONSTITUTIONAL: Mildly overweight mild respiratory distress. EYES: No icterus sclerae, no conjunctivitis. EARS, NOSE, MOUTH, THROAT, and FACE: No sore throat, lymphadenopathy, carotid bruits or deformity. RESPIRATORY: Slight shortness of breath with cough and wheezes. CARDIOVASCULAR: Positive PND orthopnea palpitation. GASTROINTESTINAL: Slight abdominal discomfort with nausea no vomiting. GENITOURINARY: Positive for decreased urine output no hematuria no infection. INTEGUMENT/BREAST: Generalized arthralgia and myalgia. HEMATOLOGIC/LYMPHATIC: Negative for bleed or purpura. MUSCULOSKELTAL: Generalized myalgia with slight increased swelling in lower extremity. NEURLOGICAL: No LOC, Sz or syncope, blurred vision dizziness or abnormality.. BEHAVIORAL/PSYCH: Negative. ENDOCRINE: Negative. PHYSICAL EXAMINATION: General Appearance: Alert, cooperative, mild respiratory distress. Neck HEENT: Supple, no lymphadenopathy, no thyroid enlargement, no carotid bruits. Lungs: Decreased breath sound bilaterally with fine rhonchi positive crackles in the bases positive mild expiratory wheezes. Chest Wall: Decreased expansion with deep inspiration no tenderness and no deformity was found on exam, no costochondral pain or discomfort. Heart: Irregular rate and rhythm, S1, S2 positive tachycardia, positive irregularity with systolic murmur. Back: Has mild scoliosis with slight lower back discomfort. Abdomen: Midepigastric and mid abdominal region discomfort with no rebound or rigidity. Extremities: Chronic change from the knee down bilaterally with chronic vascular cellulitis 1-2+ edema. Pulses: Decreased pulse bilaterally. Skin: Skin color, texture, tugor normal, no rashes or lesions. Neurologic: Alert oriented x3 cranial nerves II through XII intact, positive generalized weakness but normal balance and gait. Patient is not able to ambulate on her own. ASSESSMENT AND PLAN: _Severe dyspnea and shortness of breath: Combination of congestive heart failure, anemia, atrial fibrillation, possible pulmonary embolism, and fluid overload. Along with pleural effusion. _Acute on chronic systolic congestive heart failure with mild exacerbation: Will continue furosemide, add spironolactone and replace Cozaar with Entresto. _A-fib with RVR: Pulse rates under control currently She is to continue metoprolol titrate 12.5 mg twice a day and titrate dose higher try to keep a pulse rate in the 70s and 80s. Metoprolol probably should go up to 25 mg twice a day after she sees cardiology today her pulse rate still running in the 90s. Pulse rate still under control. 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 No intervention can be done for it. _Anemia: Mild mostly chronic disease, iron supplement multivitamin will be done. _Acute kidney injury with chronic kidney disease stage IIIb: Still seeing nephrology slightly better continue to monitor kidney function specially with the change in medication. _Recent history of known ST UT with no anatomy known at this point last heart cath was done in 2019 continue get medical management. _Elevated D-dimer with possible pulmonary embolism: Likely see a finding PE with VQ scan is not having. Patient was started on Eliquis as an anticoagulation d ose eventually will be down to 2.5 mg twice a day which the possibility of pulmonary embolism slightly bit less at this point with being on anticoagulation will be more helpful. _Type 2 diabetes: Continue NovoLog with sliding scale coverage for now. If the kidney function will support patient can benefit probably from adding Jardiance 10 mg daily. _Hypertension: Blood pressure so far holding well replace losartan with Entresto but watch for any hypotension. _Hyperlipidemia: Continue atorvastatin 20 mg a day. Prognosis: Fair. Discussion: Switch medication to Entresto, continue anticoagulation, no thoracentesis needed, nephrology added Diamox and Arnesp. Patient apparently will be going to assisted living when she is ready to be discharged. Expectation that patient probably will be in the hospital through the weekend will adjust her Entresto watching kidney function for at least 48 more hours will be ready for Saturday. Objective - Vital Signs Vital signs: Vital Signs Temp 98.1 F 11/01/23 00:51 Pulse 70 11/01/23 05:12 Resp 15 11/01/23 00:51 BP 135/85 11/01/23 05:12 Pulse Ox 99 11/01/23 00:51 FiO2 Intake & Output 10/31/23 10/31/23 11/01/23 06:59 18:59 06:59 Intake Total 200 540 Output Total 300 1550 500 Balance -300 -1350 40 Weight 96 kg 96 kg 93.5 kg Intake: Oral 200 540 Output: Urine 300 1550 500 Female - External 500 Other: Voiding Method External Catheter External Catheter External Catheter # Voids 1 - Labs CBC & Chem 7: 10/31/23 07:12 11/01/23 07:20 Labs: Abnormal Lab Results - Last 24 Hours (Table) 10/31/23 10/31/23 10/31/23 Range/Units 07:12 07:12 07:12 RBC 2.67 L (4.10-5.20) X 10*6/uL Hgb 8.1 L (12.0-15.0) g/dL Hct 26.4 L (37.2-46.3) % MCV 98.9 H (80.0-97.0) FL MCHC 30.7 L (32.0-37.0) g/dL RDW 14.6 H (11.5-14.5) % Chloride 95 L (96-109) mmol/L Carbon Dioxide 39.8 H (21.6-31.8) mmol/L BUN 45.6 H (9.0-27.0) mg/dL Creatinine 1.7 H (0.6-1.5) mg/dL Est GFR (CKD-EPI) 30 L (>=60) BUN/Creatinine Ratio 26.82 H (12.00-20.00) Ratio Glucose 127 H (70-110) mg/dL POC Glucose (mg/dL) (70-110) mg/dL TIBC 209 L (228-460) UG/DL Transferrin 149.0 L (204.0-354.0) mg/dL Ferritin 484.0 H (10.0-291.0) ng/mL Total Bilirubin <0.2 L (0.3-1.2) mg/dL AST 40 H (13-35) U/L Total Protein 4.5 L (6.2-8.2) g/dL Albumin 2.8 L (3.8-4.9) g/dL 10/31/23 10/31/23 10/31/23 Range/Units 11:43 16:29 19:52 RBC (4.10-5.20) X 10*6/uL Hgb (12.0-15.0) g/dL Hct (37.2-46.3) % MCV (80.0-97.0) FL MCHC (32.0-37.0) g/dL RDW (11.5-14.5) % Chloride (96-109) mmol/L Carbon Dioxide (21.6-31.8) mmol/L BUN (9.0-27.0) mg/dL Creatinine (0.6-1.5) mg/dL Est GFR (CKD-EPI) (>=60) BUN/Creatinine Ratio (12.00-20.00) Ratio Glucose (70-110) mg/dL POC Glucose (mg/dL) 147 H 284 H 193 H (70-110) mg/dL TIBC (228-460) UG/DL Transferrin (204.0-354.0) mg/dL Ferritin (10.0-291.0) ng/mL Total Bilirubin (0.3-1.2) mg/dL AST (13-35) U/L Total Protein (6.2-8.2) g/dL Albumin (3.8-4.9) g/dL 11/01/23 Range/Units 05:43 RBC (4.10-5.20) X 10*6/uL Hgb (12.0-15.0) g/dL Hct (37.2-46.3) % MCV (80.0-97.0) FL MCHC (32.0-37.0) g/dL RDW (11.5-14.5) % Chloride (96-109) mmol/L Carbon Dioxide (21.6-31.8) mmol/L BUN (9.0-27.0) mg/dL Creatinine (0.6-1.5) mg/dL Est GFR (CKD-EPI) (>=60) BUN/Creatinine Ratio (12.00-20.00) Ratio Glucose (70-110) mg/dL POC Glucose (mg/dL) 146 H (70-110) mg/dL TIBC (228-460) UG/DL Transferrin (204.0-354.0) mg/dL Ferritin (10.0-291.0) ng/mL Total Bilirubin (0.3-1.2) mg/dL AST (13-35) U/L Total Protein (6.2-8.2) g/dL Albumin (3.8-4.9) g/dL
[2023-11-02] MEDS: SACUBITRIL/VALSARTAN 24 MG-26 MG TABLET PO SCH (08:29)
[2023-11-02] MEDS: SPIRONOLACTONE 25 MG TAB PO SCH (08:30)
[2023-11-02 09:43] LABS: African American GFR (CKD) 22 (>60 ml/min/1.73 sqM); Blood Urea Nitrogen 55 mg/dL (7-17); Calcium 9.2 mg/dL (8.4-10.2); Chloride 92 mmol/L (98-107); Glucose 115 mg/dL (74-99); Magnesium 2.1 mg/dL (1.6-2.3); Non-African American GFR(CKD) 19 (>60 ml/min/1.73 sqM); Potassium 4.1 mmol/L (3.5-5.1); Sodium 135 mmol/L (137-145)
[2023-11-02 09:50] LABS: Anion Gap 6 mmol/L
[2023-11-02 10:11] LABS: Carbon Dioxide 37 mmol/L (22-30)
--- NOTE | 2023-11-02 10:41 | P.PN ---
Subjective Progress Note Date: 11/02/23 HISTORY OF PRESENT ILLNESS: 83-year-old female one of our office patient for many years who was hospitalized last time at [facility] on 08/02/2023 till at least 08/15/2023 with acute coronary syndrome along with non-ST SD and generalized weakness and fatigue. She had quite with dyspnea and significant hypoxia with shortness of breath the time she was having headache with lightheadedness on and off complaining of worsening bowel movement with abdominal pain and worsening IBS at the time. With the finding on that admission of non-ST SD, acute CHF with ejection fraction about 45 percentile, acute hypoxic respiratory failure with worsening abdominal pain. She was treated seen cardiology her echocardiogram came back with left ventricular hypertrophy moderate dilatation ROXANNA from 2019 moderate mitral regurgitation and PFO. Also she was having PACs and PVCs at the time with elevated troponin with cardiology decided to do a nuclear stress test normal heart cath: Her last catheter was in 2019 with finding consistent with minimal coronary artery disease at the time. 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 She ended up in the emergency department at [facility] and was hospitalized for the last 7 days with worsening dyspnea and shortness of breath with worsening congestive heart failure exacerbation patient and complain that hospital was trying to discharge her home ISAAC her symptoms and complaining was not addressed and never cleared. Patient apparently and the bleeding [facility] today and the and [facility] with complaint again of dyspnea and shortness of breath severe generalized weakness fatigue debility not been able to ambulate and walk. Surprisingly few other finding with examination including mild anemia with hemoglobin of 9.8, negative troponin elevated D-dimer worsening kidney function with creatinine of 1.72 BNP was 20,600 slightly abnormal liver function test and COVID RSV with influenza were negative from her other hospitalization. EKG sadly shows atrial fibrillation with pulse rate running around 93 beats per minutes. Chest x-ray consistent with cardiomegaly with thoracic aortic ectasia stable correlate for mild venous congestion or interstitial pneumonitis stable right Prasad diaphragm elevation could be associated with phrenic nerve paralysis with right basilar atelectasis favored over pneumonia. 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 Was started on oxygen, IV diuretics, patient will be hospitalized to see cardiology, nephrology and probably pulmonary aggressive diuretics management will be done for now pulse rate will be treated with probably smaller dose of beta-david patient might require to be on anticoagulation. For the elevated D-dimer I would love doing CTA but with kidney failure is not a good choice wait start patient on Eliquis 5 mg twice a day for now and as soon as you are able to do either CTA or VQ scan to exclude the possibility of pulmonary embolism will be done. Despite the ejection fraction in July was 40-45 percentile patient will benefit from doing another echocardiogram this time. 10/31/2023: Patient slept the night in bed flat has been feeling slightly better with oxygen on, with IV diuretics has done well, reviewed chest x-ray from last night she had a quite good pleural effusion on the right side with quite a bit of consolidation as well but there is no sign of infection. Also her D-dimer was elevated was safely should do VQ scan since not able to do CTA but patient is already on anticoagulation at this point. Also patient still in A-fib at this point with pulse rate is running in the 90s with beta-david and Eliquis should be able to control the pulse rate patient be seen cardiology today as well. 11/01/2023: Patient continued to improve slight bed, she had acute kidney injury from cardiorenal syndrome seen nephrology agreed to lower any nephrotoxic agent while watching for her fluid overload at this point. The patient is known to have chronic kidney disease continue to support her hemoglobin and iron nephrology had added Diamox to 50 mg IV once daily also added iron aspirate this point. With cardiology review her ejection fraction at 40-45 percentile similar to what she had last time she has some atherosclerotic blockage back in 2019 could not do angioplasty at the time still on medical management currently. Again agreed to continue furosemide at 40 mg every 12 hours patient eventually probably can benefit from adding Entresto and spironolactone. As for her hypoxic respiratory failure including her right-sided diaphragmatic paralysis not much can be done for it and asking pulmonary to see patient for possible PE her kidney function still bad patient was started on anticoagulation which whether she does CT or not would not be important anymore will continue anticoagulation and continue to treat her A-fib. Apparently patient and plan to go to [facility] at discharge. 11/02/2023: Patient is doing slightly better did not require any thoracentesis, with the adjustment of her medication including start Entresto spironolactone will watch the kidney function next 24 hours patient apparently will be going to [facility] in [place] probably the plan To discharge on Saturday. Titrate medication gradually if she is able to tolerate it and she might still need to be on O2. REVIEW OF SYSTEMS: CONSTITUTIONAL: Mildly overweight mild respiratory distress. EYES: No icterus sclerae, no conjunctivitis. EARS, NOSE, MOUTH, THROAT, and FACE: No sore throat, lymphadenopathy, carotid bruits or deformity. RESPIRATORY: Slight shortness of breath with cough and wheezes. CARDIOVASCULAR: Positive PND orthopnea palpitation. GASTROINTESTINAL: Slight abdominal discomfort with nausea no vomiting. GENITOURINARY: Positive for decreased urine output no hematuria no infection. INTEGUMENT/BREAST: Generalized arthralgia and myalgia. HEMATOLOGIC/LYMPHATIC: Negative for bleed or purpura. MUSCULOSKELTAL: Generalized myalgia with slight increased swelling in lower extremity. NEURLOGICAL: No LOC, Sz or syncope, blurred vision dizziness or abnormality.. BEHAVIORAL/PSYCH: Negative. ENDOCRINE: Negative. PHYSICAL EXAMINATION: General Appearance: Alert, cooperative, mild respiratory distress. Neck HEENT: Supple, no lymphadenopathy, no thyroid enlargement, no carotid bruits. Lungs: Decreased breath sound bilaterally with fine rhonchi positive crackles in the bases positive mild expiratory wheezes. Chest Wall: Decreased expansion with deep inspiration no tenderness and no deformity was found on exam, no costochondral pain or discomfort. Heart: Irregular rate and rhythm, S1, S2 positive tachycardia, positive irregularity with systolic murmur. Back: Has mild scoliosis with slight lower back discomfort. Abdomen: Midepigastric and mid abdominal region discomfort with no rebound or rigidity. Extremities: Chronic change from the knee down bilaterally with chronic vascular cellulitis 1-2+ edema. Pulses: Decreased pulse bilaterally. Skin: Skin color, texture, tugor normal, no rashes or lesions. Neurologic: Alert oriented x3 cranial nerves II through XII intact, positive generalized weakness but normal balance and gait. Patient is not able to ambulate on her own. ASSESSMENT AND PLAN: _Severe dyspnea and shortness of breath: Combination of congestive heart failure, anemia, atrial fibrillation, possible pulmonary embolism, and fluid overload. Along with pleural effusion. _Acute on chronic systolic congestive heart failure with mild exacerbation: Will continue furosemide, add spironolactone and replace Cozaar with Entresto. _A-fib with RVR: Pulse rates under control currently She is to continue metoprolol titrate 12.5 mg twice a day and titrate dose higher try to keep a pulse rate in the 70s and 80s. Metoprolol probably should go up to 25 mg twice a day after she sees cardiology today her pulse rate still running in the 90s. Pulse rate still under control. 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 No intervention can be done for it. _Anemia: Mild mostly chronic disease, iron supplement multivitamin will be done. _Acute kidney injury with chronic kidney disease stage IIIb: Still seeing nephrology slightly better continue to monitor kidney function specially with the change in medication. _Recent history of known ST SD with no anatomy known at this point last heart ca th was done in 2019 continue get medical management. _Elevated D-dimer with possible pulmonary embolism: Likely see a finding PE with VQ scan is not having. Patient was started on Eliquis as an anticoagulation dose eventually will be down to 2.5 mg twice a day which the possibility of pulmonary embolism slightly bit less at this point with being on anticoagulation will be more helpful. _Type 2 diabetes: Continue NovoLog with sliding scale coverage for now. If the kidney function will support patient can benefit probably from adding Jardiance 10 mg daily. _Hypertension: Blood pressure so far holding well replace losartan with Entresto but watch for any hypotension. _Hyperlipidemia: Continue atorvastatin 20 mg a day. Prognosis: Fair. Discussion: With the change in medication continue to watch her kidney function carefully, try to push and advance physical therapy if possible and social media job titles helping to get patient probably to [facility] on Saturday. Objective - Vital Signs Vital signs: Vital Signs Temp 98.5 F 11/01/23 20:39 Pulse 80 11/02/23 01:11 Resp 18 11/01/23 20:39 BP 119/64 11/02/23 01:11 Pulse Ox 98 11/02/23 01:11 FiO2 Intake & Output 11/01/23 11/02/23 11/02/23 18:59 06:59 18:59 Output Total 650 Balance -650 Weight 93.5 kg 99 kg Output: Urine 650 Other: Voiding Method Diaper Incontinent - Labs CBC & Chem 7: 10/31/23 07:12 11/02/23 08:35 Labs: Abnormal Lab Results - Last 24 Hours (Table) 11/01/23 11/01/23 11/01/23 Range/Units 07:20 11:16 17:21 Chloride 94 L (96-109) mmol/L Carbon Dioxide 40.8 A* (21.6-31.8) mmol/L BUN 44.2 H (9.0-27.0) mg/dL Creatinine 1.9 H (0.6-1.5) mg/dL Est GFR (CKD-EPI) 26 L (>=60) BUN/Creatinine Ratio 23.26 H (12.00-20.00) Ratio Glucose 143 H (70-110) mg/dL POC Glucose (mg/dL) 205 H 166 H (70-110) mg/dL 11/01/23 11/02/23 Range/Units 19:20 06:30 Chloride (96-109) mmol/L Carbon Dioxide (21.6-31.8) mmol/L BUN (9.0-27.0) mg/dL Creatinine (0.6-1.5) mg/dL Est GFR (CKD-EPI) (>=60) BUN/Creatinine Ratio (12.00-20.00) Ratio Glucose (70-110) mg/dL POC Glucose (mg/dL) 200 H 154 H (70-110) mg/dL
[2023-11-02 11:26] LABS: Glucose,Whole Blood 225 mg/dL (70-110)
--- NOTE | 2023-11-02 12:53 | P.PN ---
Subjective patient is seen for follow-up for acute kidney injury and chronic kidney disease. Patient is currently being diuresed. Volume status has improved. Diuretics were decreased yesterday. Metabolic alkalosis has improved. Cozaar discontinued on 11/01/2023 Blood pressure remains on the lower side. Objective - Vital Signs Vital signs: Vital Signs Temp 97.7 F 11/02/23 07:28 Pulse 71 11/02/23 07:28 Resp 17 11/02/23 07:28 BP 116/57 11/02/23 07:28 Pulse Ox 99 11/02/23 07:28 FiO2 Intake & Output 11/01/23 11/02/23 11/02/23 18:59 06:59 18:59 Output Total 650 Balance -650 Weight 93.5 kg 99 kg Output: Urine 650 Other: Voiding Method Diaper Incontinent Incontinent External Catheter - Exam patient is awake, comfortable, no acute distress Examination of the heart S1 and S2 Examination of the lungs bilateral breath sounds are heard Abdomen is soft nontender Examination of lower extremity shows edema 1+ bilaterally [employer] exam grossly intact - Labs CBC & Chem 7: 10/31/23 07:12 11/02/23 08:35 Labs: Abnormal Lab Results - Last 24 Hours (Table) 11/01/23 11/01/23 11/02/23 Range/Units 17:21 19:20 06:30 Sodium (137-145) mmol/L Chloride (98-107) mmol/L Carbon Dioxide (22-30) mmol/L BUN (7-17) mg/dL Creatinine (0.52-1.04) mg/dL Glucose (74-99) mg/dL POC Glucose (mg/dL) 166 H 200 H 154 H (70-110) mg/dL 11/02/23 11/02/23 Range/Units 08:35 11:25 Sodium 135 L (137-145) mmol/L Chloride 92 L (98-107) mmol/L Carbon Dioxide 37 H (22-30) mmol/L BUN 55 H (7-17) mg/dL Creatinine 2.35 H (0.52-1.04) mg/dL Glucose 115 H (74-99) mg/dL POC Glucose (mg/dL) 225 H (70-110) mg/dL Assessment and Plan Assessment: 1. Acute kidney injury secondary to ATN secondary to cardiorenal syndrome. Renal function little worse from diuresisand borderline low blood pressure in the setting of use of angiotensin receptor blockers, currently off of Cozaar.. Creatinine 2.3 today Nonoliguric. Renal ultrasound from earlier this month showed atrophic kidneys without any hydronephrosis. 2. Acute on chronic diastolic CHF. 3. Volume overload. Improved with diuresis. 4. Anemia of chronic kidney disease. Iron replete. 5. Hypertension with chronic kidney disease. Controlled. 6. Diabetes mellitus. 7. Primary hyperparathyroidism maintained on Sensipar. Plan: decrease metoprolol as heart rate has been low in the 40s. May continue with entresto Decrease Lasix to once a day Repeat labs in a.m.
--- NOTE | 2023-11-02 13:57 | P.PN ---
Subjective Progress Note Date: 11/02/23 This is an 83-year-old female patient with a known history of diabetes mellitus, DVT, hypertension, hyperlipidemia, anxiety/depression, asthma, lifelong non- smoker. She had recently been admitted to [facility] for 2 weeks and was planning for discharge to subacute rehabilitation however her family felt she needed a higher level of care and had her transferred here instead. Chest x-ray revealed cardiomegaly with mild venous congestion. Right hemidiaphragm elevation which is stable compared to August 2023. White count 4.8. Hemoglobin 8.1. Platelets 148. Sodium 141. Potassium 3.9. Bicarb 40. BUN 46. Creatinine 1.7. Glucose 127. Echocardiogram reveals impaired left ventricular systolic function with ejection fraction of 40 to 45%. She has been initiated on Lasix 40 mg IV every 12 hours. Anticoagulated with Eliquis. She is seen today in consultation on the regular medical floor. She is currently resting in bed. Awake and alert in no acute distress. Teen O2 saturations up to 100% on 2 L nasal cannula. Afebrile. Hemodynamically stable. Patient is seen today November 01, 2023 in follow-up on the regular medical floor. She is currently sitting up in a chair. Awake and alert in no acute distress. Denies any worsening shortness of breath, cough or congestion maintaining O2 saturations in the high 90s on 2 L/min per nasal cannula. She is afebrile. Hemodynamically stable. ET scan of the chest reveals pulmonary vascular congestion. Elevated right hemidiaphragm. Nodular-like densities in the upper lobes. Sodium 141. Potassium 4.5. Bicarb 41. BUN 44. Creatinine 1.9. Glucose 143. She remains on oral diuretics. Anticoagulated with Eliquis. The patient is seen today November 02, 2023 in follow-up on the regular medical floor. She is resting in bed. Awake and alert in no acute distress. Denies any worsening shortness of breath, cough or congestion. She is maintaining good O2 saturations in the high 90s on 3 L/min per nasal cannula. She is afebrile. Hemodynamically stable. Sodium 135. Potassium 4.1. Bicarb 37. BUN 55. Creatinine 2.35. Glucose 115. Remains on bronchodilators, Singulair. Anticoagulated with Eliquis. Objective - Vital Signs Vital signs: Vital Signs Temp 98.5 F 11/02/23 12:20 Pulse 61 11/02/23 12:20 Resp 17 11/02/23 12:20 BP 100/66 11/02/23 12:20 Pulse Ox 99 11/02/23 12:20 FiO2 Intake & Output 11/01/23 11/02/23 11/02/23 18:59 06:59 18:59 Output Total 650 Balance -650 Weight 93.5 kg 99 kg Output: Urine 650 Other: Voiding Method Diaper Incontinent Incontinent External Catheter - Exam GENERAL EXAM: Alert, 83-year-old female, resting in bed, on 2 L nasal cannula, in no apparent distress. HEAD: Normocephalic. EYES: Normal reaction of pupils, equal size. NOSE: Clear with pink turbinates. THROAT: No erythema or exudates. NECK: No masses, no JVD. CHEST: No chest wall deformity. LUNGS: Equal air entry with faint crackles in the posterior bases. CVS: S1 and S2 normal with no audible murmur, regular rhythm. ABDOMEN: No hepatosplenomegaly, normal bowel sounds, no guarding or rigidity. SPINE: No scoliosis or deformity SKIN: No rashes CENTRAL NERVOUS SYSTEM: No focal deficits, tone is normal in all 4 extremities. EXTREMITIES: There is no peripheral edema. No clubbing, no cyanosis. Peripheral pulses are intact. - Labs CBC & Chem 7: 10/31/23 07:12 11/02/23 08:35 Labs: Abnormal Lab Results - Last 24 Hours (Table) 11/01/23 11/01/23 11/02/23 Range/Units 17:21 19:20 06:30 Sodium (137-145) mmol/L Chloride (98-107) mmol/L Carbon Dioxide (22-30) mmol/L BUN (7-17) mg/dL Creatinine (0.52-1.04) mg/dL Glucose (74-99) mg/dL POC Glucose (mg/dL) 166 H 200 H 154 H (70-110) mg/dL 11/02/23 11/02/23 Range/Units 08:35 11:25 Sodium 135 L (137-145) mmol/L Chloride 92 L (98-107) mmol/L Carbon Dioxide 37 H (22-30) mmol/L BUN 55 H (7-17) mg/dL Creatinine 2.35 H (0.52-1.04) mg/dL Glucose 115 H (74-99) mg/dL POC Glucose (mg/dL) 225 H (70-110) mg/dL Assessment and Plan Assessment: Acute hypoxemic respiratory failure secondary to an acute exacerbation of systolic congestive heart failure. Left ventricular ejection fraction of 40 to 45% Atrial fibrillation anticoagulated with Eliquis Acute on chronic anemia Acute on chronic kidney disease Diabetes mellitus Hypertension Hyperlipidemia History of dementia Plan: The patient was seen and evaluated Labs and medications reviewed Continue the current treatment plan Titrate the FiO2 as tolerated Plan is for [facility] at discharge We will see as needed I have personally seen and examined the patient, performed the documentation and the assessment and plan as written. Number of minutes spent on the visit: 10.
[2023-11-02 16:28] LABS: Glucose,Whole Blood 127 mg/dL (70-110)
--- NOTE | 2023-11-02 18:09 | P.PN ---
Subjective Progress Note Date: 11/02/23 This is a 83-year-old female with a past medical history significant for atrial fibrillation, congestive heart failure, chronic kidney disease, hyperlipidemia, and minimal CAD. Patient used to follow in the office with Dr. Soriano but has not been seen since March 2020. We have been asked to see the patient in consultation for congestive heart failure. Patient examined at the bedside. Patient states she initially presented to the hospital with a chief complaint of shortness of breath. She states she has been feeling short of breath for approximately the past week. She states she has been compliant with her medications at home. She also reports having some mild right-sided chest pain at home but denies any chest pain or pressure at the time of examination. Patient has been started on IV diuretics. Vital signs are stable. Patient was found to be in atrial fibrillation with controlled ventricular rate. She does have a history of atrial fibrillation and is anticoagulated on an outpatient basis. Previous EKG from July 2023 revealed sinus mechanism. DIAGNOSTICS: - EKG reveals atrial fibrillation with controlled ventricular rate. - Chest xray cardiomegaly with thoracic aorta ectasia stable. Correlate for mild venous congestion or interstitial pneumonitis. Stable right hemidiaphragm elevation could be associated with phrenic nerve palsy. Right basilar atelectasis favored over pneumonia. - Laboratory data: WBC 5.5. Hemoglobin 9.8. Platelet count 146. D-dimer 1.65. Sodium 136. Potassium 3.8. BUN 55. Creatinine 1.72. Troponin negative x 1. proBNP 20,600. - Current home cardiac medications include losartan 100 mg daily, aspirin 81 mg daily, Lasix 40 mg daily, Lipitor 20 mg daily, and metoprolol tartrate 12.5 mg daily. -Echocardiogram obtained this admission reveals ejection fraction 40 to 45%, mild , RVSP 45 mmHg - Cardiac catheterization history: 2019 revealing minimal CAD 11/01/2023 Patient examined this morning. She is sitting up in the chair. Patient currently denies chest pain or pressure. She continues to report shortness of breath. She remains on IV Lasix 40 mg every 12 hours. Kidney function from this morning is pending. CT chest completed revealing pulmonary vascular congestion, pulmonary hypertension, cardiomegaly, and trace bilateral pleural effusions. November 02, 2023 BP 116/57, heart rate 71 bpm, Labs shows creatinine 2.35 creatinine was 1.9, on admission 1.7, hemoglobin 8.1 PHYSICAL EXAM: VITAL SIGNS: Reviewed. GENERAL: Well-developed in no acute distress. HEENT: Head is normocephalic. Pupils are equal, round. Sclerae anicteric. Mucous membranes of the mouth are moist. Neck supple. Positive JVD LUNGS: Respirations even and unlabored. Lungs diminished HEART: Irregular rate and rhythm. S1 and S2 heard. Systolic murmur noted ABDOMEN: Soft. Nondistended. Nontender. EXTREMITIES: Normal range of motion. No clubbing or cyanosis. Peripheral pulses intact. 2+ pitting bilateral lower extremity edema NEUROLOGIC: Awake and alert. Oriented x 3. ASSESSMENT: Shortness of breath Acute on chronic heart failure with reduced EF, 40 to 45% Elevated D-dimer, rule out PE Nonischemic cardiomyopathy Minimal CAD per cardiac catheterization in 2019 Paroxysmal atrial fibrillation Chronic kidney disease Hypertension Hyperlipidemia Diabetes Morbid obesity: BMI 38.7 PLAN: Due to worsening creatinine, I will hold patient's nighttime Lasix, Entresto. I agree with metoprolol reduction to 12.5 mg twice daily. Repeat an ECG Kidney function tomorrow. If still worse, hold Entresto. Appreciate nephrology recommendations Objective - Vital Signs Vital signs: Vital Signs Temp 98.5 F 11/02/23 12:20 Pulse 61 11/02/23 12:20 Resp 17 11/02/23 12:20 BP 100/66 11/02/23 12:20 Pulse Ox 99 11/02/23 12:20 FiO2 Intake & Output 11/01/23 11/02/23 11/02/23 18:59 06:59 18:59 Output Total 650 Balance -650 Weight 93.5 kg 99 kg Output: Urine 650 Other: Voiding Method Diaper Incontinent Incontinent External Catheter - Labs CBC & Chem 7: 10/31/23 07:12 11/02/23 08:35 Labs: Abnormal Lab Results - Last 24 Hours (Table) 11/01/23 11/02/23 11/02/23 Range/Units 19:20 06:30 08:35 Sodium 135 L (137-145) mmol/L Chloride 92 L (98-107) mmol/L Carbon Dioxide 37 H (22-30) mmol/L BUN 55 H (7-17) mg/dL Creatinine 2.35 H (0.52-1.04) mg/dL Glucose 115 H (74-99) mg/dL POC Glucose (mg/dL) 200 H 154 H (70-110) mg/dL 11/02/23 11/02/23 Range/Units 11:25 16:25 Sodium (137-145) mmol/L Chloride (98-107) mmol/L Carbon Dioxide (22-30) mmol/L BUN (7-17) mg/dL Creatinine (0.52-1.04) mg/dL Glucose (74-99) mg/dL POC Glucose (mg/dL) 225 H 127 H (70-110) mg/dL
[2023-11-02 20:19] LABS: Glucose,Whole Blood 170 mg/dL (70-110)
[2023-11-02] MEDS: METOPROLOL TARTRATE 12.5 MG TAB PO SCH (21:58)
[2023-11-02] MEDS: NYSTATIN 100,000 UNIT/GM POWD 15 GM TOPICAL SCH (22:01)
[2023-11-03 05:48] LABS: Glucose,Whole Blood 160 mg/dL (70-110)
[2023-11-03 09:39] LABS: HCT 27.3 % (37.2-46.3); HGB 8.3 g/dL (12.0-15.0); MCH 30.4 pg (27.0-32.0); MCHC 30.4 g/dL (32.0-37.0); Mean Platelet Volume 11.5 FL (9.5-12.2); NRBC Per 100 WBC 0 X 10*3/uL (0.00-0.01); Platelet Count 197 X 10*3/uL (140-440); RBC 2.73 X 10*6/uL (4.10-5.20); WBC 7.05 X 10*3/uL (4.50-10.00)
[2023-11-03 09:40] LABS: Basophils # (A) 0.02 X 10*3/uL (0.00-0.10); Basophils % (A) 0.3 %; Eosinophils # (A) 0.25 X 10*3/uL (0.04-0.35); Eosinophils % (A) 3.5 %; Lymphocytes # (A) 1.65 X 10*3/uL (0.90-5.00); Lymphocytes % (A) 23.4 %; Monocytes # (A) 0.44 X 10*3/uL (0.20-1.00); Monocytes % (A) 6.2 %; Neutrophils # (A) 4.59 X 10*3/uL (1.80-7.70); Neutrophils % (A) 65.2 %
[2023-11-03 09:43] LABS: ALT 30 U/L (8-44); AST 17 U/L (13-35); Albumin 2.9 g/dL (3.8-4.9); Albumin/Globulin Ratio 1.53 Ratio (1.60-3.17); Alkaline Phosphatase 85 U/L (41-126); BUN/Creat Ratio 23.38 Ratio (12.00-20.00); Blood Urea Nitrogen 56.1 mg/dL (9.0-27.0); Calcium 8.9 mg/dL (8.7-10.3); Carbon Dioxide 36.6 mmol/L (21.6-31.8); Chloride 94 mmol/L (96-109); Globulin 1.9 g/dL (1.6-3.3); Glucose 140 mg/dL (70-110); Potassium 4.6 mmol/L (3.5-5.5); Sodium 138 mmol/L (135-145); Total Bilirubin <0.2 mg/dL (0.3-1.2); Total Protein 4.8 g/dL (6.2-8.2)
--- NOTE | 2023-11-03 11:38 | P.PN ---
Subjective patient is seen for follow-up for acute kidney injury and chronic kidney disease. Patient has been diuresed. Lasix discontinued yesterday. Volume status has improved. Cozaar discontinued on 11/01/2023 Blood pressure remains on the lower side. serum creatinine staying at 2.3-2.4 mg/dL. Patient has an external catheter. Objective - Vital Signs Vital signs: Vital Signs Temp 98.7 F 11/03/23 08:07 Pulse 75 11/03/23 08:07 Resp 19 11/03/23 08:07 BP 117/69 11/03/23 08:07 Pulse Ox 95 11/03/23 08:07 FiO2 Intake & Output 11/02/23 11/03/23 11/03/23 18:59 06:59 18:59 Output Total 150 Balance -150 Weight 98 kg Output: Urine 150 Other: Voiding Method Incontinent Incontinent Incontinent External Catheter External Catheter External Catheter - Exam patient is awake, comfortable, no acute distress Examination of the heart S1 and S2 Examination of the lungs bilateral breath sounds are heard Abdomen is soft nontender Examination of lower extremity shows edema 1+ bilaterally TRAVELING REPRESENTATIVE exam grossly intact - Labs CBC & Chem 7: 11/03/23 06:10 11/03/23 06:10 Labs: Abnormal Lab Results - Last 24 Hours (Table) 11/02/23 11/02/23 11/03/23 Range/Units 16:25 20:18 05:46 RBC (4.10-5.20) X 10*6/uL Hgb (12.0-15.0) g/dL Hct (37.2-46.3) % MCV (80.0-97.0) FL MCHC (32.0-37.0) g/dL Immature Gran # (0.00-0.04) X 10*3/uL Chloride (96-109) mmol/L Carbon Dioxide (21.6-31.8) mmol/L BUN (9.0-27.0) mg/dL Creatinine (0.6-1.5) mg/dL Est GFR (CKD-EPI) (>=60) BUN/Creatinine Ratio (12.00-20.00) Ratio Glucose (70-110) mg/dL POC Glucose (mg/dL) 127 H 170 H 160 H (70-110) mg/dL Total Bilirubin (0.3-1.2) mg/dL Total Protein (6.2-8.2) g/dL Albumin (3.8-4.9) g/dL Albumin/Globulin Ratio (1.60-3.17) Ratio 11/03/23 11/03/23 Range/Units 06:10 06:10 RBC 2.73 L (4.10-5.20) X 10*6/uL Hgb 8.3 L (12.0-15.0) g/dL Hct 27.3 L (37.2-46.3) % MCV 100.0 H (80.0-97.0) FL MCHC 30.4 L (32.0-37.0) g/dL Immature Gran # 0.10 H (0.00-0.04) X 10*3/uL Chloride 94 L (96-109) mmol/L Carbon Dioxide 36.6 H (21.6-31.8) mmol/L BUN 56.1 H (9.0-27.0) mg/dL Creatinine 2.4 H (0.6-1.5) mg/dL Est GFR (CKD-EPI) 20 L (>=60) BUN/Creatinine Ratio 23.38 H (12.00-20.00) Ratio Glucose 140 H (70-110) mg/dL POC Glucose (mg/dL) (70-110) mg/dL Total Bilirubin <0.2 L (0.3-1.2) mg/dL Total Protein 4.8 L (6.2-8.2) g/dL Albumin 2.9 L (3.8-4.9) g/dL Albumin/Globulin Ratio 1.53 L (1.60-3.17) Ratio Assessment and Plan Assessment: 1. Acute kidney injury secondary to ATN secondary to cardiorenal syndrome. Renal function little worse from diuresisand borderline low blood pressure in the setting of use of angiotensin receptor blockers, currently off of Cozaar.. Creatinine 2.3 today Nonoliguric. Renal ultrasound from earlier this month showed atrophic kidneys without any hydronephrosis. 2. Acute on chronic diastolic CHF. 3. Volume overload. Improved with diuresis. 4. Anemia of chronic kidney disease. Iron replete. 5. Hypertension with chronic kidney disease. Controlled. 6. Diabetes mellitus. 7. Primary hyperparathyroidism maintained on Sensipar. Plan: decrease Sensipar check chest x-ray today We will likely need to restart diuretics
[2023-11-03 11:51] LABS: Glucose,Whole Blood 182 mg/dL (70-110)
--- NOTE | 2023-11-03 13:25 | P.PN ---
Subjective Progress Note Date: 11/03/23 HISTORY OF PRESENT ILLNESS: 83-year-old female one of our office patient for many years who was hospitalized last time at [facility] on 08/02/2023 till at least 08/15/2023 with acute coronary syndrome along with non-ST OK and generalized weakness and fatigue. She had quite with dyspnea and significant hypoxia with shortness of breath the time she was having headache with lightheadedness on and off complaining of worsening bowel movement with abdominal pain and worsening IBS at the time. With the finding on that admission of non-ST OK, acute CHF with ejection fraction about 45 percentile, acute hypoxic respiratory failure with worsening abdominal pain. She was treated seen cardiology her echocardiogram came back with left ventricular hypertrophy moderate dilatation ROXANNA from 2019 moderate mitral regurgitation and PFO. Also she was having PACs and PVCs at the time with elevated troponin with cardiology decided to do a nuclear stress test normal heart cath: Her last catheter was in 2019 with finding consistent with minimal coronary artery disease at the time. 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 She ended up in the emergency department at [facility] and was hospitalized for the last 7 days with worsening dyspnea and shortness of breath with worsening congestive heart failure exacerbation patient and complain that hospital was trying to discharge her home ISAAC her symptoms and complaining was not addressed and never cleared. Patient apparently and the bleeding [facility] today and the and [facility] with complaint again of dyspnea and shortness of breath severe generalized weakness fatigue debility not been able to ambulate and walk. Surprisingly few other finding with examination including mild anemia with hemoglobin of 9.8, negative troponin elevated D-dimer worsening kidney function with creatinine of 1.72 BNP was 20,600 slightly abnormal liver function test and COVID RSV with influenza were negative from her other hospitalization. EKG sadly shows atrial fibrillation with pulse rate running around 93 beats per minutes. Chest x-ray consistent with cardiomegaly with thoracic aortic ectasia stable correlate for mild venous congestion or interstitial pneumonitis stable right Prasad diaphragm elevation could be associated with phrenic nerve paralysis with right basilar atelectasis favored over pneumonia. 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 Was started on oxygen, IV diuretics, patient will be hospitalized to see cardiology, nephrology and probably pulmonary aggressive diuretics management will be done for now pulse rate will be treated with probably smaller dose of beta-david patient might require to be on anticoagulation. For the elevated D-dimer I would love doing CTA but with kidney failure is not a good choice wait start patient on Eliquis 5 mg twice a day for now and as soon as you are able to do either CTA or VQ scan to exclude the possibility of pulmonary embolism will be done. Despite the ejection fraction in July was 40-45 percentile patient will benefit from doing another echocardiogram this time. 10/31/2023: Patient slept the night in bed flat has been feeling slightly better with oxygen on, with IV diuretics has done well, reviewed chest x-ray from last night she had a quite good pleural effusion on the right side with quite a bit of consolidation as well but there is no sign of infection. Also her D-dimer was elevated was safely should do VQ scan since not able to do CTA but patient is already on anticoagulation at this point. Also patient still in A-fib at this point with pulse rate is running in the 90s with beta-david and Eliquis should be able to control the pulse rate patient be seen cardiology today as well. 11/01/2023: Patient continued to improve slight bed, she had acute kidney injury from cardiorenal syndrome seen nephrology agreed to lower any nephrotoxic agent while watching for her fluid overload at this point. The patient is known to have chronic kidney disease continue to support her hemoglobin and iron nephrology had added Diamox to 50 mg IV once daily also added iron aspirate this point. With cardiology review her ejection fraction at 40-45 percentile similar to what she had last time she has some atherosclerotic blockage back in 2019 could not do angioplasty at the time still on medical management currently. Again agreed to continue furosemide at 40 mg every 12 hours patient eventually probably can benefit from adding Entresto and spironolactone. As for her hypoxic respiratory failure including her right-sided diaphragmatic paralysis not much can be done for it and asking pulmonary to see patient for possible PE her kidney function still bad patient was started on anticoagulation which whether she does CT or not would not be important anymore will continue anticoagulation and continue to treat her A-fib. Apparently patient and plan to go to [facility] at discharge. 11/02/2023: Patient is doing slightly better did not require any thoracentesis, with the adjustment of her medication including start Entresto spironolactone will watch the kidney function next 24 hours patient apparently will be going to [facility] probably the plan To discharge on Saturday. Titrate medication gradually if she is able to tolerate it and she might still need to be on O2. 11/03/2023: The patient is doing slightly bit better, apparently known very well to pulmonary for caring for her for the last 2 and half to 3 weeks at [facility] continue to see significant improvement in her oxygenation and number overall, the lab value creatinine is up to 2.35 need to watch carefully with her diuretics with aggressive management especially after starting Entresto. Also from cardiology standpoint specially with value she had with her ejection fraction being 40-45 percentile her medications specially her Lasix at night will be held also will hold her Entresto and DC if her creatinine continues to decline. Patient kidney function was worsening before her Entresto started at the time. Again continue supportive care patient is DO NOT RESUSCITATE at this point and the plan probably to go to [facility] if possible on Saturday. I with the in detail explained to him the multi comorbidity patient has and severe diaphragmatic paralysis that will make her shortness of breath worse no matter what done also explained to have a combination of mild COPD, diastolic heart failure, A-fib, fluid overload and anemia will always play a higher risk to increase her shortness of breath no matter what done. REVIEW OF SYSTEMS: CONSTITUTIONAL: Mildly overweight mild respiratory distress. EYES: No icterus sclerae, no conjunctivitis. EARS, NOSE, MOUTH, THROAT, and FACE: No sore throat, lymphadenopathy, carotid bruits or deformity. RESPIRATORY: Slight shortness of breath with cough and wheezes. CARDIOVASCULAR: Positive PND orthopnea palpitation. GASTROINTESTINAL: Slight abdominal discomfort with nausea no vomiting. GENITOURINARY: Positive for decreased urine output no hematuria no infection. INTEGUMENT/BREAST: Generalized arthralgia and myalgia. HEMATOLOGIC/LYMPHATIC: Negative for bleed or purpura. MUSCULOSKELTAL: Generalized myalgia with slight increased swelling in lower extremity. NEURLOGICAL: No LOC, Sz or syncope, blurred vision dizziness or abnormality.. BEHAVIORAL/PSYCH: Negative. ENDOCRINE: Negative. PHYSICAL EXAMINATION: General Appearance: Alert, cooperative, mild respiratory distress. Neck HEENT: Supple, no lymphadenopathy, no thyroid enlargement, no carotid bruits. Lungs: Decreased breath sound bilaterally with fine rhonchi positive crackles in the bases positive mild expiratory wheezes. Chest Wall: Decreased expansion with deep inspiration no tenderness and no deformity was found on exam, no costochondral pain or discomfort. Heart: Irregular rate and rhythm, S1, S2 positive tachycardia, positive irregularity with systolic murmur. Back: Has mild scoliosis with slight lower back discomfort. Abdomen: Midepigastric and mid abdominal region discomfort with no rebound or rigidity. Extremities: Chronic change from the knee down bilaterally with chronic vascular cellulitis 1-2+ edema. Pulses: Decreased pulse bilaterally. Skin: Skin color, texture, tugor normal, no rashes or lesions. Neurologic: Alert oriented x3 cranial nerves II through XII intact, positive generalized weakness but normal balance and gait. Patient is not able to ambulate on her own. ASSESSMENT AND PLAN: _Severe dyspnea and shortness of breath: Combination of congestive heart failure, anemia, atrial fibrillation, possible pulmonary embolism, and fluid overload. Along with pleural effusion. _Acute on chronic systolic congestive heart failure with mild exacerbation: With a significant decline in kidney function Entresto was taking off along with spironolactone patient will kept on smaller dose of furosemide for now still seen nephrology. _A-fib with RVR: Her pulse rate becomes lower her metoprolol is down to 12.5 mg, she is still on anticoagulation. 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 Sadly no management or treatment available for her. _Anemia: Mild mostly chronic disease, iron supplement multivitamin will be done. _Acute kidney injury with chronic kidney disease stage IIIb: With the advanced medication specially diuretics her kidney function is slightly bit worse more advanced into stage IV we will watch her creatinine kidney function also watch electrolyte balance. _Recent history of known ST OK with no anatomy known at this point last heart cath was done in 2019 continue get medical management. _Elevated D-dimer with possible pulmonary embolism: Likely see a finding PE with VQ scan is not having. Patient was started on Eliquis as an anticoagulation dose eventually will be down to 2.5 mg twice a day which the possibility of pulmonary embolism slightly bit less at this point with being on anticoagulation will be more helpful. _Type 2 diabetes: Continue NovoLog with sliding scale coverage for now. If the kidney function will support patient can benefit probably from adding Jardiance 10 mg daily. _Hypertension: Blood pressure is much better despite holding ARB and Entresto along with spironolactone. _Hyperlipidemia: Continue atorvastatin 20 mg a day. Prognosis: Guarded. Discussion: Medication change to reduce any nephrotoxic agent and continue to watch her kidney function by tomorrow kidney function is much worse today. Discussion with family: Long discussion with the about informing him of patient condition and the high comorbidity and increased mortality at this point in the next few months with patient's current condition is fairly aware of factor making arrangement as a family Patient transfer into full assisted living hopefully by either Saturday or Saturday for the most. Objective - Vital Signs Vital signs: Vital Signs Temp 98.0 F 11/03/23 01:38 Pulse 60 11/03/23 01:38 Resp 17 11/03/23 01:38 BP 109/67 11/03/23 01:38 Pulse Ox 98 11/03/23 01:38 FiO2 Intake & Output 11/02/23 11/03/23 11/03/23 18:59 06:59 18:59 Output Total 150 Balance -150 Weight 98 kg Output: Urine 150 Other: Voiding Method Incontinent Incontinent External Catheter External Catheter - Labs CBC & Chem 7: 11/03/23 06:10 11/03/23 06:10 Labs: Abnormal Lab Results - Last 24 Hours (Table) 11/02/23 11/02/23 11/02/23 Range/Units 08:35 11:25 16:25 Sodium 135 L (137-145) mmol/L Chloride 92 L (98-107) mmol/L Carbon Dioxide 37 H (22-30) mmol/L BUN 55 H (7-17) mg/dL Creatinine 2.35 H (0.52-1.04) mg/dL Glucose 115 H (74-99) mg/dL POC Glucose (mg/dL) 225 H 127 H (70-110) mg/dL 11/02/23 11/03/23 Range/Units 20:18 05:46 Sodium (137-145) mmol/L Chloride (98-107) mmol/L Carbon Dioxide (22-30) mmol/L BUN (7-17) mg/dL Creatinine (0.52-1.04) mg/dL Glucose (74-99) mg/dL POC Glucose (mg/dL) 170 H 160 H (70-110) mg/dL
--- NOTE | 2023-11-03 13:48 | XR ---
EXAMINATION TYPE: XR chest 1V DATE OF EXAM: 11/03/2023 COMPARISON: 10/30/2023 INDICATION: CHF TECHNIQUE: Single frontal view of the chest is obtained. FINDINGS: The heart size is prominent. The pulmonary vasculature is normal. There is chronic elevation of the right diaphragm. IMPRESSION: 1. No acute pulmonary process. 2. Cardiomegaly
[2023-11-03 14:59] LABS: NT-Pro-B-Type Natriuretic Pept 10832 pg/mL (0-450)
[2023-11-03 16:39] LABS: Glucose,Whole Blood 213 mg/dL (70-110)
--- NOTE | 2023-11-03 19:29 | P.PN ---
Subjective Progress Note Date: 11/03/23 This is a 83-year-old female with a past medical history significant for atrial fibrillation, congestive heart failure, chronic kidney disease, hyperlipidemia, and minimal CAD. Patient used to follow in the office with Dr. Soriano but has not been seen since March 2020. We have been asked to see the patient in consultation for congestive heart failure. Patient examined at the bedside. Patient states she initially presented to the hospital with a chief complaint of shortness of breath. She states she has been feeling short of breath for approximately the past week. She states she has been compliant with her medications at home. She also reports having some mild right-sided chest pain at home but denies any chest pain or pressure at the time of examination. Patient has been started on IV diuretics. Vital signs are stable. Patient was found to be in atrial fibrillation with controlled ventricular rate. She does have a history of atrial fibrillation and is anticoagulated on an outpatient basis. Previous EKG from July 2023 revealed sinus mechanism. DIAGNOSTICS: - EKG reveals atrial fibrillation with controlled ventricular rate. - Chest xray cardiomegaly with thoracic aorta ectasia stable. Correlate for mild venous congestion or interstitial pneumonitis. Stable right hemidiaphragm elevation could be associated with phrenic nerve palsy. Right basilar atelectasis favored over pneumonia. - Laboratory data: WBC 5.5. Hemoglobin 9.8. Platelet count 146. D-dimer 1.65. Sodium 136. Potassium 3.8. BUN 55. Creatinine 1.72. Troponin negative x 1. proBNP 20,600. - Current home cardiac medications include losartan 100 mg daily, aspirin 81 mg daily, Lasix 40 mg daily, Lipitor 20 mg daily, and metoprolol tartrate 12.5 mg daily. -Echocardiogram obtained this admission reveals ejection fraction 40 to 45%, mild , RVSP 45 mmHg - Cardiac catheterization history: 2019 revealing minimal CAD 11/01/2023 Patient examined this morning. She is sitting up in the chair. Patient currently denies chest pain or pressure. She continues to report shortness of breath. She remains on IV Lasix 40 mg every 12 hours. Kidney function from this morning is pending. CT chest completed revealing pulmonary vascular congestion, pulmonary hypertension, cardiomegaly, and trace bilateral pleural effusions. November 02, 2023 BP 116/57, heart rate 71 bpm, Labs shows creatinine 2.35 creatinine was 1.9, on admission 1.7, hemoglobin 8.1 November 03, 2023 Systolic blood pressure 100 210 mmHg, diastolic 50s to 60s mmHg, heart rate 60s to 70s beats per minute, currently in sinus rhythm with PVCs on telemetry. Labs shows creatinine of 2.4 which is, stable as compared to yesterday. On admission it was around 1.7. Hemoglobin has been stable no concerns of bleedin g. Patient is lethargic today. She reports very poor appetite today she has not wanted to eat food. She is laying in bed. I have encouraged her to sit up in the chair and eat her lunch. She does not appear significantly volume overloaded at this time. I will back off on diuretics at this time especially because of her higher creatinine than baseline. She does have big body habitus which makes assessment of fluid status difficult. PHYSICAL EXAM: VITAL SIGNS: Reviewed. GENERAL: Well-developed in no acute distress. HEENT: Head is normocephalic. Pupils are equal, round. Sclerae anicteric. Mucous membranes of the mouth are moist. Neck supple. Positive JVD LUNGS: Respirations even and unlabored. Lungs diminished HEART: Irregular rate and rhythm. S1 and S2 heard. Systolic murmur noted ABDOMEN: Soft. Nondistended. Nontender. EXTREMITIES: Normal range of motion. No clubbing or cyanosis. Peripheral pulses intact. 2+ pitting bilateral lower extremity edema NEUROLOGIC: Awake and alert. Oriented x 3. ASSESSMENT: Shortness of breath Acute on chronic heart failure with reduced EF, 40 to 45% Elevated D-dimer, rule out PE Nonischemic cardiomyopathy Minimal CAD per cardiac catheterization in 2019 Paroxysmal atrial fibrillation Chronic kidney disease Hypertension Hyperlipidemia Diabetes Morbid obesity: BMI 38.7 PLAN: Due to worsening creatinine, I will hold patient's nighttime Lasix, Entresto. I agree with metoprolol reduction to 12.5 mg twice daily. Seem like atrial fibrillation on admission, she has chronic atrial fibrillation, currently in sinus rhythm based of ECG and telemetry. Kidney function tomorrow. If still worse, hold Entresto. Monitor urine output. If kidney function improves, slowly introduce Entresto , Diuretic and SGLT2. Objective - Vital Signs Vital signs: Vital Signs Temp 98.3 F 11/03/23 16:39 Pulse 73 11/03/23 16:39 Resp 18 11/03/23 16:39 BP 122/58 11/03/23 16:39 Pulse Ox 99 11/03/23 16:39 FiO2 Intake & Output 11/03/23 11/03/23 11/04/23 06:59 18:59 06:59 Output Total 150 Balance -150 Weight 98 kg Output: Urine 150 Other: Voiding Method Incontinent Incontinent External Catheter External Catheter # Bowel Movements 1 - Labs CBC & Chem 7: 11/03/23 06:10 11/03/23 06:10 Labs: Abnormal Lab Results - Last 24 Hours (Table) 11/02/23 11/03/23 11/03/23 Range/Units 20:18 05:46 06:10 RBC 2.73 L (4.10-5.20) X 10*6/uL Hgb 8.3 L (12.0-15.0) g/dL Hct 27.3 L (37.2-46.3) % MCV 100.0 H (80.0-97.0) FL MCHC 30.4 L (32.0-37.0) g/dL Immature Gran # 0.10 H (0.00-0.04) X 10*3/uL Chloride (96-109) mmol/L Carbon Dioxide (21.6-31.8) mmol/L BUN (9.0-27.0) mg/dL Creatinine (0.6-1.5) mg/dL Est GFR (CKD-EPI) (>=60) BUN/Creatinine Ratio (12.00-20.00) Ratio Glucose (70-110) mg/dL POC Glucose (mg/dL) 170 H 160 H (70-110) mg/dL Total Bilirubin (0.3-1.2) mg/dL NT-Pro-B Natriuret Pep (0-450) pg/mL Total Protein (6.2-8.2) g/dL Albumin (3.8-4.9) g/dL Albumin/Globulin Ratio (1.60-3.17) Ratio 11/03/23 11/03/23 11/03/23 Range/Units 06:10 11:50 16:37 RBC (4.10-5.20) X 10*6/uL Hgb (12.0-15.0) g/dL Hct (37.2-46.3) % MCV (80.0-97.0) FL MCHC (32.0-37.0) g/dL Immature Gran # (0.00-0.04) X 10*3/uL Chloride 94 L (96-109) mmol/L Carbon Dioxide 36.6 H (21.6-31.8) mmol/L BUN 56.1 H (9.0-27.0) mg/dL Creatinine 2.4 H (0.6-1.5) mg/dL Est GFR (CKD-EPI) 20 L (>=60) BUN/Creatinine Ratio 23.38 H (12.00-20.00) Ratio Glucose 140 H (70-110) mg/dL POC Glucose (mg/dL) 182 H 213 H (70-110) mg/dL Total Bilirubin <0.2 L (0.3-1.2) mg/dL NT-Pro-B Natriuret Pep 34266 H (0-450) pg/mL Total Protein 4.8 L (6.2-8.2) g/dL Albumin 2.9 L (3.8-4.9) g/dL Albumin/Globulin Ratio 1.53 L (1.60-3.17) Ratio
[2023-11-03 20:38] LABS: Glucose,Whole Blood 196 mg/dL (70-110)
[2023-11-04 05:48] LABS: Glucose,Whole Blood 157 mg/dL (70-110)
--- NOTE | 2023-11-04 08:05 | P.PN ---
Subjective Progress Note Date: 11/04/23 HISTORY OF PRESENT ILLNESS: 83-year-old female one of our office patient for many years who was hospitalized last time at [facility] on 08/02/2023 till at least 08/15/2023 with acute coronary syndrome along with non-ST WI and generalized weakness and fatigue. She had quite with dyspnea and significant hypoxia with shortness of breath the time she was having headache with lightheadedness on and off complaining of worsening bowel movement with abdominal pain and worsening IBS at the time. With the finding on that admission of non-ST WI, acute CHF with ejection fraction about 45 percentile, acute hypoxic respiratory failure with worsening abdominal pain. She was treated seen cardiology her echocardiogram came back with left ventricular hypertrophy moderate dilatation ROXANNA from 2019 moderate mitral regurgitation and PFO. Also she was having PACs and PVCs at the time with elevated troponin with cardiology decided to do a nuclear stress test normal heart cath: Her last catheter was in 2019 with finding consistent with minimal coronary artery disease at the time. Patient was treated with medical management after long hospitalization patient was sent to [facility] where she spent in physical therapy and rehab about 2 weeks and ended up going home patient developed to have slightly but worsening symptoms last 10 days with worsening dyspnea and shortness of breath generalized weakness and fatigue not been able to ambulate and walk require more than 1 person cardiovascular physician assistant. She ended up in the emergency department at [facility] and was hospitalized for the last 7 days with worsening dyspnea and shortness of breath with worsening congestive heart failure exacerbation patient and complain that hospital was trying to discharge her home ISAAC her symptoms and complaining was not addressed and never cleared. Patient apparently and the bleeding [facility] today and the and [facility] with complaint again of dyspnea and shortness of breath severe generalized weakness fatigue debility not been able to ambulate and walk. Surprisingly few other finding with examination including mild anemia with hemoglobin of 9.8, negative troponin elevated D-dimer worsening kidney function with creatinine of 1.72 BNP was 20,600 slightly abnormal liver function test and COVID RSV with influenza were negative from her other hospitalization. EKG sadly shows atrial fibrillation with pulse rate running around 93 beats per minutes. Chest x-ray consistent with cardiomegaly with thoracic aortic ectasia stable correlate for mild venous congestion or interstitial pneumonitis stable right Prasad diaphragm elevation could be associated with phrenic nerve paralysis with right basilar atelectasis favored over pneumonia. 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 Was started on oxygen, IV diuretics, patient will be hospitalized to see cardiology, nephrology and probably pulmonary aggressive diuretics management will be done for now pulse rate will be treated with probably smaller dose of beta-david patient might require to be on anticoagulation. For the elevated D-dimer I would love doing CTA but with kidney failure is not a good choice wait start patient on Eliquis 5 mg twice a day for now and as soon as you are able to do either CTA or VQ scan to exclude the possibility of pulmonary embolism will be done. Despite the ejection fraction in July was 40-45 percentile patient will benefit from doing another echocardiogram this time. 10/31/2023: Patient slept the night in bed flat has been feeling slightly better with oxygen on, with IV diuretics has done well, reviewed chest x-ray from last night she had a quite good pleural effusion on the right side with quite a bit of consolidation as well but there is no sign of infection. Also her D-dimer was elevated was safely should do VQ scan since not able to do CTA but patient is already on anticoagulation at this point. Also patient still in A-fib at this point with pulse rate is running in the 90s with beta-david and Eliquis should be able to control the pulse rate patient be seen cardiology today as well. 11/01/2023: Patient continued to improve slight bed, she had acute kidney injury from cardiorenal syndrome seen nephrology agreed to lower any nephrotoxic agent while watching for her fluid overload at this point. The patient is known to have chronic kidney disease continue to support her hemoglobin and iron nephrology had added Diamox to 50 mg IV once daily also added iron aspirate this point. With cardiology review her ejection fraction at 40-45 percentile similar to what she had last time she has some atherosclerotic blockage back in 2019 could not do angioplasty at the time still on medical management currently. Again agreed to continue furosemide at 40 mg every 12 hours patient eventually probably can benefit from adding Entresto and spironolactone. As for her hypoxic respiratory failure including her right-sided diaphragmatic paralysis not much can be done for it and asking pulmonary to see patient for possible PE her kidney function still bad patient was started on anticoagulation which whether she does CT or not would not be important anymore will continue anticoagulation and continue to treat her A-fib. Apparently patient and plan to go to [facility] at discharge. 11/02/2023: Patient is doing slightly better did not require any thoracentesis, with the adjustment of her medication including start Entresto spironolactone will watch the kidney function next 24 hours patient apparently will be going to [facility] in [place] probably the plan To discharge on Saturday. Titrate medication gradually if she is able to tolerate it and she might still need to be on O2. 11/03/2023: The patient is doing slightly bit better, apparently known very well to pulmonary for caring for her for the last 2 and half to 3 weeks at [facility] continue to see significant improvement in her oxygenation and number overall, the lab value creatinine is up to 2.35 need to watch carefully with her diuretics with aggressive management especially after starting Entresto. Also from cardiology standpoint specially with value she had with her ejection fraction being 40-45 percentile her medications specially her Lasix at night will be held also will hold her Entresto and DC if her creatinine continues to decline. Patient kidney function was worsening before her Entresto started at the time. Again continue supportive care patient is DO NOT RESUSCITATE at this point and the plan probably to go to [facility] if possible on Saturday. I with the in detail explained to him the multi comorbidity patient has and severe diaphragmatic paralysis that will make her shortness of breath worse no matter what done also explained to have a combination of mild COPD, diastolic heart failure, A-fib, fluid overload and anemia will always play a higher risk to increase her shortness of breath no matter what done. 11/04/2023: Patient is lying in bed comfortably she still on O2 pulse ox running about 90 percentile on 2 L. Kidney function slightly bit worse, hemoglobin is at 8.1 does not require any blood transfusion. After discussion with her hus band yesterday continue to adjust medication today hoping the kidney function will improve. Apparently patient will be going to full assisted living and [facility] either later today or tomorrow it will depend on her lab today. Family especially the are aware of patient comorbidity and risk factor the possibility of worsening shortness of breath [id number] from day-to-day basis will be very high. No thoracentesis was required, with her anemia slightly worse patient remain on medical management REVIEW OF SYSTEMS: CONSTITUTIONAL: Mildly overweight mild respiratory distress. EYES: No icterus sclerae, no conjunctivitis. EARS, NOSE, MOUTH, THROAT, and FACE: No sore throat, lymphadenopathy, carotid bruits or deformity. RESPIRATORY: Slight shortness of breath with cough and wheezes. CARDIOVASCULAR: Positive PND orthopnea palpitation. GASTROINTESTINAL: Slight abdominal discomfort with nausea no vomiting. GENITOURINARY: Positive for decreased urine output no hematuria no infection. INTEGUMENT/BREAST: Generalized arthralgia and myalgia. HEMATOLOGIC/LYMPHATIC: Negative for bleed or purpura. MUSCULOSKELTAL: Generalized myalgia with slight increased swelling in lower extremity. NEURLOGICAL: No LOC, Sz or syncope, blurred vision dizziness or abnormality.. BEHAVIORAL/PSYCH: Negative. ENDOCRINE: Negative. PHYSICAL EXAMINATION: General Appearance: Alert, cooperative, mild respiratory distress. Neck HEENT: Supple, no lymphadenopathy, no thyroid enlargement, no carotid bruits. Lungs: Decreased breath sound bilaterally with fine rhonchi positive crackles in the bases positive mild expiratory wheezes. Chest Wall: Decreased expansion with deep inspiration no tenderness and no deformity was found on exam, no costochondral pain or discomfort. Heart: Irregular rate and rhythm, S1, S2 positive tachycardia, positive irregularity with systolic murmur. Back: Has mild scoliosis with slight lower back discomfort. Abdomen: Midepigastric and mid abdominal region discomfort with no rebound or rigidity. Extremities: Chronic change from the knee down bilaterally with chronic vascular cellulitis 1-2+ edema. Pulses: Decreased pulse bilaterally. Skin: Skin color, texture, tugor normal, no rashes or lesions. Neurologic: Alert oriented x3 cranial nerves II through XII intact, positive generalized weakness but normal balance and gait. Patient is not able to ambulate on her own. ASSESSMENT AND PLAN: _Severe dyspnea and shortness of breath: Combination of congestive heart failure, anemia, atrial fibrillation, possible pulmonary embolism, and fluid overload. Along with pleural effusion. She did not require any thoracentesis _Acute on chronic systolic congestive heart failure with mild exacerbation: With a significant decline in kidney function trying to be quite careful with diuretics along with ARB or JEFF. Continue to adjust her medication watching her kidney function today. _A-fib with RVR: Her pulse rate becomes lower her metoprolol is down to 12.5 mg, she is still on anticoagulation. 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 Sadly no management or treatment available for her. _Anemia: Mild mostly chronic disease, iron supplement multivitamin will be done. _Acute kidney injury with chronic kidney disease stage IIIb: With the advanced medication specially diuretics her kidney function is slightly bit worse more advanced into stage IV we will watch her creatinine kidney function also watch electrolyte balance. _Recent history of known ST WI with no anatomy known at this point last heart cath was done in 2019 continue get medical management. _Elevated D-dimer with possible pulmonary embolism: Likely see a finding PE with VQ scan is not having. Patient was started on Eliquis as an anticoagulation dose eventually will be down to 2.5 mg twice a day which the possibility of pulmonary embolism slightly bit less at this point with being on anticoagulation will be more helpful. _Type 2 diabetes: Continue NovoLog with sliding scale coverage for now. If the kidney function will support patient can benefit probably from adding Jardiance 10 mg daily. _Hypertension: Blood pressure is much better despite holding ARB and Entresto along with spironolactone. _Hyperlipidemia: Continue atorvastatin 20 mg a day. Prognosis: Guarded. Discussion: Still mildly anemic with slight decline in kidney function patient prognosis is really not that great specially with multi comorbidities she has. She will be in the hospital between here and relisted for over 3 weeks she still having slight shortness of breath, major change medication up and down patient still symptomatic. Long discussion with the family yesterday are aware of her high risk of return to the hospital or declining from week to week basis. She is going to go to full assisted living for the next few weeks and this is can happen either today or later tomorrow morning. Objective - Vital Signs Vital signs: Vital Signs Temp 98 F 11/04/23 02:27 Pulse 45 L 11/04/23 03:34 Resp 17 11/04/23 02:27 BP 122/63 11/04/23 02:27 Pulse Ox 99 11/04/23 02:27 FiO2 Intake & Output 11/03/23 11/03/23 11/04/23 06:59 18:59 06:59 Output Total 150 400 Balance -150 -400 Weight 98 kg Output: Urine 150 400 Other: Voiding Method Incontinent Incontinent Incontinent External Catheter External Catheter External Catheter # Bowel Movements 1 1 - Labs CBC & Chem 7: 11/03/23 06:10 11/03/23 06:10 Labs: Abnormal Lab Results - Last 24 Hours (Table) 11/03/23 11/03/23 11/03/23 Range/Units 06:10 06:10 11:50 RBC 2.73 L (4.10-5.20) X 10*6/uL Hgb 8.3 L (12.0-15.0) g/dL Hct 27.3 L (37.2-46.3) % MCV 100.0 H (80.0-97.0) FL MCHC 30.4 L (32.0-37.0) g/dL Immature Gran # 0.10 H (0.00-0.04) X 10*3/uL Chloride 94 L (96-109) mmol/L Carbon Dioxide 36.6 H (21.6-31.8) mmol/L BUN 56.1 H (9.0-27.0) mg/dL Creatinine 2.4 H (0.6-1.5) mg/dL Est GFR (CKD-EPI) 20 L (>=60) BUN/Creatinine Ratio 23.38 H (12.00-20.00) Ratio Glucose 140 H (70-110) mg/dL POC Glucose (mg/dL) 182 H (70-110) mg/dL Total Bilirubin <0.2 L (0.3-1.2) mg/dL NT-Pro-B Natriuret Pep 03852 H (0-450) pg/mL Total Protein 4.8 L (6.2-8.2) g/dL Albumin 2.9 L (3.8-4.9) g/dL Albumin/Globulin Ratio 1.53 L (1.60-3.17) Ratio 11/03/23 11/03/23 11/04/23 Range/Units 16:37 20:37 05:46 RBC (4.10-5.20) X 10*6/uL Hgb (12.0-15.0) g/dL Hct (37.2-46.3) % MCV (80.0-97.0) FL MCHC (32.0-37.0) g/dL Immature Gran # (0.00-0.04) X 10*3/uL Chloride (96-109) mmol/L Carbon Dioxide (21.6-31.8) mmol/L BUN (9.0-27.0) mg/dL Creatinine (0.6-1.5) mg/dL Est GFR (CKD-EPI) (>=60) BUN/Creatinine Ratio (12.00-20.00) Ratio Glucose (70-110) mg/dL POC Glucose (mg/dL) 213 H 196 H 157 H (70-110) mg/dL Total Bilirubin (0.3-1.2) mg/dL NT-Pro-B Natriuret Pep (0-450) pg/mL Total Protein (6.2-8.2) g/dL Albumin (3.8-4.9) g/dL Albumin/Globulin Ratio (1.60-3.17) Ratio
[2023-11-04 09:13] LABS: ALT 26 U/L (8-44); AST 13 U/L (13-35); Albumin 2.8 g/dL (3.8-4.9); Albumin/Globulin Ratio 1.56 Ratio (1.60-3.17); Alkaline Phosphatase 79 U/L (41-126); BUN/Creat Ratio 26.61 Ratio (12.00-20.00); Blood Urea Nitrogen 61.2 mg/dL (9.0-27.0); Calcium 8.8 mg/dL (8.7-10.3); Carbon Dioxide 37.4 mmol/L (21.6-31.8); Chloride 94 mmol/L (96-109); Globulin 1.8 g/dL (1.6-3.3); Glucose 145 mg/dL (70-110); Potassium 5.3 mmol/L (3.5-5.5); Sodium 137 mmol/L (135-145); Total Bilirubin <0.2 mg/dL (0.3-1.2); Total Protein 4.6 g/dL (6.2-8.2)
[2023-11-04 09:35] LABS: HCT 26.2 % (37.2-46.3); HGB 7.8 g/dL (12.0-15.0); MCHC 29.8 g/dL (32.0-37.0); MCV 100.8 FL (80.0-97.0); Mean Platelet Volume 11.8 FL (9.5-12.2); NRBC Per 100 WBC 0 X 10*3/uL (0.00-0.01); Platelet Count 185 X 10*3/uL (140-440); RDW 14.1 % (11.5-14.5); WBC 7.71 X 10*3/uL (4.50-10.00)
--- NOTE | 2023-11-04 10:23 | P.PN ---
Subjective patient is seen for follow-up for acute kidney injury and chronic kidney disease. Patient has been diuresed. Lasix now discontinued Volume status has improved. Cozaar discontinued on 11/01/2023 Blood pressure remains on the lower side. serum creatinine staying at 2.3-2.4 mg/dL. Patient has an external catheter. Objective - Vital Signs Vital signs: Vital Signs Temp 98.8 F 11/04/23 07:48 Pulse 50 L 11/04/23 08:43 Resp 18 11/04/23 07:48 BP 126/61 11/04/23 07:48 Pulse Ox 96 11/04/23 08:33 FiO2 Intake & Output 11/03/23 11/04/23 11/04/23 18:59 06:59 18:59 Output Total 600 Balance -600 Weight 97 kg Output: Urine 600 Other: Voiding Method Incontinent Incontinent External Catheter External Catheter # Bowel Movements 1 1 - Exam patient is awake, comfortable, no acute distress Examination of the heart S1 and S2 Examination of the lungs bilateral breath sounds are heard Abdomen is soft nontender Examination of lower extremity shows edema 1+ bilaterally MANAGER CASE exam grossly intact - Labs CBC & Chem 7: 11/04/23 04:34 11/04/23 04:34 Labs: Abnormal Lab Results - Last 24 Hours (Table) 11/03/23 11/03/23 11/03/23 Range/Units 06:10 11:50 16:37 RBC (4.10-5.20) X 10*6/uL Hgb (12.0-15.0) g/dL Hct (37.2-46.3) % MCV (80.0-97.0) FL MCHC (32.0-37.0) g/dL Chloride (96-109) mmol/L Carbon Dioxide (21.6-31.8) mmol/L BUN (9.0-27.0) mg/dL Creatinine (0.6-1.5) mg/dL Est GFR (CKD-EPI) (>=60) BUN/Creatinine Ratio (12.00-20.00) Ratio Glucose (70-110) mg/dL POC Glucose (mg/dL) 182 H 213 H (70-110) mg/dL Total Bilirubin (0.3-1.2) mg/dL NT-Pro-B Natriuret Pep 28128 H (0-450) pg/mL Total Protein (6.2-8.2) g/dL Albumin (3.8-4.9) g/dL Albumin/Globulin Ratio (1.60-3.17) Ratio 11/03/23 11/04/23 11/04/23 Range/Units 20:37 04:34 04:34 RBC 2.60 L (4.10-5.20) X 10*6/uL Hgb 7.8 L (12.0-15.0) g/dL Hct 26.2 L (37.2-46.3) % MCV 100.8 H (80.0-97.0) FL MCHC 29.8 L (32.0-37.0) g/dL Chloride 94 L (96-109) mmol/L Carbon Dioxide 37.4 H (21.6-31.8) mmol/L BUN 61.2 H (9.0-27.0) mg/dL Creatinine 2.3 H (0.6-1.5) mg/dL Est GFR (CKD-EPI) 21 L (>=60) BUN/Creatinine Ratio 26.61 H (12.00-20.00) Ratio Glucose 145 H (70-110) mg/dL POC Glucose (mg/dL) 196 H (70-110) mg/dL Total Bilirubin <0.2 L (0.3-1.2) mg/dL NT-Pro-B Natriuret Pep (0-450) pg/mL Total Protein 4.6 L (6.2-8.2) g/dL Albumin 2.8 L (3.8-4.9) g/dL Albumin/Globulin Ratio 1.56 L (1.60-3.17) Ratio 11/04/23 Range/Units 05:46 RBC (4.10-5.20) X 10*6/uL Hgb (12.0-15.0) g/dL Hct (37.2-46.3) % MCV (80.0-97.0) FL MCHC (32.0-37.0) g/dL Chloride (96-109) mmol/L Carbon Dioxide (21.6-31.8) mmol/L BUN (9.0-27.0) mg/dL Creatinine (0.6-1.5) mg/dL Est GFR (CKD-EPI) (>=60) BUN/Creatinine Ratio (12.00-20.00) Ratio Glucose (70-110) mg/dL POC Glucose (mg/dL) 157 H (70-110) mg/dL Total Bilirubin (0.3-1.2) mg/dL NT-Pro-B Natriuret Pep (0-450) pg/mL Total Protein (6.2-8.2) g/dL Albumin (3.8-4.9) g/dL Albumin/Globulin Ratio (1.60-3.17) Ratio Assessment and Plan Assessment: 1. Acute kidney injury secondary to ATN secondary to cardiorenal syndrome. Renal function little worse from diuresisand borderline low blood pressure in the setting of use of angiotensin receptor blockers, currently off of Cozaar.. Creatinine 2.3 today Nonoliguric. Renal ultrasound from earlier this month showed atrophic kidneys without any hydronephrosis. 2. Acute on chronic diastolic CHF. 3. Volume overload. Improved with diuresis. 4. Anemia of chronic kidney disease. Iron replete. 5. Hypertension with chronic kidney disease. Controlled. 6. Diabetes mellitus. 7. Primary hyperparathyroidism maintained on Sensipar. Plan: continue to hold Sensipar for now with monitoring of calcium levels. Continue off of Lasix DC potassium Repeat labs in a.m.
[2023-11-04 11:10] LABS: Glucose,Whole Blood 225 mg/dL (70-110)
--- NOTE | 2023-11-04 12:12 | P.PN ---
Subjective Progress Note Date: 11/04/23 This is a 83-year-old female with a past medical history significant for atrial fibrillation, congestive heart failure, chronic kidney disease, hyperlipidemia, and minimal CAD. Patient used to follow in the office with Dr. Soriano but has not been seen since March 2020. We have been asked to see the patient in consultation for congestive heart failure. Patient examined at the bedside. Patient states she initially presented to the hospital with a chief complaint of shortness of breath. She states she has been feeling short of breath for approximately the past week. She states she has been compliant with her medications at home. She also reports having some mild right-sided chest pain at home but denies any chest pain or pressure at the time of examination. Patient has been started on IV diuretics. Vital signs are stable. Patient was found to be in atrial fibrillation with controlled ventricular rate. She does have a history of atrial fibrillation and is anticoagulated on an outpatient basis. Previous EKG from July 2023 revealed sinus mechanism. DIAGNOSTICS: - EKG reveals atrial fibrillation with controlled ventricular rate. - Chest xray cardiomegaly with thoracic aorta ectasia stable. Correlate for mild venous congestion or interstitial pneumonitis. Stable right hemidiaphragm elevation could be associated with phrenic nerve palsy. Right basilar atelectasis favored over pneumonia. - Laboratory data: WBC 5.5. Hemoglobin 9.8. Platelet count 146. D-dimer 1.65. Sodium 136. Potassium 3.8. BUN 55. Creatinine 1.72. Troponin negative x 1. proBNP 20,600. - Current home cardiac medications include losartan 100 mg daily, aspirin 81 mg daily, Lasix 40 mg daily, Lipitor 20 mg daily, and metoprolol tartrate 12.5 mg daily. -Echocardiogram obtained this admission reveals ejection fraction 40 to 45%, mild , RVSP 45 mmHg - Cardiac catheterization history: 2019 revealing minimal CAD 11/01/2023 Patient examined this morning. She is sitting up in the chair. Patient currently denies chest pain or pressure. She continues to report shortness of breath. She remains on IV Lasix 40 mg every 12 hours. Kidney function from this morning is pending. CT chest completed revealing pulmonary vascular congestion, pulmonary hypertension, cardiomegaly, and trace bilateral pleural effusions. November 02, 2023 BP 116/57, heart rate 71 bpm, Labs shows creatinine 2.35 creatinine was 1.9, on admission 1.7, hemoglobin 8.1 November 03, 2023 Systolic blood pressure 100 210 mmHg, diastolic 50s to 60s mmHg, heart rate 60s to 70s beats per minute, currently in sinus rhythm with PVCs on telemetry. Labs shows creatinine of 2.4 which is, stable as compared to yesterday. On admission it was around 1.7. Hemoglobin has been stable no concerns of bleeding. Patient is lethargic today. She reports very poor appetite today she has not wanted to eat food. She is laying in bed. I have encouraged her to sit up in the chair and eat her lunch. She does not appear significantly volume overloaded at this time. I will back off on diuretics at this time especially because of her higher creatinine than baseline. She does have big body habitus which makes assessment of fluid status difficult. 11/03 Due to bradycardia, beta-david was decreased to 12.5 mg twice daily and this morning beta-david was held for heart rate of 4458. We will request telemetry monitoring. With regards to drop in hemoglobin patient denies having any blood in her stool. Blood pressure 126/61, pulse ox 96% on 3 L nasal cannula. Repeat blood work reveals WBC 7.7, hemoglobin 7.8. Sodium 137, potassium 5.3, chloride 94, CO2 37, BUN 61 and creatinine 2.3. Entresto and diuretics on hold due to worsening renal function. PHYSICAL EXAM: VITAL SIGNS: Reviewed. GENERAL: Well-developed in no acute distress. HEENT: Head is normocephalic. Pupils are equal, round. Sclerae anicteric. Mucous membranes of the mouth are moist. Neck supple. Positive JVD LUNGS: Respirations even and unlabored. Lungs diminished HEART: Irregular rate and rhythm. S1 and S2 heard. Systolic murmur noted ABDOMEN: Soft. Nondistended. Nontender. EXTREMITIES: Normal range of motion. No clubbing or cyanosis. Peripheral pulses intact. 1+ pitting bilateral lower extremity edema NEUROLOGIC: Awake and alert. Oriented x 3. ASSESSMENT: Shortness of breath Acute on chronic heart failure with reduced EF, 40 to 45% Elevated D-dimer, rule out PE Nonischemic cardiomyopathy Minimal CAD per cardiac catheterization in 2019 Paroxysmal atrial fibrillation Chronic kidney disease Hypertension Hyperlipidemia Diabetes Morbid obesity: BMI 38.7 PLAN: Continue to hold Lasix, Entresto for another day. Yeah gross will plan to reevaluate and possibly resume tomorrow if kidney function is stable. Lopressor will be discontinued due to bradycardia. Add telemetry monitoring. Nurse practitioner note has been reviewed, I agree with documented findings and plan of care. Patient was seen and examined. Objective - Vital Signs Vital signs: Vital Signs Temp 98.8 F 11/04/23 07:48 Pulse 50 L 11/04/23 08:43 Resp 18 11/04/23 07:48 BP 126/61 11/04/23 07:48 Pulse Ox 96 11/04/23 08:33 FiO2 Intake & Output 11/03/23 11/04/23 11/04/23 18:59 06:59 18:59 Output Total 600 Balance -600 Weight 97 kg Output: Urine 600 Other: Voiding Method Incontinent Incontinent External Catheter External Catheter # Bowel Movements 1 1 - Labs CBC & Chem 7: 11/04/23 04:34 11/04/23 04:34 Labs: Abnormal Lab Results - Last 24 Hours (Table) 11/03/23 11/03/23 11/03/23 Range/Units 06:10 06:10 11:50 RBC 2.73 L (4.10-5.20) X 10*6/uL Hgb 8.3 L (12.0-15.0) g/dL Hct 27.3 L (37.2-46.3) % MCV 100.0 H (80.0-97.0) FL MCHC 30.4 L (32.0-37.0) g/dL Immature Gran # 0.10 H (0.00-0.04) X 10*3/uL Chloride 94 L (96-109) mmol/L Carbon Dioxide 36.6 H (21.6-31.8) mmol/L BUN 56.1 H (9.0-27.0) mg/dL Creatinine 2.4 H (0.6-1.5) mg/dL Est GFR (CKD-EPI) 20 L (>=60) BUN/Creatinine Ratio 23.38 H (12.00-20.00) Ratio Glucose 140 H (70-110) mg/dL POC Glucose (mg/dL) 182 H (70-110) mg/dL Total Bilirubin <0.2 L (0.3-1.2) mg/dL NT-Pro-B Natriuret Pep 54492 H (0-450) pg/mL Total Protein 4.8 L (6.2-8.2) g/dL Albumin 2.9 L (3.8-4.9) g/dL Albumin/Globulin Ratio 1.53 L (1.60-3.17) Ratio 11/03/23 11/03/23 11/04/23 Range/Units 16:37 20:37 04:34 RBC (4.10-5.20) X 10*6/uL Hgb (12.0-15.0) g/dL Hct (37.2-46.3) % MCV (80.0-97.0) FL MCHC (32.0-37.0) g/dL Immature Gran # (0.00-0.04) X 10*3/uL Chloride 94 L (96-109) mmol/L Carbon Dioxide 37.4 H (21.6-31.8) mmol/L BUN 61.2 H (9.0-27.0) mg/dL Creatinine 2.3 H (0.6-1.5) mg/dL Est GFR (CKD-EPI) 21 L (>=60) BUN/Creatinine Ratio 26.61 H (12.00-20.00) Ratio Glucose 145 H (70-110) mg/dL POC Glucose (mg/dL) 213 H 196 H (70-110) mg/dL Total Bilirubin <0.2 L (0.3-1.2) mg/dL NT-Pro-B Natriuret Pep (0-450) pg/mL Total Protein 4.6 L (6.2-8.2) g/dL Albumin 2.8 L (3.8-4.9) g/dL Albumin/Globulin Ratio 1.56 L (1.60-3.17) Ratio 11/04/23 Range/Units 05:46 RBC (4.10-5.20) X 10*6/uL Hgb (12.0-15.0) g/dL Hct (37.2-46.3) % MCV (80.0-97.0) FL MCHC (32.0-37.0) g/dL Immature Gran # (0.00-0.04) X 10*3/uL Chloride (96-109) mmol/L Carbon Dioxide (21.6-31.8) mmol/L BUN (9.0-27.0) mg/dL Creatinine (0.6-1.5) mg/dL Est GFR (CKD-EPI) (>=60) BUN/Creatinine Ratio (12.00-20.00) Ratio Glucose (70-110) mg/dL POC Glucose (mg/dL) 157 H (70-110) mg/dL Total Bilirubin (0.3-1.2) mg/dL NT-Pro-B Natriuret Pep (0-450) pg/mL Total Protein (6.2-8.2) g/dL Albumin (3.8-4.9) g/dL Albumin/Globulin Ratio (1.60-3.17) Ratio
[2023-11-04 16:33] LABS: Glucose,Whole Blood 202 mg/dL (70-110)
[2023-11-04 20:39] LABS: Glucose,Whole Blood 215 mg/dL (70-110)
[2023-11-05 05:39] LABS: Glucose,Whole Blood 126 mg/dL (70-110)
[2023-11-05] MEDS: CALAMINE/ZINC OXIDE LOTION 177 ML BTL TOPICAL PRN (08:08)
--- NOTE | 2023-11-05 08:09 | P.PN ---
Subjective Progress Note Date: 11/05/23 HISTORY OF PRESENT ILLNESS: 83-year-old female one of our office patient for many years who was hospitalized last time at [facility] on 08/02/2023 till at least 08/15/2023 with acute coronary syndrome along with non-ST MA and generalized weakness and fatigue. She had quite with dyspnea and significant hypoxia with shortness of breath the time she was having headache with lightheadedness on and off complaining of worsening bowel movement with abdominal pain and worsening IBS at the time. With the finding on that admission of non-ST MA, acute CHF with ejection fraction about 45 percentile, acute hypoxic respiratory failure with worsening abdominal pain. She was treated seen cardiology her echocardiogram came back with left ventricular hypertrophy moderate dilatation ROXANNA from 2019 moderate mitral regurgitation and PFO. Also she was having PACs and PVCs at the time with elevated troponin with cardiology decided to do a nuclear stress test normal heart cath: Her last catheter was in 2019 with finding consistent with minimal coronary artery disease at the time. 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 She ended up in the emergency department at [facility] and was hospitalized for the last 7 days with worsening dyspnea and shortness of breath with worsening congestive heart failure exacerbation patient and complain that hospital was trying to discharge her home ISAAC her symptoms and complaining was not addressed and never cleared. Patient apparently and the bleeding [facility] today and the and [facility] with complaint again of dyspnea and shortness of breath severe generalized weakness fatigue debility not been able to ambulate and walk. Surprisingly few other finding with examination including mild anemia with hemoglobin of 9.8, negative troponin elevated D-dimer worsening kidney function with creatinine of 1.72 BNP was 20,600 slightly abnormal liver function test and COVID RSV with influenza were negative from her other hospitalization. EKG sadly shows atrial fibrillation with pulse rate running around 93 beats per minutes. Chest x-ray consistent with cardiomegaly with thoracic aortic ectasia stable correlate for mild venous congestion or interstitial pneumonitis stable right Prasad diaphragm elevation could be associated with phrenic nerve paralysis with right basilar atelectasis favored over pneumonia. 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 Was started on oxygen, IV diuretics, patient will be hospitalized to see cardiology, nephrology and probably pulmonary aggressive diuretics management will be done for now pulse rate will be treated with probably smaller dose of beta-david patient might require to be on anticoagulation. For the elevated D-dimer I would love doing CTA but with kidney failure is not a good choice wait start patient on Eliquis 5 mg twice a day for now and as soon as you are able to do either CTA or VQ scan to exclude the possibility of pulmonary embolism will be done. Despite the ejection fraction in July was 40-45 percentile patient will benefit from doing another echocardiogram this time. 10/31/2023: Patient slept the night in bed flat has been feeling slightly better with oxygen on, with IV diuretics has done well, reviewed chest x-ray from last night she had a quite good pleural effusion on the right side with quite a bit of consolidation as well but there is no sign of infection. Also her D-dimer was elevated was safely should do VQ scan since not able to do CTA but patient is already on anticoagulation at this point. Also patient still in A-fib at this point with pulse rate is running in the 90s with beta-david and Eliquis should be able to control the pulse rate patient be seen cardiology today as well. 11/01/2023: Patient continued to improve slight bed, she had acute kidney injury from cardiorenal syndrome seen nephrology agreed to lower any nephrotoxic agent while watching for her fluid overload at this point. The patient is known to have chronic kidney disease continue to support her hemoglobin and iron nephrology had added Diamox to 50 mg IV once daily also added iron aspirate this point. With cardiology review her ejection fraction at 40-45 percentile similar to what she had last time she has some atherosclerotic blockage back in 2019 could not do angioplasty at the time still on medical management currently. Again agreed to continue furosemide at 40 mg every 12 hours patient eventually probably can benefit from adding Entresto and spironolactone. As for her hypoxic respiratory failure including her right-sided diaphragmatic paralysis not much can be done for it and asking pulmonary to see patient for possible PE her kidney function still bad patient was started on anticoagulation which whether she does CT or not would not be important anymore will continue anticoagulation and continue to treat her A-fib. Apparently patient and plan to go to [facility] at discharge. 11/02/2023: Patient is doing slightly better did not require any thoracentesis, with the adjustment of her medication including start Entresto spironolactone will watch the kidney function next 24 hours patient apparently will be going to [facility] in [place] probably the plan To discharge on Saturday. Titrate medication gradually if she is able to tolerate it and she might still need to be on O2. 11/03/2023: The patient is doing slightly bit better, apparently known very well to pulmonary for caring for her for the last 2 and half to 3 weeks at [facility] continue to see significant improvement in her oxygenation and number overall, the lab value creatinine is up to 2.35 need to watch carefully with her diuretics with aggressive management especially after starting Entresto. Also from cardiology standpoint specially with value she had with her ejection fraction being 40-45 percentile her medications specially her Lasix at night will be held also will hold her Entresto and DC if her creatinine continues to decline. Patient kidney function was worsening before her Entresto started at the time. Again continue supportive care patient is DO NOT RESUSCITATE at this point and the plan probably to go to [facility] if possible on Saturday. I with the in detail explained to him the multi comorbidity patient has and severe diaphragmatic paralysis that will make her shortness of breath worse no matter what done also explained to have a combination of mild COPD, diastolic heart failure, A-fib, fluid overload and anemia will always play a higher risk to increase her shortness of breath no matter what done. 11/04/2023: Patient is lying in bed comfortably she still on O2 pulse ox running about 90 percentile on 2 L. Kidney function slightly bit worse, hemoglobin is at 8.1 does not require any blood transfusion. After discussion with her hus band yesterday continue to adjust medication today hoping the kidney function will improve. Apparently patient will be going to full assisted living and [facility] either later today or tomorrow it will depend on her lab today. Family especially the are aware of patient comorbidity and risk factor the possibility of worsening shortness of breath [id number] from day-to-day basis will be very high. No thoracentesis was required, with her anemia slightly worse patient remain on medical management. 11/05/2023: Was seen and evaluated today she had an episode of itching and dry skin had to use calamine lotion to help without. Her shortness of breath slightly better but more like the same. Patient was able to move upper bed to the chair with slight help yesterday. I spoke with the family Yesterday apparently they are making arrangements for her to go to the [facility] on palliative care initially and their plan when she declined more and require hospice the same place with provide hospice at the time. If her place is ready today she can be discharged if not she will be discharged at this place tomorrow according to her family. REVIEW OF SYSTEMS: CONSTITUTIONAL: Mildly overweight mild respiratory distress. EYES: No icterus sclerae, no conjunctivitis. EARS, NOSE, MOUTH, THROAT, and FACE: No sore throat, lymphadenopathy, carotid bruits or deformity. RESPIRATORY: Slight shortness of breath with cough and wheezes. CARDIOVASCULAR: Positive PND orthopnea palpitation. GASTROINTESTINAL: Slight abdominal discomfort with nausea no vomiting. GENITOURINARY: Positive for decreased urine output no hematuria no infection. INTEGUMENT/BREAST: Generalized arthralgia and myalgia. HEMATOLOGIC/LYMPHATIC: Negative for bleed or purpura. MUSCULOSKELTAL: Generalized myalgia with slight increased swelling in lower extremity. NEURLOGICAL: No LOC, Sz or syncope, blurred vision dizziness or abnormality.. BEHAVIORAL/PSYCH: Negative. ENDOCRINE: Negative. PHYSICAL EXAMINATION: General Appearance: Alert, cooperative, mild respiratory distress. Neck HEENT: Supple, no lymphadenopathy, no thyroid enlargement, no carotid bruits. Lungs: Decreased breath sound bilaterally with fine rhonchi positive crackles in the bases positive mild expiratory wheezes. Chest Wall: Decreased expansion with deep inspiration no tenderness and no deformity was found on exam, no costochondral pain or discomfort. Heart: Irregular rate and rhythm, S1, S2 positive tachycardia, positive irregula rity with systolic murmur. Back: Has mild scoliosis with slight lower back discomfort. Abdomen: Midepigastric and mid abdominal region discomfort with no rebound or rigidity. Extremities: Chronic change from the knee down bilaterally with chronic vascular cellulitis 1-2+ edema. Pulses: Decreased pulse bilaterally. Skin: Skin color, texture, tugor normal, no rashes or lesions. Neurologic: Alert oriented x3 cranial nerves II through XII intact, positive generalized weakness but normal balance and gait. Patient is not able to ambulate on her own. ASSESSMENT AND PLAN: _Severe dyspnea and shortness of breath: Combination of congestive heart failure, anemia, atrial fibrillation, possible pulmonary embolism, and fluid overload. Along with pleural effusion. She did not require any thoracentesis _Acute on chronic systolic congestive heart failure with mild exacerbation: With a significant decline in kidney function trying to be quite careful with diuretics along with ARB or JEFF. Continue to adjust her medication watching her kidney function today. _A-fib with RVR: Her pulse rate becomes lower her metoprolol is down to 12.5 mg, she is still on anticoagulation. 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 Sadly no management or treatment available for her. _Anemia: Mild mostly chronic disease, iron supplement multivitamin will be done. _Acute kidney injury with chronic kidney disease stage IIIb: With the advanced medication specially diuretics her kidney function is slightly bit worse more advanced into stage IV we will watch her creatinine kidney function also watch electrolyte balance. _Recent history of known ST MA with no anatomy known at this point last heart cath was done in 2019 continue get medical management. _Elevated D-dimer with possible pulmonary embolism: Likely see a finding PE with VQ scan is not having. Patient was started on Eliquis as an anticoagulation dose eventually will be down to 2.5 mg twice a day which the possibility of pulmonary embolism slightly bit less at this point with being on anticoagulation will be more helpful. _Type 2 diabetes: Continue NovoLog with sliding scale coverage for now. If the kidney function will support patient can benefit probably from adding Jardiance 10 mg daily. _Hypertension: Blood pressure is much better despite holding ARB and Entresto along with spironolactone. _Hyperlipidemia: Continue atorvastatin 20 mg a day. Prognosis: Guarded. Discussion: Family are fully aware of her comorbidity and her higher risk of more complication including return to the hospital, there are arrangement this time to go into palliative care and when she declined more she is going to require hospice care in the same place which will be in the same assisted place she is going to go to from here. Objective - Vital Signs Vital signs: Vital Signs Temp 97.9 F 11/04/23 19:44 Pulse 73 11/05/23 01:24 Resp 15 11/04/23 19:44 BP 125/84 11/05/23 01:24 Pulse Ox 98 11/05/23 01:24 FiO2 Intake & Output 11/04/23 11/05/23 11/05/23 18:59 06:59 18:59 Weight 98 kg Other: Voiding Method Incontinent Incontinent External Catheter External Catheter - Labs CBC & Chem 7: 11/04/23 04:34 11/04/23 04:34 Labs: Abnormal Lab Results - Last 24 Hours (Table) 11/04/23 11/04/23 11/04/23 Range/Units 04:34 04:34 11:07 RBC 2.60 L (4.10-5.20) X 10*6/uL Hgb 7.8 L (12.0-15.0) g/dL Hct 26.2 L (37.2-46.3) % MCV 100.8 H (80.0-97.0) FL MCHC 29.8 L (32.0-37.0) g/dL Chloride 94 L (96-109) mmol/L Carbon Dioxide 37.4 H (21.6-31.8) mmol/L BUN 61.2 H (9.0-27.0) mg/dL Creatinine 2.3 H (0.6-1.5) mg/dL Est GFR (CKD-EPI) 21 L (>=60) BUN/Creatinine Ratio 26.61 H (12.00-20.00) Ratio Glucose 145 H (70-110) mg/dL POC Glucose (mg/dL) 225 H (70-110) mg/dL Total Bilirubin <0.2 L (0.3-1.2) mg/dL Total Protein 4.6 L (6.2-8.2) g/dL Albumin 2.8 L (3.8-4.9) g/dL Albumin/Globulin Ratio 1.56 L (1.60-3.17) Ratio 11/04/23 11/04/23 11/05/23 Range/Units 16:31 20:37 05:38 RBC (4.10-5.20) X 10*6/uL Hgb (12.0-15.0) g/dL Hct (37.2-46.3) % MCV (80.0-97.0) FL MCHC (32.0-37.0) g/dL Chloride (96-109) mmol/L Carbon Dioxide (21.6-31.8) mmol/L BUN (9.0-27.0) mg/dL Creatinine (0.6-1.5) mg/dL Est GFR (CKD-EPI) (>=60) BUN/Creatinine Ratio (12.00-20.00) Ratio Glucose (70-110) mg/dL POC Glucose (mg/dL) 202 H 215 H 126 H (70-110) mg/dL Total Bilirubin (0.3-1.2) mg/dL Total Protein (6.2-8.2) g/dL Albumin (3.8-4.9) g/dL Albumin/Globulin Ratio (1.60-3.17) Ratio
[2023-11-05 08:38] LABS: Calcium 8.6 mg/dL (8.7-10.3); Carbon Dioxide 35.4 mmol/L (21.6-31.8); Chloride 96 mmol/L (96-109); Glucose 117 mg/dL (70-110); Potassium 5.5 mmol/L (3.5-5.5); Sodium 140 mmol/L (135-145)
[2023-11-05 09:55] LABS: Basophils % (A) 0 %; Eosinophils # (A) 0.2 k/uL (0-0.7); Eosinophils % (A) 2 %; HCT 27.3 % (34.0-46.0); HGB 8.5 gm/dL (11.4-16.0); Hypochromasia Marked; Lymphocytes # (A) 1.3 k/uL (1.0-4.8); Lymphocytes % (A) 18 %; MCH 31.5 pg (25.0-35.0); MCV 101.6 fL (80.0-100.0); Macrocytosis Slight; Mean Platelet Volume 9.5; Monocytes # (A) 0.3 k/uL (0-1.0); Monocytes % (A) 4 %; Neutrophils # (A) 5.4 k/uL (1.3-7.7); Neutrophils % (A) 75 %; Platelet Count 175 k/uL (150-450); RBC 2.69 m/uL (3.80-5.40); RDW 14.2 % (11.5-15.5); WBC 7.2 k/uL (3.8-10.6)
[2023-11-05 10:01] LABS: ALT 29 U/L (4-34); AST 24 U/L (14-36); African American GFR (CKD) 21 (>60 ml/min/1.73 sqM); Albumin 2.7 g/dL (3.5-5.0); Albumin/Globulin Ratio 1.1; Alkaline Phosphatase 89 U/L (38-126); Anion Gap 2 mmol/L; Blood Urea Nitrogen 70 mg/dL (7-17); Calcium 8.7 mg/dL (8.4-10.2); Carbon Dioxide 37 mmol/L (22-30); Chloride 95 mmol/L (98-107); Globulin 2.4 g/dL; Glucose 160 mg/dL (74-99); Non-African American GFR(CKD) 18 (>60 ml/min/1.73 sqM); Potassium 5.2 mmol/L (3.5-5.1); Sodium 134 mmol/L (137-145); Total Bilirubin 0.3 mg/dL (0.2-1.3); Total Protein 5.1 g/dL (6.3-8.2)
[2023-11-05 11:14] LABS: Glucose,Whole Blood 188 mg/dL (70-110)
--- NOTE | 2023-11-05 13:35 | P.PN ---
Subjective patient is seen for follow-up for acute kidney injury and chronic kidney disease. Patient has been diuresed. Lasix now discontinued Volume status has improved. Cozaar discontinued on 11/01/2023 Blood pressure remains on the lower side. serum creatinine staying at 2.3-2.4 mg/dL. Patient has an external catheter. no significant complaints today. Objective - Vital Signs Vital signs: Vital Signs Temp 98.0 F 11/05/23 06:40 Pulse 100 11/05/23 06:40 Resp 17 11/05/23 06:40 BP 111/61 11/05/23 06:40 Pulse Ox 98 11/05/23 06:40 FiO2 Intake & Output 11/04/23 11/05/23 11/05/23 18:59 06:59 18:59 Intake Total 100 Balance 100 Weight 98 kg Intake: Oral 100 Other: Voiding Method Incontinent Incontinent Incontinent External Catheter External Catheter External Catheter - Exam patient is awake, comfortable, no acute distress Examination of the heart S1 and S2 Examination of the lungs bilateral breath sounds are heard Abdomen is soft nontender Examination of lower extremity shows edema 1+ bilaterally LANGUAGE INTERPRETER exam grossly intact - Labs CBC & Chem 7: 11/05/23 09:20 11/05/23 09:20 Labs: Abnormal Lab Results - Last 24 Hours (Table) 11/04/23 11/04/23 11/05/23 Range/Units 16:31 20:37 04:36 RBC (3.80-5.40) m/uL Hgb (11.4-16.0) gm/dL Hct (34.0-46.0) % MCV (80.0-100.0) fL Sodium (137-145) mmol/L Potassium (3.5-5.1) mmol/L Chloride (98-107) mmol/L Carbon Dioxide 35.4 H (21.6-31.8) mmol/L BUN 66.0 H (9.0-27.0) mg/dL Creatinine 2.3 H (0.6-1.5) mg/dL Est GFR (CKD-EPI) 21 L (>=60) BUN/Creatinine Ratio 28.70 H (12.00-20.00) Ratio Glucose 117 H (70-110) mg/dL POC Glucose (mg/dL) 202 H 215 H (70-110) mg/dL Calcium 8.6 L (8.7-10.3) mg/dL Total Protein (6.3-8.2) g/dL Albumin (3.5-5.0) g/dL 11/05/23 11/05/23 11/05/23 Range/Units 05:38 09:20 09:20 RBC 2.69 L (3.80-5.40) m/uL Hgb 8.5 L (11.4-16.0) gm/dL Hct 27.3 L (34.0-46.0) % MCV 101.6 H (80.0-100.0) fL Sodium 134 L (137-145) mmol/L Potassium 5.2 H (3.5-5.1) mmol/L Chloride 95 L (98-107) mmol/L Carbon Dioxide 37 H (21.6-31.8) mmol/L BUN 70 H (9.0-27.0) mg/dL Creatinine 2.45 H (0.6-1.5) mg/dL Est GFR (CKD-EPI) (>=60) BUN/Creatinine Ratio (12.00-20.00) Ratio Glucose 160 H (70-110) mg/dL POC Glucose (mg/dL) 126 H (70-110) mg/dL Calcium (8.7-10.3) mg/dL Total Protein 5.1 L (6.3-8.2) g/dL Albumin 2.7 L (3.5-5.0) g/dL 11/05/23 Range/Units 11:13 RBC (3.80-5.40) m/uL Hgb (11.4-16.0) gm/dL Hct (34.0-46.0) % MCV (80.0-100.0) fL Sodium (137-145) mmol/L Potassium (3.5-5.1) mmol/L Chloride (98-107) mmol/L Carbon Dioxide (21.6-31.8) mmol/L BUN (9.0-27.0) mg/dL Creatinine (0.6-1.5) mg/dL Est GFR (CKD-EPI) (>=60) BUN/Creatinine Ratio (12.00-20.00) Ratio Glucose (70-110) mg/dL POC Glucose (mg/dL) 188 H (70-110) mg/dL Calcium (8.7-10.3) mg/dL Total Protein (6.3-8.2) g/dL Albumin (3.5-5.0) g/dL Assessment and Plan Assessment: 1. Acute kidney injury secondary to ATN secondary to cardiorenal syndrome. Renal function little worse from diuresis and borderline low blood pressure in the setting of use of angiotensin receptor blockers, currently off of Cozaar.. Creatinine 2.4 today Nonoliguric. Renal ultrasound from earlier this month showed atrophic kidneys without any hydronephrosis. 2. Acute on chronic diastolic CHF. 3. Volume overload. Improved with diuresis. 4. Anemia of chronic kidney disease. Iron replete. 5. Hypertension with chronic kidney disease. Controlled. 6. Diabetes mellitus. 7. Primary hyperparathyroidism maintained on Sensipar. Plan: continue to hold Sensipar for now with monitoring of calcium levels. Continue off of Lasix Continue off of potassium overall prognosis is guarded.
--- NOTE | 2023-11-05 13:46 | P.PN ---
Subjective Progress Note Date: 11/05/23 This is a 83-year-old female with a past medical history significant for atrial fibrillation, congestive heart failure, chronic kidney disease, hyperlipidemia, and minimal CAD. Patient used to follow in the office with Dr. Soriano but has not been seen since March 2020. We have been asked to see the patient in consultation for congestive heart failure. Patient examined at the bedside. Patient states she initially presented to the hospital with a chief complaint of shortness of breath. She states she has been feeling short of breath for approximately the past week. She states she has been compliant with her medications at home. She also reports having some mild right-sided chest pain at home but denies any chest pain or pressure at the time of examination. Patient has been started on IV diuretics. Vital signs are stable. Patient was found to be in atrial fibrillation with controlled ventricular rate. She does have a history of atrial fibrillation and is anticoagulated on an outpatient basis. Previous EKG from July 2023 revealed sinus mechanism. DIAGNOSTICS: - EKG reveals atrial fibrillation with controlled ventricular rate. - Chest xray cardiomegaly with thoracic aorta ectasia stable. Correlate for mild venous congestion or interstitial pneumonitis. Stable right hemidiaphragm elevation could be associated with phrenic nerve palsy. Right basilar atelectasis favored over pneumonia. - Laboratory data: WBC 5.5. Hemoglobin 9.8. Platelet count 146. D-dimer 1.65. Sodium 136. Potassium 3.8. BUN 55. Creatinine 1.72. Troponin negative x 1. proBNP 20,600. - Current home cardiac medications include losartan 100 mg daily, aspirin 81 mg daily, Lasix 40 mg daily, Lipitor 20 mg daily, and metoprolol tartrate 12.5 mg daily. -Echocardiogram obtained this admission reveals ejection fraction 40 to 45%, mild , RVSP 45 mmHg - Cardiac catheterization history: 2019 revealing minimal CAD 11/01/2023 Patient examined this morning. She is sitting up in the chair. Patient currently denies chest pain or pressure. She continues to report shortness of breath. She remains on IV Lasix 40 mg every 12 hours. Kidney function from this morning is pending. CT chest completed revealing pulmonary vascular congestion, pulmonary hypertension, cardiomegaly, and trace bilateral pleural effusions. November 02, 2023 BP 116/57, heart rate 71 bpm, Labs shows creatinine 2.35 creatinine was 1.9, on admission 1.7, hemoglobin 8.1 November 03, 2023 Systolic blood pressure 100 210 mmHg, diastolic 50s to 60s mmHg, heart rate 60s to 70s beats per minute, currently in sinus rhythm with PVCs on telemetry. Labs shows creatinine of 2.4 which is, stable as compared to yesterday. On admission it was around 1.7. Hemoglobin has been stable no concerns of bleeding. Patient is lethargic today. She reports very poor appetite today she has not wanted to eat food. She is laying in bed. I have encouraged her to sit up in the chair and eat her lunch. She does not appear significantly volume overloaded at this time. I will back off on diuretics at this time especially because of her higher creatinine than baseline. She does have big body habitus which makes assessment of fluid status difficult. 11/03 Due to bradycardia, beta-david was decreased to 12.5 mg twice daily and this morning beta-david was held for heart rate of 4458. We will request telemetry monitoring. With regards to drop in hemoglobin patient denies having any blood in her stool. Blood pressure 126/61, pulse ox 96% on 3 L nasal cannula. Repeat blood work reveals WBC 7.7, hemoglobin 7.8. Sodium 137, potassium 5.3, chloride 94, CO2 37, BUN 61 and creatinine 2.3. Entresto and diuretics on hold due to worsening renal function. 11/04 Patient has no new concerns. Breathing seems to be okay today. She denies having any chest pain. Blood pressure 111/61, heart rate 45129, pulse ox 98% on 2 L nasal cannula. Repeat blood work reveals WBC 7.2, hemoglobin 8.5. Sodium 134, potassium 5.2, chloride 95, CO2 37, BUN 70 creatinine 2.45. Patient has been maintained off Lasix, potassium and also off Entresto. Discharge plan is in place for her to be discharged today or tomorrow with palliative care. Case has been discussed by Dr. Poole with Dr. Alonso. PHYSICAL EXAM: VITAL SIGNS: Reviewed. GENERAL: Well-developed in no acute distress. HEENT: Head is normocephalic. Pupils are equal, round. Sclerae anicteric. Mucous membranes of the mouth are moist. Neck supple. Positive JVD LUNGS: Respirations even and unlabored. Lungs diminished HEART: Irregular rate and rhythm. S1 and S2 heard. Positive S3. Systolic murmur noted ABDOMEN: Soft. Nondistended. Nontender. EXTREMITIES: Normal range of motion. No clubbing or cyanosis. Peripheral pulses intact. 1+ pitting bilateral lower extremity edema NEUROLOGIC: Awake and alert. Oriented x 3. ASSESSMENT: Shortness of breath Acute on chronic heart failure with reduced EF, 40 to 45% Elevated D-dimer, rule out PE Nonischemic cardiomyopathy Minimal CAD per cardiac catheterization in 2019 Paroxysmal atrial fibrillation Chronic kidney disease Hypertension Hyperlipidemia Diabetes Morbid obesity: BMI 38.7 PLAN: Continue to hold Lasix, Entresto for another day. Plan to reevaluate and possibly resume tomorrow if kidney function is stable. Lopressor will be discontinued due to bradycardia. Continue telemetry monitoring. Nurse practitioner note has been reviewed, I agree with documented findings and plan of care. Patient was seen and examined. Objective - Vital Signs Vital signs: Vital Signs Temp 98.0 F 11/05/23 06:40 Pulse 100 11/05/23 06:40 Resp 17 11/05/23 06:40 BP 111/61 11/05/23 06:40 Pulse Ox 98 11/05/23 06:40 FiO2 Intake & Output 11/04/23 11/05/23 11/05/23 18:59 06:59 18:59 Weight 98 kg Other: Voiding Method Incontinent Incontinent Incontinent External Catheter External Catheter External Catheter - Labs CBC & Chem 7: 11/05/23 09:20 11/05/23 09:20 Labs: Abnormal Lab Results - Last 24 Hours (Table) 11/04/23 11/04/23 11/04/23 Range/Units 11:07 16:31 20:37 Carbon Dioxide (21.6-31.8) mmol/L BUN (9.0-27.0) mg/dL Creatinine (0.6-1.5) mg/dL Est GFR (CKD-EPI) (>=60) BUN/Creatinine Ratio (12.00-20.00) Ratio Glucose (70-110) mg/dL POC Glucose (mg/dL) 225 H 202 H 215 H (70-110) mg/dL Calcium (8.7-10.3) mg/dL 11/05/23 11/05/23 Range/Units 04:36 05:38 Carbon Dioxide 35.4 H (21.6-31.8) mmol/L BUN 66.0 H (9.0-27.0) mg/dL Creatinine 2.3 H (0.6-1.5) mg/dL Est GFR (CKD-EPI) 21 L (>=60) BUN/Creatinine Ratio 28.70 H (12.00-20.00) Ratio Glucose 117 H (70-110) mg/dL POC Glucose (mg/dL) 126 H (70-110) mg/dL Calcium 8.6 L (8.7-10.3) mg/dL
[2023-11-05 17:01] LABS: Glucose,Whole Blood 232 mg/dL (70-110)
[2023-11-05 20:12] LABS: Glucose,Whole Blood 167 mg/dL (70-110)
[2023-11-06 05:42] LABS: Glucose,Whole Blood 139 mg/dL (70-110)
[2023-11-06 08:23] LABS: HCT 26.3 % (37.2-46.3); HGB 7.9 g/dL (12.0-15.0); MCH 30.4 pg (27.0-32.0); MCV 101.2 FL (80.0-97.0); Mean Platelet Volume 11.4 FL (9.5-12.2); NRBC Per 100 WBC 0 X 10*3/uL (0.00-0.01); Platelet Count 201 X 10*3/uL (140-440); WBC 7.79 X 10*3/uL (4.50-10.00)
--- NOTE | 2023-11-06 09:04 | P.DS ---
Providers Date of admission: 10/30/23 17:11 Attending physician: Jono Andujar Consults: 10/30/23 17:10 Consult Physician Routine Consulting Provider: Jurgen Sidhu Consult Reason/Comments: cri Do you want consulting provider notified?: Yes Consult Physician Routine Consulting Provider: Cat Soriano Consult Reason/Comments: chf Do you want consulting provider notified?: Yes 10/31/23 07:32 Consult Physician Routine Consulting Provider: Concetta Cullen Consult Reason/Comments: Large Pleural effusion, ?? PE Do you want consulting provider notified?: Yes Primary care physician: General Acute Hospital Course: HISTORY OF PRESENT ILLNESS: 83-year-old female one of our office patient for many years who was hospitalized last time at [facility] on 08/02/2023 till at least 08/15/2023 with acute coronary syndrome along with non-ST ND and generalized weakness and fatigue. She had quite with dyspnea and significant hypoxia with shortness of breath the time she was having headache with lightheadedness on and off complaining of worsening bowel movement with abdominal pain and worsening IBS at the time. With the finding on that admission of non-ST ND, acute CHF with ejection fraction about 45 percentile, acute hypoxic respiratory failure with worsening abdominal pain. She was treated seen cardiology her echocardiogram came back with left ventricular hypertrophy moderate dilatation ROXANNA from 2019 moderate mitral regurgitation and PFO. Also she was having PACs and PVCs at the time with elevated troponin with cardiology decided to do a nuclear stress test norm al heart cath: Her last catheter was in 2019 with finding consistent with minimal coronary artery disease at the time. 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 She ended up in the emergency department at [facility] and was hospitalized for the last 7 days with worsening dyspnea and shortness of breath with worsening congestive heart failure exacerbation patient and complain that hospital was trying to discharge her home ISAAC her symptoms and complaining was not addressed and never cleared. Patient apparently and the bleeding [facility] today and the and [facility] with complaint again of dyspnea and shortness of breath severe generalized weakness fatigue debility not been able to ambulate and walk. Surprisingly few other finding with examination including mild anemia with hemoglobin of 9.8, negative troponin elevated D-dimer worsening kidney function with creatinine of 1.72 BNP was 20,600 slightly abnormal liver function test and COVID RSV with influenza we re negative from her other hospitalization. EKG sadly shows atrial fibrillation with pulse rate running around 93 beats per minutes. Chest x-ray consistent with cardiomegaly with thoracic aortic ectasia stable correlate for mild venous congestion or interstitial pneumonitis stable right Prasad diaphragm elevation could be associated with phrenic nerve paralysis with right basilar atelectasis favored over pneumonia. 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 Was started on oxygen, IV diuretics, patient will be hospitalized to see cardiology, nephrology and probably pulmonary aggressive diuretics management will be done for now pulse rate will be treated with probably smaller dose of beta-david patient might require to be on anticoagulation. For the elevated D-dimer I would love doing CTA but with kidney failure is not a good choice wait start patient on Eliquis 5 mg twice a day for now and as soon as you are able to do either CTA or VQ scan to exclude the possibility of pulmonary embolism will be done. Despite the ejection fraction in July was 40-45 percentile patient will benefit from doing another echocardiogram this time. 10/31/2023: Patient slept the night in bed flat has been feeling slightly better with oxygen on, with IV diuretics has done well, reviewed chest x-ray from last night she had a quite good pleural effusion on the right side with quite a bit of consolidation as well but there is no sign of infection. Also her D-dimer was elevated was safely should do VQ scan since not able to do CTA but patient is already on anticoagulation at this point. Also patient still in A-fib at this point with pulse rate is running in the 90s with beta-david and Eliquis should be able to control the pulse rate patient be seen cardiology today as well. 11/01/2023: Patient continued to improve slight bed, she had acute kidney injury from cardiorenal syndrome seen nephrology agreed to lower any nephrotoxic agent while watching for her fluid overload at this point. The patient is known to have chronic kidney disease continue to support her hemoglobin and iron nephrology had added Diamox to 50 mg IV once daily also added iron aspirate this point. With cardiology review her ejection fraction at 40-45 percentile similar to what she had last time she has some atherosclerotic blockage back in 2019 could not do angioplasty at the time still on medical management currently. Again agreed to continue furosemide at 40 mg every 12 hours patient eventually probably can benefit from adding Entresto and spironolactone. As for her hypoxic respiratory failure including her right-sided diaphragmatic paralysis not much can be done for it and asking pulmonary to see patient for possible PE her kidney function still bad patient was started on anticoagulation which whether she does CT or not would not be important anymore will continue anticoagulation and continue to treat her A-fib. Apparently patient and plan to go to [facility] at discharge. 11/02/2023: Patient is doing slightly better did not require any thoracentesis, with the adjustment of her medication including start Entresto spironolactone will watch the kidney function next 24 hours patient apparently will be going to [facility] probably the plan To discharge on Saturday. Titrate medication gradually if she is able to tolerate it and she might still need to be on O2. 11/03/2023: The patient is doing slightly bit better, apparently known very well to pulmonary for caring for her for the last 2 and half to 3 weeks at [facility] continue to see significant improvement in her oxygenation and number overall, the lab value creatinine is up to 2.35 need to watch carefully with her diuretics with aggressive management especially after starting Entresto. Also from cardiology standpoint specially with value she had with her ejection fraction being 40-45 percentile her medications specially her Lasix at night will be held also will hold her Entresto and DC if her creatinine continues to decline. Patient kidney function was worsening before her Entresto started at the time. Again continue supportive care patient is DO NOT RESUSCITATE at this point and the plan probably to go to [facility] if possible on Saturday. I with the in detail explained to him the multi comorbidity patient has and severe diaphragmatic paralysis that will make her shortness of breath worse no matter what done also explained to have a combination of mild COPD, diastolic heart failure, A-fib, fluid overload and anemia will always play a higher risk to increase her shortness of breath no matter what done. 11/04/2023: Patient is lying in bed comfortably she still on O2 pulse ox running about 90 percentile on 2 L. Kidney function slightly bit worse, hemoglobin is at 8.1 does not require any blood transfusion. After discussion with her yesterday continue to adjust medication today hoping the kidney function will improve. Apparently patient will be going to full assisted living and [facility] [place] either later today or tomorrow it will depend on her lab today. Family especially the are aware of patient comorbidity and risk factor the possibility of worsening shortness of breath [id number] from day-to-day basis will be very high. No thoracentesis was required, with her anemia slightly worse patient remain on medical management. 11/05/2023: Was seen and evaluated today she had an episode of itching and dry skin had to use calamine lotion to help without. Her shortness of breath slightly better but more like the same. Patient was able to move upper bed to the chair with slight help yesterday. I spoke with the family Yesterday apparently they are making arrangements for her to go to the [facility] in [place] on palliative care initially and their plan when she declined more and require hospice the same place with provide hospice at the time. If her place is ready today she can be discharged if not she will be discharged at this place tomorrow according to her family. REVIEW OF SYSTEMS: CONSTITUTIONAL: Mildly overweight mild respiratory distress. EYES: No icterus sclerae, no conjunctivitis. EARS, NOSE, MOUTH, THROAT, and FACE: No sore throat, lymphadenopathy, carotid bruits or deformity. RESPIRATORY: Slight shortness of breath with cough and wheezes. CARDIOVASCULAR: Positive PND orthopnea palpitation. GASTROINTESTINAL: Slight abdominal discomfort with nausea no vomiting. GENITOURINARY: Positive for decreased urine output no hematuria no infection. INTEGUMENT/BREAST: Generalized arthralgia and myalgia. HEMATOLOGIC/LYMPHATIC: Negative for bleed or purpura. MUSCULOSKELTAL: Generalized myalgia with slight increased swelling in lower extremity. NEURLOGICAL: No LOC, Sz or syncope, blurred vision dizziness or abnormality.. BEHAVIORAL/PSYCH: Negative. ENDOCRINE: Negative. PHYSICAL EXAMINATION: General Appearance: Alert, cooperative, mild respiratory distress. Neck HEENT: Supple, no lymphadenopathy, no thyroid enlargement, no carotid bruits. Lungs: Decreased breath sound bilaterally with fine rhonchi positive crackles in the bases positive mild expiratory wheezes. Chest Wall: Decreased expansion with deep inspiration no tenderness and no deformity was found on exam, no costochondral pain or discomfort. Heart: Irregular rate and rhythm, S1, S2 positive tachycardia, positive irregularity with systolic murmur. Back: Has mild scoliosis with slight lower back discomfort. Abdomen: Midepigastric and mid abdominal region discomfort with no rebound or rigidity. Extremities: Chronic change from the knee down bilaterally with chronic vascular cellulitis 1-2+ edema. Pulses: Decreased pulse bilaterally. Skin: Skin color, texture, tugor normal, no rashes or lesions. Neurologic: Alert oriented x3 cranial nerves II through XII intact, positive generalized weakness but normal balance and gait. Patient is not able to ambulate on her own. ASSESSMENT AND PLAN: _Severe dyspnea and shortness of breath: Combination of congestive heart failure, anemia, atrial fibrillation, possible pulmonary embolism, and fluid overload. Along with pleural effusion. She did not require any thoracentesis _Acute on chronic systolic congestive heart failure with mild exacerbation: With a significant decline in kidney function trying to be quite careful with diuretics along with ARB or JEFF. Continue to adjust her medication watching her kidney function today. _A-fib with RVR: Her pulse rate becomes lower her metoprolol is down to 12.5 mg, she is still on anticoagulation. 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 Sadly no management or treatment available for her. _Anemia: Mild mostly chronic disease, iron supplement multivitamin will be done. _Acute kidney injury with chronic kidney disease stage IIIb: With the advanced medication specially diuretics her kidney function is slightly bit worse more advanced into stage IV we will watch her creatinine kidney function also watch electrolyte balance. _Recent history of known ST ND with no anatomy known at this point last heart cath was done in 2020 continue get medical management. _Elevated D-dimer with possible pulmonary embolism: Likely see a finding PE with VQ scan is not having. Patient was started on Eliquis as an anticoagulation dose eventually will be down to 2.5 mg twice a day which the possibility of pulmonary embolism slightly bit less at this point with being on anticoagulation will be more helpful. _Type 2 diabetes: Insulin will be replaced with Tradjenta 5mg daily. _Hypertension: Blood pressure is much better despite holding ARB and Entresto along with spironolactone. _Hyperlipidemia: Continue atorvastatin 20 mg a day. Prognosis: Guarded. Discussion: Family are fully aware of her comorbidity and her higher risk of more complication including return to the hospital, there are arrangement this time to go into palliative care and when she declined more she is going to require hospice care in the same place which will be in the same assisted place she is going to go to from here. Hospital course: She was admitted to [facility] after almost 2 weeks seen and reviewed this with hospital for the same complaint with his dyspnea and shortness of breath being followed by cardiology and pulmonary patient at this point found to be in chronic respiratory failure have elevated D-dimer positive A-fib with pulse rate running at 90 bpm. Also found to be in acute on chronic kidney disease been watched by nephrology. Was giving initially Diamox to 50 mg IV along with iron supplement. Review her ejection fraction was 40-45 percentile patient was on furosemide initially IV and then try to add Entresto and spironolactone on the patient bite and had worsening kidney function both Entresto spironolactone was stopped immediately patient continue to see cardiology and nephrology on regular basis. Also patient has pleural effusion initially was going through the idea might benefit from thoracentesis but the amount itself was minimal and did not require any. Having to deal with combination of right diaphragmatic paralysis, COPD exacerbation, bilateral pneumonia, CHF exacerbation and mostly diastolic with mild systolic, along with pleural effusion and A-fib with worsening kidney function had complicated with this quite bit. Patient was watched by multi specialist service for all the time she was in the hospital for communication with the family on more regular basis including the and the guardian th eir original plan was to have patient moved to full assisted living and the family reach a conclusion apparently talking to the place given the idea of doing palliative care for patient initially in case she decline further and need hospice care can be provided in the same place. Patient still mildly anemic does not require any transfusion but she is stable on current medication and she is feeling little bit better. Patient be transferred today to her assisted living with follow-up with cardiology, pulmonary and nephrology. Time spent on discharging patient was over 40 minutes. Plan - Discharge Summary Discharge Rx Participant: Yes New Discharge Prescriptions: New Darbepoetin Karthik [Aranesp] 40 mcg SQ Q7D each carvediloL [Coreg] 3.125 mg PO BID #60 tablet Losartan [Cozaar] 25 mg PO DAILY #30 tab Apixaban [Eliquis] 2.5 mg PO BID tab Linagliptin [Tradjenta] 5 mg PO DAILY #30 tab Calamine/Zinc Oxide Lotion [Calamine Lotion] 1 applic TOPICAL TID PRN each PRN Reason: Skin Irritation Continue Atorvastatin [Lipitor] 20 mg PO DAILY tab Albuterol Nebulized [Ventolin Nebulized] 2.5 mg INHALATION RT-QID PRN ml PRN Reason: Shortness Of Breath Or Wheezing Aspirin EC [Ecotrin Low Dose] 81 mg PO DAILY Budesonide [Pulmicort Flexhaler] 2 puff INHALATION RT-BID Magnesium Oxide [Magox 400] 400 mg PO DIRECTED Montelukast [Singulair] 10 mg PO HS Furosemide [Lasix] 40 mg PO DAILY #0 ALPRAZolam [Xanax] 0.25 mg PO BID PRN #60 tab PRN Reason: Anxiety Nitroglycerin Sl Tabs [Nitrostat] 0.4 mg SUBLINGUAL Q5M PRN tab PRN Reason: Chest Pain Acetaminophen Tab [Tylenol] 650 mg PO Q6HR PRN tab PRN Reason: Fever And/ Or Pain Nystatin 100,000 Unit/gm Powd [Mycostatin Powder] 1 applic TOPICAL BID Escitalopram Oxalate [Lexapro] 20 mg PO DAILY Fluconazole 150 mg PO MO Omeprazole [PriLOSEC] 20 mg PO DAILY Discontinued Insulin Lispro [humaLOG Kwikpen] See Protocol SQ ACHS Lidocaine 4% Patch 1 patch TOPICAL DAILY Potassium Chloride [Klor-Con M20] 20 meq PO DIRECTED Tamsulosin HCl [Flomax] 0.4 mg PO DIRECTED Cinacalcet [Sensipar] 30 mg PO DAILY #30 tablet Losartan Potassium [Cozaar] 100 mg PO DAILY Metoprolol Tartrate [Lopressor] 12.5 mg PO BID Discharge Medication List Acetaminophen Tab [Tylenol] 650 mg PO Q6HR PRN tab 08/15/23 [Rx] Albuterol Nebulized [Ventolin Nebulized] 2.5 mg INHALATION RT-QID PRN ml 08/15/23 [Rx] Atorvastatin [Lipitor] 20 mg PO DAILY tab 08/15/23 [Rx] Nitroglycerin Sl Tabs [Nitrostat] 0.4 mg SUBLINGUAL Q5M PRN tab 08/15/23 [Rx] Aspirin EC [Ecotrin Low Dose] 81 mg PO DAILY 10/30/23 [History] Budesonide [Pulmicort Flexhaler] 2 puff INHALATION RT-BID 10/30/23 [History] Escitalopram Oxalate [Lexapro] 20 mg PO DAILY 10/30/23 [History] Fluconazole 150 mg PO MO 10/30/23 [History] Magnesium Oxide [Magox 400] 400 mg PO DIRECTED 10/30/23 [History] Montelukast [Singulair] 10 mg PO HS 10/30/23 [History] Nystatin 100,000 Unit/gm Powd [Mycostatin Powder] 1 applic TOPICAL BID 10/30/23 [History] Omeprazole [PriLOSEC] 20 mg PO DAILY 10/30/23 [History] ALPRAZolam [Xanax] 0.25 mg PO BID PRN #60 tab 11/06/23 [Rx] Apixaban [Eliquis] 2.5 mg PO BID tab 11/06/23 [Rx] Calamine/Zinc Oxide Lotion [Calamine Lotion] 1 applic TOPICAL TID PRN each 11/06/23 [Rx] Darbepoetin Karthik [Aranesp] 40 mcg SQ Q7D each 11/06/23 [Rx] Furosemide [Lasix] 40 mg PO DAILY #0 11/06/23 [Rx] Linagliptin [Tradjenta] 5 mg PO DAILY #30 tab 11/06/23 [Rx] Losartan [Cozaar] 25 mg PO DAILY #30 tab 11/06/23 [Rx] carvediloL [Coreg] 3.125 mg PO BID #60 tablet 11/06/23 [Rx] Follow up Appointment(s)/Referral(s): Concetta Cullen MD [STAFF PHYSICIAN] - 1 Week Migdalia Austin MD [STAFF PHYSICIAN] - 1 Week Cat Soriano MD [STAFF PHYSICIAN] - 1 Week Roslyn Xie MD [Primary Care Provider] - 1-2 days Discharge Disposition: TRANSFER TO SNF/ECF
--- NOTE | 2023-11-06 10:19 | P.PN ---
Subjective Progress Note Date: 11/06/23 This is a 83-year-old female with a past medical history significant for atrial fibrillation, congestive heart failure, chronic kidney disease, hyperlipidemia, and minimal CAD. Patient used to follow in the office with Dr. Soriano but has not been seen since March 2020. We have been asked to see the patient in consultation for congestive heart failure. Patient examined at the bedside. Patient states she initially presented to the hospital with a chief complaint of shortness of breath. She states she has been feeling short of breath for approximately the past week. She states she has been compliant with her medications at home. She also reports having some mild right-sided chest pain at home but denies any chest pain or pressure at the time of examination. Patient has been started on IV diuretics. Vital signs are stable. Patient was found to be in atrial fibrillation with controlled ventricular rate. She does have a history of atrial fibrillation and is anticoagulated on an outpatient basis. Previous EKG from July 2023 revealed sinus mechanism. DIAGNOSTICS: - EKG reveals atrial fibrillation with controlled ventricular rate. - Chest xray cardiomegaly with thoracic aorta ectasia stable. Correlate for mild venous congestion or interstitial pneumonitis. Stable right hemidiaphragm elevation could be associated with phrenic nerve palsy. Right basilar atelectasis favored over pneumonia. - Laboratory data: WBC 5.5. Hemoglobin 9.8. Platelet count 146. D-dimer 1.65. Sodium 136. Potassium 3.8. BUN 55. Creatinine 1.72. Troponin negative x 1. proBNP 20,600. - Current home cardiac medications include losartan 100 mg daily, aspirin 81 mg daily, Lasix 40 mg daily, Lipitor 20 mg daily, and metoprolol tartrate 12.5 mg daily. -Echocardiogram obtained this admission reveals ejection fraction 40 to 45%, mild , RVSP 45 mmHg - Cardiac catheterization history: 2019 revealing minimal CAD 11/01/2023 Patient examined this morning. She is sitting up in the chair. Patient currently denies chest pain or pressure. She continues to report shortness of breath. She remains on IV Lasix 40 mg every 12 hours. Kidney function from this morning is pending. CT chest completed revealing pulmonary vascular congestion, pulmonary hypertension, cardiomegaly, and trace bilateral pleural effusions. November 02, 2023 BP 116/57, heart rate 71 bpm, Labs shows creatinine 2.35 creatinine was 1.9, on admission 1.7, hemoglobin 8.1 November 03, 2023 Systolic blood pressure 100 210 mmHg, diastolic 50s to 60s mmHg, heart rate 60s to 70s beats per minute, currently in sinus rhythm with PVCs on telemetry. Labs shows creatinine of 2.4 which is, stable as compared to yesterday. On admission it was around 1.7. Hemoglobin has been stable no concerns of bleeding. Patient is lethargic today. She reports very poor appetite today she has not wanted to eat food. She is laying in bed. I have encouraged her to sit up in the chair and eat her lunch. She does not appear significantly volume overloaded at this time. I will back off on diuretics at this time especially because of her higher creatinine than baseline. She does have big body habitus which makes assessment of fluid status difficult. 11/03 Due to bradycardia, beta-david was decreased to 12.5 mg twice daily and this morning beta-david was held for heart rate of 4458. We will request telemetry monitoring. With regards to drop in hemoglobin patient denies having any blood in her stool. Blood pressure 126/61, pulse ox 96% on 3 L nasal cannula. Repeat blood work reveals WBC 7.7, hemoglobin 7.8. Sodium 137, potassium 5.3, chloride 94, CO2 37, BUN 61 and creatinine 2.3. Entresto and diuretics on hold due to worsening renal function. 11/04 Patient has no new concerns. Breathing seems to be okay today. She denies having any chest pain. Blood pressure 111/61, heart rate 88340, pulse ox 98% on 2 L nasal cannula. Repeat blood work reveals WBC 7.2, hemoglobin 8.5. Sodium 134, potassium 5.2, chloride 95, CO2 37, BUN 70 creatinine 2.45. Patient has been maintained off Lasix, potassium and also off Entresto. Discharge plan is in place for her to be discharged today or tomorrow with palliative care. Case has been discussed by Dr. Poole with Dr. Alonso. 11/05 Patient is scheduled for discharge today. She states her breathing is about the same. She is on home O2. Blood pressure 133/69, heart rate 83, pulse ox 98% on 3 L nasal cannula. Repeat blood work reveals hemoglobin 7.9. PHYSICAL EXAM: VITAL SIGNS: Reviewed. GENERAL: Well-developed in no acute distress. HEENT: Head is normocephalic. Pupils are equal, round. Sclerae anicteric. Mucous membranes of the mouth are moist. Neck supple. Positive JVD LUNGS: Respirations even and unlabored. Lungs diminished HEART: Irregular rate and rhythm. S1 and S2 heard. Positive S3. Systolic murmur noted ABDOMEN: Soft. Nondistended. Nontender. EXTREMITIES: Normal range of motion. No clubbing or cyanosis. Peripheral pulses intact. 1+ pitting bilateral lower extremity edema NEUROLOGIC: Awake and alert. Oriented x 3. ASSESSMENT: Shortness of breath Acute on chronic heart failure with reduced EF, 40 to 45% Elevated D-dimer, rule out PE Nonischemic cardiomyopathy Minimal CAD per cardiac catheterization in 2019 Paroxysmal atrial fibrillation Chronic kidney disease Hypertension Hyperlipidemia Diabetes Morbid obesity: BMI 38.7 PLAN: Continue current cardiac medications Patient is cleared from cardiology for discharge and may follow-up with Dr. Soriano in 1 to 2 weeks. Nurse practitioner note has been reviewed, I agree with documented findings and plan of care. Patient was seen and examined. Objective - Vital Signs Vital signs: Vital Signs Temp 98.6 F 11/06/23 07:10 Pulse 83 11/06/23 07:10 Resp 17 11/06/23 07:10 BP 133/69 11/06/23 07:10 Pulse Ox 98 11/06/23 07:10 FiO2 Intake & Output 11/05/23 11/06/23 11/06/23 18:59 06:59 18:59 Intake Total 200 Output Total 400 Balance -200 Weight 97 kg Intake: Oral 200 Output: Urine 400 Other: Voiding Method External Catheter External Catheter # Bowel Movements 1 - Labs CBC & Chem 7: 11/06/23 04:25 11/05/23 09:20 Labs: Abnormal Lab Results - Last 24 Hours (Table) 11/05/23 11/05/23 11/05/23 Range/Units 04:36 09:20 09:20 RBC 2.69 L (3.80-5.40) m/uL Hgb 8.5 L (11.4-16.0) gm/dL Hct 27.3 L (34.0-46.0) % MCV 101.6 H (80.0-100.0) fL MCHC (32.0-37.0) g/dL Sodium 134 L (137-145) mmol/L Potassium 5.2 H (3.5-5.1) mmol/L Chloride 95 L (98-107) mmol/L Carbon Dioxide 35.4 H 37 H (21.6-31.8) mmol/L BUN 66.0 H 70 H (9.0-27.0) mg/dL Creatinine 2.3 H 2.45 H (0.6-1.5) mg/dL Est GFR (CKD-EPI) 21 L (>=60) BUN/Creatinine Ratio 28.70 H (12.00-20.00) Ratio Glucose 117 H 160 H (70-110) mg/dL POC Glucose (mg/dL) (70-110) mg/dL Calcium 8.6 L (8.7-10.3) mg/dL Total Protein 5.1 L (6.3-8.2) g/dL Albumin 2.7 L (3.5-5.0) g/dL 11/05/23 11/05/23 11/05/23 Range/Units 11:13 17:00 20:10 RBC (3.80-5.40) m/uL Hgb (11.4-16.0) gm/dL Hct (34.0-46.0) % MCV (80.0-100.0) fL MCHC (32.0-37.0) g/dL Sodium (137-145) mmol/L Potassium (3.5-5.1) mmol/L Chloride (98-107) mmol/L Carbon Dioxide (21.6-31.8) mmol/L BUN (9.0-27.0) mg/dL Creatinine (0.6-1.5) mg/dL Est GFR (CKD-EPI) (>=60) BUN/Creatinine Ratio (12.00-20.00) Ratio Glucose (70-110) mg/dL POC Glucose (mg/dL) 188 H 232 H 167 H (70-110) mg/dL Calcium (8.7-10.3) mg/dL Total Protein (6.3-8.2) g/dL Albumin (3.5-5.0) g/dL 11/06/23 11/06/23 Range/Units 04:25 05:41 RBC 2.60 L (3.80-5.40) m/uL Hgb 7.9 L (11.4-16.0) gm/dL Hct 26.3 L (34.0-46.0) % MCV 101.2 H (80.0-100.0) fL MCHC 30.0 L (32.0-37.0) g/dL Sodium (137-145) mmol/L Potassium (3.5-5.1) mmol/L Chloride (98-107) mmol/L Carbon Dioxide (21.6-31.8) mmol/L BUN (9.0-27.0) mg/dL Creatinine (0.6-1.5) mg/dL Est GFR (CKD-EPI) (>=60) BUN/Creatinine Ratio (12.00-20.00) Ratio Glucose (70-110) mg/dL POC Glucose (mg/dL) 139 H (70-110) mg/dL Calcium (8.7-10.3) mg/dL Total Protein (6.3-8.2) g/dL Albumin (3.5-5.0) g/dL
[2023-11-06] MEDS: FUROSEMIDE 10 MG/ML 4 ML VIAL IV ONE (11:13)
[2023-11-06 11:39] LABS: Glucose,Whole Blood 313 mg/dL (70-110)
[2023-11-06 11:56] VITALS: BMI 39.1
--- NOTE | 2023-11-06 12:50 | P.PN ---
Subjective patient is seen for follow-up for acute kidney injury and chronic kidney disease. Patient has been diuresed. Lasix now discontinued Volume status has improved. Cozaar discontinued on 11/01/2023 Blood pressure remains on the lower side. serum creatinine staying at 2.3-2.4 mg/dL. Patient has an external catheter. no significant complaints today. legs are more swollen today. Objective - Vital Signs Vital signs: Vital Signs Temp 98.6 F 11/06/23 07:10 Pulse 83 11/06/23 07:10 Resp 17 11/06/23 07:10 BP 133/69 11/06/23 07:10 Pulse Ox 98 11/06/23 07:10 FiO2 Intake & Output 11/05/23 11/06/23 11/06/23 18:59 06:59 18:59 Intake Total 200 Output Total 400 Balance -200 Weight 97 kg 97 kg Intake: Oral 200 Output: Urine 400 Other: Voiding Method External Catheter External Catheter External Catheter # Bowel Movements 1 - Exam patient is awake, comfortable, no acute distress Examination of the heart S1 and S2 Examination of the lungs bilateral breath sounds are heard Abdomen is soft nontender Examination of lower extremity shows edema 2+ bilaterally [employer] exam grossly intact - Labs CBC & Chem 7: 11/06/23 04:25 11/05/23 09:20 Labs: Abnormal Lab Results - Last 24 Hours (Table) 11/05/23 11/05/23 11/06/23 Range/Units 17:00 20:10 04:25 RBC 2.60 L (4.10-5.20) X 10*6/uL Hgb 7.9 L (12.0-15.0) g/dL Hct 26.3 L (37.2-46.3) % MCV 101.2 H (80.0-97.0) FL MCHC 30.0 L (32.0-37.0) g/dL POC Glucose (mg/dL) 232 H 167 H (70-110) mg/dL 11/06/23 11/06/23 Range/Units 05:41 11:38 RBC (4.10-5.20) X 10*6/uL Hgb (12.0-15.0) g/dL Hct (37.2-46.3) % MCV (80.0-97.0) FL MCHC (32.0-37.0) g/dL POC Glucose (mg/dL) 139 H 313 H (70-110) mg/dL Assessment and Plan Assessment: 1. Acute kidney injury secondary to ATN secondary to cardiorenal syndrome. Renal function little worse from diuresis and borderline low blood pressure in the setting of use of angiotensin receptor blockers, currently off of Cozaar.. Creatinine 2.4 Nonoliguric. Renal ultrasound from earlier this month showed atrophic kidneys without any hydronephrosis. 2. Acute on chronic diastolic CHF. 3. Volume overload. 4. Anemia of chronic kidney disease. Iron replete. 5. Hypertension with chronic kidney disease. Controlled. 6. Diabetes mellitus. 7. Primary hyperparathyroidism maintained on Sensipar. currently on hold as calcium was 8.5 Plan: continue to hold Sensipar for now with monitoring of calcium levels. IV Lasix 1 can resume home dose off oral diuretics starting on 11/08/2023 overall prognosis is guarded.
[2023-11-06 17:19] LABS: Glucose,Whole Blood 140 mg/dL (70-110)
[2023-11-06 21:28] LABS: Glucose,Whole Blood 184 mg/dL (70-110)
[2023-11-07 05:48] LABS: Glucose,Whole Blood 128 mg/dL (70-110)
--- NOTE | 2023-11-07 06:21 | P.PN ---
Subjective Progress Note Date: 11/06/23 HISTORY OF PRESENT ILLNESS: 83-year-old female one of our office patient for many years who was hospitalized last time at [facility] on 08/02/2023 till at least 08/15/2023 with acute coronary syndrome along with non-ST WA and generalized weakness and fatigue. She had quite with dyspnea and significant hypoxia with shortness of breath the time she was having headache with lightheadedness on and off complaining of worsening bowel movement with abdominal pain and worsening IBS at the time. With the finding on that admission of non-ST WA, acute CHF with ejection fraction about 45 percentile, acute hypoxic respiratory failure with worsening abdominal pain. She was treated seen cardiology her echocardiogram came back with left ventricular hypertrophy moderate dilatation ROXANNA from 2019 moderate mitral regurgitation and PFO. Also she was having PACs and PVCs at the time with elevated troponin with cardiology decided to do a nuclear stress test normal heart cath: Her last catheter was in 2019 with finding consistent with minimal coronary artery disease at the time. Patient was treated with medical management after long hospitalization patient was sent to [facility] where she spent in physical therapy and rehab about 2 weeks and ended up going home patient developed to have slightly but worsening symptoms last 10 days with worsening dyspnea and shortness of breath generalized weakness and fatigue not been able to ambulate and walk require more than 1 person first assistant. She ended up in the emergency department at [facility] and was hospitalized for the last 7 days with worsening dyspnea and shortness of breath with worsening congestive heart failure exacerbation patient and complain that hospital was trying to discharge her home ISAAC her symptoms and complaining was not addressed and never cleared. Patient apparently and the bleeding [facility] today and the and [facility] with complaint again of dyspnea and shortness of breath severe generalized weakness fatigue debility not been able to ambulate and walk. Surprisingly few other finding with examination including mild anemia with hemoglobin of 9.8, negative troponin elevated D-dimer worsening kidney function with creatinine of 1.72 BNP was 20,600 slightly abnormal liver function test and COVID RSV with influenza were negative from her other hospitalization. EKG sadly shows atrial fibrillation with pulse rate running around 93 beats per minutes. Chest x-ray consistent with cardiomegaly with thoracic aortic ectasia stable correlate for mild venous congestion or interstitial pneumonitis stable right Prasad diaphragm elevation could be associated with phrenic nerve paralysis with right basilar atelectasis favored over pneumonia. 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 Was started on oxygen, IV diuretics, patient will be hospitalized to see cardiology, nephrology and probably pulmonary aggressive diuretics management will be done for now pulse rate will be treated with probably smaller dose of beta-david patient might require to be on anticoagulation. For the elevated D-dimer I would love doing CTA but with kidney failure is not a good choice wait start patient on Eliquis 5 mg twice a day for now and as soon as you are able to do either CTA or VQ scan to exclude the possibility of pulmonary embolism will be done. Despite the ejection fraction in July was 40-45 percentile patient will benefit from doing another echocardiogram this time. 10/31/2023: Patient slept the night in bed flat has been feeling slightly better with oxygen on, with IV diuretics has done well, reviewed chest x-ray from last night she had a quite good pleural effusion on the right side with quite a bit of consolidation as well but there is no sign of infection. Also her D-dimer was elevated was safely should do VQ scan since not able to do CTA but patient is already on anticoagulation at this point. Also patient still in A-fib at this point with pulse rate is running in the 90s with beta-david and Eliquis should be able to control the pulse rate patient be seen cardiology today as well. 11/01/2023: Patient continued to improve slight bed, she had acute kidney injury from cardiorenal syndrome seen nephrology agreed to lower any nephrotoxic agent while watching for her fluid overload at this point. The patient is known to have chronic kidney disease continue to support her hemoglobin and iron nephrology had added Diamox to 50 mg IV once daily also added iron aspirate this point. With cardiology review her ejection fraction at 40-45 percentile similar to what she had last time she has some atherosclerotic blockage back in 2019 could not do angioplasty at the time still on medical management currently. Again agreed to continue furosemide at 40 mg every 12 hours patient eventually probably can benefit from adding Entresto and spironolactone. As for her hypoxic respiratory failure including her right-sided diaphragmatic paralysis not much can be done for it and asking pulmonary to see patient for possible PE her kidney function still bad patient was started on anticoagulation which whether she does CT or not would not be important anymore will continue anticoagulation and continue to treat her A-fib. Apparently patient and plan to go to [facility] at discharge. 11/02/2023: Patient is doing slightly better did not require any thoracentesis, with the adjustment of her medication including start Entresto spironolactone will watch the kidney function next 24 hours patient apparently will be going to [facility] in [place] probably the plan To discharge on Saturday. Titrate medication gradually if she is able to tolerate it and she might still need to be on O2. 11/03/2023: The patient is doing slightly bit better, apparently known very well to pulmonary for caring for her for the last 2 and half to 3 weeks at [facility] continue to see significant improvement in her oxygenation and number overall, the lab value creatinine is up to 2.35 need to watch carefully with her diuretics with aggressive management especially after starting Entresto. Also from cardiology standpoint specially with value she had with her ejection fraction being 40-45 percentile her medications specially her Lasix at night will be held also will hold her Entresto and DC if her creatinine continues to decline. Patient kidney function was worsening before her Entresto started at the time. Again continue supportive care patient is DO NOT RESUSCITATE at this point and the plan probably to go to [facility] if possible on Saturday. I with the in detail explained to him the multi comorbidity patient has and severe diaphragmatic paralysis that will make her shortness of breath worse no matter what done also explained to have a combination of mild COPD, diastolic heart failure, A-fib, fluid overload and anemia will always play a higher risk to increase her shortness of breath no matter what done. 11/04/2023: Patient is lying in bed comfortably she still on O2 pulse ox running about 90 percentile on 2 L. Kidney function slightly bit worse, hemoglobin is at 8.1 does not require any blood transfusion. After discussion with her hus band yesterday continue to adjust medication today hoping the kidney function will improve. Apparently patient will be going to full assisted living and [facility] either later today or tomorrow it will depend on her lab today. Family especially the are aware of patient comorbidity and risk factor the possibility of worsening shortness of breath [id number] from day-to-day basis will be very high. No thoracentesis was required, with her anemia slightly worse patient remain on medical management. 11/05/2023: Was seen and evaluated today she had an episode of itching and dry skin had to use calamine lotion to help without. Her shortness of breath slightly better but more like the same. Patient was able to move upper bed to the chair with slight help yesterday. I spoke with the family Yesterday apparently they are making arrangements for her to go to the [facility] on palliative care initially and their plan when she declined more and require hospice the same place with provide hospice at the time. If her place is ready today she can be discharged if not she will be discharged at this place tomorrow according to her family. 11/06/2023: Again not ready for discharge apparently waiting for this place at the [facility] seems like her admission there is going to be delayed till tomorrow family has been working with the social service liaison at this place to make this happen all paper are submitted her prescription are sent family request to change her insulin to oral medication the patient was switched to Tradjenta. REVIEW OF SYSTEMS: CONSTITUTIONAL: Mildly overweight mild respiratory distress. EYES: No icterus sclerae, no conjunctivitis. EARS, NOSE, MOUTH, THROAT, and FACE: No sore throat, lymphadenopathy, carotid bruits or deformity. RESPIRATORY: Slight shortness of breath with cough and wheezes. CARDIOVASCULAR: Positive PND orthopnea palpitation. GASTROINTESTINAL: Slight abdominal discomfort with nausea no vomiting. GENITOURINARY: Positive for decreased urine output no hematuria no infection. INTEGUMENT/BREAST: Generalized arthralgia and myalgia. HEMATOLOGIC/LYMPHATIC: Negative for bleed or purpura. MUSCULOSKELTAL: Generalized myalgia with slight increased swelling in lower extremity. NEURLOGICAL: No LOC, Sz or syncope, blurred vision dizziness or abnormality.. BEHAVIORAL/PSYCH: Negative. ENDOCRINE: Negative. PHYSICAL EXAMINATION: General Appearance: Alert, cooperative, mild respiratory distress. Neck HEENT: Supple, no lymphadenopathy, no thyroid enlargement, no carotid bruits. Lungs: Decreased breath sound bilaterally with fine rhonchi positive crackles in the bases positive mild expiratory wheezes. Chest Wall: Decreased expansion with deep inspiration no tenderness and no deformity was found on exam, no costochondral pain or discomfort. Heart: Irregular rate and rhythm, S1, S2 positive tachycardia, positive irregularity with systolic murmur. Back: Has mild scoliosis with slight lower back discomfort. Abdomen: Midepigastric and mid abdominal region discomfort with no rebound or rigidity. Extremities: Chronic change from the knee down bilaterally with chronic vascular cellulitis 1-2+ edema. Pulses: Decreased pulse bilaterally. Skin: Skin color, texture, tugor normal, no rashes or lesions. Neurologic: Alert oriented x3 cranial nerves II through XII intact, positive generalized weakness but normal balance and gait. Patient is not able to ambulate on her own. ASSESSMENT AND PLAN: _Severe dyspnea and shortness of breath: Combination of congestive heart failure, anemia, atrial fibrillation, possible pulmonary embolism, and fluid overload. Along with pleural effusion. She did not require any thoracentesis _Acute on chronic systolic congestive heart failure with mild exacerbation: With a significant decline in kidney function trying to be quite careful with diure tics along with ARB or JEFF. Continue to adjust her medication watching her kidney function today. _A-fib with RVR: Her pulse rate becomes lower her metoprolol is down to 12.5 mg, she is still on anticoagulation. 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 Sadly no management or treatment available for her. _Anemia: Mild mostly chronic disease, iron supplement multivitamin will be done. _Acute kidney injury with chronic kidney disease stage IIIb: With the advanced medication specially diuretics her kidney function is slightly bit worse more advanced into stage IV we will watch her creatinine kidney function also watch electrolyte balance. _Recent history of known ST WA with no anatomy known at this point last heart cath was done in 2019 continue get medical management. _Elevated D-dimer with possible pulmonary embolism: Likely see a finding PE with VQ scan is not having. Patient was started on Eliquis as an anticoagulation dose eventually will be down to 2.5 mg twice a day which the possibility of pulmonary embolism slightly bit less at this point with being on anticoagulation will be more helpful. _Type 2 diabetes: Continue NovoLog with sliding scale coverage for now. If the kidney function will support patient can benefit probably from adding Jardiance 10 mg daily. _Hypertension: Blood pressure is much better despite holding ARB and Entresto along with spironolactone. _Hyperlipidemia: Continue atorvastatin 20 mg a day. Prognosis: Guarded. Discussion: Her discharge still get delay another 24 hours family and social service liaison working with her acceptance to this place for full assisted living with palliative care initially. Objective - Vital Signs Vital signs: Vital Signs Temp 98.4 F 11/06/23 02:54 Pulse 86 11/06/23 02:54 Resp 15 11/05/23 19:26 BP 118/66 11/06/23 02:54 Pulse Ox 98 11/06/23 02:54 FiO2 Intake & Output 11/05/23 11/05/23 11/06/23 06:59 18:59 06:59 Intake Total 200 Output Total 400 Balance -200 Weight 98 kg 97 kg Intake: Oral 200 Output: Urine 400 Other: Voiding Method Incontinent External Catheter External Catheter External Catheter # Bowel Movements 1 - Labs CBC & Chem 7: 11/06/23 04:25 11/05/23 09:20 Labs: Abnormal Lab Results - Last 24 Hours (Table) 11/05/23 11/05/23 11/05/23 Range/Units 04:36 09:20 09:20 RBC 2.69 L (3.80-5.40) m/uL Hgb 8.5 L (11.4-16.0) gm/dL Hct 27.3 L (34.0-46.0) % MCV 101.6 H (80.0-100.0) fL Sodium 134 L (137-145) mmol/L Potassium 5.2 H (3.5-5.1) mmol/L Chloride 95 L (98-107) mmol/L Carbon Dioxide 35.4 H 37 H (21.6-31.8) mmol/L BUN 66.0 H 70 H (9.0-27.0) mg/dL Creatinine 2.3 H 2.45 H (0.6-1.5) mg/dL Est GFR (CKD-EPI) 21 L (>=60) BUN/Creatinine Ratio 28.70 H (12.00-20.00) Ratio Glucose 117 H 160 H (70-110) mg/dL POC Glucose (mg/dL) (70-110) mg/dL Calcium 8.6 L (8.7-10.3) mg/dL Total Protein 5.1 L (6.3-8.2) g/dL Albumin 2.7 L (3.5-5.0) g/dL 11/05/23 11/05/23 11/05/23 Range/Units 11:13 17:00 20:10 RBC (3.80-5.40) m/uL Hgb (11.4-16.0) gm/dL Hct (34.0-46.0) % MCV (80.0-100.0) fL Sodium (137-145) mmol/L Potassium (3.5-5.1) mmol/L Chloride (98-107) mmol/L Carbon Dioxide (21.6-31.8) mmol/L BUN (9.0-27.0) mg/dL Creatinine (0.6-1.5) mg/dL Est GFR (CKD-EPI) (>=60) BUN/Creatinine Ratio (12.00-20.00) Ratio Glucose (70-110) mg/dL POC Glucose (mg/dL) 188 H 232 H 167 H (70-110) mg/dL Calcium (8.7-10.3) mg/dL Total Protein (6.3-8.2) g/dL Albumin (3.5-5.0) g/dL
[2023-11-07 08:17] VITALS: BP 139/67; PULSE 95; RESP 17; TEMP 98.3
--- NOTE | 2023-11-07 11:50 | P.PN ---
Subjective Progress Note Date: 11/07/23 This is a 83-year-old female with a past medical history significant for atrial fibrillation, congestive heart failure, chronic kidney disease, hyperlipidemia, and minimal CAD. Patient used to follow in the office with Dr. Soriano but has not been seen since March 2020. We have been asked to see the patient in consultation for congestive heart failure. Patient examined at the bedside. Patient states she initially presented to the hospital with a chief complaint of shortness of breath. She states she has been feeling short of breath for approximately the past week. She states she has been compliant with her medications at home. She also reports having some mild right-sided chest pain at home but denies any chest pain or pressure at the time of examination. Patient has been started on IV diuretics. Vital signs are stable. Patient was found to be in atrial fibrillation with controlled ventricular rate. She does have a history of atrial fibrillation and is anticoagulated on an outpatient basis. Previous EKG from July 2023 revealed sinus mechanism. DIAGNOSTICS: - EKG reveals atrial fibrillation with controlled ventricular rate. - Chest xray cardiomegaly with thoracic aorta ectasia stable. Correlate for mild venous congestion or interstitial pneumonitis. Stable right hemidiaphragm elevation could be associated with phrenic nerve palsy. Right basilar atelectasis favored over pneumonia. - Laboratory data: WBC 5.5. Hemoglobin 9.8. Platelet count 146. D-dimer 1.65. Sodium 136. Potassium 3.8. BUN 55. Creatinine 1.72. Troponin negative x 1. proBNP 20,600. - Current home cardiac medications include losartan 100 mg daily, aspirin 81 mg daily, Lasix 40 mg daily, Lipitor 20 mg daily, and metoprolol tartrate 12.5 mg daily. -Echocardiogram obtained this admission reveals ejection fraction 40 to 45%, mild , RVSP 45 mmHg - Cardiac catheterization history: 2019 revealing minimal CAD 11/01/2023 Patient examined this morning. She is sitting up in the chair. Patient currently denies chest pain or pressure. She continues to report shortness of breath. She remains on IV Lasix 40 mg every 12 hours. Kidney function from this morning is pending. CT chest completed revealing pulmonary vascular congestion, pulmonary hypertension, cardiomegaly, and trace bilateral pleural effusions. November 02, 2023 BP 116/57, heart rate 71 bpm, Labs shows creatinine 2.35 creatinine was 1.9, on admission 1.7, hemoglobin 8.1 November 03, 2023 Systolic blood pressure 100 210 mmHg, diastolic 50s to 60s mmHg, heart rate 60s to 70s beats per minute, currently in sinus rhythm with PVCs on telemetry. Labs shows creatinine of 2.4 which is, stable as compared to yesterday. On admission it was around 1.7. Hemoglobin has been stable no concerns of bleeding. Patient is lethargic today. She reports very poor appetite today she has not wanted to eat food. She is laying in bed. I have encouraged her to sit up in the chair and eat her lunch. She does not appear significantly volume overloaded at this time. I will back off on diuretics at this time especially because of her higher creatinine than baseline. She does have big body habitus which makes assessment of fluid status difficult. 11/03 Due to bradycardia, beta-david was decreased to 12.5 mg twice daily and this morning beta-david was held for heart rate of 4458. We will request telemetry monitoring. With regards to drop in hemoglobin patient denies having any blood in her stool. Blood pressure 126/61, pulse ox 96% on 3 L nasal cannula. Repeat blood work reveals WBC 7.7, hemoglobin 7.8. Sodium 137, potassium 5.3, chloride 94, CO2 37, BUN 61 and creatinine 2.3. Entresto and diuretics on hold due to worsening renal function. 11/04 Patient has no new concerns. Breathing seems to be okay today. She denies having any chest pain. Blood pressure 111/61, heart rate 70961, pulse ox 98% on 2 L nasal cannula. Repeat blood work reveals WBC 7.2, hemoglobin 8.5. Sodium 134, potassium 5.2, chloride 95, CO2 37, BUN 70 creatinine 2.45. Patient has been maintained off Lasix, potassium and also off Entresto. Discharge plan is in place for her to be discharged today or tomorrow with palliative care. Case has been discussed by Dr. Poole with Dr. Alonso. 11/05 Patient is scheduled for discharge today. She states her breathing is about the same. She is on home O2. Blood pressure 133/69, heart rate 83, pulse ox 98% on 3 L nasal cannula. Repeat blood work reveals hemoglobin 7.9. 11/06 Patient is actually scheduled for discharge today. She did receive 1 dose of IV Lasix per nephrology this morning and started on oral 40 daily. Patient has no new complaints. Shortness of breath is unchanged. Blood pressure 139/67, heart rate 95, pulse ox 99% on 3 L nasal cannula. PHYSICAL EXAM: VITAL SIGNS: Reviewed. GENERAL: Well-developed in no acute distress. HEENT: Head is normocephalic. Pupils are equal, round. Sclerae anicteric. Mucous membranes of the mouth are moist. Neck supple. Positive JVD LUNGS: Respirations even and unlabored. Lungs diminished HEART: Irregular rate and rhythm. S1 and S2 heard. Positive S3. Systolic murmur noted ABDOMEN: Soft. Nondistended. Nontender. EXTREMITIES: Normal range of motion. No clubbing or cyanosis. Peripheral pulses intact. 1+ pitting bilateral lower extremity edema NEUROLOGIC: Awake and alert. Oriented x 3. ASSESSMENT: Shortness of breath Acute on chronic heart failure with reduced EF, 40 to 45% Elevated D-dimer, rule out PE Nonischemic cardiomyopathy Minimal CAD per cardiac catheterization in 2019 Paroxysmal atrial fibrillation Chronic kidney disease Hypertension Hyperlipidemia Diabetes Morbid obesity: BMI 38.7 PLAN: Continue current cardiac medications Patient is cleared from cardiology for discharge and may follow-up with Dr. Soriano in 1 to 2 weeks. Nurse practitioner note has been reviewed, I agree with documented findings and plan of care. Patient was seen and examined. Objective - Vital Signs Vital signs: Vital Signs Temp 98.3 F 11/07/23 07:10 Pulse 95 11/07/23 07:10 Resp 17 11/07/23 07:10 BP 139/67 11/07/23 07:10 Pulse Ox 99 11/07/23 07:10 FiO2 Intake & Output 11/06/23 11/07/23 11/07/23 18:59 06:59 18:59 Weight 97 kg 95.5 kg Other: Voiding Method External Catheter External Catheter External Catheter - Labs CBC & Chem 7: 11/06/23 04:25 11/05/23 09:20 Labs: Abnormal Lab Results - Last 24 Hours (Table) 11/06/23 11/06/23 11/06/23 Range/Units 11:38 17:10 21:27 POC Glucose (mg/dL) 313 H 140 H 184 H (70-110) mg/dL 11/07/23 Range/Units 05:47 POC Glucose (mg/dL) 128 H (70-110) mg/dL
[2023-11-07 12:10] LABS: Glucose,Whole Blood 216 mg/dL (70-110)
--- NOTE | 2023-11-07 12:48 | P.PN ---
Subjective patient is seen for follow-up for acute kidney injury and chronic kidney disease. status post IV Lasix yesterday serum creatinine staying at 2.3-2.4 mg/dL. Patient has an external catheter. no new labs available. plans for discharge today with possible hospice care. Objective - Vital Signs Vital signs: Vital Signs Temp 98.3 F 11/07/23 07:10 Pulse 95 11/07/23 07:10 Resp 17 11/07/23 07:10 BP 139/67 11/07/23 07:10 Pulse Ox 99 11/07/23 07:10 FiO2 Intake & Output 11/06/23 11/07/23 11/07/23 18:59 06:59 18:59 Intake Total 100 Output Total 400 Balance -300 Weight 97 kg 95.5 kg Intake: Oral 100 Output: Urine 400 Other: Voiding Method External Catheter External Catheter External Catheter # Bowel Movements 1 - Exam patient is awake, comfortable, no acute distress Examination of the heart S1 and S2 Examination of the lungs bilateral breath sounds are heard Abdomen is soft nontender Examination of lower extremity shows edema 2+ bilaterally LIBRARIAN HELPER exam grossly intact - Labs CBC & Chem 7: 11/06/23 04:25 11/05/23 09:20 Labs: Abnormal Lab Results - Last 24 Hours (Table) 11/06/23 11/06/23 11/07/23 Range/Units 17:10 21:27 05:47 POC Glucose (mg/dL) 140 H 184 H 128 H (70-110) mg/dL 11/07/23 Range/Units 12:08 POC Glucose (mg/dL) 216 H (70-110) mg/dL Assessment and Plan Assessment: 1. Acute kidney injury secondary to ATN secondary to cardiorenal syndrome. Renal function little worse from diuresis and borderline low blood pressure in the setting of use of angiotensin receptor blockers, currently off of Cozaar.. Creatinine 2.4 on 11/05/2023 Nonoliguric. Renal ultrasound from earlier this month showed atrophic kidneys without any hydronephrosis. 2. Acute on chronic diastolic CHF. 3. Volume overload. 4. Anemia of chronic kidney disease. Iron replete. 5. Hypertension with chronic kidney disease. Controlled. 6. Diabetes mellitus. 7. Primary hyperparathyroidism maintained on Sensipar. currently on hold as calcium was 8.5 Plan: continue to hold Sensipar for now can resume home dose off oral diuretics starting on 11/08/2023 overall prognosis is guarded. Agree with discussion of possible hospice care.
[2023-11-08] MEDS ORDERED: FUROSEMIDE 40 MG TAB PO SCH (09:00)
== END 2023-11-07 14:21 | disposition home health service (06) | DRG 291 ==
LOC: EC 13:25 → 4SSUR 17:11
PROVIDERS: ADMIT Internal Medicine Geriatric Medicine; ATTEND Internal Medicine Geriatric Medicine
DX: I13.0 Hypertensive heart and chronic kidney disease with heart failure and stage 1 through stage 4 chronic kidney disease, or unspecified chronic kidney disease (principal); I50.23 Acute on chronic systolic (congestive) heart failure; J96.21 Acute and chronic respiratory failure with hypoxia; N17.0 Acute kidney failure with tubular necrosis; J18.9 Pneumonia, unspecified organism; E87.3 Alkalosis; Q21.12 Patent foramen ovale; J44.0 Chronic obstructive pulmonary disease with (acute) lower respiratory infection; J44.1 Chronic obstructive pulmonary disease with (acute) exacerbation; J98.11 Atelectasis; F03.93 Unspecified dementia, unspecified severity, with mood disturbance; F03.94 Unspecified dementia, unspecified severity, with anxiety; D63.1 Anemia in chronic kidney disease; I42.8 Other cardiomyopathies; I48.0 Paroxysmal atrial fibrillation; E11.22 Type 2 diabetes mellitus with diabetic chronic kidney disease; I77.810 Thoracic aortic ectasia; I34.0 Nonrheumatic mitral (valve) insufficiency; N18.32 Chronic kidney disease, stage 3b; E66.01 Morbid (severe) obesity due to excess calories; Z68.39 Body mass index [BMI] 39.0-39.9, adult; E21.0 Primary hyperparathyroidism; Z66 Do not resuscitate; Z79.4 Long term (current) use of insulin; I25.10 Atherosclerotic heart disease of native coronary artery without angina pectoris; E78.5 Hyperlipidemia, unspecified; J98.6 Disorders of diaphragm; R32 Unspecified urinary incontinence; I83.90 Asymptomatic varicose veins of unspecified lower extremity; K21.9 Gastro-esophageal reflux disease without esophagitis; K58.9 Irritable bowel syndrome, unspecified; M19.90 Unspecified osteoarthritis, unspecified site; I25.2 Old myocardial infarction; Z79.51 Long term (current) use of inhaled steroids; Z79.82 Long term (current) use of aspirin; Z79.899 Other long term (current) drug therapy; Z86.718 Personal history of other venous thrombosis and embolism; Z91.51 Personal history of suicidal behavior; Z86.73 Personal history of transient ischemic attack (TIA), and cerebral infarction without residual deficits; Z86.14 Personal history of Methicillin resistant Staphylococcus aureus infection; Z71.3 Dietary counseling and surveillance; Z82.49 Family history of ischemic heart disease and other diseases of the circulatory system
CPT/HCPCS: 36415; 51702; 71045; 71046; 71250; 80048; 80053; 82728; 83540; 83550; 83605; 83735; 83880; 84484; 85025; 85027; 85379; 85610; 85730; 93005; 93306; 94640; 94760; 96374; 99285